=== PATIENT | male | born 1940 | race Caucasian/White ===

== ENCOUNTER 2019-01-12 11:45 | Outpatient (CLI) | payer BC, OTHER, SELFPAY ==
--- NOTE | 2019-01-12 10:55 | DI.RAD_ITS ---
SYMPTOM/DIAGNOSIS: SOB, UNINTENTIONAL WT LOSS, TOBACCO DEPENDENCY, R06.02, R63.4,F17.201 PA AND LATERAL CHEST: There are no prior comparison exams. The heart size is normal. The lungs show emphysematous changes and areas of scarring. No infiltrate, effusion or gross mass is identified. Hardware is noted in the lower cervical spine. There are no compression fractures. Degenerative changes and scoliosis are seen in the lower thoracic, upper lumbar region. IMPRESSION: Emphysematous and fibrotic changes. If there is concern for a mass, Chest CT should be performed.
== END 2019-01-12 12:05 ==
PROVIDERS: PCP Nurse Practitioner Family; Visit Provider Nurse Practitioner Family
DX: R06.02 Shortness of breath (principal); R63.4 Abnormal weight loss; F17.200 Nicotine dependence, unspecified, uncomplicated; J43.9 Emphysema, unspecified; J84.10 Pulmonary fibrosis, unspecified
CPT/HCPCS: 71046

== ENCOUNTER 2019-01-12 13:50 | Outpatient (REF) | payer BC, OTHER, SELFPAY ==
[2019-01-12 18:43] LABS: HCT 40.1 % (40.0-50.0); HGB 13.5 g/dL (13.5-17.5); Mean Corp. HGB Concentration 33.7 g/dL (32.0-36.0); Mean Corpuscular Hemoglobin 33.5 pg (27.0-33.0); Mean Corpuscular Volume 99.5 fL (80-95); Mean Platelet Volume 10.7 fL (8.0-11.0); Platelet Count 274 x1000/uL (130-400); RBC 4.03 m/cumm (4.50-6.00); RBC Distribution Width 13.1 % (11.8-14.1); White Blood Cell Count 4.31 k/cumm (4.4-10.8)
[2019-01-12 19:25] LABS: ALT 21 U/L (12-78); AST 20 U/L (15-37); Albumin 3.2 g/dL (3.4-5.0); Alkaline Phosphatase 77 U/L (46-116); Anion Gap 9.4 mmol/L (3-11); BUN 16 mg/dL (7-18); Bilirubin, Total 0.3 mg/dL (0.2-1.0); CO2 28.6 mmol/L (21.0-32.0); CREATININE 0.93 mg/dL (0.70-1.30); Calcium 10.1 mg/dL (8.5-10.1); Chloride 100 mmol/L (98-107); Glucose 95 mg/dL (70-100); Sodium 138 mmol/L (136-145); TSH (W/Ref FT4) 1.03 uIU/mL (0.358-3.74); Total Protein 7.1 g/dL (6.4-8.2)
== END 2019-01-12 14:10 ==
LOC: NCHCN 13:50
PROVIDERS: PCP Nurse Practitioner Family; Visit Provider Nurse Practitioner Family
DX: I10 Essential (primary) hypertension (principal); R06.02 Shortness of breath; R63.4 Abnormal weight loss
CPT/HCPCS: 80053; 85027; 84443

== ENCOUNTER 2020-01-04 11:17 | Outpatient (REF) | payer SELFPAY ==
[2020-01-04 16:11] LABS: Anion Gap 8.6 mmol/L (3-11); BUN 18 mg/dL (7-18); CO2 30.4 mmol/L (21.0-32.0); Calcium 9.6 mg/dL (8.5-10.1); Chloride 100 mmol/L (98-107); Glucose 88 mg/dL (74-106); Potassium 3.8 mmol/L (3.5-5.1); Sodium 139 mmol/L (136-145)
[2020-01-04 18:22] LABS: HCT 40.6 % (40.0-50.0); Mean Corp. HGB Concentration 34.5 g/dL (32.0-36.0); Mean Corpuscular Hemoglobin 34.5 pg (27.0-33.0); Mean Platelet Volume 10.9 fL (8.0-11.0); Platelet Count 262 x1000/uL (130-400); RBC 4.06 m/cumm (4.50-6.00); White Blood Cell Count 5.99 k/cumm (4.4-10.8)
== END 2020-01-04 11:37 ==
LOC: NCHCN 11:17
PROVIDERS: PCP Nurse Practitioner Family; Visit Provider Nurse Practitioner Family
DX: I10 Essential (primary) hypertension (principal); R63.4 Abnormal weight loss
CPT/HCPCS: 80048; 85027

== ENCOUNTER 2020-06-27 09:53 | Outpatient (CLI) | payer MEDICARE, SELFPAY ==
--- NOTE | 2020-06-27 13:41 | DI.RAD_ITS ---
EXAM: XR LUMBAR SPINE COMPLETE CLINICAL HISTORY: LOWER BACK PAIN, M54.5 TECHNIQUE: COMPARISON: No exams were available for comparison FINDINGS: Six views were obtained. There is moderate biconvex thoracolumbar scoliosis. There is lumbar frantz ctomy. There is marked loss of height of the intervertebral disc spaces throughout the lumbar region . There are prominent hypertrophic endplate and facet changes. There is no evidence of acute fractu re or dislocation. IMPRESSION: Severe DJD and scoliosis, no evidence of acute process. RADIATION DOSE DELIVERED: Total DLP
== END 2020-06-27 10:13 ==
PROVIDERS: PCP Nurse Practitioner Family; Visit Provider Physician Assistant
DX: M47.816 Spondylosis without myelopathy or radiculopathy, lumbar region (principal); M41.9 Scoliosis, unspecified
CPT/HCPCS: 72110

== ENCOUNTER 2020-08-15 09:54 | Outpatient (CLI) | payer OTHER, SELFPAY ==
--- NOTE | 2020-08-15 09:28 | DI.RAD_ITS ---
EXAM: XR KNEE LT 3V AP,LAT,STEFANIA CLINICAL HISTORY: knee pain. TECHNIQUE: 2D digital imaging was performed. COMPARISON: CR XR KNEE RT 3V AP,LAT,STEFANIA from 08/15/2020 FINDINGS: There are moderate degenerative changes of the left knee. This is characterized by joint space narro wing and periarticular spurring particularly in the femoral tibial joints. There is chondrocalcinosi s present. No acute fracture or dislocation. The bones are normally mineralized. There is atherosc lerosis. IMPRESSION: Moderate degenerative changes of the left knee. DATA REPOSITORY: RADIATION DOSE DELIVERED:
--- NOTE | 2020-08-15 09:30 | DI.RAD_ITS ---
EXAM: XR KNEE RT 3V AP,LAT,STEFANIA CLINICAL HISTORY: knee pain. TECHNIQUE: 2D digital imaging was performed. COMPARISON: No exams were available for comparison FINDINGS: There are moderate degenerative changes of the right knee characterized by joint space narrowing and periarticular spurring. The findings are most marked in the medial femoral tibial joint space. Ther e is chondrocalcinosis present. The bones are intact and normally mineralized. Atherosclerosis is p resent. IMPRESSION: Moderate degenerative changes of the right knee. DATA REPOSITORY: RADIATION DOSE DELIVERED:
== END 2020-08-15 10:14 ==
PROVIDERS: PCP Nurse Practitioner Family; Referring Provider Nurse Practitioner Family; Visit Provider Student in an Organized Health Care Education/Training Program
DX: M17.0 Bilateral primary osteoarthritis of knee (principal); M17.12 Unilateral primary osteoarthritis, left knee; M17.11 Unilateral primary osteoarthritis, right knee
CPT/HCPCS: 20610; 73562; 99203; J1040

== ENCOUNTER → 2020-11-24 10:25 | Outpatient (BNVA) | payer OTHER, SELFPAY | PROVIDERS: PCP Nurse Practitioner Family; Referring Provider Nurse Practitioner Family; Visit Provider Physician Assistant Surgical | DX: M17.12 Unilateral primary osteoarthritis, left knee (principal); Z98.890 Other specified postprocedural states | CPT/HCPCS: 20610; J1040 ==

== ENCOUNTER 2021-02-19 12:46 | Inpatient (IN) | payer OTHER, SELFPAY ==
[2021-02-19] VITALS (75 sets, daily range): BP systolic 94–127; BP diastolic 49–94; PULSE 79–128; RESP 13–32; TEMP 36.4–37.1; O2SAT 81–100
--- NOTE | 2021-02-19 | DI.RAD_ITS ---
Exam(s) XR PORTABLE CHEST AP EXAM: XR PORTABLE CHEST AP CLINICAL HISTORY: COPD, shortness of breath. TECHNIQUE: 2D digital imaging was performed. COMPARISON: CR XR CHEST 2V PA LATERAL from 01/12/2019 FINDINGS: Heart size is normal. The mediastinum is not widened. Lungs are clear. No infiltrates nor obvious pleural effusions. Patient is slightly rotated towards the left. Cardiac leads in place. Fusion plate in the lower cer vical spine again noted. IMPRESSION: No new significant pulmonary findings on this portable AP view. DATA REPOSITORY: RADIATION DOSE DELIVERED: All CT scans at this facility use at least one of these dose optimization techniques: automated exposure control; mA and/or kV adjustment per patient size (includes targeted e xams where dose is matched to clinical indication); or iterative reconstruction.
--- NOTE | 2021-02-19 12:30 | RT.EKG_ITS ---
APPROVED REPORT Exam: Resting ECG Reason for Exam: tachycardia, GI bleed Patient Location: E HR:125 bpm ECG Measurements Heart Rate 125 AXIS [place] 160 P 88 QRSd 95 QRS 79 QT 306 T 60 QTc [address] depr anterolateral leads, may be rate related
--- NOTE | 2021-02-19 12:38 | ED.GENADUL_ITS ---
Discharge Plan Discharge Details Chief Complaint: GI Bleed Primary Care Provider: Yeni Williamson ED Provider: Viktor Pearson Home Meds and New Rx's Prescriptions: No Action eszopiclone [Lunesta] 1 mg tablet 1 mg PO QHS PRNRF: 0 cholecalciferol (vitamin D3) [Vitamin D3] 125 mcg (5,000 unit) Tablet 125 mcg PO DAILY RF: 0 vitamin B complex [B Complex-Vitamin B12] Tablet 1 tab PO DAILY RF: 0 albuterol sulfate [ProAir HFA] 90 mcg/actuation HFA aerosol inhaler 2 puff inhalation Q6H PRNRF: 0 meloxicam 15 mg tablet 15 mg PO DAILY RF: 0 cyclobenzaprine 10 mg tablet 10 mg PO TID RF: 0 potassium chloride 10 mEq capsule, extended release 10 meq PO DAILY RF: 0 amlodipine 5 mg tablet 5 mg PO DAILY RF: 0 hydrochlorothiazide 25 mg tablet 25 mg PO DAILY RF: 0 acetaminophen 500 mg capsule 1,000 mg PO DAILY AM PRNRF: 0 aspirin [Adult Aspirin Regimen] 81 mg tablet,delayed release (DR/EC) 81 mg PO .COMPLEX RF: 0 Medical Decision Making 81-year-old male reports intermittent episodes of dark tarry stool over weeks, which he attributes to tapering off of gabapentin. There is report of a syncopal event this past Saturday. Today he noted increased weakness, was noted to have syncope while sitting up and EMS reported blood pressure 85/53 while sitting up at home. Patient was brought via EMS. He arrives to ER tachycardic pale in appearance, with dark tarry stool present on exam that is guaiac positive. 2 IVs placed, patient given small fluid bolus awaiting laboratories.. Initial hemoglobin is 6.1. Patient consented for administration of blood products 2 units PRBCs ordered. The remainder of the patient's labs noted a magnesium of 1.4, sodium 133, potassium 3.6, chloride 96, bicarb 22, BUN 34, creatinine 1.1. Normal LFTs. Negative troponin. Given that the differential diagnosis includes colitis, mass, patient was referred for CT imaging. Patients pulse and blood pressure have stablilized. PRBC's infusing. CT reveals large amount of retained stool, no evidence of other acute significant findings. Patient wishes to be full code. We will proceed with admission for further evaluation and management. Case discussed with Dr. Solorio. HPI General Mode of arrival: EMS . Date/Time Provider Initiated Documentation: 02/19/21 12:50 . Limitations to Documentation: no limitations . Information obtained by: patient and EMS . History of Present Illness 81 year old M presents to the emergency department with the chief complaint of Dark tarry stools for 3weeks, syncope on Saturday/today, described as moderate, and is localized to the abdomen. Patient reports no radiation. Patient started experiencing this day(s) and it has been intermittent. No relieving factors improve symptom(s), No exacerbating factors reported . Patient notes syncope and weakness. Patient did receive the following treatments prior to arrival, none Related Data Home Medications Medication Instructions Recorded Confirmed albuterol sulfate 90 mcg/actuation 2 puff INHALATION Q6H PRN 08/16/20 02/19/21 aerosol inhaler amlodipine 5 mg tablet 5 mg PO DAILY 08/16/20 02/19/21 cyclobenzaprine 10 mg tablet 10 mg PO TID 08/16/20 02/19/21 hydrochlorothiazide 25 mg tablet 25 mg PO DAILY 08/16/20 02/19/21 meloxicam 15 mg tablet 15 mg PO DAILY 08/16/20 02/19/21 potassium chloride 10 mEq 10 meq PO DAILY 08/16/20 02/19/21 capsule,extended release cholecalciferol (vitamin D3) 125 mcg PO DAILY 08/18/20 02/19/21 [Vitamin D3] vitamin B complex 1 tab PO DAILY 08/30/20 02/19/21 acetaminophen 500 mg capsule 1,000 mg PO DAILY AM PRN cap 10/17/20 02/19/21 aspirin 81 mg tablet,delayed 81 mg PO .COMPLEX 10/17/20 02/19/21 release eszopiclone 1 mg tablet 1 mg PO QHS PRN 10/17/20 02/19/21 Allergies Allergy/AdvReac Type Severity Reaction Status Date / Time shellfish derived Allergy vomiting Verified 02/19/21 13:05 COUNTS INCLUDE 234 BEDS AT THE [facility] Medical History Anosmia Balance problem Chronic back pain Diarrhea Exertional dyspnea Herniated lumbar intervertebral disc Hip pain, left History of traumatic fracture of vertebra HTN (hypertension) Hx of squamous cell carcinoma Knee pain, bilateral Lower back pain Osteoarthritis of left knee Steroid injection: 08/15/2020 Osteoarthritis of lumbar spine Osteoarthritis of right knee Steroid injection: 08/15/2020 Spondylosis of lumbar spine Spondylosis, cervical Tobacco dependence in remission Unintentional weight loss Vitamin D deficiency Surgical History S/P cervical spinal fusion S/P laminectomy Social History Smoking/Tobacco Use Status: Former Tobacco Use Smoking risk assessment performed?: Yes Alcohol Intake: current Alcohol Intake frequency: 3 or more drinks per day Alcohol type: beer and hard liquor Drug use: Never Substance use type: does not use Household members: spouse Housing: house Number of Children: 1 current occupation: Retired Exam Narrative Exam Narrative: GEN: Pale in appearance, awake, alert, oriented 3. Pleasant, well groomed, interactive. HEAD: Normocephalic, atraumatic ENT: Mucous membranes moist, oropharynx unremarkable, External ear exam unremarkable EYES: PERRL, EOMI NECK: Full ROM, no JESSE, no menigismus CHEST/RESP: Nontender, clear to auscultation bilateral, no wheeze/rhonchi/rales CARDIOVASCULAR: Distant, regular and tachycardic, no murmur, rub fatou. 1+ Rad pulse bilateral ABDOMEN: Soft, nontender, no mass. +Bowel sounds that are increased, normal rectal tone, there is soft stool ball present with additional dark stool that is guaiac positive EXT: Full ROM, no edema, no rash Neuro: Grossly normal neurologic exam, conversant, interactive. Psych: Speech fluent, thoughts congruent, affect normal
[2021-02-19] MEDS: Normal Saline 1,000 ML 125 ML IV ×2 (12:55→18:43)
[2021-02-19 13:02] LABS: Absolute Basophil Count 0.04 10^3/uL (0.0-0.2); Absolute Lymphocyte Count 1.72 10^3/uL (1.2-3.4); Absolute Monocyte Count 0.99 10^3/uL (0.1-0.8); Basophils % 0.3; Eosinophils % 0.1; Immature Grans % 1.4; Lymphocytes % 11.7; MCH 33.5 pg (27.0-33.0); MCHC 32.1 % (32.0-36.0); MCV 104.4 fL (80-95); MPV 10.3 fL (8.0-11.0); Monocytes % 6.7; Neutrophils % 79.8; Nucleated RBC 0 %; Platelet Count 495 10^3/uL (130-400); RBC 1.82 10^6/uL (4.36-5.78); RDW 13.8 % (11.8-14.1); RDW-SD 50.2 fL; WBC 14.73 10^3/uL (4.4-10.8)
[2021-02-19 13:10] LABS: Absolute Eosinophil Count 0.01 10^3/uL (0.0-0.7); Absolute Neutrophil Count 11.75 10^3/uL (1.2-6.7)
[2021-02-19 13:11] LABS: HGB 6.1 g/dL (13.5-17.5)
[2021-02-19 13:14] LABS: Prothrombin Time 9.8 sec (9.3-11.0)
[2021-02-19 13:17] LABS: ALT 17 U/L (16-63); AST 16 U/L (15-37); Albumin 2.9 g/dL (3.4-5.0); Alkaline Phosphatase 88 U/L (46-116); BUN 34 mg/dL (7-18); Bilirubin, Total 0.3 mg/dL (0.2-1.0); CREATININE 1.1 mg/dL (0.70-1.30); Calcium 9.1 mg/dL (8.5-10.1); Chloride 96 mmol/L (98-107); Glucose 160 mg/dL (74-106); Magnesium 1.4 mg/dL (1.8-2.4); Potassium 3.7 mmol/L (3.5-5.1); Sodium 133 mmol/L (136-145); Total Protein 6.9 g/dL (6.4-8.2); Troponin I < 0.05 ng/mL (<0.06)
[2021-02-19 13:19] LABS: Diff Comment RBC Morph Reviewed; Macrocytosis 1+
[2021-02-19 13:20] LABS: Poikilocytes 1+; Polychromasia Present
[2021-02-19] MEDS: MAGNESIUM SULFATE 2 GM/50 ML BAG IVPB (13:25)
[2021-02-19] MEDS: Omnipaque 350 MG/ML 100 ML BTL IJ (14:35)
[2021-02-19] MEDS: Normal Saline - Diluent 50 ML VIAL IV (14:35)
--- NOTE | 2021-02-19 14:39 | DI.CT_ITS ---
Exam(s) CT ABDOMEN PELVIS W EXAM: CT ABDOMEN PELVIS W CLINICAL HISTORY: GIB, lower abdomen cramps, wait for CR. TECHNIQUE: Imaging Protocol: Axial computed tomography images with coronal and sagittal reformatted images were created and reviewed CONTRAST MATERIAL: Intravenous: Omnipaque 100cc Oral: None COMPARISON: No exams were available for comparison FINDINGS: VISUALIZED LUNG BASES: No nodules nor pleural effusions evident. Coronary artery calcification incid entally noted. ABDOMEN: There is no ascites. LIVER: There are no focal hepatic lesions evident . GALLBLADDER/BILIARY: Gallstones are noted. Also some hyperdense bile. No obvious gallbladder wall e ernestine nor pericholecystic fluid. CBD is not dilated. PANCREAS: No evidence of pancreatic mass nor dilatation of the pancreatic duct. SPLEEN: Spleen is not enlarged. No obvious intrasplenic lesions. Splenic and portal veins are paten t. ADRENALS: Right adrenal gland unremarkable. There is some thickening of the left adrenal gland havin g peer insert hyperplasia. KIDNEYS:No cysts evident. No solid renal masses. No calculi nor hydronephrosis.. ABDOMINAL AORTA: The abdominal aorta is calcified-atherosclerotic. There is a mild fusiform infraren al abdominal aortic aneurysm which exhibits maximum diameter of 2.4 cm. No significant arterial magali ly in the iliac arteries. 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 Celiac patent. Inferior mesenteric artery is patent. There is no evidence of embolus more seen more distally in the SMA. LYMPH NODES:There is no retroperitineal nor paraaortic adenopathy. ABDOMINAL WALL: Bilateral inguinal hernias which contain bowel loops. These do not appear edematous. GI: There is no evidence of bowel obstruction, free air, nor abscess. There are no obvious acutely ischemic appearing bowel loops. However, there is abundant fecal materi al in the colon and the rectum is distended was fecal material measuring 9 cm AP x 7.5 cm wide. Prob ably impaction. PELVIS: GI: No evidence of appendicitis.No evidence of sigmoid diverticulitis. LYMPH NODES: There is no intrapelvic nor inguinal adenopathy. REPRODUCTIVE: Prostate not enlarged. URINARY BLADDER: Diffuse thickening of the urinary bladder wall is noted (10 millimeters). Probably related to chronic cystitis. No calculi seen within the urinary bladder lumen. OSSEOUS: Multilevel lumbar laminectomies. IMPRESSION: 1. Cholelithiasis. No obvious acute cholecystitis nor dilatation of the biliary tree, both intra and extrahepatic. 2. Atherosclerotic abdominal aorta as scribe above. 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 Celiac artery is pat ent as is the inferior mesenteric artery. There are no obvious acutely ischemic appearing bowel loop s. 3. Bilateral inguinal hernias which contain non dilated and non edematous loops of small bowel. 4. Large amount of retained fecal material in the colon and rectum with grossly distended rectum with measurement 9 x 7.5 cm. Diffuse thickening of the urinary bladder wall, probably related to cystitis but cannot exclude neopl asm. RADIATION DOSE DELIVERED: 719.84mGy.cm Total DLP DATA REPOSITORY: All CT scans at this facility are submitted to the National Radiology Data Registry (NRDR) Dose Index Registry (DIR) with the [employer] (A[employer]). RADIATION OPTIMIZATION: All CT scans at this facility use at least one of these dose optimization te chniques: automated exposure control; mA and/or kV adjustment per patient size (includes targeted exa ms where dose is matched to clinical indication); or iterative reconstruction.
--- NOTE | 2021-02-19 15:36 | DI.VRAD_ITS ---
PROCEDURE INFORMATION: Exam: CT Abdomen And Pelvis With Contrast Exam date and time: 02/19/2021 1:03 PM Age: 81 years old Clinical indication: Abdominal pain; Localized; Patient HX: Lower abd cramps. Gib; Additional info: Rectal bleeding TECHNIQUE: Imaging protocol: Computed tomography of the abdomen and pelvis with contrast. Radiation optimization: All CT scans at this facility use at least one of these dose optimization techniques: automated exposure control; mA and/or kV adjustment per patient size (includes targeted exams where dose is matched to clinical indication); or iterative reconstruction. Contrast material: OMNI 350; Contrast volume: 100 ml; Contrast route: INTRAVENOUS (IV); COMPARISON: CR XR LUMBAR SPINE COMPLETE 06/27/2020 1:31 PM FINDINGS: Lungs: Emphysematous changes of the lungs are present. Liver: Normal. No mass. Gallbladder and bile ducts: Gallstones are present. There is no gallbladder wall thickening or pericholecystic fluid. No bile duct dilatation is seen. Pancreas: Normal. No ductal dilation. Spleen: Normal. No splenomegaly. Adrenal glands: Normal. No mass. Kidneys and ureters: Normal. No hydronephrosis. Stomach and bowel: There is a large amount of retained stool retained within the colon and rectum. The rectum is dilated measuring up to 9 cm in diameter. Appendix: No evidence of appendicitis. Intraperitoneal space: Unremarkable. No free air. No significant fluid collection. Vasculature: The aorta demonstrates moderate atherosclerotic calcification. Lymph nodes: Unremarkable. No enlarged lymph nodes. Urinary bladder: Thickened wall of the urinary bladder. Reproductive: Unremarkable as visualized. Bones/joints: Chronic degenerative changes of the spine are present. Soft tissues: Bilateral inguinal hernia is present containing nondilated loops of small bowel. IMPRESSION: 1. Emphysematous changes of the lungs. 2. Cholelithiasis. 3. Large amount of retained stool in the colon and rectum. Fecal impaction is present. Advanced chronic degenerative changes spine. 4. Bilateral inguinal hernias containing nondilated loops of small bowel. 5. Urinary bladder wall thickening. This may be artifact due to lack of distention. However, cystitis or neoplasm cannot be excluded. Dictated and Authenticated by: Onesimo Akers MD. Ordering:MIRIAM Hoang MD
[2021-02-19 15:52] LABS: Source Nasal/Nares
--- NOTE | 2021-02-19 16:40 | W.PM.HP.N ---
Date of service: 02/19/21 Time of Service: 16:40 Assessment and Plan Assessment and plan (1) Upper GI bleeding: Status: Acute Assessment and plan: suspect due to NSAID use. Admit to ICU with Q6H H/H, protonix gtt, carafate. Transfusing 2 units pRBCs today. May require more. Hold NSAIDS. No chemical DVT ppx. C/s general surgery. (2) Symptomatic anemia: Status: Acute Assessment and plan: Due to above. As above Monitor orthostatics. (3) Syncope: Status: Acute Assessment and plan: Likely due to acute symptomatic anemia of GI bleeding. VS improved since initiation of blood transfusion. Monitor in the ICU. Monitor orthostatic Vitals. (4) Fecal impaction: Status: Acute Assessment and plan: Will need a bowel regimen. Order fleet enema. May benefit from a colonoscopy on this admission. Per my conversation with Dr Mays, the patient had a somewhat weakened rectal tone. Given his h/o lower back surgery and appearance of a thickened bladder, it is possible he has a neurogenic bowel. None of this appears acute or new. Consider MRI. (5) Leg swelling: Status: Resolved Assessment and plan: No edema on today's exam. ?CHF. Check echo. (6) Chest discomfort: Status: Resolved Assessment and plan: Symptomatic anemia vs esophagitis vs underlying coronary disease. Treat anemia and esophagitis as above. Obtain echo. May require MPI. (7) COPD (chronic obstructive pulmonary disease): Status: Chronic Assessment and plan: Not in acute exacebation. Continue home inhalers. (8) Alcohol abuse: Status: Chronic Assessment and plan: Start CIWA/prn ativan/banana bag. (9) Chronic pain: Status: Chronic Assessment and plan: Hold NSAIDS. Offer tylenol and prn morphine. On d/c, consider ultram. 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 Asymptomatic. Will need vascular follow up - referral sent. (11) DVT prophylaxis: Status: Acute Assessment and plan: TEDS/SCDs. Chemical DVT ppx is contraindicated in setting of acute GI bleeding. (12) Discharge planning issues: Status: Acute Assessment and plan: Full code Admit to ICU. Total Critical Care Time 60 minutes. History of Present Illness History of Present Illness Chief Complaint: Tarry stools, three syncopal episodes Narrative: Mr Jorgensen is an 81 year old male with PMHx of ostoarthritis, on mobic, as well as h/o HTN, non-oxygen dependent COPD, and chronic pain, who presented to [facility] ED today c/o black tarry stools and several syncopal episodes. He reports black stools for about 2 weeks. Additionally, there was an episode of scant hematemesis 3 days ago. The patient endorses poor appetite, poor PO intake, nausea and dry heaving. There has not been any diarrhea but he does report constipation last week. He has felt weaker over the last 3 days. He denies abdominal pain, chest pain, but endorses a chest heaviness which has been going off for 3-4 weeks and ankle and foot swelling which happened 2-3 weeks ago and has since resolved. The chest heaviness was continuous. It has resolved now. Denies orthopnea/PND. He is only able to walk a few feet before feeling short of breath. Describes an episode of LOC after getting up from the toilet having unsuccessfully strained to have a bowel movement last week. He describes another episode of LOC 3 days ago while sitting in a recliner. Finally, there was an episode of syncope today when the patient tried to transfer himself from a wheel chair (felt weak and requested his use this to get him out of the bathroom) into a rocking chair. He was orthostatic and found to be hypotensive while sitting up by EMS. He was tachycardic, orthostatic, and pale in the ED. His HR was 125. His hemoglobin was 6.1. HR is better after receiving 1 unit of pRBCs. He was initiated on IV protonix. Hospitalist admission was requested. He is getting admitted to the ICU. Of note, the patient has not had prior EGD or colonoscopy. He is open to having both procedures. He drinks an equivalent of 3-4 drinks a day (scotch) that he states helps him fall asleep. Review of Systems All systems reviewed & are unremarkable except as noted in HPI and below [facility] Medical History (Updated 02/19/21 @ 19:14 by Wanda Solorio MD) Alcohol abuse Anosmia Balance problem Chronic back pain COPD (chronic obstructive pulmonary disease) Diarrhea Exertional dyspnea Herniated lumbar intervertebral disc Hip pain, left History of traumatic fracture of vertebra HTN (hypertension) Hx of squamous cell carcinoma Knee pain, bilateral Lower back pain Osteoarthritis of left knee Steroid injection: 08/15/2020 Osteoarthritis of lumbar spine Osteoarthritis of right knee Steroid injection: 08/15/2020 Spondylosis of lumbar spine Spondylosis, cervical Tobacco dependence in remission Unintentional weight loss Vitamin D deficiency Surgical History S/P cervical spinal fusion S/P laminectomy Social History Smoking/Tobacco Use Status: Former Tobacco Use Smoking risk assessment performed?: Yes Alcohol Intake: current Alcohol Intake frequency: 3 or more drinks per day Alcohol type: beer and hard liquor Drug use: Never Substance use type: does not use Household members: spouse Housing: house Number of Children: 1 current occupation: Retired [employer] Allergies and Home Medications Allergies Allergy/AdvReac Type Severity Reaction Status Date / Time No Known Allergies Allergy Verified 02/19/21 18:51 Home Medications Medication Instructions Recorded Confirmed Type albuterol sulfate 90 mcg/actuation 2 puff INHALATION Q6H PRN 08/16/20 02/19/21 History aerosol inhaler amlodipine 5 mg tablet 5 mg PO DAILY 08/16/20 02/19/21 History cyclobenzaprine 10 mg tablet 10 mg PO TID 08/16/20 02/19/21 History hydrochlorothiazide 25 mg tablet 25 mg PO DAILY 08/16/20 02/19/21 History meloxicam 15 mg tablet 15 mg PO DAILY 08/16/20 02/19/21 History potassium chloride 10 mEq 10 meq PO DAILY 08/16/20 02/19/21 History capsule,extended release cholecalciferol (vitamin D3) 125 mcg PO DAILY 08/18/20 02/19/21 History [Vitamin D3] vitamin B complex 1 tab PO DAILY 08/30/20 02/19/21 History acetaminophen 500 mg capsule 1,000 mg PO DAILY AM PRN cap 10/17/20 02/19/21 History aspirin 81 mg tablet,delayed 81 mg PO .COMPLEX 10/17/20 02/19/21 History release eszopiclone 1 mg tablet 1 mg PO QHS PRN 10/17/20 02/19/21 History Exam Narrative Exam Narrative: General: Pleasant elderly male who is pale and does not look like he is feeling well, A&Ox3, pursed lip breathing Neurological: A&Ox3, no obvious focal deficits Psychiatric: mildly anxious, appropriate speech pattern/content Skin: Visible skin intact HEENT: Atraumatic, normocephalic, EOMI, Dry MM, clear oropharynx, no submandibular or cervical lymphadenopathy, no goiter or JVD Cardiovascular: RRR, mildly tachycardic (low 110s), no m/r/g Lungs: CTAB Gastrointestinal: soft, nontender, nondistended, + BS Genitourinary: dark but not tarry stool by rectum; observed rectal exam performed by Dr Mays. No blood. Extremities: No edema, clubbing, or cyanosis of BLE's, 1+ pedal pulse RLE, trace pedal pulse LLE Results Imaging Additional studies: EKG: ST, HR 125, nonspecific ST-T changes. CT abdomen/pelvis w/ contrast: 1. Cholelithiasis. No obvious acute cholecystitis nor dilatation of the biliary tree, both intra and extrahepatic. 2. Atherosclerotic abdominal aorta as scribe above. 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 Celiac artery is patent as is the inferior mesenteric artery. There are no obvious acutely ischemic appearing bowel loops. 3. Bilateral inguinal hernias which contain non dilated and non edematous loops of small bowel. 4. Large amount of retained fecal material in the colon and rectum with grossly distended rectum with measurement 9 x 7.5 cm. Diffuse thickening of the urinary bladder wall, probably related to cystitis but cannot exclude neoplasm. Labs Result diagrams: 02/19/21 12:45 02/19/21 12:45 Labs: Laboratory Results - last 24 hr 02/19/21 02/19/21 02/19/21 12:45 12:45 12:45 WBC 14.73 H RBC 1.82 L Hgb 6.1 L* Hct 19.0 L* MCV 104.4 H MCH 33.5 H MCHC 32.1 RDW 13.8 Plt Count 495 H MPV 10.3 Immature Gran % 1.4 Neutrophils % 79.8 Lymphocytes % 11.7 Monocytes % 6.7 Eosinophils % 0.1 Basophils % 0.3 Nucleated RBC % 0 Absolute Neutrophils 11.75 H Absolute Lymphocytes 1.72 Absolute Monocytes 0.99 H Absolute Eosinophils 0.01 Absolute Basophils 0.04 RBC Morphology See below Polychromasia Present Poikilocytosis 1+ Macrocytosis 1+ PT INR Sodium 133 L Potassium 3.7 Chloride 96 L Carbon Dioxide 22.0 Anion Gap 15.0 H BUN 34 H Creatinine 1.1 Estimated GFR/1.73 m2 >= 60.00 Glucose 160 H Calcium 9.1 Magnesium 1.4 L Total Bilirubin 0.3 AST 16 ALT 17 Alkaline Phosphatase 88 Troponin I < 0.05 Total Protein 6.9 Albumin 2.9 L COVID-19 Source Patient ABO/Rh A Positive Antibody Screen Negative Crossmatch See Detail 02/19/21 02/19/21 12:55 15:45 WBC RBC Hgb Hct MCV MCH MCHC RDW Plt Count MPV Immature Gran % Neutrophils % Lymphocytes % Monocytes % Eosinophils % Basophils % Nucleated RBC % Absolute Neutrophils Absolute Lymphocytes Absolute Monocytes Absolute Eosinophils Absolute Basophils RBC Morphology Polychromasia Poikilocytosis Macrocytosis PT 9.8 INR 1.0 Sodium Potassium Chloride Carbon Dioxide Anion Gap BUN Creatinine Estimated GFR/1.73 m2 Glucose Calcium Magnesium Total Bilirubin AST ALT Alkaline Phosphatase Troponin I Total Protein Albumin COVID-19 Source Nasal/nares Patient ABO/Rh Antibody Screen Crossmatch Last Vital Signs Temp 37 C 02/19/21 16:01 Pulse 79 02/19/21 16:01 Resp 16 02/19/21 16:01 BP 114/54 L 02/19/21 16:01 Pulse Ox 100 02/19/21 16:01
[2021-02-19] MEDS: Pantoprazole 40 MG VIAL IVP ×2 (16:50→17:46)
--- NOTE | 2021-02-19 19:00 | W.SURGCON ---
Date of service: 02/19/21 Time of Service: 19:00 Assessment and Plan Assessment and plan (1) Upper GI bleeding: Status: Acute Assessment and plan: 81yo male who presents with profound anemia likely due to a slow, progressive upper GI source. His chronic NSAID use, and daily alcohol use, likely contributing. At the time of my evaluation, he is tachycardic, but otherwise hypotension has resolved. --serial H/H --protonix gtt --carafate --transfuse prn --SCDs for DVT prophylaxis. (2) Fecal impaction: Status: Acute Assessment and plan: Recommend bowel regimen from above and below --enemas --suppositories --digital rectal stimulation --digital disimpaction --Miralax --colace/senna (3) COPD (chronic obstructive pulmonary disease): Status: Chronic Assessment and plan: Treatment per primary service (4) Alcohol abuse: Status: Chronic Assessment and plan: pt counseled to decrease alcohol intake CIWA protocol per Hospitalist service (5) Chronic pain: Status: Chronic Assessment and plan: avoid NSAIDs History of Present Illness History of Present Illness Chief Complaint: weakness/syncope Narrative: Note: Pt was seen and examined with Dr. Solorio The patient is an 81 year old male with PMHx of ostoarthritis, on meloxicam, as well as h/o HTN, non-oxygen dependent COPD, and chronic pain, who presented to [facility] ED today c/o black tarry stools and several syncopal episodes. He reports black stools for about 2 weeks. Additionally, there was an episode of scant hematemesis with retching 3 days ago. The patient endorses poor appetite, poor PO intake, nausea and dry heaving. There has not been any diarrhea but he does report constipation last week.Describes an episode of LOC after getting up from the toilet having unsuccessfully strained to have a bowel movement last week. He has felt weaker over the last 3 days. He denies abdominal pain, chest pain, but endorses a chest heaviness which has been going off for 3-4 weeks and ankle and foot swelling which happened 2-3 weeks ago and has since resolved. The chest heaviness was continuous. It has resolved now. Denies orthopnea/PND. He is only able to walk a few yards before feeling short of breath. He describes another episode of LOC 3 days ago while sitting in a recliner. Finally, there was an episode of syncope today when the patient tried to transfer himself from a wheel chair (felt weak and requested his use this to get him out of the bathroom) into a rocking chair. He drinks an equivalent of 3-4 drinks a day (scotch) that he states helps him fall asleep. He denies heartburn/GERD symptoms. The patient has not had prior EGD or colonoscopy. Consults Consult date: 02/19/21 Requesting physician: Wanda Solorio Review of Systems Constitutional Constitutional: Reports difficulty sleeping, Reports fatigue, Reports lethargy, Reports poor appetite and Reports weakness ENT Ears, Nose, Mouth, and Throat: Denies odynophagia and Reports disequilibrium Cardiovascular Cardiovascular: Reports pedal edema, Reports leg edema and Reports dyspnea on exertion Comments: chest pressure Respiratory Respiratory: Reports dyspnea on exertion Gastrointestinal Gastrointestinal: Reports melena, Reports constipation, Reports nausea and Denies odynophagia Comments: small amount of blood with dry heaving once last week Musculoskeletal Musculoskeletal: Reports back pain Comments: leg weakness that he attributes to laminectomy 25 years ago Neurologic Neurologic: Denies confusion, Reports disequilibrium and Reports weakness Psychiatric Psychiatric: Reports change in appetite and Denies confusion Endocrine Endocrine: Reports cold intolerance and Reports fatigue [facility] Medical History (Updated 02/19/21 @ 19:14 by Wanda Solorio MD) Alcohol abuse Anosmia Balance problem Chronic back pain COPD (chronic obstructive pulmonary disease) Diarrhea Exertional dyspnea Herniated lumbar intervertebral disc Hip pain, left History of traumatic fracture of vertebra HTN (hypertension) Hx of squamous cell carcinoma Knee pain, bilateral Lower back pain Osteoarthritis of left knee Steroid injection: 08/15/2020 Osteoarthritis of lumbar spine Osteoarthritis of right knee Steroid injection: 08/15/2020 Spondylosis of lumbar spine Spondylosis, cervical Tobacco dependence in remission Unintentional weight loss Vitamin D deficiency Surgical History S/P cervical spinal fusion S/P laminectomy Social History Smoking/Tobacco Use Status: Former Tobacco Use Smoking risk assessment performed?: Yes Alcohol Intake: current Alcohol Intake frequency: 3 or more drinks per day Alcohol type: beer and hard liquor Drug use: Never Substance use type: does not use Household members: spouse Housing: house Number of Children: 1 current occupation: Retired Exam Const General: cooperative, comfortable and no acute distress Nutritional Appearance: thin Orientation: alert, awake and oriented x3 HENMT Head: normal to inspection Ears: hearing grossly normal bilaterally Mouth: mucous membranes dry Eyes Other: no scleral icterus Neck Neck: supple and no tracheal deviation Chest Chest: No rash Resp Effort & Inspection: no grunting, labored (slightly), no nasal flaring and pursed lip breathing Auscultation: clear to auscultation bilaterally Cardio Rate: tachycardic Rhythm: regular rhythm Heart Sounds: S1 normal and S2 normal Bruits: no abdominal aortic bruits GI Palpation: soft, not firm, no guarding, no pulsatile masses, not rigid, nontender and No ascites Auscultation: normal bowel sounds Rectal Exam: abnormal sphincter tone (slightly decreased sphincter tone), fecal impaction and No tenderness Other: soft brown stool without larry blood on ALFRED; Rectum vacuous and stool-filled Neuro General: patient alert, patient awake, patient oriented x3 and moves all extremities Cognition: normal cognition Speech: speech normal Extrem General: clubbing, cyanosis or edema noted and no calf tenderness Psych Appearance: grossly normal Speech and Movement: speech and movement normal Mood: congruent mood Affect: normal affect Attitude: cooperative Thought Process: normal Thought Content: normal Insight: insight good Judgment: judgment good Results Last Vital Signs Temp 98.8 F 02/19/21 18:16 Pulse 103 H 02/19/21 18:16 Resp 16 02/19/21 18:16 BP 127/67 02/19/21 18:16 Pulse Ox 99 02/19/21 18:16 Labs Result diagrams: 02/19/21 18:55 02/19/21 12:45 Labs: Laboratory Results - last 24 hr 02/19/21 02/19/21 02/19/21 12:45 12:45 12:45 WBC 14.73 H RBC 1.82 L Hgb 6.1 L* Hct 19.0 L* MCV 104.4 H MCH 33.5 H MCHC 32.1 RDW 13.8 Plt Count 495 H MPV 10.3 Immature Gran % 1.4 Neutrophils % 79.8 Lymphocytes % 11.7 Monocytes % 6.7 Eosinophils % 0.1 Basophils % 0.3 Nucleated RBC % 0 Absolute Neutrophils 11.75 H Absolute Lymphocytes 1.72 Absolute Monocytes 0.99 H Absolute Eosinophils 0.01 Absolute Basophils 0.04 RBC Morphology See below Polychromasia Present Poikilocytosis 1+ Macrocytosis 1+ PT INR Sodium 133 L Potassium 3.7 Chloride 96 L Carbon Dioxide 22.0 Anion Gap 15.0 H BUN 34 H Creatinine 1.1 Estimated GFR/1.73 m2 >= 60.00 Glucose 160 H Calcium 9.1 Magnesium 1.4 L Total Bilirubin 0.3 AST 16 ALT 17 Alkaline Phosphatase 88 Troponin I < 0.05 Total Protein 6.9 Albumin 2.9 L COVID-19 Source Patient ABO/Rh A Positive Antibody Screen Negative Crossmatch See Detail 02/19/21 02/19/21 12:55 15:45 WBC RBC Hgb Hct MCV MCH MCHC RDW Plt Count MPV Immature Gran % Neutrophils % Lymphocytes % Monocytes % Eosinophils % Basophils % Nucleated RBC % Absolute Neutrophils Absolute Lymphocytes Absolute Monocytes Absolute Eosinophils Absolute Basophils RBC Morphology Polychromasia Poikilocytosis Macrocytosis PT 9.8 INR 1.0 Sodium Potassium Chloride Carbon Dioxide Anion Gap BUN Creatinine Estimated GFR/1.73 m2 Glucose Calcium Magnesium Total Bilirubin AST ALT Alkaline Phosphatase Troponin I Total Protein Albumin COVID-19 Source Nasal/nares Patient ABO/Rh Antibody Screen Crossmatch Imaging Abdomen CT scan report/results: report reviewed and image reviewed CT scan - pelvis: report reviewed and image reviewed Imaging Studies: CT ABD/PEL (02/19/21): IMPRESSION: 1. Cholelithiasis. No obvious acute cholecystitis nor dilatation of the biliary tree, both intra and extrahepatic. 2. Atherosclerotic abdominal aorta as scribe above. 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 Celiac artery is patent as is the inferior mesenteric artery. There are no obvious acutely ischemic appearing bowel loops. 3. Bilateral inguinal hernias which contain non dilated and non edematous loops of small bowel. 4. Large amount of retained fecal material in the colon and rectum with grossly distended rectum with measurement 9 x 7.5 cm. 5. Diffuse thickening of the urinary bladder wall, probably related to cystitis but cannot exclude neoplasm.
--- NOTE | 2021-02-19 19:05 | DI.VRAD_ITS ---
PROCEDURE INFORMATION: Exam: XR Chest Exam date and time: 02/19/2021 6:37 PM Age: 81 years old Clinical indication: Other: Copd shortness of breath; Additional info: Not able to repeat image to remove wires - PT. Needed to lie back down per nurse TECHNIQUE: Imaging protocol: XR of the chest. Views: 1 view. COMPARISON: CR XR CHEST 2V PA LATERAL 01/12/2019 10:56 AM FINDINGS: Tubes, catheters and devices: Lead EKG leads overlie the chest. Lungs: Unremarkable. No consolidation. Pleural spaces: Right lateral pleuroparenchymal scarring is unchanged. No pleural effusion. No pneumothorax. Heart/Mediastinum: Unremarkable. No cardiomegaly. Bones/joints: Postsurgical changes of the cervical spine are present. IMPRESSION: No acute findings. Dictated and Authenticated by: Onesimo Akers MD. Ordering:DEMARCO Muñoz MD
[2021-02-19 19:11] LABS: HCT 22.8 % (40.0-50.0); HGB 7.6 g/dL (13.5-17.5)
[2021-02-19 22:39] LABS: COVID-19 PCR Negative (Negative)
[2021-02-19] MEDS: Sucralfate 1 GM TAB PO (22:44)
[2021-02-19] MEDS: MORPHine 2 MG/ML SYR IVP (22:44)
[2021-02-19] MEDS: Docusate Sodium 100 MG CAP PO (22:44)
[2021-02-19] MEDS: Cyclobenzaprine 10 MG TAB PO (22:44)
[2021-02-20] VITALS (45 sets, daily range): BP systolic 97–135; BP diastolic 56–85; PULSE 85–138; RESP 15–39; TEMP 36.3–37.1; O2SAT 90–100; BMI 18.1
[2021-02-20] MEDS: THIAMINE 100 MG in Normal Saline 100 ML 200 MG IVPB (00:31)
[2021-02-20 01:13] LABS: HCT 25.2 % (40.0-50.0); HGB 8.6 g/dL (13.5-17.5)
[2021-02-20] MEDS: MAGNESIUM SULFATE 8.12 MEQ, MULTIVITAMIN 10 ML, THIAMINE 100 MG, FOLIC ACID 1 MG in Nor... 150 MG IV (01:34)
[2021-02-20] MEDS: Normal Saline 1,000 ML 125 ML IV (01:34)
[2021-02-20 04:18] LABS: Bilirubin Negative (Negative); Blood Trace-intact (Negative); Clarity Clear (Clear); Epithelial Cells Rare HPF (Negative); Glucose Negative (Negative); Ketones Trace mg/dL (Negative); Leukocyte Esterase Negative (Negative); Nitrite Negative (Negative); Specific Gravity 1.025 (1.005-1.025); Urobilinogen 0.2 EU/dL (Up TO 0.2); WBC Negative HPF (0-5)
[2021-02-20 04:19] LABS: Bacteria Few HPF (Negative); C & S Indicated? No; Casts 0-2 Hyaline LPF (Negative); Crystals Negative HPF (Negative); Mucus Trace (Negative)
[2021-02-20] MEDS: Normal Saline Flush 10 ML SYR IVP ×3 (06:21→20:49)
[2021-02-20] MEDS: Pantoprazole 40 MG VIAL 80 MG IVP ×2 (06:21→17:09)
[2021-02-20 06:57] LABS: HCT 23.4 % (40.0-50.0); MCH 31.1 pg (27.0-33.0); MCHC 34.2 % (32.0-36.0); MCV 91.1 fL (80-95); Platelet Count 240 10^3/uL (130-400); RBC 2.57 10^6/uL (4.36-5.78); RDW 15.8 % (11.8-14.1); RDW-SD 49.2 fL; WBC 10.33 10^3/uL (4.4-10.8)
[2021-02-20 07:09] LABS: Anion Gap 10.1 mmol/L (3-11); BUN 41 mg/dL (7-18); CO2 20.9 mmol/L (21.0-32.0); CREATININE 0.7 mg/dL (0.70-1.30); Chloride 107 mmol/L (98-107); Glucose 98 mg/dL (74-106); Magnesium 1.7 mg/dL (1.8-2.4); Potassium 3.5 mmol/L (3.5-5.1); Sodium 138 mmol/L (136-145)
[2021-02-20 07:10] LABS: Prothrombin Time 9.9 sec (9.3-11.0)
--- NOTE | 2021-02-20 08:30 | PGE_ITS ---
Date of Service Date of service: 02/20/21 Time of Service: 11:04 Assessment and Plan Assessment and plan (1) Upper GI bleeding: Status: Acute Assessment and plan: suspect due to NSAID use. Keep in the ICU. I have reached out to general surgery for an EGD today - awaiting reply. No contraindications from the medical stand point - echo and CXR ok, and the patient's chest heaviness was likely due to symptomatic anemia. Transfuse the 6th unit of pRBCs. COntinue to follow Q6H H/H. Continue IV protonix, carafate. Hold NSAIDS. No chemical DVT ppx. (2) Symptomatic anemia: Status: Acute Assessment and plan: Due to above. Check H/H after the 6th unit of pRBCs. As above Monitor orthostatics. (3) Syncope: Status: Acute Assessment and plan: Likely due to acute symptomatic anemia of GI bleeding. VS improved since initiation of blood transfusion. Monitor in the ICU. Monitor orthostatic Vitals. (4) Fecal impaction: Status: Acute Assessment and plan: Continue bowel regimen. May benefit from a colonoscopy on this admission. Per my conversation with Dr Mays, the patient had a somewhat weakened rectal tone. Given his h/o lower back surgery and appearance of a thickened bladder, it is possible he has a neurogenic bowel. None of this appears acute or new. Consider MRI. We will investigate what workup he has already had as he follows with pain management. (5) Leg swelling: Status: Resolved Assessment and plan: Euvolemic, no evidence of systolic or diastolic dysfunction on echo. However, does have pulmonary hypertension with RVSP of 39.5 mmHg, which could be responsible for leg edema prior to presentation. At this time, I would not pursue further workup. (6) Chest discomfort: Status: Resolved Assessment and plan: Symptomatic anemia vs esophagitis. Echo w/o wall motion abnormalities and troponin negative - unlikely to beunderlying coronary disease. Treat anemia and esophagitis as above. Outpatient ischemic workup could be pursued, but not emergently indicated. The patient is cleared by medicine to undergo an EGD. (7) COPD (chronic obstructive pulmonary disease): Status: Chronic Assessment and plan: Not in acute exacebation. Continue home inhalers. (8) Alcohol abuse: Status: Chronic Assessment and plan: No signs of EtOH w/d. Continue monitoring CIWA/prn ativan/banana bag. (9) Chronic pain: Status: Chronic Assessment and plan: Hold NSAIDS. Offer tylenol and prn morphine. On d/c, consider ultram. 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 Asymptomatic. Ensure the patient is not hypotensive/dehydrated - continue IVF. Will need vascular follow up - referral sent. (11) DVT prophylaxis: Status: Acute Assessment and plan: TEDS/SCDs. Chemical DVT ppx is contraindicated in setting of acute GI bleeding. (12) Discharge planning issues: Status: Acute Assessment and plan: Full code Keep in ICU. Total Critical Care Time 60 minutes. Subjective Subjective Interval history since last seen: Mr Jorgensen states he is feeling better this morning. He is about to receive his 6th unit of pRBCs. No emesis overnight or this morning. Denies dizziness, but hasn't tried to stand up. Denies chest heaviness or discomfort today. Denies shortness of breath more than his normal. Denies n/v/abdominal pain. 5 tarry stools in the last 12 hours. Vagal event early yesterday evening w/ SBPs in the 50s at the time associated with emesis. Got 2 units of pRBCs emergently at that time. BPs improved now, 115/64 is the last documented pressure. No more vagal events. Exam Narrative Exam Narrative: General: Very pleasant elderly male who is laying flat in bed without dyspnea/tachypnea, lips more pink, A&Ox3, tired HEENT: EOMI, dry MM Cardiovascular: RRR, no m/r/g, HR in the 70s Lungs: CTAB Gastrointestinal: soft, nontender, nondistended, + BS Extremities: No edema, clubbing, or cyanosis of BLE's, 1+ pedal pulse RLE, trace pedal pulse LLE Objective Last Vital Signs Temp 37.1 C 02/20/21 03:15 Pulse 89 02/20/21 06:00 Resp 18 02/20/21 06:00 BP 114/61 02/20/21 06:00 Pulse Ox 99 02/20/21 06:00 Laboratory Results - last 24 hr 02/19/21 02/19/21 02/19/21 12:45 12:45 12:45 WBC 14.73 H RBC 1.82 L Hgb 6.1 L* Hct 19.0 L* MCV 104.4 H MCH 33.5 H MCHC 32.1 RDW 13.8 Plt Count 495 H MPV 10.3 Immature Gran % 1.4 Neutrophils % 79.8 Lymphocytes % 11.7 Monocytes % 6.7 Eosinophils % 0.1 Basophils % 0.3 Nucleated RBC % 0 Absolute Neutrophils 11.75 H Absolute Lymphocytes 1.72 Absolute Monocytes 0.99 H Absolute Eosinophils 0.01 Absolute Basophils 0.04 RBC Morphology See below Polychromasia Present Poikilocytosis 1+ Macrocytosis 1+ PT INR Sodium 133 L Potassium 3.7 Chloride 96 L Carbon Dioxide 22.0 Anion Gap 15.0 H BUN 34 H Creatinine 1.1 Estimated GFR/1.73 m2 >= 60.00 Glucose 160 H Calcium 9.1 Magnesium 1.4 L Total Bilirubin 0.3 AST 16 ALT 17 Alkaline Phosphatase 88 Troponin I < 0.05 Total Protein 6.9 Albumin 2.9 L Urine Color Urine Clarity Urine pH Ur Specific [place] Urine Protein Urine Ketones Urine Blood Urine Nitrite Urine Bilirubin Urine Urobilinogen Ur Leukocyte Esterase Urine RBC Urine WBC Ur Epithelial Cells Urine Crystals Urine Bacteria Urine Casts Urine Mucus Ur Culture Indicated? Urine Glucose COVID-19 Source SARS-CoV-2 (PCR) Patient ABO/Rh A Positive Antibody Screen Negative Crossmatch See Detail 02/19/21 02/19/21 02/19/21 12:55 15:45 18:55 WBC RBC Hgb 7.6 L Hct 22.8 L MCV MCH MCHC RDW Plt Count MPV Immature Gran % Neutrophils % Lymphocytes % Monocytes % Eosinophils % Basophils % Nucleated RBC % Absolute Neutrophils Absolute Lymphocytes Absolute Monocytes Absolute Eosinophils Absolute Basophils RBC Morphology Polychromasia Poikilocytosis Macrocytosis PT 9.8 INR 1.0 Sodium Potassium Chloride Carbon Dioxide Anion Gap BUN Creatinine Estimated GFR/1.73 m2 Glucose Calcium Magnesium Total Bilirubin AST ALT Alkaline Phosphatase Troponin I Total Protein Albumin Urine Color Urine Clarity Urine pH Ur Specific [place] Urine Protein Urine Ketones Urine Blood Urine Nitrite Urine Bilirubin Urine Urobilinogen Ur Leukocyte Esterase Urine RBC Urine WBC Ur Epithelial Cells Urine Crystals Urine Bacteria Urine Casts Urine Mucus Ur Culture Indicated? Urine Glucose COVID-19 Source Nasal/nares SARS-CoV-2 (PCR) Negative Patient ABO/Rh Antibody Screen Crossmatch 02/20/21 02/20/21 02/20/21 01:06 03:15 06:25 WBC RBC Hgb 8.6 L Hct 25.2 L MCV MCH MCHC RDW Plt Count MPV Immature Gran % Neutrophils % Lymphocytes % Monocytes % Eosinophils % Basophils % Nucleated RBC % Absolute Neutrophils Absolute Lymphocytes Absolute Monocytes Absolute Eosinophils Absolute Basophils RBC Morphology Polychromasia Poikilocytosis Macrocytosis PT INR Sodium 138 Potassium 3.5 Chloride 107 Carbon Dioxide 20.9 L Anion Gap 10.1 BUN 41 H Creatinine 0.7 Estimated GFR/1.73 m2 >= 60.00 Glucose 98 D Calcium 7.0 L Magnesium 1.7 L Total Bilirubin AST ALT Alkaline Phosphatase Troponin I Total Protein Albumin Urine Color Yellow Urine Clarity Clear Urine pH 6.0 Ur Specific [place] 1.025 Urine Protein Negative Urine Ketones Trace H Urine Blood Trace-intact H Urine Nitrite Negative Urine Bilirubin Negative Urine Urobilinogen 0.2 Ur Leukocyte Esterase Negative Urine RBC 3-5 H Urine WBC Negative Ur Epithelial Cells Rare Urine Crystals Negative Urine Bacteria Few Urine Casts 0-2 hyaline Urine Mucus Trace Ur Culture Indicated? No Urine Glucose Negative COVID-19 Source SARS-CoV-2 (PCR) Patient ABO/Rh Antibody Screen Crossmatch 02/20/21 02/20/21 06:25 06:25 WBC 10.33 RBC 2.57 L Hgb 8.0 L Hct 23.4 L MCV 91.1 D MCH 31.1 MCHC 34.2 RDW 15.8 H Plt Count 240 D MPV 10.0 Immature Gran % Neutrophils % Lymphocytes % Monocytes % Eosinophils % Basophils % Nucleated RBC % Absolute Neutrophils Absolute Lymphocytes Absolute Monocytes Absolute Eosinophils Absolute Basophils RBC Morphology Polychromasia Poikilocytosis Macrocytosis PT 9.9 INR 1.0 Sodium Potassium Chloride Carbon Dioxide Anion Gap BUN Creatinine Estimated GFR/1.73 m2 Glucose Calcium Magnesium Total Bilirubin AST ALT Alkaline Phosphatase Troponin I Total Protein Albumin Urine Color Urine Clarity Urine pH Ur Specific [place] Urine Protein Urine Ketones Urine Blood Urine Nitrite Urine Bilirubin Urine Urobilinogen Ur Leukocyte Esterase Urine RBC Urine WBC Ur Epithelial Cells Urine Crystals Urine Bacteria Urine Casts Urine Mucus Ur Culture Indicated? Urine Glucose COVID-19 Source SARS-CoV-2 (PCR) Patient ABO/Rh Antibody Screen Crossmatch
--- NOTE | 2021-02-20 08:45 | DI.US_ITS ---
APPROVED REPORT EXAM: Comprehensive 2D, Doppler, and color-flow Echocardiogram Patient Location: In-Patient Room/Bed: [id number] Indications: Edema, CHF, COPD, Syncope Other Information Study Quality: Adequate Conclusion Normal left ventricular wall thickness and chamber size. Estimated ejection fraction is 60 to 65%. Wall motion is normal Normal right ventricular size and systolic function Both atria are normal in size The aortic valve is trileaflet and sclerotic without stenosis or regurgitation Mitral annular calcification. Trace mitral regurgitation Normal tricuspid valve with trace regurgitation. Estimated right ventricular systolic pressure is 39 mmHg Normal pulmonic valve with trace regurgitation Mildly dilated ascending aorta measuring 3.68 cm Wall motion Left Ventricle The left ventricle is normal size. The left ventricular systolic function is normal. The left ventric ular ejection fraction is within the normal range. There is normal left ventricular wall thickness. T here is normal LV segmental wall motion. There is no ventricular septal defect visualized. LVEF is 60 -65%. Right Ventricle The right ventricle is normal size. The right ventricular systolic function is normal. The RVSP is 39 .5mmHg. Atria The left atrium size is normal. The right atrium size is normal. The interatrial septum is intact wit h no evidence for an atrial septal defect. Aortic Valve The Aortic valve is sclerotic. There is no aortic valvular stenosis. No aortic regurgitation is prese nt. Mitral Valve Mild mitral annular calcification. No evidence of mitral valve stenosis. Trace mitral regurgitation. Tricuspid Valve The tricuspid valve is normal in structure. There is no tricuspid valve stenosis. Trace tricuspid reg urgitation. Pulmonic Valve The pulmonary valve is normal in structure. There is no pulmonic valvular stenosis. Trace pulmonic re gurgitation. Great Vessels The aortic root is normal in size. The ascending aorta is mildly dilated.3.68 cm Aortic arch is not w ell visualized. IVC is normal in size and collapses >50% with inspiration. Pericardium There is no pericardial effusion. 2D Dimensions IVSD d PLAX 0.80 cm M: 0.6-1.2 LV Vol A2C d MOD 81.4 mL LVPW d PLAX 0.86 cm M: 0.6 - 1.2 LV Vol A4C d MOD 86.3 mL LVID d PLAX 4.31 cm M: 4.2 - 5.8 LA vol/ BSA A4C s A-L 31.0 mL/m2 LVDs 2.95 cm M: 2.5 - 4.0 LA Area A4C s MOD 19.43 cm2 Ao Root d 3.37 cm M: 3.1 - 3.7 LV EF A4C MOD 57.2 % RA Area A4C 13.62 cm2 LV EF A2C MOD 56.0 % RA Vol/ BSA A4C s A-L 17.7 mL/m2 LV EF Biplane MOD 54.2 % Ao Asc Diam d 3.68 cm M: 2.6 - 3.4 SV 45.54 mL LV EF Teichholz 59.0 % SV Index 25.34 mL/m2 LVEF (Mcclain's) 54.17 % M: 52 - 72 LV Volume 65.42 mL M: 62 - 150 LV Volume Index 36.54 mL/m2 M: 34 - 74 LV Vol Biplane MOD 84.1 mL FS 31.00 % M-Mode TAPSE 2.81 cm (M/F) >1.7 LV Diastology MV E' medial 0.102 (>0.07 m/s) E/A Ratio 0.9 LV E/e MED 9.60 (<14) MV E Vmax 0.98 (0.4-1.3 m/s) MV E' lateral 0.139 (>0.1 m/s) MV A Vmax 1.10 (0.4-1.3 m/s) LV E/e LAT 7.00 (<14) MV E/A Ratio 0.88 MV E/E' medial 9.62 MV E/E' lateral 7.04 Aortic Valve LVOT Area 3.54 cm2 AoV Area Vmax 2.93 cm2 LVOT Vmax 1.25 m/s AoV Area/ BSA (Vmax) 1.63 cm2/m2 LVOT Mean Juan. 0.84 m/s LYLE Mean Juan. 2.84 cm2 LVOT Peak Grad 6.3 mmHg LYLE Mean Juan. Index 1.58 cm2/m2 LVOT Mean Grad 3.3 mmHg LVOT VTI 0.250 m LVOT Diam s 2.10 cm AoV Vmax 1.52 m/s Velocity Ratio 0.82 AoV Mean Juan. 1.05 m/s AoV Peak Grad 9.2 mmHg LVOT SV 88.38 mL AoV Mean Grad 5.0 mmHg AoV VTI 0.272 m AoV Area VTI 3.25 cm2 AoV Area/ BSA (VTI) 1.81 cm/m2 Mitral Valve MV DT 188 (160-240 msec) MV PHT 54 msec MV Area PHT 4.04 cm2 MV VTI 0.306 m MV VTI Annulus 0.321 m MV Area VTI 3.05 (4.0-6.0 cm2) Pulmonary Valve PV Vmax 1.17 (0.5-1.5 m/s) RVOT Peak Gr. 3.51 mmHg PV Peak Grad 5.5 mmHg RVOT Mean Gr. 1.85 mmHg PV Mean Grad 2.5 mmHg RVOT VTI 0.177 m PV VTI 0.184 m RVOT Vmax 0.94 m/s Tricuspid Valve TR Peak Grad 36.5 mmHg TR Vmax 3.02 m/s RA Pressure 3.00 mmHg RVSP (TR) 39.5 mmHg
[2021-02-20] MEDS: Cyclobenzaprine 10 MG TAB PO ×2 (08:55→20:48)
[2021-02-20] MEDS: MAGNESIUM SULFATE 2 GM/50 ML BAG IVPB (08:55)
[2021-02-20] MEDS: Sucralfate 1 GM TAB PO ×4 (08:55→20:48)
--- NOTE | 2021-02-20 09:04 | INITIAL_ITS ---
- If Service Date Differs Date of service: 02/20/21 Time of Service: 09:04 Care Management Initial Assess REASON FOR HOSPITALIZATION:: Upper GI bleeding, symptomatic anemia PAST MEDICAL HISTORY/PAST SURGICAL HISTORY:: Alcohol abuse. Anosmia. Balance problem. Chronic back pain. COPD (chronic obstructive pulmonary disease). Diarrhea. Exertional dyspnea. Herniated lumbar intervertebral disc. Hip pain, left. History of traumatic fracture of vertebra. HTN (hypertension). Hx of squamous cell carcinoma. Knee pain, bilateral. Lower back pain. Osteoarthritis of left knee. Steroid injection: 08/15/2020. Osteoarthritis of lumbar spine. Osteoarthritis of right knee. Steroid injection: 08/15/2020. Spondylosis of lumbar spine. Spondylosis, cervical. Tobacco dependence in remission. Unintentional weight loss. Vitamin D deficiency. S/P cervical spinal fusion. S/P laminectomy PREVIOUS FUNCTIONAL STATUS/SOCIAL/FAMILY SUPPORTS:: Mike resides in [facility] with his , Ada. He is independent at baseline in the community. CURRENT FUNCTIONAL STATUS:: Mike was brought to the OR for an EGD today; CM continues to follow. ADVANCE DIRECTIVES:: Has document. Has patient been provided with info about the portal/API?: Yes Did the patient sign up for the portal?: No CODE STATUS:: Full Code INSURANCE COVERAGE / FINANCIAL ISSUES:: [facility]. [facility] CURRENT HOME/COMMUNITY SERVICES/EQUIPMENT:: None currently. PRIMARY CARE PHYSICIAN:: Yeni Williamson POTENTIAL DISCHARGE NEEDS:: Follow up appointments. PATIENT/FAMILY EDUCATION NEEDS:: Review discharge instructions, discuss Ask Me Three. ANTICIPATED BARRIERS TO DISCHARGE:: None identified a this time. TRANSPORTATION:: Via private vehicle with family. PLAN:: Mike will return home when ready per MD. He will follow up with his PCP and plan of care as prescribed, not additional services anticipated at this time. CM continues to follow.
--- NOTE | 2021-02-20 12:47 | PGE_ITS ---
Date of Service Date of service: 02/20/21 Time of Service: 12:47 Assessment and Plan Assessment and plan (1) Upper GI bleeding: Status: Acute Assessment and plan: 81yo male who presents with profound anemia likely due to a slow, progressive upper GI source. His chronic NSAID use, and daily alcohol use, likely contributing. The patient has now received 4 units PRBC yesterday, and about to receive 6ht unit. Echo performed this morning. Cleared by Hospitalist service for EGD from medical standpoint. --will contact anesthesia and proceed to EGD (2) Fecal impaction: Status: Acute Assessment and plan: Recommend bowel regimen from above and below --enemas --suppositories --digital rectal stimulation --digital disimpaction --Miralax --colace/senna (3) COPD (chronic obstructive pulmonary disease): Status: Chronic Assessment and plan: Treatment per primary service (4) Alcohol abuse: Status: Chronic Assessment and plan: pt counseled to decrease alcohol intake CIWA protocol per Hospitalist service (5) Chronic pain: Status: Chronic Assessment and plan: avoid NSAIDs Subjective Subjective Patient reports: bowel movement and shortness of breath; denies nausea Interval history since last seen: Pt is denying any pain at this time. He has reportedly passed multiple dark stools this morning, and received 4 units of blood yesterday evening, without reflective increase in H/H. He is now receiving his 5th and 6th units. Exam Const General: cooperative, comfortable and no acute distress Resp Effort & Inspection: no grunting and pursed lip breathing Auscultation: clear to auscultation bilaterally Cardio Rate: regular rate Rhythm: regular rhythm Heart Sounds: S1 normal and S2 normal GI Palpation: soft, not rigid and nontender Neuro General: patient alert, patient awake and patient oriented x3 Cognition: normal cognition Speech: speech normal Psych Appearance: grossly normal Speech and Movement: speech and movement normal Attitude: cooperative Thought Process: normal Thought Content: normal Insight: insight good Judgment: judgment good Objective Last Vital Signs Temp 97.7 F 02/20/21 10:57 Pulse 88 02/20/21 10:57 Resp 19 02/20/21 10:57 BP 115/64 02/20/21 10:57 Pulse Ox 98 02/20/21 10:57 Laboratory Results - last 24 hr 02/19/21 02/19/21 02/19/21 12:45 12:45 12:45 WBC 14.73 H RBC 1.82 L Hgb 6.1 L* Hct 19.0 L* MCV 104.4 H MCH 33.5 H MCHC 32.1 RDW 13.8 Plt Count 495 H MPV 10.3 Immature Gran % 1.4 Neutrophils % 79.8 Lymphocytes % 11.7 Monocytes % 6.7 Eosinophils % 0.1 Basophils % 0.3 Nucleated RBC % 0 Absolute Neutrophils 11.75 H Absolute Lymphocytes 1.72 Absolute Monocytes 0.99 H Absolute Eosinophils 0.01 Absolute Basophils 0.04 RBC Morphology See below Polychromasia Present Poikilocytosis 1+ Macrocytosis 1+ PT INR Sodium 133 L Potassium 3.7 Chloride 96 L Carbon Dioxide 22.0 Anion Gap 15.0 H BUN 34 H Creatinine 1.1 Estimated GFR/1.73 m2 >= 60.00 Glucose 160 H Calcium 9.1 Magnesium 1.4 L Total Bilirubin 0.3 AST 16 ALT 17 Alkaline Phosphatase 88 Troponin I < 0.05 Total Protein 6.9 Albumin 2.9 L Urine Color Urine Clarity Urine pH Ur Specific [place] Urine Protein Urine Ketones Urine Blood Urine Nitrite Urine Bilirubin Urine Urobilinogen Ur Leukocyte Esterase Urine RBC Urine WBC Ur Epithelial Cells Urine Crystals Urine Bacteria Urine Casts Urine Mucus Ur Culture Indicated? Urine Glucose COVID-19 Source SARS-CoV-2 (PCR) Patient ABO/Rh A Positive Antibody Screen Negative Crossmatch See Detail 02/19/21 02/19/21 02/19/21 12:55 15:45 18:55 WBC RBC Hgb 7.6 L Hct 22.8 L MCV MCH MCHC RDW Plt Count MPV Immature Gran % Neutrophils % Lymphocytes % Monocytes % Eosinophils % Basophils % Nucleated RBC % Absolute Neutrophils Absolute Lymphocytes Absolute Monocytes Absolute Eosinophils Absolute Basophils RBC Morphology Polychromasia Poikilocytosis Macrocytosis PT 9.8 INR 1.0 Sodium Potassium Chloride Carbon Dioxide Anion Gap BUN Creatinine Estimated GFR/1.73 m2 Glucose Calcium Magnesium Total Bilirubin AST ALT Alkaline Phosphatase Troponin I Total Protein Albumin Urine Color Urine Clarity Urine pH Ur Specific [place] Urine Protein Urine Ketones Urine Blood Urine Nitrite Urine Bilirubin Urine Urobilinogen Ur Leukocyte Esterase Urine RBC Urine WBC Ur Epithelial Cells Urine Crystals Urine Bacteria Urine Casts Urine Mucus Ur Culture Indicated? Urine Glucose COVID-19 Source Nasal/nares SARS-CoV-2 (PCR) Negative Patient ABO/Rh Antibody Screen Crossmatch 02/20/21 02/20/21 02/20/21 01:06 03:15 06:25 WBC RBC Hgb 8.6 L Hct 25.2 L MCV MCH MCHC RDW Plt Count MPV Immature Gran % Neutrophils % Lymphocytes % Monocytes % Eosinophils % Basophils % Nucleated RBC % Absolute Neutrophils Absolute Lymphocytes Absolute Monocytes Absolute Eosinophils Absolute Basophils RBC Morphology Polychromasia Poikilocytosis Macrocytosis PT INR Sodium 138 Potassium 3.5 Chloride 107 Carbon Dioxide 20.9 L Anion Gap 10.1 BUN 41 H Creatinine 0.7 Estimated GFR/1.73 m2 >= 60.00 Glucose 98 D Calcium 7.0 L Magnesium 1.7 L Total Bilirubin AST ALT Alkaline Phosphatase Troponin I Total Protein Albumin Urine Color Yellow Urine Clarity Clear Urine pH 6.0 Ur Specific [place] 1.025 Urine Protein Negative Urine Ketones Trace H Urine Blood Trace-intact H Urine Nitrite Negative Urine Bilirubin Negative Urine Urobilinogen 0.2 Ur Leukocyte Esterase Negative Urine RBC 3-5 H Urine WBC Negative Ur Epithelial Cells Rare Urine Crystals Negative Urine Bacteria Few Urine Casts 0-2 hyaline Urine Mucus Trace Ur Culture Indicated? No Urine Glucose Negative COVID-19 Source SARS-CoV-2 (PCR) Patient ABO/Rh Antibody Screen Crossmatch 02/20/21 02/20/21 06:25 06:25 WBC 10.33 RBC 2.57 L Hgb 8.0 L Hct 23.4 L MCV 91.1 D MCH 31.1 MCHC 34.2 RDW 15.8 H Plt Count 240 D MPV 10.0 Immature Gran % Neutrophils % Lymphocytes % Monocytes % Eosinophils % Basophils % Nucleated RBC % Absolute Neutrophils Absolute Lymphocytes Absolute Monocytes Absolute Eosinophils Absolute Basophils RBC Morphology Polychromasia Poikilocytosis Macrocytosis PT 9.9 INR 1.0 Sodium Potassium Chloride Carbon Dioxide Anion Gap BUN Creatinine Estimated GFR/1.73 m2 Glucose Calcium Magnesium Total Bilirubin AST ALT Alkaline Phosphatase Troponin I Total Protein Albumin Urine Color Urine Clarity Urine pH Ur Specific [place] Urine Protein Urine Ketones Urine Blood Urine Nitrite Urine Bilirubin Urine Urobilinogen Ur Leukocyte Esterase Urine RBC Urine WBC Ur Epithelial Cells Urine Crystals Urine Bacteria Urine Casts Urine Mucus Ur Culture Indicated? Urine Glucose COVID-19 Source SARS-CoV-2 (PCR) Patient ABO/Rh Antibody Screen Crossmatch
--- NOTE | 2021-02-20 12:54 | W.ANESPRE ---
General Info Date of Service Date Performed: 02/20/21 Height: 6 ft Weight: 60.5 kg Body Mass Index (BMI): 18.1 Surgical Procedure: Operation Date: 02/20/21 13:20 Proposed Procedures Side Surgeon p Gastroscopy Camilo Mays MD Meds Allergies and Home Medications Allergies Allergy/AdvReac Type Severity Reaction Status Date / Time No Known Allergies Allergy Verified 02/19/21 18:51 Home Medication Medication Instructions Recorded albuterol sulfate 90 mcg/actuation 2 puff INHALATION Q6H PRN 08/16/20 aerosol inhaler amlodipine 5 mg tablet 5 mg PO DAILY 08/16/20 cyclobenzaprine 10 mg tablet 10 mg PO TID 08/16/20 hydrochlorothiazide 25 mg tablet 25 mg PO DAILY 08/16/20 meloxicam 15 mg tablet 15 mg PO DAILY 08/16/20 potassium chloride 10 mEq 10 meq PO DAILY 08/16/20 capsule,extended release cholecalciferol (vitamin D3) 125 mcg PO DAILY 08/18/20 [Vitamin D3] vitamin B complex 1 tab PO DAILY 08/30/20 acetaminophen 500 mg capsule 1,000 mg PO DAILY AM PRN cap 10/17/20 aspirin 81 mg tablet,delayed 81 mg PO .COMPLEX 10/17/20 release eszopiclone 1 mg tablet 1 mg PO QHS PRN 10/17/20 Current Visit Medications: Current Medications Generic Name Dose Route Start Last Admin Trade Name Freq PRN Reason Stop Dose Admin Acetaminophen 650 mg 02/19/21 15:59 Acetaminophen 650 Mg Supp AZ Q4H PRN PRN Al Hydrox/Mg Hydrox/Simethicone 30 ml 02/19/21 15:59 Mylanta Suspension 30 Ml Cup PO Q2H PRN PRN Albuterol Sulfate 2 puff 02/19/21 17:30 Albuterol Hfa 8 Gm 60 Puff Inh IH Q6H PRN PRN Bisacodyl 10 mg 02/19/21 18:44 Bisacodyl 10 Mg Supp [place] DAILY PRN PRN Cyclobenzaprine HCl 10 mg 02/19/21 20:00 02/20/21 08:55 Cyclobenzaprine 10 Mg Tab PO 10 mg TID GLENN Administration Device 1 each 02/19/21 18:00 Inhaler, Assist Device MC DIRECTED [facility] Dimethicone/Zinc Oxide 0 gm 06/20/21 15:59 Carmen Protect Cream 142 Gm Tube TP PRN PRN Docusate Sodium 100 mg 02/19/21 15:59 02/19/21 22:44 Docusate Sodium 100 Mg Cap PO 100 mg TID PRN PRN Administration Sodium Chloride 1,000 mls @ 150 mls/hr 02/19/21 12:45 02/20/21 01:35 Saline 1000ml Bag IV 0 mls/hr INFUSION GLENN Infusion Magnesium Sulfate 8.12 meq/ 1,013.2 mls @ 150 mls/hr 02/21/21 00:00 Multivitamins 10 ml/ Thiamine IV HCl 100 mg/ Folic Acid 1 mg/ DAILY@0000 GLENN Sodium Chloride IV Miscellaneous Supplies 1 each 02/19/21 13:00 Iv Access IV DIRECTED GLENN Lorazepam 0 mg 02/19/21 18:42 Lorazepam 1 Mg Tab PO/SL DIRECTED PRN Lorazepam 0 mg 02/19/21 18:42 Lorazepam 2 Mg/Ml Vial IVP DIRECTED PRN Morphine Sulfate 2 mg 02/19/21 17:29 02/19/21 22:44 Morphine 2 Mg/Ml Syr IVP 2 mg Q4H PRN PRN Administration Ondansetron HCl 4 mg 02/19/21 19:00 Ondansetron 4 Mg/2 Ml Vial IVP Q6H PRN PRN Pantoprazole Sodium 80 mg 02/20/21 06:00 02/20/21 06:21 Pantoprazole 40 Mg Vial IVP 80 mg Q12H GLENN Administration Polyethylene Glycol 17 gm 02/21/21 08:30 Polyethylene Glycol 3350 17 Gm Packet PO DAILY GLENN Sodium Chloride 0 ml 02/19/21 12:50 Normal Saline Flush 10 Ml Syr IVP PRN PRN Sucralfate 1 gm 02/19/21 16:30 02/20/21 11:32 Sucralfate 1 Gm Tab PO 1 gm AC & HS GLENN Administration PFSH Active Problems Active Problems: Problem Status Onset Code 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 Fecal retention K59.00 Alcohol abuse F10.10 COPD (chronic obstructive pulmonary disease) J44.9 Chest discomfort R07.89 Leg swelling M79.89 Chronic pain G89.29 Discharge planning issues Z02.9 DVT prophylaxis Z29.9 Syncope R55 Symptomatic anemia D64.9 Fecal impaction K56.41 Upper GI bleeding K92.2 GI bleed K92.2 Osteoarthritis of right knee M17.11 Osteoarthritis of left knee M17.12 Medical History Medical History (Updated 02/19/21 @ 19:14 by Wanda Solorio MD) Alcohol abuse Anosmia Balance problem Chronic back pain COPD (chronic obstructive pulmonary disease) Diarrhea Exertional dyspnea Herniated lumbar intervertebral disc Hip pain, left History of traumatic fracture of vertebra HTN (hypertension) Hx of squamous cell carcinoma Knee pain, bilateral Lower back pain Osteoarthritis of left knee Steroid injection: 08/15/2020 Osteoarthritis of lumbar spine Osteoarthritis of right knee Steroid injection: 08/15/2020 Spondylosis of lumbar spine Spondylosis, cervical Tobacco dependence in remission Unintentional weight loss Vitamin D deficiency Surgical History Surgical History S/P cervical spinal fusion S/P laminectomy Tobacco Smoking/Tobacco Use Status: Former Tobacco Use Alcohol Alcohol Intake: current Alcohol intake frequency: 3 or more drinks per day Alcohol type: beer and hard liquor Substance Use Substance use: Never Substance use type: does not use Vital Signs and Lab Results Vital Signs Most Recent Vital Signs in EMR: Most Recent Vital Signs Temp Pulse Resp BP Pulse Ox 36.5 C 88 19 115/64 98 02/20/21 10:57 02/20/21 10:57 02/20/21 10:57 02/20/21 10:57 02/20/21 10:57 Lab Results Result Diagrams: 02/20/21 06:25 02/20/21 06:25 Blood Type / Crossmatch: Patient ABO/Rh A Positive 02/19/21 12:45 02/19/21 Antibody Screen Negative 02/19/21 12:45 02/19/21 Crossmatch See Detail 02/19/21 12:45 02/19/21 Complete Blood Count: White Blood Count 10.33 10^3/uL (4.4-10.8) 02/20/21 06:25 02/20/21 Red Blood Count 2.57 10^6/uL (4.36-5.78) L 02/20/21 06:25 02/20/21 Hemoglobin 8.0 g/dL (13.5-17.5) L 02/20/21 06:25 02/20/21 Hematocrit 23.4 % (40.0-50.0) L 02/20/21 06:25 02/20/21 Platelet Count 240 10^3/uL (130-400) 02/20/21 06:25 02/20/21 Complete Metabolic Panel: Sodium Level 138 mmol/L (136-145) 02/20/21 06:25 02/20/21 Potassium Level 3.5 mmol/L (3.5-5.1) 02/20/21 06:25 02/20/21 Chloride Level 107 mmol/L (98-107) 02/20/21 06:02/20/21 Carbon Dioxide Level 20.9 mmol/L (21.0-32.0) L 02/20/21 06:25 02/20/21 Blood Urea Nitrogen 41 mg/dL (7-18) H 02/20/21 06:02/20/21 Creatinine 0.7 mg/dL (0.70-1.30) 02/20/21 06:02/20/21 Estimated GFR/1.73 m2 >= 60.00 (mL/min/1.73m2) 02/20/21 06:02/20/21 Magnesium Level 1.7 mg/dL (1.8-2.4) L 02/20/21 06:25 02/20/21 Calcium Level 7.0 mg/dL (8.5-10.1) L 02/20/21 06:25 02/20/21 Albumin 2.9 g/dL (3.4-5.0) L 02/19/21 12:45 02/19/21 Glucose Level 98 mg/dL (74-106) 02/20/21 06:25 02/20/21 Liver Function Panel: Alanine Aminotransferase (ALT/SGPT) 17 U/L (16-63) 02/19/21 12:45 02/19/21 Aspartate Amino Transf (AST/SGOT) 16 U/L (15-37) 02/19/21 12:45 02/19/21 Coagulation Panel: INR International Normalized Ratio 1.0 (0.9-1.1) 02/20/21 06:25 02/20/21 Prothrombin Time 9.9 sec (9.3-11.0) 02/20/21 06:25 02/20/21 Cardiac Panel: Troponin I < 0.05 ng/mL (<0.06) 02/19/21 12:45 02/19/21 Arterial Blood Gas: No Data to Display Venous Blood Gas: No Data to Display Pancreas Panel: No Data to Display Thyroid Panel: No Data to Display Infectious Disease: Coronavirus (COVID-19)(PCR) Negative (Negative) 02/19/21 15:45 02/19/21 Coronavirus 2019 Source Nasal/nares 02/19/21 15:45 02/19/21 Blood Cultures: No Data to Display Toxicology Panel: No Data to Display Imaging and Studies Imaging and Studies EKG Summary: Sinus tachycardia.. ST depr anterolateral leads, may be rate related Echocardiogram Summary: Normal left ventricular wall thickness and chamber size. Estimated ejection fraction is 60 to 65%. Wall motion is normal Normal right ventricular size and systolic function Both atria are normal in size The aortic valve is trileaflet and sclerotic without stenosis or regurgitation Mitral annular calcification. Trace mitral regurgitation Normal tricuspid valve with trace regurgitation. Estimated right ventricular systolic pressure is 39 mmHg Normal pulmonic valve with trace regurgitation Mildly dilated ascending aorta measuring 3.68 cm Anesthesia Assessment and Plan Anesthesia History Personal History: No History of Anesthesia Complications Family History: No Family History of Anesthesia Complications Exercise Tolerance Exercise Tolerance: Metabolic Equivalents<4 Pertinent Negatives Pertinent Negatives: No Symptoms of GERD, No Major Cardiovascular Symptoms or Complaints (HTN, ), No Major Pulmonary Symptoms or Complaints (COPD no oxygen at home, snores ), No History of CVA/TIA and Other (ETOH ) Cardiac & Pulmonary Exam Cardiac Exam: Normal S1/S2 Heart Sounds Pulmonary Exam: Clear Bilateral Breath Sounds Airway Exam Known Difficult Airway: No Mallampati Class: 2 Mouth Opening: Normal (> 3cm) Thyromental Distance: Greater than 3 cm Neck Range of Motion: Full ROM and Known Cervical Instability or radiculopathy Neck Circumference: Normal Teeth Condition: Normal Dentition ASA Classification ASA Score: ASA 3 Emergency Case?: Yes NPO Status NPO Status: NPO Clears >2 hours, Solids >8 hours Anesthesia Plan Resuscitation Status: Full Code Anesthesia Technique: General Anesthesia Airway Planned: Endotracheal Tube Monitors Used: Standard Monitors
--- NOTE | 2021-02-20 13:26 | PHA.REVIEW ---
Pharmacy Admission Review - Admission Clinical Review (Last Updated 02/19/21 @ 19:06 by Wanda Solorio MD) Superior mesenteric artery stenosis (Acute) Discharge planning issues (Acute) DVT prophylaxis (Acute) Syncope (Acute) Symptomatic anemia (Acute) Fecal impaction (Acute) Upper GI bleeding (Acute) No Known Allergies Allergy (Verified 02/19/21 18:51) Resuscitation Status Full Code Height 6 ft Weight 60.5 kg - Comments Comments/Follow Ups: cleared by hospitalist for surgery -- EGD likely today; not scoring on CIWA currently; cont to monitor BMP, H/H - Renal Dosing Renal Dosing: BUN 41 mg/dL (7-18) H 02/20/21 06:25 Creatinine 0.7 mg/dL (0.70-1.30) 02/20/21 06:25 Medications needing adjustments: Reviewed List of meds needing interventions: eCrCl 61 ml/min -- orders ok - Anticoagulation Anticoagulation: Hgb 8.0 g/dL (13.5-17.5) L 02/20/21 06:25 Hct 23.4 % (40.0-50.0) L 02/20/21 06:25 Plt Count 240 10^3/uL (130-400) D 02/20/21 06:25 INR 1.0 (0.9-1.1) 02/20/21 06:25 Creatinine 0.7 mg/dL (0.70-1.30) 02/20/21 06:25 DVT Prohphylaxis: N/A (upper GI bleed, received 6 units if blood total) - Opiate Usage Evaluate Pain Scale/Pains Meds: N/A - Relevant Labs Sodium 138 mmol/L (136-145) 02/20/21 06:25 Potassium 3.5 mmol/L (3.5-5.1) 02/20/21 06:25 Chloride 107 mmol/L (98-107) 02/20/21 06:25 Magnesium 1.7 mg/dL (1.8-2.4) L 02/20/21 06:25 Electrolytes, C-Reactive P, ESR: Reviewed (receiving Mag via banana bag) - DM Control DM Control: Glucose 98 mg/dL (74-106) D 02/20/21 06:25 Insulin Dosing: N/A - Heart Failure/NH Heart Failure/NH: Troponin I < 0.05 ng/mL (<0.06) 02/19/21 12:45 EF%, MICHELLE's, B-Blockers, Diuretics: Reviewed - BP Control BP Control: Blood Pressure 115/64 Blood Pressure 124/69 Blood Pressure 116/64 Blood Pressure 125/64 Blood Pressure 114/61 Blood Pressure 117/65 Blood Pressure 118/66 Blood Pressure 132/75 Blood Pressure 112/66 Blood Pressure 115/65 Blood Pressure 113/68 If elevated: Reviewed - Qtc Review If Elevated: Reviewed - IV to PO Switch IV Medications: Reviewed - Home Meds Home Med List reviewed: Reviewed Relevent Home Meds Not ordered & why?: amlodipine, ASA, vitamin d, eszopiclone, HCTZ, meloxicam, potassium, vit b complex - Current meds Current Medication Order Review: Reviewed
[2021-02-20] MEDS: Lactated Ringers 1,000 ML 30 ML IV (13:51)
--- NOTE | 2021-02-20 14:25 | ULCER_PTH ---
PATIENT: Mike Jorgensen LOC: ICU U#:[id number] AGE/SX: 81/M ROOM: ICU.221 RE02/19/[address]: Wanda Solorio : 1940 BED: A DIS: 02/23/2021 SPEC #: [id number] RECD: 02/21/21 12:56 STATUS: SOUPrabhjot REQ #: [id number] CATHY: 02/20/21 14:[address]: Wanda Solorio DEPT: Surgical Specimen RECD BY: Noemi Pulido ENTERED: 02/21/21 12:56 SP TYPE: ULCER OTHR DR: Camilo Mays Ruth Tissues: 1 - ULCER DECUBITUS Procedures: GROSS AND MICRO LEVEL 4 Comments: [id number]
--- NOTE | 2021-02-20 14:52 | ENDO_ITS ---
Date of service: 02/20/21 Time of Service: 14:52 Endoscopy Report DATE OF PROCEDURE: 02/20/21 PRE-OP DIAGNOSIS: anemia, r/o upper GI bleed POST-OP DIAGNOSIS: other (wide-based ulcer in duodenal bulb) PROCEDURE: EGD with biopsy SURGEON: Camilo Mays ANESTHESIA TYPE: General LMA/ETT ESTIMATED BLOOD LOSS: 3 PATHOLOGY: other (biopsy of ulcer edge) COMPLICATIONS: None DISPOSITION: PACU INDICATIONS: This is a very pleasant 81-year-old who presented with black stools, progressive weakness with at least 3 episodes of syncope over the last 2 weeks. He was found to be severely anemic, and hypotensive in the ED, and was admitted to the ICU under the Hospitalist service. Since admission, he has received 5 units of PRBC as his H/H has not completely responded appropriately. He has passed 5 dark, tarry stools today, and there is concern for ongoing bleeding. PREP: Other (NPO) FINDINGS: 1. Moderate distal gastritis 2. A wide-based ulcer in the duodenal bulb occupying nearly 50% of the circumference with adherent clot--no active bleeding seen PROCEDURE DESCRIPTION: After informed consent was obtained the patient was taken to the operating room and placed in a supine position. Monitors were applied, and the patient was intubated under general anesthesia. A time out was performed. The patient's name, birthdate, procedure type, allergies to medications, and metal in his body were reviewed. A bite block was placed, and the patient was propped slightly into the left lateral decubitus position. The gastroscope was advanced through the oropharynx, which was grossly normal, and into the esophagus. The proximal and mid-esophagus were normal. In the distal esophagus there no esophageal erosions, diverticula, varices or stricture apparent. The scope was advanced into the stomach and moderate punctate, non-linear gastritis was seen in the antrum. The scope was then passed through the pylorus into the duodenal bulb. In the duodenal bulb a large ulcer was encountered with dense, dark adherent clot and no signs of active bleeding. It occupied nearly 50% of the circumference of the bulb. The s cope was passed carefully into the 3rd portion of the duodenum and no further lesions/ulcers were seen. The scope was withdrawn back to the duodenal bulb and biopsies were taken of the ulcer edge, taking special care not to disturb the clot. This area was cauterized and hemostasis achieved. The scope was retracted back into the stomach and retroflexed. The cardia and fundus were noted to be normal. There was no hiatal hernia noted. The scope was retracted back into the esophagus, and removed. The patient was awaken and extubated and transferred to the recovery room in stable condition.
--- NOTE | 2021-02-20 14:59 | W.ANESPOSTOP ---
Postoperative Evaluation Date, Time and Location Date Performed: 02/20/21 Time Performed: 14:59 Patient Location: PACU Vital Signs Most Recent Imported Vital Signs: Most Recent Vital Signs Temp Pulse Resp BP Pulse Ox 36.7 C 97 H 19 127/61 100 02/20/21 14:42 02/20/21 14:42 02/20/21 14:42 02/20/21 14:42 02/20/21 14:42 Pain Score Most Recent Pain Score: Most Recent Pain Score Pain Level 0 02/20/21 14:42 Assessment Mental Status: Awake (Alert & Oriented to Patient Baseline) Airway and Respiratory Function: Patent airway with normal (patient baseline) respiratory exam Cardiovascular Function: Hemodynamically Stable Hydration Status: Adequately Hydrated Nausea & Vomiting: No Nausea or Vomiting Pain: Pt. Denies Any Pain Peripheral Nerve Block: Patient did not receive a nerve block
[2021-02-20] MEDS: MORPHine 2 MG/ML SYR IVP (20:48)
[2021-02-20] MEDS: Normal Saline 1,000 ML 150 ML IV (20:49)
[2021-02-20 21:23] LABS: HCT 31.4 % (40.0-50.0); HGB 10.5 g/dL (13.5-17.5)
[2021-02-21] VITALS (33 sets, daily range): BP systolic 104–152; BP diastolic 54–96; PULSE 79–106; RESP 15–31; TEMP 36.5–36.9; O2SAT 95–98
[2021-02-21] MEDS: MAGNESIUM SULFATE 8.12 MEQ, MULTIVITAMIN 10 ML, THIAMINE 100 MG, FOLIC ACID 1 MG in Nor... 150 MG IV ×2 (00:31→23:52)
[2021-02-21] MEDS: Pantoprazole 40 MG VIAL 80 MG IVP ×2 (05:16→18:46)
[2021-02-21 07:05] LABS: Absolute Basophil Count 0.01 10^3/uL (0.0-0.2); Absolute Monocyte Count 0.48 10^3/uL (0.1-0.8); Absolute Neutrophil Count 6.92 10^3/uL (1.2-6.7); Basophils % 0.1; HCT 31.6 % (40.0-50.0); HGB 10.4 g/dL (13.5-17.5); Immature Grans % 1.2; Lymphocytes % 7.4; MCH 29.8 pg (27.0-33.0); MCHC 32.9 % (32.0-36.0); MCV 90.5 fL (80-95); MPV 9.5 fL (8.0-11.0); Monocytes % 5.9; Neutrophils % 85.4; Nucleated RBC 0 %; Platelet Count 232 10^3/uL (130-400); RBC 3.49 10^6/uL (4.36-5.78); RDW 16.8 % (11.8-14.1); RDW-SD 50.4 fL; WBC 8.11 10^3/uL (4.4-10.8)
[2021-02-21 07:27] LABS: Anion Gap 8.4 mmol/L (3-11); BUN 23 mg/dL (7-18); CO2 22.6 mmol/L (21.0-32.0); CREATININE 0.6 mg/dL (0.70-1.30); Calcium 7.1 mg/dL (8.5-10.1); Chloride 107 mmol/L (98-107); Glucose 86 mg/dL (74-106); Potassium 3.7 mmol/L (3.5-5.1); Sodium 138 mmol/L (136-145)
--- NOTE | 2021-02-21 07:53 | W.PM.PROGNOT ---
Date of Service Date of service: 02/21/21 Time of Service: 07:53 Assessment and Plan Assessment and plan (1) Upper GI bleeding: Status: Acute Assessment and plan: EGD performed yesterday by Dr. Mays showed moderate distal gastritis and a wide-based ulcer in the duodenal bulb, no active bleeding was seen. Continue with IV Sucralfate and Protonix NPO Encouraged sitting up out of bed and ambulation. He will require follow up with the [facility] for follow up EGD (2) Fecal impaction: Status: Acute Assessment and plan: Continue with bowel regimen. (3) COPD (chronic obstructive pulmonary disease): Status: Chronic Assessment and plan: Treatment per primary service (4) Alcohol abuse: Status: Chronic Assessment and plan: pt counseled to decrease alcohol intake CIWA protocol per Hospitalist service (5) Chronic pain: Status: Chronic Assessment and plan: avoid NSAIDs Subjective Subjective Interval history since last seen: Patient denies any pain. He states that he would like to have a cup of tea. He reports that he is feeling better. Exam Const General: cooperative, healthy appearing and comfortable Orientation: alert and oriented x3 Resp Effort & Inspection: normal respiratory effort, no audible wheezes and no cough GI Palpation: soft, no guarding and nontender Objective Last Vital Signs Temp 36.9 C 02/21/21 04:00 Pulse 91 H 02/21/21 06:00 Resp 21 02/21/21 06:01 BP 112/73 02/21/21 06:00 Pulse Ox 97 02/21/21 06:01 Laboratory Results - last 24 hr 02/19/21 02/20/21 02/21/21 12:45 21:10 06:15 WBC RBC Hgb 10.5 L D Hct 31.4 L D MCV MCH MCHC RDW Plt Count MPV Immature Gran % Neutrophils % Lymphocytes % Monocytes % Eosinophils % Basophils % Nucleated RBC % Absolute Neutrophils Absolute Lymphocytes Absolute Monocytes Absolute Eosinophils Absolute Basophils Sodium 138 Potassium 3.7 Chloride 107 Carbon Dioxide 22.6 Anion Gap 8.4 BUN 23 H D Creatinine 0.6 L Estimated GFR/1.73 m2 >= 60.00 Glucose 86 Calcium 7.1 L Magnesium 2.0 Patient ABO/Rh A Positive Antibody Screen NEGATIVE Crossmatch See Detail 02/21/21 06:15 WBC 8.11 RBC 3.49 L Hgb 10.4 L Hct 31.6 L MCV 90.5 MCH 29.8 MCHC 32.9 RDW 16.8 H Plt Count 232 MPV 9.5 Immature Gran % 1.2 Neutrophils % 85.4 Lymphocytes % 7.4 Monocytes % 5.9 Eosinophils % 0.0 Basophils % 0.1 Nucleated RBC % 0 Absolute Neutrophils 6.92 H Absolute Lymphocytes 0.60 L Absolute Monocytes 0.48 Absolute Eosinophils 0.00 Absolute Basophils 0.01 Sodium Potassium Chloride Carbon Dioxide Anion Gap BUN Creatinine Estimated GFR/1.73 m2 Glucose Calcium Magnesium Patient ABO/Rh Antibody Screen Crossmatch
--- NOTE | 2021-02-21 08:29 | W.PM.PROGNOT ---
Date of Service Date of service: 02/21/21 Time of Service: 12:08 Assessment and Plan Assessment and plan (1) Upper GI bleeding: Status: Acute Assessment and plan: Due to gastric ulcer, suspect due to NSAID use. S/p EGD 02/20/21. Bx of ulcer edge is pending. No active bleeding was seen, but a large blood clot was attached to the ulcer and potential for rebleeding is great. Keep in the ICU while trialing a diet. Continue IV protonix, carafate. Following up H/H. s/p 6 units of pRBCs. The patient should abstain from NSAIDS. No chemical DVT ppx. (2) Symptomatic anemia: Status: Acute Assessment and plan: Due to above. H/H stable. S/p xfusion of 6 units of pRBCs on this admission. Monitor orthostatics. (3) Syncope: Status: Acute Assessment and plan: Likely due to acute symptomatic anemia of GI bleeding. As above. Monitor VS. (4) Fecal impaction: Status: Acute Assessment and plan: Continue bowel regimen. May benefit from a colonoscopy on this admission vs outpatient. Per my conversation with Dr Mays, the patient had a somewhat weakened rectal tone. Given his h/o lower back surgery and appearance of a thickened bladder, it is possible he has a neurogenic bowel. Getting MRI of Lumbar spine today. Last MRI 25 years ago. Followed by pain management. (5) Back pain: Status: Acute Assessment and plan: as above (6) Leg swelling: Status: Resolved Assessment and plan: Prior to admission, not seen on this admission. Euvolemic, no evidence of systolic or diastolic dysfunction on echo. However, does have pulmonary hypertension with RVSP of 39.5 mmHg, which could be responsible for leg edema prior to presentation. At this time, I would not pursue further workup. (7) Chest discomfort: Status: Resolved Assessment and plan: Symptomatic anemia vs esophagitis/gastritis. Echo w/o wall motion abnormalities and troponin negative - unlikely to beunderlying coronary disease. Treat anemia, gastritis. Outpatient ischemic workup could be pursued if desired. (8) COPD (chronic obstructive pulmonary disease): Status: Chronic Assessment and plan: Not in acute exacebation. Continue home inhalers. (9) Alcohol abuse: Status: Chronic Assessment and plan: No signs of EtOH w/d. Continue monitoring CIWA/prn ativan/banana bag. (10) Chronic pain: Status: Chronic Assessment and plan: Hold NSAIDS. Offer tylenol and prn morphine. On d/c, consider ultram. 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 Asymptomatic. Ensure the patient is not hypotensive/dehydrated - continue IVF. Will need vascular follow up - referral sent. (12) DVT prophylaxis: Status: Acute Assessment and plan: TEDS/SCDs. Chemical DVT ppx is contraindicated in setting of acute GI bleeding. (13) Discharge planning issues: Status: Acute Assessment and plan: Full code Keep in ICU. Subjective Subjective Interval history since last seen: Feels better. Still a little weak, trying clear liquids now. Denies dizziness, chest pain, shortness of breath, nausea, abdominal pain. Still did have heme + stools, but not as dark. Reports back pain. States last MRI was 25 years ago. Agreeable to having one, especially since he had a weakened rectal tone on exam by general surgery. S VSS. H/H stable. No hematemesis. No vagal episodes. Exam Narrative Exam Narrative: General: Very pleasant elderly male, A&Ox3, sitting up in a chair, lips look more pink, looks well, pursed lip breathing, but not dyspneic or tachypneic. HEENT: EOMI, MMM Cardiovascular: RRR, no m/r/g Lungs: CTAB Gastrointestinal: soft, nontender, nondistended, + BS Extremities: No edema, clubbing, or cyanosis of BLE's, 1+ pedal pulse RLE, trace pedal pulse LLE Objective Last Vital Signs Temp 36.9 C 02/21/21 04:00 Pulse 91 H 02/21/21 06:00 Resp 21 02/21/21 06:01 BP 112/73 02/21/21 06:00 Pulse Ox 97 02/21/21 06:01 Laboratory Results - last 24 hr 02/19/21 02/20/21 02/21/21 12:45 21:10 06:15 WBC RBC Hgb 10.5 L D Hct 31.4 L D MCV MCH MCHC RDW Plt Count MPV Immature Gran % Neutrophils % Lymphocytes % Monocytes % Eosinophils % Basophils % Nucleated RBC % Absolute Neutrophils Absolute Lymphocytes Absolute Monocytes Absolute Eosinophils Absolute Basophils Sodium 138 Potassium 3.7 Chloride 107 Carbon Dioxide 22.6 Anion Gap 8.4 BUN 23 H D Creatinine 0.6 L Estimated GFR/1.73 m2 >= 60.00 Glucose 86 Calcium 7.1 L Magnesium 2.0 Patient ABO/Rh A Positive Antibody Screen NEGATIVE Crossmatch See Detail 02/21/21 06:15 WBC 8.11 RBC 3.49 L Hgb 10.4 L Hct 31.6 L MCV 90.5 MCH 29.8 MCHC 32.9 RDW 16.8 H Plt Count 232 MPV 9.5 Immature Gran % 1.2 Neutrophils % 85.4 Lymphocytes % 7.4 Monocytes % 5.9 Eosinophils % 0.0 Basophils % 0.1 Nucleated RBC % 0 Absolute Neutrophils 6.92 H Absolute Lymphocytes 0.60 L Absolute Monocytes 0.48 Absolute Eosinophils 0.00 Absolute Basophils 0.01 Sodium Potassium Chloride Carbon Dioxide Anion Gap BUN Creatinine Estimated GFR/1.73 m2 Glucose Calcium Magnesium Patient ABO/Rh Antibody Screen Crossmatch
[2021-02-21] MEDS: Sucralfate 1 GM TAB PO ×4 (08:45→20:45)
[2021-02-21] MEDS: Cyclobenzaprine 10 MG TAB PO ×3 (08:45→20:45)
[2021-02-21] MEDS: Polyethylene Glycol 3350 17 GM PACKET PO (08:47)
--- NOTE | 2021-02-21 11:38 | CMPROGNOTE_ITS ---
Care Management Progress Note S/O: Mike was sitting up in his chair when CM met with him. He shared concerns central to financial struggles he and his are currently experiencing. Mike stated his lost her job at [employer] due to Covid, first laid off and then notified her position would not be re-filled. He stated the couple is down to their last few hundred dollars. CM reviewed current supports; Mike requested connection with [facility] navigator for [facility] determination. CM faxed referral and will follow up tomorrow with [facility]. A: 81 year old male admitted to [facility] for [facility]peer GI bleeding, symptomatic anemia P: Mike will return home when ready per MD. He will follow up with his PCP and plan of care as prescribed, and transport via private vehicle with his . CM to provide service connection referrals and financial assistance packet as well as connect with [facility] for financial recommendations including possible [facility]. CM continues to follow.
[2021-02-21 12:37] LABS: HCT 35.4 % (40.0-50.0); HGB 11.7 g/dL (13.5-17.5)
--- NOTE | 2021-02-21 13:43 | W.NUTCONSULT ---
Date of service: 02/21/21 Time of Service: 13:44 Nutritional Consult ASSESSMENT: 81 year old male admitted with GI bleed, duodenal ulcer with hx of alcohol abuse with BMI indicating underweight status. Met with Mr. Jorgensen today in ICU. He reports that he has no food insecurity and is not interested in meals on wheels at discharge. He reports his usual body weight is 140 lbs, slightly higher than current weight. Appeared thin but not malnourished. He does the cooking at his house and loves to eat. Supplemented with MVI, thiamine, folic acid for repletion. Following post op diet without difficulties. Current weight has been stable x 6 months. NUTRITIONAL DIAGNOSIS: Underweight but not malnourished INTERVENTION: none needed continue current meal plan MONITORING AND EVALUATION: po intake, labs, weight Time Spent in Nutritional Counseling and Treatment: 15
--- NOTE | 2021-02-21 13:50 | DI.MRI_ITS ---
Exam(s) MR LUMBAR SPINE WO EXAM: MR LUMBAR SPINE WO CLINICAL HISTORY: BLE pain, ?weak rectal tone, ?spinal stenosis. TECHNIQUE: Multiplanar multisequence MRI was performed. COMPARISON: No exams were available for comparison FINDINGS: MR examination of the lumbosacral spine was performed according to the usual protocol. There is significant motion artifact on multiple pulse sequences which degrades imaging. There is a pronounced left convex lumbar scoliosis. There are multi level Babs discal vertebral sign al changes consistent with disc degeneration and there is marked loss of disc height throughout the l umbar region. There are very prominent hypertrophic degenerative changes of the facet joints throughout the lumbar region. Moderate endplate osteophytes also noted multiple sites. At the T10-T11 level, as seen on sagittal T2 weighted images, there is question of slight spinal sudhir l stenosis in the AP dimension with prominent facet hypertrophic changes mildly impinging the conus. No disc herniation. No significant neural foraminal stenosis. At T11-T12, the intervertebral disc appears intact. No central canal spinal stenosis or neural nikita inal stenosis. At T12-L1, there is a moderate disc bulge. There are prominent hypertrophic facet degenerative phillips es. Neural foramina appear bilaterally narrowed left greater than right at this level. No gross bon y central canal spinal stenosis. At L1-2, there is a prominent disc bulge. There is probable bilateral neural foraminal stenosis. No definite disc herniation. There is probable mild central canal spinal stenosis. At L2-3, there is a prominent disc bulge. There are prominent hypertrophic facet degenerative change s. Neural foramina not well visualized, probable right-sided neural foraminal narrowing. At L3-4, there is a moderate disc bulge. No definite focal disc herniation. Probable bilateral neur al foraminal narrowing. No gross central canal spinal stenosis. At L4-5, there is bilateral neural foraminal narrowing. There is no gross central canal spinal steno sis but there is deformity of the spinal canal secondary to scoliosis and facet hypertrophy.. No lai ss disc herniation. Bilateral neural foraminal narrowing noted. At L5-S1, there is no disc herniation, or central canal spinal stenosis. There is bilateral neural f oraminal narrowing. There are prominent hypertrophic facet degenerative changes. IMPRESSION: Marked hypertrophic degenerative changes of facet joints throughout the lumbar region and marked left convex lumbar scoliosis. Multilevel deformity of neural foramina and central spinal canal.. Please see above for findings at individual levels. DATA REPOSITORY:
[2021-02-21] MEDS: Normal Saline 1,000 ML 150 ML IV (18:02)
[2021-02-21] MEDS: Normal Saline Flush 10 ML SYR IVP (18:47)
[2021-02-21] MEDS: Zolpidem 5 MG TAB PO (20:45)
[2021-02-22] VITALS (29 sets, daily range): BP systolic 114–142; BP diastolic 57–121; PULSE 64–866; RESP 15–29; TEMP 36–36.9; O2SAT 93–99
[2021-02-22] MEDS: Pantoprazole 40 MG VIAL 80 MG IVP (06:12)
[2021-02-22 07:19] LABS: HCT 29.7 % (40.0-50.0); HGB 9.9 g/dL (13.5-17.5); MCH 30.4 pg (27.0-33.0); MCHC 33.3 % (32.0-36.0); MCV 91.1 fL (80-95); MPV 9.9 fL (8.0-11.0); Platelet Count 235 10^3/uL (130-400); RBC 3.26 10^6/uL (4.36-5.78); RDW 17.8 % (11.8-14.1); RDW-SD 50.7 fL; WBC 8.47 10^3/uL (4.4-10.8)
[2021-02-22 07:28] LABS: Anion Gap 9.4 mmol/L (3-11); BUN 18 mg/dL (7-18); CO2 19.6 mmol/L (21.0-32.0); CREATININE 0.6 mg/dL (0.70-1.30); Calcium 7.3 mg/dL (8.5-10.1); Chloride 106 mmol/L (98-107); Glucose 82 mg/dL (74-106); Magnesium 1.9 mg/dL (1.8-2.4); Potassium 3.2 mmol/L (3.5-5.1); Sodium 135 mmol/L (136-145)
[2021-02-22] MEDS: Cyclobenzaprine 10 MG TAB PO ×3 (07:56→19:28)
[2021-02-22] MEDS: Polyethylene Glycol 3350 17 GM PACKET PO (07:59)
[2021-02-22] MEDS: Sucralfate 1 GM TAB PO ×4 (07:59→21:44)
--- NOTE | 2021-02-22 08:02 | CHAPLAIN ---
Mike was reading in his chair when I visited yesterday. I introduced myself and explained my role. He was pleasant but not interested in further conversation.
--- NOTE | 2021-02-22 08:15 | PGE_ITS ---
Date of Service Date of service: 02/22/21 Time of Service: 16:50 Assessment and Plan Assessment and plan (1) Upper GI bleeding: Status: Acute Assessment and plan: Due to gastric ulcer, suspect due to NSAID use. S/p EGD 02/20/21. Bx of ulcer edge is still pending. No active bleeding was seen, but a large blood clot was attached to the ulcer and potential for rebleeding is great. Transferred out of ICU. IV protonix dose decreased with plans to switch to PO PPI tomorrow. Continue carafate. Recheck CBC in am. s/p 6 units of pRBCs on this admission. The patient should abstain from NSAIDS and alcohol. No chemical DVT ppx. (2) Symptomatic anemia: Status: Acute Assessment and plan: Due to above. H/H remains stable. S/p xfusion of 6 units of pRBCs on this admission. Monitor orthostatics. (3) Syncope: Status: Acute Assessment and plan: Likely due to acute symptomatic anemia of GI bleeding. As above. Monitor VS. (4) Fecal impaction: Status: Acute Assessment and plan: Continue bowel regimen. May benefit from a colonoscopy as outpatient. Per my conversation with Dr Mays, the patient had a somewhat weakened rectal tone. No evidence of spinal stenosis on MRI - cauda equina ruled out. (5) Back pain: Status: Acute Assessment and plan: as above (6) Leg swelling: Status: Resolved Assessment and plan: Prior to admission, not seen on this admission. Euvolemic, no evidence of systolic or diastolic dysfunction on echo. However, d oes have pulmonary hypertension with RVSP of 39.5 mmHg, which could be responsible for leg edema prior to presentation. At this time, I would not pursue further workup. (7) Chest discomfort: Status: Resolved Assessment and plan: Symptomatic anemia vs esophagitis/gastritis. This has now resolved. Echo w/o wall motion abnormalities and troponin negative - unlikely to beunderlying coronary disease. Treat anemia, gastritis. Outpatient ischemic workup could be pursued if desired. (8) COPD (chronic obstructive pulmonary disease): Status: Chronic Assessment and plan: Not in acute exacebation. Continue home inhalers. (9) Alcohol abuse: Status: Chronic Assessment and plan: No signs of EtOH w/d. Continue monitoring CIWA/prn ativan. Transition to PO vitamins. (10) Chronic pain: Status: Chronic Assessment and plan: Hold NSAIDS. Offer tylenol. If needed, prn oxycodone. Patient was advised against NSAIDS. He does not want to return to taking gabapentin. He is interested in pursuing ablation with pain management - will defer to them. 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 Asymptomatic. Ensure the patient is not hypotensive/dehydrated. Will need vascular follow up - referral sent. (12) DVT prophylaxis: Status: Acute Assessment and plan: TEDS/SCDs. Chemical DVT ppx is contraindicated in setting of acute GI bleeding. (13) Discharge planning issues: Status: Acute Assessment and plan: Full code Transferred out of ICU. Subjective Subjective Interval history since last seen: Mr Jorgensen feels almost back to normal. He denies dizziness, chest pain, shortness of breath, n/v. He is tolerating soft bland diet. No bleeding. No stool last night. We spoke at length about not using NSAIDs again, how alcohol exacerbates ulcers, about need to follow up with vascular surgery, about his MRI results. His was present and verbalized understanding. Exam Narrative Exam Narrative: General: Very pleasant elderly male, A&Ox3, sitting up in a chair, looks even more pink today; pursed lip breathing HEENT: EOMI, MMM Cardiovascular: RRR, no m/r/g Lungs: CTAB Gastrointestinal: soft, nontender, nondistended, + BS Extremities: No edema, clubbing, or cyanosis of BLE's, 1+ pedal pulse RLE, trace pedal pulse LLE Objective Last Vital Signs Temp 36.5 C 02/22/21 07:54 Pulse 92 H 02/22/21 07:54 Resp 18 02/22/21 07:54 BP 136/72 02/22/21 07:54 Pulse Ox 98 02/22/21 07:54 Laboratory Results - last 24 hr 02/21/21 02/22/21 02/22/21 12:10 06:20 06:20 WBC 8.47 RBC 3.26 L Hgb 11.7 L 9.9 L Hct 35.4 L 29.7 L MCV 91.1 MCH 30.4 MCHC 33.3 RDW 17.8 H Plt Count 235 MPV 9.9 Sodium 135 L Potassium 3.2 L Chloride 106 Carbon Dioxide 19.6 L Anion Gap 9.4 BUN 18 Creatinine 0.6 L Estimated GFR/1.73 m2 >= 60.00 Glucose 82 Calcium 7.3 L Magnesium 1.9
[2021-02-22] MEDS: Pantoprazole 40 MG VIAL IVP ×2 (08:27→19:37)
[2021-02-22] MEDS: POTASSIUM CHLORIDE 20 MEQ/100 ML BAG 50 MEQ IVPB ×2 (08:29→10:17)
--- NOTE | 2021-02-22 10:15 | CMPROGNOTE_ITS ---
Care Management Progress Note S/O: CM coordinated connection with [employer] navigatorNoemi for insurance support, and review of additional support services. Mike was sitting up in his chair when CM met with him, on the phone with Noemi from [employer]. CM also provided financial assistance packet for Mike to complete. MD reports he is making gains toward discharge and will be downgraded to M/S level of care today. CM continues to follow. A: 81 year old male admitted to [facility] for [facility] GI bleeding, symptomatic anemia P: Mike will return home when ready per MD. He will follow up with his PCP and plan of care as prescribed, and transport via private vehicle with his . CM provided service connection referrals for financial recommendations including possible [facility] and connected him with [employer]. CM continues to follow.
--- NOTE | 2021-02-22 12:00 | NUR.NOTE ---
Lucía is served his lunch and begins feeding himself up in chair.Nursing Note:
--- NOTE | 2021-02-22 12:08 | NUR.NOTE ---
Hemoglobin and Hematocrit are drawn by hospital laboratory technician.
[2021-02-22 12:22] LABS: HCT 37.2 % (40.0-50.0); HGB 12.3 g/dL (13.5-17.5)
[2021-02-22] MEDS: Multivitamin TAB 1 TAB PO (14:40)
[2021-02-22] MEDS: Normal Saline Flush 10 ML SYR IVP (19:36)
[2021-02-22] MEDS: Zolpidem 5 MG TAB PO (21:44)
[2021-02-23] VITALS (47 sets, daily range): BP systolic 51–175; BP diastolic 37–94; PULSE 80–137; RESP 10–32; TEMP 35.5–37.2; O2SAT 90–100; BMI 19.6
--- NOTE | 2021-02-23 06:15 | DI.RAD_ITS ---
Exam(s) XR PORTABLE CHEST AP EXAM: XR PORTABLE CHEST AP CLINICAL HISTORY: sob and rapid heart rate. TECHNIQUE: 2D digital imaging was performed. COMPARISON: Prior chest x-ray 02/19/2021 FINDINGS: Chest leads in place. Elevated left hemidiaphragm is again noted, more so than previous. Heart size is normal. Mediastinum not widened. Right lung is clear. There is platelike atelectasis in the left lung base also small pleural effusion left side. IMPRESSION: Left lung base atelectasis and developing infiltrate and small left-sided pleural effusion. DATA REPOSITORY: RADIATION DOSE DELIVERED: All CT scans at this facility use at least one of these dose optimization techniques: automated exposure control; mA and/or kV adjustment per patient size (includes targeted e xams where dose is matched to clinical indication); or iterative reconstruction.
--- NOTE | 2021-02-23 06:15 | RT.EKG_ITS ---
APPROVED REPORT Exam: Resting ECG Reason for Exam: rapid heart rate and shortness of breath Patient Location: I HR:130 bpm ECG Measurements Heart Rate 130 AXIS WY 137 P 87 QRSd 90 QRS 44 QT 316 T 59 QTc 464 Conclusion Sinus tachycardia...rate> 99
[2021-02-23 06:33] LABS: Abs Immature Grans 0.07 10^3/uL (0.0-0.06); Absolute Basophil Count 0.03 10^3/uL (0.0-0.2); Absolute Eosinophil Count 0.31 10^3/uL (0.0-0.7); Absolute Lymphocyte Count 1.05 10^3/uL (1.2-3.4); Absolute Monocyte Count 0.85 10^3/uL (0.1-0.8); Absolute Neutrophil Count 7.47 10^3/uL (1.2-6.7); Basophils % 0.3; Eosinophils % 3.2; HCT 25.2 % (40.0-50.0); HGB 8.5 g/dL (13.5-17.5); Immature Grans % 0.7; Lymphocytes % 10.7; MCH 31.1 pg (27.0-33.0); MCHC 33.7 % (32.0-36.0); MCV 92.3 fL (80-95); MPV 9.8 fL (8.0-11.0); Monocytes % 8.7; Neutrophils % 76.4; Nucleated RBC 0 %; Platelet Count 258 10^3/uL (130-400); RBC 2.73 10^6/uL (4.36-5.78); RDW 17.8 % (11.8-14.1); RDW-SD 49.7 fL; WBC 9.78 10^3/uL (4.4-10.8)
[2021-02-23 06:45] LABS: Anion Gap 9.2 mmol/L (3-11); BUN 20 mg/dL (7-18); CO2 21.8 mmol/L (21.0-32.0); CREATININE 0.6 mg/dL (0.70-1.30); Calcium 7.4 mg/dL (8.5-10.1); Chloride 105 mmol/L (98-107); Glucose 106 mg/dL (74-106); Magnesium 1.3 mg/dL (1.8-2.4); Potassium 3.6 mmol/L (3.5-5.1); Sodium 136 mmol/L (136-145)
[2021-02-23 06:48] LABS: ALT 17 U/L (16-63); AST 17 U/L (15-37); Albumin 2.1 g/dL (3.4-5.0); Alkaline Phosphatase 53 U/L (46-116); Anion Gap 9.2 mmol/L (3-11); BUN 20 mg/dL (7-18); Bilirubin, Total 0.4 mg/dL (0.2-1.0); CO2 21.8 mmol/L (21.0-32.0); CREATININE 0.7 mg/dL (0.70-1.30); Calcium 7.4 mg/dL (8.5-10.1); Chloride 105 mmol/L (98-107); Glucose 108 mg/dL (74-106); Potassium 3.6 mmol/L (3.5-5.1); Sodium 136 mmol/L (136-145); Total Protein 4.7 g/dL (6.4-8.2)
[2021-02-23] MEDS: Furosemide 40 MG/4 ML VIAL IVP (06:52)
[2021-02-23] MEDS: Albuterol 2.5 MG/3 ML INH SOLN VIAL UPD (06:52)
[2021-02-23] MEDS: Normal Saline Flush 10 ML SYR IVP ×2 (06:52→08:40)
--- NOTE | 2021-02-23 06:55 | DI.VRAD_ITS ---
PROCEDURE INFORMATION: Exam: XR Chest Exam date and time: 02/23/2021 6:22 AM Age: 81 years old Clinical indication: Other: SOB and rapid heart rate TECHNIQUE: Imaging protocol: XR of the chest. Views: 1 view. COMPARISON: 1. CR XR PORTABLE CHEST AP 02/19/2021 6:48 PM 2. CR XR CHEST 2V PA LATERAL 01/12/2019 10:[address] ABDOMEN PELVIS W 02/19/2021 2:30 PM FINDINGS: Mildly limited due to rotation Mildly elevated left hemidiaphragm with left basilar subsegmental atelectasis and minimal left effusion suspected. No definite pneumothorax. Interstitial prominence is otherwise grossly stable. The heart, mediastinal and osseous structures are grossly stable IMPRESSION: Mildly elevated left hemidiaphragm with mild left basilar subsegmental atelectasis and minimal left pleural effusion suspected Dictated and Authenticated by: Ethan Feng MD. Ordering[facility] Anna Kidd MD
[2021-02-23 06:57] LABS: NT-proBNP 427 pg/mL (<300); Troponin I < 0.05 ng/mL (<0.06)
--- NOTE | 2021-02-23 07:13 | PGE_ITS ---
Date of Service Date of service: 02/23/21 Time of Service: 07:13 Assessment and Plan Assessment and plan (1) Upper GI bleeding: Status: Acute Assessment and plan: Given the acute drop in his hemoglobin, persistent resting tachycardia, recent PUD; he most likely is having recurrnet upper GI bleeding. I have ordered transfusion of 2 units of PRBC and transfer of patient to ICU and have paged the surgeon special technical operations officer twice. He was initially given lasix 40 mg IVP and BIPAP was originally ordered prior ot the above data being obtained as it was initially surmised that he might be in acute CHF from volume overload however, I am now giving NS bolus 1000 mL while awaiting PRBC's. Patient has already been on protonix 40 mg IV q12H and carafate. Subjective Subjective Interval history since last seen: Patient slept well through the night however when getting up to bedside to urinate he would intermittently become tachycardic in the 110's to 120's but then HR would return to the low 100's however, when he got up to have a BM he became very dyspneic, tachypneic (RR 30's), and t achycardic (ST in 130's) but not hypoxemic. He had a small dark black BM. When he went back into his chair he remained tachycardic in the 130's although his dyspnea improved. He denies any abdominal pain or nausea. Stat CXR, EKG, labs including CMP, CBC, troponin I and BNP were done. CXR demonstrates emphysema w/ elevated left hemidiaphragm but no pulmonary edema. EKG demonstrates sinus tachycardia but no acute ischemic ST-T changes and no rightward axis deviation. CBC indicates drop in hemoglobin to 8.5 gm from 12.5 gm yesterday. Pro-BNP 427 and troponin I <0.05. Exam Narrative Exam Narrative: Pale white male who is alert/oriented x 3 Lungs w/ decr. BS @ bases; no rhonchi or rales or wheezing Heart: tachycardic w/ soft systolic murmur over apex; regular tachycardia Abdomen: soft, nontender, active bowel sounds, nondistended; no guarding Extremities: no calf or thigh swelling or tenderness Objective Last Vital Signs Temp 35.5 C L 02/23/21 03:27 Pulse 115 H 02/23/21 03:27 Resp 16 02/23/21 03:27 BP 104/60 02/23/21 03:27 Pulse Ox 95 02/23/21 03:27 Laboratory Results - last 24 hr 02/22/21 02/22/21 02/22/21 06:20 06:20 12:15 WBC 8.47 RBC 3.26 L Hgb 9.9 L 12.3 L D Hct 29.7 L 37.2 L D MCV 91.1 MCH 30.4 MCHC 33.3 RDW 17.8 H Plt Count 235 MPV 9.9 Immature Gran % Neutrophils % Lymphocytes % Monocytes % Eosinophils % Basophils % Nucleated RBC % Absolute Neutrophils Absolute Lymphocytes Absolute Monocytes Absolute Eosinophils Absolute Basophils Sodium 135 L Potassium 3.2 L Chloride 106 Carbon Dioxide 19.6 L Anion Gap 9.4 BUN 18 Creatinine 0.6 L Estimated GFR/1.73 m2 >= 60.00 Glucose 82 Calcium 7.3 L Magnesium 1.9 Total Bilirubin AST ALT Alkaline Phosphatase Troponin I NT-Pro-B Natriuret Pep Total Protein Albumin Crossmatch 02/23/21 02/23/21 02/23/21 06:20 06:20 06:20 WBC 9.78 RBC 2.73 L Hgb 8.5 L D Hct 25.2 L D MCV 92.3 MCH 31.1 MCHC 33.7 RDW 17.8 H Plt Count 258 MPV 9.8 Immature Gran % 0.7 Neutrophils % 76.4 Lymphocytes % 10.7 Monocytes % 8.7 Eosinophils % 3.2 Basophils % 0.3 Nucleated RBC % 0 Absolute Neutrophils 7.47 H Absolute Lymphocytes 1.05 L Absolute Monocytes 0.85 H Absolute Eosinophils 0.31 Absolute Basophils 0.03 Sodium 136 136 Potassium 3.6 3.6 Chloride 105 105 Carbon Dioxide 21.8 21.8 Anion Gap 9.2 9.2 BUN 20 H 20 H Creatinine 0.6 L 0.7 Estimated GFR/1.73 m2 >= 60.00 >= 60.00 Glucose 106 108 H Calcium 7.4 L 7.4 L Magnesium 1.3 L Total Bilirubin 0.4 AST 17 ALT 17 Alkaline Phosphatase 53 Troponin I NT-Pro-B Natriuret Pep Total Protein 4.7 L Albumin 2.1 L Crossmatch 02/23/21 02/23/21 06:20 07:07 WBC RBC Hgb Hct MCV MCH MCHC RDW Plt Count MPV Immature Gran % Neutrophils % Lymphocytes % Monocytes % Eosinophils % Basophils % Nucleated RBC % Absolute Neutrophils Absolute Lymphocytes Absolute Monocytes Absolute Eosinophils Absolute Basophils Sodium Potassium Chloride Carbon Dioxide Anion Gap BUN Creatinine Estimated GFR/1.73 m2 Glucose Calcium Magnesium Total Bilirubin AST ALT Alkaline Phosphatase Troponin I < 0.05 NT-Pro-B Natriuret Pep 427 H Total Protein Albumin Crossmatch See Detail
[2021-02-23] MEDS: Normal Saline 1,000 ML 1000 ML IV ×4 (07:30→15:41)
--- NOTE | 2021-02-23 08:25 | W.ANESPRE ---
General Info Date of Service Date Performed: 02/23/21 Height: 6 ft Weight: 65.8 kg Body Mass Index (BMI): 19.6 Surgical Procedure: Operation Date: 02/20/21 13:20 Proposed Procedures Side Surgeon p Gastroscopy Camilo Mays MD Actual Procedures Side Surgeon p ESOPHAGOGASTRODUODENOSCOPY WITH BIOPSIES Not Applicable Camilo Mays MD Pre-Op Diagnosis Post-Op Diagnosis Upper GI bleeding, symptomatic anemia WIDE BASED ULCER, NON HEALING WITH ADHERED CLOT Operation Date: 02/23/21 11:05 Proposed Procedures Side Surgeon p Gastroscopy Camilo Mays MD Meds Allergies and Home Medications Allergies Allergy/AdvReac Type Severity Reaction Status Date / Time No Known Allergies Allergy Verified 02/19/21 18:51 Home Medication Medication Instructions Recorded albuterol sulfate 90 mcg/actuation 2 puff INHALATION Q6H PRN 08/16/20 aerosol inhaler amlodipine 5 mg tablet 5 mg PO DAILY 08/16/20 cyclobenzaprine 10 mg tablet 10 mg PO TID 08/16/20 hydrochlorothiazide 25 mg tablet 25 mg PO DAILY 08/16/20 meloxicam 15 mg tablet 15 mg PO DAILY 08/16/20 potassium chloride 10 mEq 10 meq PO DAILY 08/16/20 capsule,extended release cholecalciferol (vitamin D3) 125 mcg PO DAILY 08/18/20 [Vitamin D3] vitamin B complex 1 tab PO DAILY 08/30/20 acetaminophen 500 mg capsule 1,000 mg PO DAILY AM PRN cap 10/17/20 aspirin 81 mg tablet,delayed 81 mg PO .COMPLEX 10/17/20 release eszopiclone 1 mg tablet 1 mg PO QHS PRN 10/17/20 Current Visit Medications: Current Medications Generic Name Dose Route Start Last Admin Trade Name Freq PRN Reason Stop Dose Admin Acetaminophen 650 mg 02/22/21 19:15 Acetaminophen 325 Mg Tab PO Q6H PRN PRN Al Hydrox/Mg Hydrox/Simethicone 30 ml 02/19/21 15:59 Mylanta Suspension 30 Ml Cup PO Q2H PRN PRN Albuterol Sulfate 2 puff 02/19/21 17:30 Albuterol Hfa 8 Gm 60 Puff Inh IH Q6H PRN PRN Bisacodyl 10 mg 02/19/21 18:44 Bisacodyl 10 Mg Supp TN DAILY PRN PRN Cyclobenzaprine HCl 10 mg 02/19/21 20:00 02/22/21 19:28 Cyclobenzaprine 10 Mg Tab PO 10 mg TID GLENN Administration Device 1 each 02/19/21 18:00 Inhaler, Assist Device DIRECTED GLENN Dimethicone/Zinc Oxide 0 gm 02/19/21 15:59 Carmen Protect Cream 142 Gm Tube TP PRN PRN Docusate Sodium 100 mg 02/19/21 15:59 02/19/21 22:44 Docusate Sodium 100 Mg Cap PO 100 mg TID PRN PRN Administration Promethazine HCl 25 mg/ Sodium 51 mls @ 200 mls/hr 02/21/21 07:37 Chloride IVPB Q4H PRN PRN Sodium Chloride 1,000 mls @ 1,000 mls/hr 02/23/21 07:42 02/23/21 07:30 Saline 1000ml Bag IV 02/23/21 08:41 1,000 mls/hr BOLUS ONE Administration Magnesium Sulfate 4 gm in 100 mls @ 25 mls/hr 02/23/21 08:14 IVPB 02/23/21 12:13 NOW ONE IV Miscellaneous Supplies 1 each 02/19/21 13:00 Iv Access IV DIRECTED GLENN Lidocaine 1 patch 02/22/21 16:00 02/22/21 17:11 Lidocaine 5% Patch TP Not Given Q24H GLENN Lorazepam 0 mg 02/19/21 18:42 Lorazepam 1 Mg Tab PO/SL DIRECTED PRN Miscellaneous 1 each 02/23/21 04:00 02/23/21 04:00 Patch Removal TP Not Given Q24H GLENN Multivitamins 1 tab 02/22/21 08:30 02/22/21 14:40 Multivitamin Tab PO 1 tab DAILY GLENN Administration Ondansetron HCl 4 mg 02/19/21 19:00 Ondansetron 4 Mg/2 Ml Vial IVP Q6H PRN PRN Oxycodone HCl 5 mg 02/22/21 19:15 Oxycodone 5 Mg Tab PO Q8H PRN PRN Pantoprazole Sodium 80 mg 02/23/21 08:00 Pantoprazole 40 Mg Vial IVP Q12H GLENN Polyethylene Glycol 17 gm 02/21/21 08:30 02/22/21 07:59 Polyethylene Glycol 3350 17 Gm Packet PO 17 gm DAILY GLENN Administration Sodium Chloride 0 ml 02/19/21 12:50 02/23/21 06:52 Normal Saline Flush 10 Ml Syr IVP 20 ml PRN PRN Administration Sucralfate 1 gm 02/19/21 16:30 02/22/21 21:44 Sucralfate 1 Gm Tab PO 1 gm AC & HS GLENN Administration Thiamine HCl 100 mg 02/23/21 08:30 Thiamine 100 Mg Tab PO DAILY GLENN Zolpidem Tartrate 5 mg 02/21/21 19:39 02/22/21 21:44 Zolpidem 5 Mg Tab PO 5 mg HS PRN PRN Administration PFSH Active Problems Active Problems: Problem Status Onset Code Back pain M54.9 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 Fecal retention K59.00 Alcohol abuse F10.10 COPD (chronic obstructive pulmonary disease) J44.9 Chest discomfort R07.89 Leg swelling M79.89 Chronic pain G89.29 Discharge planning issues Z02.9 DVT prophylaxis Z29.9 Syncope R55 Symptomatic anemia D64.9 Fecal impaction K56.41 Upper GI bleeding K92.2 GI bleed K92.2 Osteoarthritis of right knee M17.11 Osteoarthritis of left knee M17.12 Medical History Medical History (Updated 02/21/21 @ 12:12 by Wanda Solorio MD) Alcohol abuse Anosmia Balance problem Chronic back pain COPD (chronic obstructive pulmonary disease) Diarrhea Exertional dyspnea Herniated lumbar intervertebral disc Hip pain, left History of traumatic fracture of vertebra HTN (hypertension) Hx of squamous cell carcinoma Knee pain, bilateral Lower back pain Osteoarthritis of left knee Steroid injection: 08/15/2020 Osteoarthritis of lumbar spine Osteoarthritis of right knee Steroid injection: 08/15/2020 Spondylosis of lumbar spine Spondylosis, cervical Tobacco dependence in remission Unintentional weight loss Vitamin D deficiency Surgical History Surgical History S/P cervical spinal fusion S/P laminectomy Tobacco Smoking/Tobacco Use Status: Former Tobacco Use Alcohol Alcohol Intake: current Alcohol intake frequency: 3 or more drinks per day Alcohol type: beer and hard liquor Substance Use Substance use: Never Substance use type: does not use Vital Signs and Lab Results Vital Signs Most Recent Vital Signs in EMR: Most Recent Vital Signs Temp Pulse Resp BP Pulse Ox 36.4 C L 119 H 20 108/70 95 02/23/21 07:33 02/23/21 07:33 02/23/21 07:33 02/23/21 07:33 02/23/21 07:33 Lab Results Result Diagrams: 02/23/21 06:02/23/21 06:20 Blood Type / Crossmatch: Patient ABO/Rh A Positive 02/19/21 12:45 02/19/21 Antibody Screen NEGATIVE 02/19/21 12:45 02/19/21 Crossmatch See Detail 02/23/21 07:50 02/23/21 Complete Blood Count: White Blood Count 9.78 10^3/uL (4.4-10.8) 02/23/21 06:20 02/23/21 Red Blood Count 2.73 10^6/uL (4.36-5.78) L 02/23/21 06:20 02/23/21 Hemoglobin 8.5 g/dL (13.5-17.5) L 02/23/21 06:20 02/23/21 Hematocrit 25.2 % (40.0-50.0) L 02/23/21 06:20 02/23/21 Platelet Count 258 10^3/uL (130-400) 02/23/21 06:20 02/23/21 Complete Metabolic Panel: Sodium Level 136 mmol/L (136-145) 02/23/21 06:20 02/23/21 Potassium Level 3.6 mmol/L (3.5-5.1) 02/23/21 06:20 02/23/21 Chloride Level 105 mmol/L (98-107) 02/23/21 06:20 02/23/21 Carbon Dioxide Level 21.8 mmol/L (21.0-32.0) 02/23/21 06:20 02/23/21 Blood Urea Nitrogen 20 mg/dL (7-18) H 02/23/21 06:20 02/23/21 Creatinine 0.7 mg/dL (0.70-1.30) 02/23/21 06:20 02/23/21 Estimated GFR/1.73 m2 >= 60.00 (mL/min/1.73m2) 02/23/21 06:20 02/23/21 Magnesium Level 1.3 mg/dL (1.8-2.4) L 02/23/21 06:20 02/23/21 Calcium Level 7.4 mg/dL (8.5-10.1) L 02/23/21 06:20 02/23/21 Albumin 2.1 g/dL (3.4-5.0) L 02/23/21 06:20 02/23/21 Glucose Level 108 mg/dL (74-106) H 02/23/21 06:20 02/23/21 Liver Function Panel: Alanine Aminotransferase (ALT/SGPT) 17 U/L (16-63) 02/23/21 06:20 02/23/21 Aspartate Amino Transf (AST/SGOT) 17 U/L (15-37) 02/23/21 06:20 02/23/21 Coagulation Panel: INR International Normalized Ratio 1.0 (0.9-1.1) 02/20/21 06:25 02/20/21 Prothrombin Time 9.9 sec (9.3-11.0) 02/20/21 06:25 02/20/21 Cardiac Panel: Troponin I < 0.05 ng/mL (<0.06) 02/23/21 06:20 02/23/21 MV-Qcn-I-Type Natriuretic Peptide 427 pg/mL (<300) H 02/23/21 06:20 02/23/21 Arterial Blood Gas: No Data to Display Venous Blood Gas: No Data to Display Pancreas Panel: No Data to Display Thyroid Panel: No Data to Display Infectious Disease: Coronavirus (COVID-19)(PCR) Negative (Negative) 02/19/21 15:45 02/19/21 Coronavirus 2019 Source Nasal/nares 02/19/21 15:45 02/19/21 Blood Cultures: No Data to Display Toxicology Panel: No Data to Display Imaging and Studies Imaging and Studies EKG Summary: Sinus tachycardia.. ST depr anterolateral leads, may be rate related Echocardiogram Summary: Normal left ventricular wall thickness and chamber size. Estimated ejection fraction is 60 to 65%. Wall motion is normal Normal right ventricular size and systolic function Both atria are normal in size The aortic valve is trileaflet and sclerotic without stenosis or regurgitation Mitral annular calcification. Trace mitral regurgitation Normal tricuspid valve with trace regurgitation. Estimated right ventricular systolic pressure is 39 mmHg Normal pulmonic valve with trace regurgitation Mildly dilated ascending aorta measuring 3.68 cm Anesthesia Assessment and Plan Anesthesia History Personal History: No History of Anesthesia Complications Family History: No Family History of Anesthesia Complications Exercise Tolerance Exercise Tolerance: Metabolic Equivalents>4 Pertinent Negatives Pertinent Negatives: No Symptoms of GERD, No Major Cardiovascular Symptoms or Complaints and No History of CVA/TIA Cardiac & Pulmonary Exam Cardiac Exam: Normal S1/S2 Heart Sounds Pulmonary Exam: Clear Bilateral Breath Sounds Airway Exam Known Difficult Airway: No Mallampati Class: 2 Mouth Opening: Normal (> 3cm) Thyromental Distance: Greater than 3 cm Neck Range of Motion: Full ROM and Known Cervical Instability or radiculopathy Neck Circumference: Normal Teeth Condition: Normal Dentition ASA Classification ASA Score: ASA 2 Emergency Case?: Yes NPO Status NPO Status: NPO Clear Liquids>2 hours Anesthesia Plan Resuscitation Status: Full Code Anesthesia Technique: General Anesthesia Airway Planned: Endotracheal Tube Monitors Used: Standard Monitors
--- NOTE | 2021-02-23 08:31 | W.PM.PROGNOT ---
Date of Service Date of service: 02/23/21 Time of Service: 01:00 Assessment and Plan Assessment and plan (1) Upper GI bleeding: Status: Acute Assessment and plan: Due to gastric ulcer, suspect due to NSAID use. S/p EGD 02/20/21. Unfortunately, the patient is rebleeding. Repeat EGD today. Transfer back to the ICU. Transfuse 2 units pRBCs, repeat H/H, anticipate more blood will be needed. IV protonix increased to 80 mg BID again. Continue carafate. s/p 6 units of pRBCs on this admission. The patient should abstain from NSAIDS and alcohol. No chemical DVT ppx. (2) Symptomatic anemia: Status: Acute Assessment and plan: Due to above. H/H dropped 4 points - however, I do not believe that the H/H yesterday afternoon was real. S/p xfusion of 6 units of pRBCs on this admission, receiving more blood this morning. Monitor orthostatics, VS. (3) Syncope: Status: Acute Assessment and plan: Likely due to acute symptomatic anemia of GI bleeding. As above. Monitor VS. (4) Fecal impaction: Status: Acute Assessment and plan: Continue bowel regimen. May benefit from a colonoscopy as outpatient. Per my conversation with Dr Mays, the patient had a somewhat weakened rectal tone. No evidence of spinal stenosis on MRI - cauda equina/spinal stenosis ruled out. (5) Back pain: Status: Acute Assessment and plan: as above F/u with pain management as outpatient. (6) Leg swelling: Status: Resolved Assessment and plan: Prior to admission, not seen on this admission. Euvolemic, no evidence of systolic or diastolic dysfunction on echo. However, does have pulmonary hypertension with RVSP of 39.5 mmHg, which could be responsible for leg edema prior to presentation. At this time, I would not pursue further workup. (7) Chest discomfort: Status: Resolved Assessment and plan: Symptomatic anemia vs esophagitis/gastritis. This has now resolved. Echo w/o wall motion abnormalities and troponin negative - unlikely to beunderlying coronary disease. Treat anemia, gastritis. Outpatient ischemic workup could be pursued if desired. (8) COPD (chronic obstructive pulmonary disease): Status: Chronic Assessment and plan: Not in acute exacebation. Continue home inhalers. (9) Alcohol abuse: Status: Chronic Assessment and plan: No signs of EtOH w/d. Continue monitoring CIWA/prn ativan. Transition to PO vitamins. (10) Chronic pain: Status: Chronic Assessment and plan: Hold NSAIDS. Offer tylenol. If needed, prn oxycodone. Patient was advised against NSAIDS. He does not want to return to taking gabapentin. He is interested in pursuing ablation with pain management - will defer to them. 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 Asymptomatic. Ensure the patient is not hypotensive/dehydrated. Will need vascular follow up - referral sent. (12) DVT prophylaxis: Status: Acute Assessment and plan: TEDS/SCDs. Chemical DVT ppx is contraindicated in setting of acute GI bleeding. (13) Discharge planning issues: Status: Acute Assessment and plan: Full code Transferred back to the ICU. Total Critical Care Time 45 minutes. Subjective Subjective Interval history since last seen: Hematemesis, melena this am, tachycardic. Transferred back to the ICU, expected to go to EGD shortly. 2 units pRBCs ordered, xfusion pending. When seen, the patient endorsed not feeling dizzy anymore. He was receiving his first unit pRBCs. Denies chest pain, shortness of breath, nausea, abdominal pain. Exam Narrative Exam Narrative: General: Very pleasant elderly male, A&Ox3, pale, laying flat in bed, NAD; tachycardia to 120s (sinus) on the monitor HEENT: EOMI, MMM Cardiovascular: RRR, no m/r/g, tachycardic Lungs: CTAB Gastrointestinal: soft, nontender, nondistended, + BS Extremities: No edema, clubbing, or cyanosis of BLE's, 1+ pedal pulse RLE, trace pedal pulse LLE Objective Last Vital Signs Temp 36.4 C L 02/23/21 07:33 Pulse 119 H 02/23/21 07:33 Resp 20 02/23/21 07:33 BP 108/70 02/23/21 07:33 Pulse Ox 95 02/23/21 07:33 Laboratory Results - last 24 hr 02/22/21 02/23/21 02/23/21 12:15 06:20 06:20 WBC 9.78 RBC 2.73 L Hgb 12.3 L D 8.5 L D Hct 37.2 L D 25.2 L D MCV 92.3 MCH 31.1 MCHC 33.7 RDW 17.8 H Plt Count 258 MPV 9.8 Immature Gran % 0.7 Neutrophils % 76.4 Lymphocytes % 10.7 Monocytes % 8.7 Eosinophils % 3.2 Basophils % 0.3 Nucleated RBC % 0 Absolute Neutrophils 7.47 H Absolute Lymphocytes 1.05 L Absolute Monocytes 0.85 H Absolute Eosinophils 0.31 Absolute Basophils 0.03 Sodium 136 Potassium 3.6 Chloride 105 Carbon Dioxide 21.8 Anion Gap 9.2 BUN 20 H Creatinine 0.6 L Estimated GFR/1.73 m2 >= 60.00 Glucose 106 Calcium 7.4 L Magnesium 1.3 L Total Bilirubin AST ALT Alkaline Phosphatase Troponin I NT-Pro-B Natriuret Pep Total Protein Albumin Crossmatch 02/23/21 02/23/21 02/23/21 06:20 06:20 07:50 WBC RBC Hgb Hct MCV MCH MCHC RDW Plt Count MPV Immature Gran % Neutrophils % Lymphocytes % Monocytes % Eosinophils % Basophils % Nucleated RBC % Absolute Neutrophils Absolute Lymphocytes Absolute Monocytes Absolute Eosinophils Absolute Basophils Sodium 136 Potassium 3.6 Chloride 105 Carbon Dioxide 21.8 Anion Gap 9.2 BUN 20 H Creatinine 0.7 Estimated GFR/1.73 m2 >= 60.00 Glucose 108 H Calcium 7.4 L Magnesium Total Bilirubin 0.4 AST 17 ALT 17 Alkaline Phosphatase 53 Troponin I < 0.05 NT-Pro-B Natriuret Pep 427 H Total Protein 4.7 L Albumin 2.1 L Crossmatch See Detail
[2021-02-23] MEDS: Ondansetron 4 MG/2 ML VIAL IVP (08:40)
[2021-02-23] MEDS: Pantoprazole 40 MG VIAL 80 MG IVP (08:40)
--- NOTE | 2021-02-23 08:40 | PDOC.CMPRO ---
Care Management Progress Note S/O: Mike was transferred back to the ICU due to recurrent bleeding, per MD he will have an EGD today to inform next steps in treatment. He remains pleasant in interaction. CM continues to follow. A: 81 year old male admitted to [facility] for [facility]peer GI bleeding, symptomatic anemia P: Mike was transferred back to the ICU due to recurrent bleeding. Anticipate Mike will return home when ready per MD, he was connected with [employer] and provided a financial assistance packet due to recent financial struggles. He will follow up with his PCP and plan of care as prescribed, and transport via private vehicle with his . CM continues to follow.
[2021-02-23] MEDS: MAGNESIUM SULFATE 4 GM/100 ML BAG IVPB (09:17)
--- NOTE | 2021-02-23 12:05 | W.PM.PROGNOT ---
Date of Service Date of service: 02/23/21 Time of Service: 12:06 Assessment and Plan Assessment and plan (1) Upper GI bleeding: Status: Acute Assessment and plan: --transfuse H/H --will transfer to the OR for repeat EGD expeditiously --IV fluids --NPO --protonix --discussed with Hospitalist service Subjective Subjective Interval history since last seen: Called to re-evaluate patient. Drop in H/H this morning, and reported hematemesis of dark blood. Pt states he feels okay. Denies abdominal pain. Exam Const General: cooperative, comfortable and no acute distress Orientation: alert, awake and oriented x3 Other: pale Resp Effort & Inspection: normal respiratory effort Auscultation: clear to auscultation bilaterally Cardio Rate: tachycardic Rhythm: regular rhythm Heart Sounds: S1 normal and S2 normal GI Inspection: non-distended Palpation: soft and nontender Neuro General: patient alert, patient awake and patient oriented x3 Cognition: normal cognition Speech: speech normal Psych Appearance: grossly normal Mental Status: mental status grossly normal Mood: congruent mood Affect: normal affect Attitude: cooperative Thought Process: normal Thought Content: normal Insight: insight good Judgment: judgment good Objective Last Vital Signs Temp 99.0 F 02/23/21 09:54 Pulse 111 H 02/23/21 09:54 Resp 24 02/23/21 09:54 BP 122/68 02/23/21 09:54 Pulse Ox 94 02/23/21 09:54 Laboratory Results - last 24 hr 02/19/21 02/22/21 02/23/21 12:45 12:15 06:20 WBC RBC Hgb 12.3 L D Hct 37.2 L D MCV MCH MCHC RDW Plt Count MPV Immature Gran % Neutrophils % Lymphocytes % Monocytes % Eosinophils % Basophils % Nucleated RBC % Absolute Neutrophils Absolute Lymphocytes Absolute Monocytes Absolute Eosinophils Absolute Basophils Sodium 136 Potassium 3.6 Chloride 105 Carbon Dioxide 21.8 Anion Gap 9.2 BUN 20 H Creatinine 0.6 L Estimated GFR/1.73 m2 >= 60.00 Glucose 106 Calcium 7.4 L Magnesium 1.3 L Total Bilirubin AST ALT Alkaline Phosphatase Troponin I NT-Pro-B Natriuret Pep Total Protein Albumin Patient ABO/Rh Antibody Screen Crossmatch See Detail 02/23/21 02/23/21 02/23/21 06:20 06:20 06:20 WBC 9.78 RBC 2.73 L Hgb 8.5 L D Hct 25.2 L D MCV 92.3 MCH 31.1 MCHC 33.7 RDW 17.8 H Plt Count 258 MPV 9.8 Immature Gran % 0.7 Neutrophils % 76.4 Lymphocytes % 10.7 Monocytes % 8.7 Eosinophils % 3.2 Basophils % 0.3 Nucleated RBC % 0 Absolute Neutrophils 7.47 H Absolute Lymphocytes 1.05 L Absolute Monocytes 0.85 H Absolute Eosinophils 0.31 Absolute Basophils 0.03 Sodium 136 Potassium 3.6 Chloride 105 Carbon Dioxide 21.8 Anion Gap 9.2 BUN 20 H Creatinine 0.7 Estimated GFR/1.73 m2 >= 60.00 Glucose 108 H Calcium 7.4 L Magnesium Total Bilirubin 0.4 AST 17 ALT 17 Alkaline Phosphatase 53 Troponin I < 0.05 NT-Pro-B Natriuret Pep 427 H Total Protein 4.7 L Albumin 2.1 L Patient ABO/Rh Antibody Screen Crossmatch 02/23/21 07:50 WBC RBC Hgb Hct MCV MCH MCHC RDW Plt Count MPV Immature Gran % Neutrophils % Lymphocytes % Monocytes % Eosinophils % Basophils % Nucleated RBC % Absolute Neutrophils Absolute Lymphocytes Absolute Monocytes Absolute Eosinophils Absolute Basophils Sodium Potassium Chloride Carbon Dioxide Anion Gap BUN Creatinine Estimated GFR/1.73 m2 Glucose Calcium Magnesium Total Bilirubin AST ALT Alkaline Phosphatase Troponin I NT-Pro-B Natriuret Pep Total Protein Albumin Patient ABO/Rh A Positive Antibody Screen NEGATIVE Crossmatch See Detail
--- NOTE | 2021-02-23 13:01 | W.PM.DS.N ---
Date of service: 02/23/21 Time of Service: 13:01 DS: Diagnosis Discharge Diagnosis (1) Upper GI bleeding: Status: Acute (2) Duodenal ulcer: Status: Acute (3) Gastritis: Status: Acute (4) Symptomatic anemia: Status: Acute (5) Syncope: Status: Acute (6) Chest discomfort: Status: Resolved Asessment and Plan: 2/2 symptomatic anemia; no ACS (7) Superior mesenteric artery stenosis: Status: Acute Asessment and Plan: asymptomatic, new dx on this admission. (8) COPD (chronic obstructive pulmonary disease): Status: Chronic (9) Fecal impaction: Status: Acute (10) Chronic pain: Status: Chronic (11) Alcohol abuse: Status: Chronic (12) COVID-19 ruled out by laboratory testing: Status: Ruled-out Discharge Plan Disposition Patient Disposition: [facility] Condition: Critical Discharge Details Reason For Visit: Upper GI bleeding, symptomatic anemia Admit Date/Time: 02/19/21 16:02 Admit Provider: Wanda Solorio Attending Provider: Wanda Solorio Primary Care Provider: Yeni [facility] Hospital Course: Mr Jorgensen is an 81 year old male with PMHx of OA and chronic back pain, on meloxicam as outpatinet, as well as h/o HTN, [id number]-rtyrvbwbt COPD, and alcohol abuse, who was admitted to [facility] ICU under the hospitalist service on 02/19/21 with symptomatic anemia due to upper GI bleeding with several syncopal episodes at home with evidence of orthostasis. His hemoglobin was 6.1 (normal for him is 14). He was made NPO, initiated on IV protonix, IVF, and received 6 units of pRBCs. He underwent endoscopy on 02/20/21 which revealed distal gastritis and a wide-based ulcer in the duodenal bulb occupying nearly 50% of the circumference with adherent clot. He was kept NPO for the next 24 hrs and started on clear liquid diet on 02/21/21. As he tolerated that and H/H had remained stable, on 02/22/21, the diet was advanced to soft bland. He was transferred out of the ICU to [facility] with tele. Overnight from 02/22/21 to 02/23/21 the patient was noted to be tachycardic to 120s -130s and he reported shortness of breath. He developed hematemesis and melena. His hemoglobin was 8.5 on recheck, down from 12.3 yesterday at noon, which is suspected to be incorrect as it was 9.9 yesterday morning, and no blood transfusions had happened between. The patient was transferred back to the ICU. The patient was ordered two units of pRBCs and general surgery was emergenty reconsulted. The patient underwent repeat EGD which revealed a large clot adherent to the ulcer. Endoscope was not passed past the ulcer. The patient did not have any obvious bleeding over the ulcer, but there is possibly bleeding underneath. The patient was intubated for procedure. Vent settings: AC Vt 470 cc RR 18 PEEP 5 FiO2 21%. He is sedated with propofol. No additional intervention could be pursued at our facility, and our general surgical team feels that the patient would benefit from transfer to a tertiary care facility with both IR and GI available as he would benefit from embolization and/or further treatment of the ulcer with modalities unavailable at [facility]. The patient was kept intubated/sedated, and did require initiation of vasopressors (levophed). His post-intubation CXR reveals a possible L basilar infiltrate which, given his history, is most consistent with aspiration pneumonia. For this, he was initiated on zosyn. The patient was accepted in transfer to [facility] [place] under the critical care service for further treatment of his duodenal ulcer by Dr Bustos/David Team. Family is agreeable to transfer. Important to mention are incidentally found SMA stenosis, asymptomatic, for which referral was sent to vascular surgery for outpatient follow up. The patient had a weak rectal tone in ED - MRI lumbar spine ruled out cauda equina. He is followed by pain management and has a h/o lumbar laminectomy. The patient does drink 3-4 drinks/day but has had no symptoms of alcohol withdrawal on this admission. Additional Critical Care Time: 45 minutes. For list of inpatient medications, please see MAR. The list below reflects the patient's outpatient medications. Home Meds and New Rx's Prescriptions: No Action eszopiclone [Lunesta] 1 mg tablet 1 mg PO QHS PRNRF: 0 cholecalciferol (vitamin D3) [Vitamin D3] 125 mcg (5,000 unit) Tablet 125 mcg PO DAILY RF: 0 vitamin B complex [B Complex-Vitamin B12] Tablet 1 tab PO DAILY RF: 0 albuterol sulfate [ProAir HFA] 90 mcg/actuation HFA aerosol inhaler 2 puff inhalation Q6H PRNRF: 0 meloxicam 15 mg tablet 15 mg PO DAILY RF: 0 cyclobenzaprine 10 mg tablet 10 mg PO TID RF: 0 potassium chloride 10 mEq capsule, extended release 10 meq PO DAILY RF: 0 amlodipine 5 mg tablet 5 mg PO DAILY RF: 0 hydrochlorothiazide 25 mg tablet 25 mg PO DAILY RF: 0 acetaminophen 500 mg capsule 1,000 mg PO DAILY AM PRNRF: 0 aspirin [Adult Aspirin Regimen] 81 mg tablet,delayed release (DR/EC) 81 mg PO .COMPLEX RF: 0 Discharge Instructions Referrals: [facility] [place] [OTHER] - (SMA stenosis) Activity:: bedrest, turn Q2H Diet:: NPO Discharge Orders Discharge Orders: Discharge Order (Routine); Ordered 02/23/21 Ordered By: Wanda Solorio DS: Summary Time Spent with Patient providing and/or coordinating discharge services: Greater than 30 minutes Status at Discharge Functional status at discharge: bed bound Overall status at discharge: patient is not back to baseline Mental Status: other Speech and Movement: other Mood: other Affect: other Exam Narrative Exam Narrative: General: Very pleasant elderly male, intubated, sedated HEENT: eyes closed, pale mucuous membranes, ET tube in place Cardiovascular: RRR, no longer tachycardic Lungs: ventilator respiratory sounds Gastrointestinal: soft, nondistended. Extremities: No edema, clubbing, or cyanosis of BLE's, 1+ pedal pulse RLE, trace pedal pulse LLE Psych Mental Status: other Speech and Movement: other Mood: other Affect: other DS: Data Vitals/I&O Vitals and I&O: Vital Signs Temperature 37.2 C 02/23/21 09:54 Temperature Source Temporal Artery Scan 02/23/21 08:15 Pulse 120 H 02/23/21 10:16 Pulse Rhythm Regular 02/23/21 00:15 Pulse 126 H 02/23/21 10:16 Respiratory Rate 23 02/23/21 10:16 Respiratory Effort Non-Labored 02/23/21 08:15 Respiratory Depth Normal 02/23/21 08:15 Respiratory Pattern Normal 02/23/21 08:15 Blood Pressure 122/68 02/23/21 10:16 Blood Pressure Mean 79 02/23/21 10:16 Blood Pressure Position Supine 02/23/21 08:15 Pulse Oximetry 94 02/23/21 09:54 Oxygen Delivery Method Room Air 02/23/21 09:54 Oxygen Flow Rate 0 02/23/21 09:54 Pain Level 0 02/23/21 08:15 Comment 02/23/21 06:10 Intake & Output 02/22/21 02/23/21 02/23/21 23:59 11:59 23:59 Intake Total 220 / 2533.2 1620 / 1620 Output Total 525 / 1545 2565 / 2565 Balance -305 / 988.2 -945 / -945 Weight 65.8 kg Intake: IV 100 / 2173.2 1020 / 1020 Oral 120 / 360 300 / 300 Blood Product 300 / 300 Rbc Leuko Reduced Unit 300 / 300 [id number] Output: Urine 525 / 1545 2465 / 2465 Emesis 100 / 100 Other: Urine Color Yellow Pale Yellow Urine Appearance Clear Clear Urine Odor Normal Normal Comment 100ml in urinal, also voided some in toilet unable to measure. Stool Size Smear Small Stool Characteristics Soft Soft Black Green Emesis Description Bright Red Blood Voiding Methods Urinal Urinal Data Completed and Pending Completed studies during hospitalization [Text1]: CXR02/19/21: No new significant pulmonary findings on this portable AP view. CT abdomen/pelvis 02/19/21: 1. Cholelithiasis. No obvious acute cholecystitis nor dilatation of the biliary tree, both intra and extrahepatic. 2. Atherosclerotic abdominal aorta as scribe above. 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 Celiac artery is patent as is the inferior mesenteric artery. There are no obvious acutely ischemic appearing bowel loops. 3. Bilateral inguinal hernias which contain non dilated and non edematous loops of small bowel. 4. Large amount of retained fecal material in the colon and rectum with grossly distended rectum with measurement 9 x 7.5 cm. Diffuse thickening of the urinary bladder wall, probably related to cystitis but cannot exclude neoplasm. Echo 02/20/21: Normal left ventricular wall thickness and chamber size. Estimated ejection fraction is 60 to 65%. Wall motion is normal Normal right ventricular size and systolic function Both atria are normal in size The aortic valve is trileaflet and sclerotic without stenosis or regurgitation Mitral annular calcification. Trace mitral regurgitation Normal tricuspid valve with trace regurgitation. Estimated right ventricular systolic pressure is 39 mmHg Normal pulmonic valve with trace regurgitation Mildly dilated ascending aorta measuring 3.68 cm MRI LS spine w/ contrast: Marked hypertrophic degenerative changes of facet joints throughout the lumbar region and marked left convex lumbar scoliosis. Multilevel deformity of neural foramina and central spinal canal.. Please see above for findings at individual levels. There is significant motion artifact on multiple pulse sequences which degrades imaging. There is a pronounced left convex lumbar scoliosis. There are multi level Babs discal vertebral signal changes consistent with disc degeneration and there is marked loss of disc height throughout the lumbar region. There are very prominent hypertrophic degenerative changes of the facet joints throughout the lumbar region. Moderate endplate osteophytes also noted multiple sites. At the T10-T11 level, as seen on sagittal T2 weighted images, there is question of slight spinal canal stenosis in the AP dimension with prominent facet hypertrophic changes mildly impinging the conus. No disc herniation. No significant neural foraminal stenosis. At T11-T12, the intervertebral disc appears intact. No central canal spinal stenosis or neural foraminal stenosis. At T12-L1, there is a moderate disc bulge. There are prominent hypertrophic facet degenerative changes. Neural foramina appear bilaterally narrowed left greater than right at this level. No gross bony central canal spinal stenosis. At L1-2, there is a prominent disc bulge. There is probable bilateral neural foraminal stenosis. No definite disc herniation. There is probable mild central canal spinal stenosis. At L2-3, there is a prominent disc bulge. There are prominent hypertrophic facet degenerative changes. Neural foramina not well visualized, probable right-sided neural foraminal narrowing. At L3-4, there is a moderate disc bulge. No definite focal disc herniation. Probable bilateral neural foraminal narrowing. No gross central canal spinal stenosis. At L4-5, there is bilateral neural foraminal narrowing. There is no gross central canal spinal stenosis but there is deformity of the spinal canal secondary to scoliosis and facet hypertrophy.. No gross disc herniation. Bilateral neural foraminal narrowing noted. At L5-S1, there is no disc herniation, or central canal spinal stenosis. There is bilateral neural foraminal narrowing. There are prominent hypertrophic facet degenerative changes. CXR 02/23/21: Left lung base atelectasis and developing infiltrate and small left-sided pleural effusion. EGD 02/20/21: FINDINGS: 1. Moderate distal gastritis 2. A wide-based ulcer in the duodenal bulb occupying nearly 50% of the circumference with adherent clot--no active bleeding seen EGD 02/23/21: formal report pending. Preliminary report as above. Labs on day of discharge: Labs from last 24 hours 02/23/21 02/23/21 02/23/21 18:00 12:00 07:50 WBC RBC Hgb Pending Pending Hct Pending Pending MCV MCH MCHC RDW Plt Count MPV Immature Gran % Neutrophils % Lymphocytes % Monocytes % Eosinophils % Basophils % Nucleated RBC % Absolute Neutrophils Absolute Lymphocytes Absolute Monocytes Absolute Eosinophils Absolute Basophils Sodium Potassium Chloride Carbon Dioxide Anion Gap BUN Creatinine Estimated GFR/1.73 m2 Glucose Calcium Magnesium Total Bilirubin AST ALT Alkaline Phosphatase Troponin I NT-Pro-B Natriuret Pep Total Protein Albumin Patient ABO/Rh A Positive Antibody Screen NEGATIVE Crossmatch See Detail 02/23/21 02/23/21 02/23/21 06:20 06:20 06:20 WBC 9.78 RBC 2.73 L Hgb 8.5 L D Hct 25.2 L D MCV 92.3 MCH 31.1 MCHC 33.7 RDW 17.8 H Plt Count 258 MPV 9.8 Immature Gran % 0.7 Neutrophils % 76.4 Lymphocytes % 10.7 Monocytes % 8.7 Eosinophils % 3.2 Basophils % 0.3 Nucleated RBC % 0 Absolute Neutrophils 7.47 H Absolute Lymphocytes 1.05 L Absolute Monocytes 0.85 H Absolute Eosinophils 0.31 Absolute Basophils 0.03 Sodium 136 Potassium 3.6 Chloride 105 Carbon Dioxide 21.8 Anion Gap 9.2 BUN 20 H Creatinine 0.7 Estimated GFR/1.73 m2 >= 60.00 Glucose 108 H Calcium 7.4 L Magnesium Total Bilirubin 0.4 AST 17 ALT 17 Alkaline Phosphatase 53 Troponin I < 0.05 NT-Pro-B Natriuret Pep 427 H Total Protein 4.7 L Albumin 2.1 L Patient ABO/Rh Antibody Screen Crossmatch 02/23/21 02/19/21 06:20 12:45 WBC RBC Hgb Hct MCV MCH MCHC RDW Plt Count MPV Immature Gran % Neutrophils % Lymphocytes % Monocytes % Eosinophils % Basophils % Nucleated RBC % Absolute Neutrophils Absolute Lymphocytes Absolute Monocytes Absolute Eosinophils Absolute Basophils Sodium 136 Potassium 3.6 Chloride 105 Carbon Dioxide 21.8 Anion Gap 9.2 BUN 20 H Creatinine 0.6 L Estimated GFR/1.73 m2 >= 60.00 Glucose 106 Calcium 7.4 L Magnesium 1.3 L Total Bilirubin AST ALT Alkaline Phosphatase Troponin I NT-Pro-B Natriuret Pep Total Protein Albumin Patient ABO/Rh Antibody Screen Crossmatch See Detail [facility] Medical History (Updated 02/23/21 @ 14:07 by Wanda Solorio MD) Alcohol abuse Anosmia Balance problem Chronic back pain COPD (chronic obstructive pulmonary disease) Diarrhea Exertional dyspnea Herniated lumbar intervertebral disc Hip pain, left History of traumatic fracture of vertebra HTN (hypertension) Hx of squamous cell carcinoma Knee pain, bilateral Lower back pain Osteoarthritis of left knee Steroid injection: 08/15/2020 Osteoarthritis of lumbar spine Osteoarthritis of right knee Steroid injection: 08/15/2020 Spondylosis of lumbar spine Spondylosis, cervical Tobacco dependence in remission Unintentional weight loss Vitamin D deficiency Surgical History S/P cervical spinal fusion S/P laminectomy Social History Smoking/Tobacco Use Status: Former Tobacco Use Smoking risk assessment performed?: Yes Alcohol Intake: current Alcohol Intake frequency: 3 or more drinks per day Alcohol type: beer and hard liquor Drug use: Never Substance use type: does not use Household members: spouse Housing: house Number of Children: 1 current occupation: Retired
[2021-02-23 13:59] LABS: BE -3 mmol/L (-2-3); HCO3 23 mmol/L (22-26); pCO2 42 mmHg (35-45); pH 7.34 (7.35-7.45); pO2 63 mmHg (80-105); sO2 93 % (95-98); tCO2 22 mmol/L (23-27)
[2021-02-23 14:02] LABS: FIO2 21 %; Site Right Radial
[2021-02-23] MEDS: PROPOFOL 1,000 MG/100 ML BTL 19.74 MG IVPB (14:03)
--- NOTE | 2021-02-23 14:08 | NUR.NOTE ---
02/23/2021 1030-PT IN PACU AWAITING EGD. BLOOD TRANSFUSION IN PROGRESS TO RT AC.STARTED IN ICU.UNABLE TO DOCUMENT IN TAR SO VS BELOW. 1030-116,122/68,96% ON RA,16,36.3 1115-110,106/62,95% ON RA,16,36.3 TRANSFUSION ENDED AND FLUSHED WITH NS. Nursing Note:
--- NOTE | 2021-02-23 14:10 | W.ANESPOSTOP ---
Postoperative Evaluation Date, Time and Location Date Performed: 02/23/21 Time Performed: 14:10 Patient Location: Intensive Care Unit Vital Signs Most Recent Imported Vital Signs: Most Recent Vital Signs Temp Pulse Resp BP Pulse Ox 36.5 C 90 16 80/61 L 93 02/23/21 14:04 02/23/21 14:04 02/23/21 14:04 02/23/21 14:04 02/23/21 14:04 Most Recent Vital Signs Temp Pulse Resp BP Pulse Ox 36.7 C 97 H 19 127/61 100 02/20/21 14:42 02/20/21 14:42 02/20/21 14:42 02/20/21 14:42 02/20/21 14:42 Pain Score Most Recent Pain Score: Most Recent Pain Score Pain Level 0 02/23/21 08:15 Assessment Mental Status: Unable to Participate (Document Reason) (Is intubated for transfer. Propofol sedation ) Airway and Respiratory Function: Patient has been admitted and is receiving care as an inpatient (On vent) Cardiovascular Function: Hemodynamically Unstable (See Explanation) (Receiving blood and pressors) Hydration Status: Adequately Hydrated Nausea & Vomiting: No Nausea or Vomiting Pain: Pt. Denies Any Pain Peripheral Nerve Block: Patient did not receive a nerve block
--- NOTE | 2021-02-23 14:27 | W.PM.ENDDOP ---
Date of service: 02/23/21 Time of Service: 14:27 Endoscopy Report DATE OF PROCEDURE: 02/23/21 PRE-OP DIAGNOSIS: upper GI bleed POST-OP DIAGNOSIS: same PROCEDURE: esophagogastroduondenoscopy SURGEON: Camilo Mays ANESTHESIA TYPE: General LMA/ETT ESTIMATED BLOOD LOSS: 0 PATHOLOGY: none sent COMPLICATIONS: None DISPOSITION: ICU INDICATIONS: This is an 87-year-old male admitted on with severe anemia. He reported having black tarry stools for the past 2 weeks. Overnight, he received 6 units PRBC. He was taken for EGD on 02/20, and was found to have adherent clot in the duodenal bulb, with no active bleeding. Postoperatively, he was kept NPO for a day, and then started on clears, and a soft, bland diet yesterday. This morning he had a significant drop in his H/H, and became tachycardic. He was transferred back to the ICU. Now here for repeat EGD. FINDINGS: Digested blood throughout stomach. Large clot in duodenal bulb. No active bleeding seen. PROCEDURE DESCRIPTION: After informed consent was obtained the patient was take to the operating room and placed in a supine position. Monitors were applied, general anesthesia was started, and the patient was intubated. A time out was done. The patients name, date of , procedure type, allergies to medications and metal in their body was reviewed. A bite block was placed, and the patient was propped slightly into the left lateral decubitus position. The gastroscope was advanced through the oropharynx, which was grossly normal, and into the esophagus. The proximal and mid-esophagus were normal. In the distal esophagus there were no esophageal erosions, diverticula, varices or stricture apparent. The scope was advanced into the stomach and old digested blood was seen throughout. The scope was then passed through the pylorus into the duodenal bulb. In the duodenal bulb a large dense clot was identified over the known location of the ulcer with no signs of active bleeding. It was not disturbed. The scope was retracted back into the stomach. The scope was retracted back into the esophagus, and removed. The patient was transferred intubated to the ICU in guarded condition, with plans to transfer him to a tertiary center, where he may undergo IR or GI intervention.
[2021-02-23] MEDS: PIPERACILLIN/TAZO 3.375 GM in Normal Saline 50 ML IVPB (15:03)
[2021-02-23] MEDS: PROPOFOL 1,000 MG/100 ML BTL 21.714 MG IVPB (15:34)
--- NOTE | 2021-02-23 15:35 | NUR.NOTE ---
Nursing Note: [facility] air team here preparing patient to transfer to [facility] [place].
[2021-02-23] MEDS: Normal Saline 1,000 ML 150 ML IV (15:38)
[2021-02-23] MEDS: Vasopressin 20 UNITS/ML VIAL (15:45)
[2021-02-23] MEDS: Normal Saline 100 ML (17:53)
[2021-02-23] MEDS: EPINEPHrine 1 MG/10 ML SYR (17:54)
== END 2021-02-23 16:00 | disposition short-term general hospital (02) | DRG 378 ==
LOC: ER 16:48 → ICU 17:28 → MS 02-22 17:03 → ICU 02-23 08:05
PROVIDERS: General Practice; Internal Medicine; Surgery; Admitting Provider Internal Medicine; Emergency Provider Emergency Medicine; PCP Nurse Practitioner Family; Visit Provider Internal Medicine
PROC: 0DJ68ZZ Inspection of Stomach, Via Natural or Artificial Opening Endoscopic (ICD-10-PCS; CPT 43235; principal; 2021-02-20 13:15)
DX: K26.4 Chronic or unspecified duodenal ulcer with hemorrhage (principal); D62 Acute posthemorrhagic anemia; K55.1 Chronic vascular disorders of intestine; Z68.1 Body mass index [BMI] 19.9 or less, adult; K56.41 Fecal impaction; J44.9 Chronic obstructive pulmonary disease, unspecified; Z79.899 Other long term (current) drug therapy; I10 Essential (primary) hypertension; G89.29 Other chronic pain; F10.10 Alcohol abuse, uncomplicated; M54.5 Low back pain; M47.816 Spondylosis without myelopathy or radiculopathy, lumbar region; M17.11 Unilateral primary osteoarthritis, right knee; E55.9 Vitamin D deficiency, unspecified; Z87.891 Personal history of nicotine dependence; M47.812 Spondylosis without myelopathy or radiculopathy, cervical region; R63.4 Abnormal weight loss; Z20.822 Contact with and (suspected) exposure to COVID-19; I27.20 Pulmonary hypertension, unspecified; R60.0 Localized edema; K29.01 Acute gastritis with bleeding; R07.89 Other chest pain; T39.395A Adverse effect of other nonsteroidal anti-inflammatory drugs [NSAID], initial encounter
CPT/HCPCS: 43239; 43235; 36410; 36415; 36430; 80048; 80053; 82805; 85027; 86850; 86900; 86901; 86920; 87635; 88305; 93005; 93306; 96365; 96366; 96375; 99223; 99232; 99233; 99285; 71045; 72148; 74177; 81003; 81015; 83735; 83880; 84484; 85014; 85018; 85025; 85610; 88304; 93010; 94002; 99284; 99291; 99292; J1100; J1940; J2001; J2270; J2405; J2543; J2704; J3475; J3480; J3490; J7613; P9016

== ENCOUNTER 2021-03-10 14:08 | Outpatient (REF) | payer OTHER, SELFPAY ==
[2021-03-10 15:49] LABS: HGB 9.4 g/dL (13.5-17.5); MCH 28.8 pg (27.0-33.0); MCHC 30.3 % (32.0-36.0); MCV 95.1 fL (80-95); MPV 9.8 fL (8.0-11.0); Platelet Count 565 10^3/uL (130-400); RBC 3.26 10^6/uL (4.36-5.78); RDW 14.9 % (11.8-14.1); RDW-SD 51.1 fL; WBC 5.48 10^3/uL (4.4-10.8)
[2021-03-10 16:11] LABS: Anion Gap 7.7 mmol/L (3-11); BUN 11 mg/dL (7-18); CO2 27.3 mmol/L (21.0-32.0); CREATININE 0.8 mg/dL (0.70-1.30); Calcium 8.9 mg/dL (8.5-10.1); Chloride 101 mmol/L (98-107); Glucose 101 mg/dL (74-106); Magnesium 1.5 mg/dL (1.8-2.4); PHOSPHORUS 3.7 mg/dL (2.6-4.7); Potassium 4.7 mmol/L (3.5-5.1); Sodium 136 mmol/L (136-145)
== END 2021-03-10 14:09 | disposition home or self-care (01) ==
LOC: NCHCN 14:08
PROVIDERS: PCP Nurse Practitioner Family; Visit Provider Nurse Practitioner Family
DX: K26.9 Duodenal ulcer, unspecified as acute or chronic, without hemorrhage or perforation (principal)
CPT/HCPCS: 80048; 85027; 83735; 84100

== ENCOUNTER → 2021-03-13 08:49 | Outpatient (BNVA) | payer OTHER, SELFPAY | PROVIDERS: PCP Nurse Practitioner Family; Referring Provider Nurse Practitioner Family; Visit Provider Student in an Organized Health Care Education/Training Program | DX: M17.12 Unilateral primary osteoarthritis, left knee (principal); M17.11 Unilateral primary osteoarthritis, right knee | CPT/HCPCS: 20610; J1040 ==

== ENCOUNTER 2021-06-01 14:22 | Outpatient (CLI) | payer MEDICARE, SELFPAY | END 2021-06-01 14:23 | disposition home or self-care (01) | LOC: DIORS 14:22 | PROVIDERS: PCP Nurse Practitioner Family; Referring Provider Nurse Practitioner Family; Visit Provider Student in an Organized Health Care Education/Training Program | DX: M17.12 Unilateral primary osteoarthritis, left knee (principal); M17.11 Unilateral primary osteoarthritis, right knee | CPT/HCPCS: 99214 ==

== ENCOUNTER 2021-06-26 02:21 | Outpatient (CLI) | payer MEDICARE, SELFPAY ==
[2021-06-26 12:29] LABS: Source Nasal/Nares
[2021-06-26 21:45] LABS: COVID-19 PCR Negative (Negative)
== END 2021-06-26 02:22 | disposition home or self-care (01) ==
LOC: LBO 02:21
PROVIDERS: PCP Nurse Practitioner Family; Visit Provider Student in an Organized Health Care Education/Training Program
DX: Z20.822 Contact with and (suspected) exposure to COVID-19 (principal); Z01.818 Encounter for other preprocedural examination
CPT/HCPCS: 87635

== ENCOUNTER 2021-06-26 02:28 | Outpatient (CLI) | payer MEDICARE, SELFPAY ==
[2021-06-26 10:47] LABS: HCT 32.2 % (40.0-50.0); HGB 10.3 g/dL (13.5-17.5); MCH 26.2 pg (27.0-33.0); MCV 81.9 fL (80-95); MPV 9.6 fL (8.0-11.0); Platelet Count 366 10^3/uL (130-400); RBC 3.93 10^6/uL (4.36-5.78); RDW 15.2 % (11.8-14.1); RDW-SD 45.6 fL; WBC 6.51 10^3/uL (4.4-10.8)
[2021-06-26 11:05] LABS: Anion Gap 9.4 mmol/L (3-11); BUN 13 mg/dL (7-18); CO2 28.6 mmol/L (21.0-32.0); CREATININE 0.8 mg/dL (0.70-1.30); Calcium 8.9 mg/dL (8.5-10.1); Chloride 92 mmol/L (98-107); Glucose 148 mg/dL (74-106); Potassium 3.7 mmol/L (3.5-5.1); Sodium 130 mmol/L (136-145)
== END 2021-06-26 02:29 | disposition home or self-care (01) ==
LOC: LBO 02:28
PROVIDERS: PCP Nurse Practitioner Family; Visit Provider Student in an Organized Health Care Education/Training Program
DX: M25.562 Pain in left knee (principal); M17.12 Unilateral primary osteoarthritis, left knee; Z01.818 Encounter for other preprocedural examination; Z01.812 Encounter for preprocedural laboratory examination
CPT/HCPCS: 36415; 80048; 85027

== ENCOUNTER 2021-06-27 06:33 | Day surgery (SDC) | payer MEDICARE, OTHER, SELFPAY ==
[2021-06-27] VITALS (7 sets, daily range): BP systolic 95–160; BP diastolic 52–88; PULSE 71–89; RESP 12–20; TEMP 35.9–36.5; TEMPC 36.3; O2SAT 95–97; BMI 19.0
[2021-06-27] MEDS: Gabapentin 300 MG CAP PO (06:51)
[2021-06-27] MEDS: Celecoxib 200 MG CAP 400 MG PO (06:51)
[2021-06-27] MEDS: Acetaminophen 500 MG TAB 1000 MG PO (06:51)
[2021-06-27] MEDS: Lactated Ringers 1,000 ML 80 ML IV (07:05)
--- NOTE | 2021-06-27 07:15 | W.ANESPRE ---
General Info Date of Service Date Performed: 06/27/21 Height: 5 ft 9 in Weight: 58.5 kg Body Mass Index (BMI): 19.0 Surgical Procedure: Operation Date: 06/27/21 08:10 Proposed Procedures Side Surgeon p Knee Total Arthroplasty Left Nicholas Tang MD Meds Allergies and Home Medications Allergies Allergy/AdvReac Type Severity Reaction Status Date / Time shellfish derived AdvReac Intermediate Verified 06/27/21 06:40 Home Medication Medication Instructions Recorded albuterol sulfate 90 mcg/actuation 2 puff INHALATION Q6H PRN 08/16/20 aerosol inhaler hydrochlorothiazide 25 mg tablet 25 mg PO DAILY 08/16/20 potassium chloride 10 mEq 10 meq PO DAILY 08/16/20 capsule,extended release vitamin B complex 1 tab PO DAILY 08/30/20 carvedilol 3.125 mg tablet 3.125 mg PO BID 03/13/21 ipratropium 0.5 mg-albuterol 3 mg 3 ml INHALATION Q6H PRN 03/13/21 (2.5 mg base)/3 mL nebulization soln pantoprazole 40 mg tablet,delayed 40 mg PO ONCE tab 06/01/21 release zolpidem 10 mg tablet 10 mg PO HS 06/01/21 eszopiclone 3 mg PO HS 06/26/21 acetaminophen 1,000 mg PO Q8H PRN #90 tab 06/27/21 aspirin 81 mg PO BID #60 tab 06/27/21 celecoxib 100 mg PO BID PRN #30 cap 06/27/21 docusate sodium [Colace] 100 mg PO BID PRN #10 cap 06/27/21 eszopiclone [Lunesta] 3 mg PO QHS #30 tab 06/27/21 oxycodone 2.5 - 5 mg PO Q4H #18 tab 06/27/21 vit D3-folic [id number] 1 tab PO 06/27/21 Current Visit Medications: Current Medications Generic Name Dose Route Start Last Admin Trade Name Freq PRN Reason Stop Dose Admin Acetaminophen 1,000 mg 06/27/21 06:00 06/27/21 06:51 Acetaminophen 500 Mg Tab PO 06/27/21 16:00 1,000 mg PREOP GLENN Administration Celecoxib 400 mg 06/27/21 06:00 06/27/21 06:51 Celecoxib 200 Mg Cap PO 06/27/21 16:00 400 mg PREOP GLENN Administration Gabapentin 300 mg 06/27/21 06:00 06/27/21 06:51 Gabapentin 300 Mg Cap PO 06/27/21 16:00 300 mg PREOP GLENN Administration Tranexamic Acid 1,000 mg/ 60 mls @ 360 mls/hr 06/27/21 06:00 Sodium Chloride IVPB 06/27/21 16:00 PREOP GLENN Tranexamic Acid 1,000 mg/ 60 mls @ 360 mls/hr 06/27/21 06:00 Sodium Chloride IVPB 06/27/21 16:00 DIRECTED GLENN Ringer's Solution 1,000 mls @ 80 mls/hr 06/27/21 06:00 06/27/21 07:05 IV 07/26/21 23:59 80 mls/hr INFUSION GLENN Administration Cefazolin Sodium/Dextrose 2 gm in 50 mls @ 100 mls/hr 06/27/21 06:00 Ancef Duplex IVPB 07/26/21 23:59 PREOP GLENN IV Miscellaneous Supplies 1 each 06/27/21 06:00 Iv Access IV 07/26/21 23:59 DIRECTED GLENN Sodium Chloride 0 ml 06/27/21 06:00 Normal Saline Flush 10 Ml Syr IV 07/26/21 23:59 PRN PRN Sodium Chloride 0 ml 06/27/21 06:00 Normal Saline 10 Ml Vial IJ 07/26/21 23:59 DIRECTED PRN Sterile Water 0 ml 06/27/21 06:00 Water,Injection,Sterile 10 Ml Vial IJ 07/26/21 23:59 DIRECTED PRN PFSH Active Problems Active Problems: Problem Status Onset Code GI bleed K92.2 Upper GI bleeding K92.2 Fecal impaction K56.41 Symptomatic anemia D64.9 Syncope R55 DVT prophylaxis Z29.9 Discharge planning issues Z02.9 Chronic pain G89.29 Leg swelling M79.89 Chest discomfort R07.89 Fecal retention K59.00 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 Back pain M54.9 Gastric ulcer K25.9 Duodenal ulcer K26.9 Gastritis K29.70 Alcohol abuse F10.10 COPD (chronic obstructive pulmonary disease) J44.9 Osteoarthritis of right knee M17.11 Osteoarthritis of left knee M17.12 Medical History Medical History Alcohol abuse Anosmia Balance problem uses cane Chronic back pain COPD (chronic obstructive pulmonary disease) Diarrhea Exertional dyspnea Herniated lumbar intervertebral disc Hip pain, left History of traumatic fracture of vertebra HTN (hypertension) Hx of squamous cell carcinoma Knee pain, bilateral Lower back pain Osteoarthritis of left knee Steroid injection: 08/15/2020 Osteoarthritis of lumbar spine Osteoarthritis of right knee Steroid injection: 08/15/2020 Spondylosis of lumbar spine Spondylosis, cervical Tobacco dependence in remission Unintentional weight loss Vitamin D deficiency Surgical History Surgical History (Updated 06/27/21 @ 06:41 by Marcy De Leon) Hx of abdominal surgery pt. reports bleeding ulcer in january 2021 Hx of esophagogastroduodenoscopy S/P cervical spinal fusion S/P laminectomy Tobacco Smoking/Tobacco Use Status: Former Tobacco Use Alcohol Alcohol Intake: current Alcohol intake frequency: 3 or more drinks per day Alcohol type: beer and hard liquor Substance Use Substance use: Never Details: pt. reports a beer nightly, pt. states he reduced his alcohol intake since bleeding ulcer in january. THC- week ago Vital Signs and Lab Results Vital Signs Most Recent Vital Signs in EMR: Most Recent Vital Signs Temp Pulse Resp BP Pulse Ox 35.9 C L 86 20 160/82 H 97 06/27/21 07:03 06/27/21 07:03 06/27/21 07:03 06/27/21 07:03 06/27/21 07:03 Lab Results Blood Type / Crossmatch: No Data to Display Complete Blood Count: White Blood Count 6.51 10^3/uL (4.4-10.8) 06/26/21 10:18 06/26/21 Red Blood Count 3.93 10^6/uL (4.36-5.78) L 06/26/21 10:18 06/26/21 Hemoglobin 10.3 g/dL (13.5-17.5) L 06/26/21 10:18 06/26/21 Hematocrit 32.2 % (40.0-50.0) L 06/26/21 10:18 06/26/21 Platelet Count 366 10^3/uL (130-400) 06/26/21 10:18 06/26/21 Complete Metabolic Panel: Sodium Level 130 mmol/L (136-145) L 06/26/21 10:18 06/26/21 Potassium Level 3.7 mmol/L (3.5-5.1) 06/26/21 10:18 06/26/21 Chloride Level 92 mmol/L (98-107) L 06/26/21 10:18 06/26/21 Carbon Dioxide Level 28.6 mmol/L (21.0-32.0) 06/26/21 10:18 06/26/21 Blood Urea Nitrogen 13 mg/dL (7-18) 06/26/21 10:18 06/26/21 Creatinine 0.8 mg/dL (0.70-1.30) 06/26/21 10:18 06/26/21 Estimated GFR/1.73 m2 >= 60.00 (mL/min/1.73m2) 06/26/21 10:18 06/26/21 Calcium Level 8.9 mg/dL (8.5-10.1) 06/26/21 10:18 06/26/21 Glucose Level 148 mg/dL (74-106) H 06/26/21 10:18 06/26/21 Liver Function Panel: No Data to Display Coagulation Panel: No Data to Display Cardiac Panel: No Data to Display Arterial Blood Gas: No Data to Display Venous Blood Gas: No Data to Display Pancreas Panel: No Data to Display Thyroid Panel: No Data to Display Infectious Disease: Coronavirus (COVID-19)(PCR) Negative (Negative) 06/26/21 11:35 06/26/21 Coronavirus 2019 Source Nasal/Nares 06/26/21 11:35 06/26/21 Blood Cultures: No Data to Display Toxicology Panel: No Data to Display Imaging and Studies Imaging and Studies EKG Summary: Sinus tachycardia.. ST depr anterolateral leads, may be rate related Echocardiogram Summary: Normal left ventricular wall thickness and chamber size. Estimated ejection fraction is 60 to 65%. Wall motion is normal Normal right ventricular size and systolic function Both atria are normal in size The aortic valve is trileaflet and sclerotic without stenosis or regurgitation Mitral annular calcification. Trace mitral regurgitation Normal tricuspid valve with trace regurgitation. Estimated right ventricular systolic pressure is 39 mmHg Normal pulmonic valve with trace regurgitation Mildly dilated ascending aorta measuring 3.68 cm Anesthesia Assessment and Plan Anesthesia History Personal History: No History of Anesthesia Complications Family History: No Family History of Anesthesia Complications Exercise Tolerance Exercise Tolerance: Metabolic Equivalents>4 Pertinent Negatives Pertinent Negatives: No Symptoms of GERD, No Major Cardiovascular Symptoms or Complaints, No Major Pulmonary Symptoms or Complaints and No History of CVA/TIA Cardiac & Pulmonary Exam Cardiac Exam: Normal S1/S2 Heart Sounds Pulmonary Exam: Clear Bilateral Breath Sounds Airway Exam Known Difficult Airway: No Mallampati Class: 2 Mouth Opening: Normal (> 3cm) Thyromental Distance: Greater than 3 cm Neck Range of Motion: Full ROM and Known Cervical Instability or radiculopathy Neck Circumference: Normal Teeth Condition: Normal Dentition ASA Classification ASA Score: ASA 3 Emergency Case?: No NPO Status NPO Status: NPO Clears >2 hours, Solids >8 hours Anesthesia Plan Resuscitation Status: Full Code Anesthesia Technique: General Anesthesia Airway Planned: Natural Airway Monitors Used: Standard Monitors
--- NOTE | 2021-06-27 07:25 | PDOC.DSDIS_ITS ---
Documented by User: Nicholas Tang MD 06/27/21 11:16 Discharge Plan Disposition Patient Disposition: HOME Condition: Good Discharge Details Reason For Visit: Left Knee DJD Attending Provider: Nicholas Tang Primary Care Provider: Yeni Williamson Home Meds and New Rx's Prescriptions: New acetaminophen 500 mg tablet 1,000 mg PO Q8H PRN (Reason: pain) Qty: 90 RF: 3 celecoxib 100 mg capsule 100 mg PO BID PRN (Reason: pain) Qty: 30 RF: 0 aspirin 81 mg tablet,delayed release (DR/EC) 81 mg PO BID Qty: 60 RF: 0 docusate sodium [Colace] 100 mg capsule 100 mg PO BID PRNQty: 10 RF: 0 oxycodone 5 mg tablet 2.5 - 5 mg PO Q4H Qty: 18 RF: 0 eszopiclone [Lunesta] 3 mg tablet 3 mg PO QHS Qty: 30 RF: 0 Continued carvedilol 3.125 mg tablet 3.125 mg PO BID RF: 0 ipratropium-albuterol 0.5 mg-3 mg(2.5 mg base)/3 mL solution for nebulization 3 ml inhalation Q6H PRNRF: 0 pantoprazole 40 mg tablet,delayed release (DR/EC) 40 mg PO ONCE RF: 0 vitamin B complex [B Complex-Vitamin B12] Tablet 1 tab PO DAILY RF: 0 zolpidem 10 mg tablet 10 mg PO HS RF: 0 albuterol sulfate [ProAir HFA] 90 mcg/actuation HFA aerosol inhaler 2 puff inhalation Q6H PRNRF: 0 potassium chloride 10 mEq capsule, extended release 10 meq PO DAILY RF: 0 hydrochlorothiazide 25 mg tablet 25 mg PO DAILY RF: 0 eszopiclone 1 mg tablet 3 mg PO HS RF: 0 vit D3-folic deyo-[id number]-B12 2,000-800-0.32 unit-mcg-mg Tablet 1 tab PO RF: 0 Discontinued acetaminophen 500 mg capsule 1,000 mg PO DAILY AM PRNRF: 0 Discharge Instructions Additional Instructions: Total Knee Discharge Instructions Activity: The most important activity is to walk. You should try to take short walks a few times a day. It is important that when resting you work on keeping the knee straight. Avoid putting a pillow behind the knee as this will encourage flexion. Work on range of motion exercises as provided by Physical Therapy. If you have the [employer] bike coming, this will be your primary tool for exercise after the knee replacement. You should use it and follow the directions for the knee. Utilize the other exercises sparingly based on your symptoms. - Start outpatient physical therapy within 2 weeks. - You should wear the COLLIN hose on both legs for 2 weeks. You may remove these at night. You may also use any compression sock in place of the COLLIN hose. - Utilize [employer] to review exercises, see videos on exercises and obtain basic information pertaining to your surgery and your recovery. Dressing: Remove the Bharat wrap by 2 days after your surgery and put on the COLLIN stocking given to you from the hospital. Keep the surgical dressing (underneath the BHARAT wrap) in place for at least one week. After the first week it may be removed and replaced with light gauze and tape or nothing. The wound and dressing may get wet after 3 days but avoid soaking the dressing or otherwise it will need to be changed. Many people prefer covering the dressing with cling wrap (saran wrap) to minimize it from getting soaked. If it gets wet, just pat dry. If it starts to peel off then it will need to be changed. Medications: - You should take Tylenol as your primary pain control medications. Celebrex has been called in to take as needed as there is a small risk of GI bleeding with that medication. Take as needed for pain. - You have been prescribed a stronger pain medication Oxycodone for breakthrough pain, take as needed as prescribed. - You will continue your stomach acid reduction agent Pantoprozole to help reduce stomach acid and reflux. - You will be taking Aspirin 81mg twice a day for DVT prevention unless instructed otherwise. - If you have constipation you should take Colace or Miralax (both [id number]). It takes most people 3-4 days to have a bowel movement. - You also have been prescribed Lunesta for sleep concerns. Follow-up: 2 weeks If you have any acute concerns or questions, please do not hesitate to contact the office at [phone]. You may contact Dr. Tang with any questions after hours through the hospital at [phone] or on his cell phone at [phone]. Referrals: Nicholas Tang MD [ [facility] STAFF PHYSICIAN] - Activity:: Activity as Tolerated Shower/Bathe:: 72 hours Diet:: As Tolerated Discharge Orders Discharge Orders: Discharge Order (Routine); Ordered 06/27/21 Ordered By: Nicholas Tang DS: Diagnosis Discharge Diagnosis (1) Osteoarthritis of left knee: Status: Acute Documented by User: LEATHA Hendrix 06/27/21 07:42 Discharge Plan Disposition Patient Disposition: HOME Condition: Good Discharge Details Reason For Visit: Left Knee DJD Attending Provider: Nicholas Tang Primary Care Provider: Yeni Williamson Home Meds and New Rx's Prescriptions: New acetaminophen 500 mg tablet 1,000 mg PO Q8H PRN (Reason: pain) Qty: 90 RF: 3 celecoxib 100 mg capsule 100 mg PO BID PRN (Reason: pain) Qty: 30 RF: 0 aspirin 81 mg tablet,delayed release (DR/EC) 81 mg PO BID Qty: 60 RF: 0 docusate sodium [Colace] 100 mg capsule 100 mg PO BID PRNQty: 10 RF: 0 oxycodone 5 mg tablet 2.5 - 5 mg PO Q4H Qty: 18 RF: 0 eszopiclone [Lunesta] 3 mg tablet 3 mg PO QHS Qty: 30 RF: 0 Continued carvedilol 3.125 mg tablet 3.125 mg PO BID RF: 0 ipratropium-albuterol 0.5 mg-3 mg(2.5 mg base)/3 mL solution for nebulization 3 ml inhalation Q6H PRNRF: 0 pantoprazole 40 mg tablet,delayed release (DR/EC) 40 mg PO ONCE RF: 0 vitamin B complex [B Complex-Vitamin B12] Tablet 1 tab PO DAILY RF: 0 zolpidem 10 mg tablet 10 mg PO HS RF: 0 albuterol sulfate [ProAir HFA] 90 mcg/actuation HFA aerosol inhaler 2 puff inhalation Q6H PRNRF: 0 potassium chloride 10 mEq capsule, extended release 10 meq PO DAILY RF: 0 hydrochlorothiazide 25 mg tablet 25 mg PO DAILY RF: 0 eszopiclone 1 mg tablet 3 mg PO HS RF: 0 vit D3-folic javc-T1-S5-B12 2,000-800-0.32 unit-mcg-mg Tablet 1 tab PO RF: 0 Discontinued acetaminophen 500 mg capsule 1,000 mg PO DAILY AM PRNRF: 0 Discharge Instructions Additional Instructions: Total Knee Discharge Instructions Activity: The most important activity is to walk. You should try to take short walks a few times a day. It is important that when resting you work on keeping the knee straight. Avoid putting a pillow behind the knee as this will encourage flexion. Work on range of motion exercises as provided by Physical Therapy. If you have the [employer] bike coming, this will be your primary tool for exercise after the knee replacement. You should use it and follow the directions for the knee. Utilize the other exercises sparingly based on your symptoms. - Start outpatient physical therapy within 2 weeks. - You should wear the COLLIN hose on both legs for 2 weeks. You may remove these at night. You may also use any compression sock in place of the COLLIN hose. - Utilize [employer] to review exercises, see videos on exercises and obtain basic information pertaining to your surgery and your recovery. Dressing: Remove the Bharat wrap by 2 days after your surgery and put on the COLLIN stocking given to you from the hospital. Keep the surgical dressing (underneath the BHARAT wrap) in place for at least one week. After the first week it may be removed and replaced with light gauze and tape or nothing. The wound and dressing may get wet after 3 days but avoid soaking the dressing or otherwise it will need to be changed. Many people prefer covering the dressing with cling wrap (saran wrap) to minimize it from getting soaked. If it gets wet, just pat dry. If it starts to peel off then it will need to be changed. Medications: - You should take Tylenol as your primary pain control medications. Celebrex has been called in to take as needed as there is a small risk of GI bleeding with that medication. Take as needed for pain. - You have been prescribed a stronger pain medication Oxycodone for breakthrough pain, take as needed as prescribed. - You will continue your stomach acid reduction agent Pantoprozole to help reduce stomach acid and reflux. - You will be taking Aspirin 81mg twice a day for DVT prevention unless instructed otherwise. - If you have constipation you should take Colace or Miralax (both [id number]). It takes most people 3-4 days to have a bowel movement. - You also have been prescribed Lunesta for sleep concerns. Follow-up: 2 weeks If you have any acute concerns or questions, please do not hesitate to contact the office at [phone]. You may contact Dr. Tang with any questions after hours through the hospital at [phone] or on his cell phone at [phone]. Referrals: Nicholas Tang MD [ [facility] STAFF PHYSICIAN] - Activity:: Activity as Tolerated Shower/Bathe:: 72 hours Diet:: As Tolerated Discharge Orders Discharge Orders: Discharge Order (Routine); Ordered 06/27/21 Ordered By: Nicholas Tang
--- NOTE | 2021-06-27 07:42 | W.ANESNERVE ---
Nerve Block Single Injection Procedure Date and Time Date Performed: 06/27/21 Procedure Start: 07:25 Location Where Procedure Performed Procedure Location: Day Surgery Unit Reason Performed: Postoperative Analgesia Requesting Provider: Nicholas Tang Timeout Performed Timeout Performed: Yes Monitoring Used ECG, Blood Pressure, SpO2, See EMR for corresponding vital signs and None Used Sterility Sterility: Hand Hygiene, Surgical Cap, Surgical Mask, Sterile Gloves, Eye Protection and Chlorhexidine Sedation Given During Procedure Sedation Given (Indicate Dose Given): No Sedation given Patient Mental Status Patient Mental Status: Awake Nerve Block 1st Nerve Block: Laterality: Left Block Type: Adductor Canal Needle / Catheter Used: 100mm SonoPlex II Local Anesthetic Bolus (Indicate Dose Given): Lidocaine used for local infiltration of skin, Injected in 3-5ml increments after negative blood aspiration and Bupivacaine 0.25% Dose:: 20 ml Additives (Indicate Dose Given): None Ultrasound: Sterile probe cover and gel used Ultrasound Image Saved?: Yes Nerve Stimulator: Not Used Paresthesia: None Procedure Tolerated: No Complications and Patient did not tolerate well Procedure Outcome: Successful Performed By: Maco Irving Supervised By: Garrett Kendall
--- NOTE | 2021-06-27 08:02 | NUR.NOTE ---
Nursing Note: 0735:Pt. received pre-op block(adductor canal) from anesthesia with nursing assistance. 0737: 36.6, 74, 15, 140/90, 96% RA, pt. denies any ringing in ears, numbness to mouth or confusion.
[2021-06-27] MEDS: ceFAZolin 2 GM/50 ML BAG IVPB (08:30)
[2021-06-27] MEDS: Ketorolac 30 MG/ML VIAL (08:54)
[2021-06-27] MEDS: Normal Saline 20 ML VIAL (08:56)
[2021-06-27] MEDS: Bupivacaine 0.25% Pres-Free 30 ML VIAL (08:56)
--- NOTE | 2021-06-27 10:51 | W.ANESPOSTOP ---
Postoperative Evaluation Date, Time and Location Date Performed: 06/27/21 Time Performed: 10:51 Patient Location: Day Surgery Unit Vital Signs Most Recent Imported Vital Signs: Most Recent Vital Signs Temp Pulse Resp BP Pulse Ox 36.5 C 88 15 98/63 L 96 06/27/21 10:24 06/27/21 10:24 06/27/21 10:24 06/27/21 10:24 06/27/21 10:24 Most Recent Manually Entered Vital Signs: Adult Blood Pressure: 125/87 Heart Rate: 71 Respirations: 12 Oxygen Saturation (%): 95 Temperature (C): 36.3 C Pain Score (0-10 Scale): 1 Pain Score Most Recent Pain Score: Most Recent Pain Score Pain Level 0 06/27/21 10:24 Assessment Mental Status: Awake (Alert & Oriented to Patient Baseline) Airway and Respiratory Function: Patent airway with normal (patient baseline) respiratory exam Cardiovascular Function: Hemodynamically Stable Hydration Status: Adequately Hydrated Nausea & Vomiting: No Nausea or Vomiting Pain: Pt. Denies Any Pain Peripheral Nerve Block: Regional nerve block not resolved at time of post operative discharge Teaching Patient Teaching: Discussed Safe Use of Pain Medication Given Recent Anesthesia
--- NOTE | 2021-06-27 11:49 | PT.INIE ---
Date of service: 06/27/21 Time of Service: 11:49 PT Notes Visit Reasons: Left Knee DJD Physical Therapy Day Surgery Initial Evaluation Date: 06/27/2021 Referring Doctor: Nicholas Tang MD PT Orders: PT CONSULT: Status post Ortho surgery. S/P L TKA. Precautions: WBAT on left LE with AD. 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 PMHX: Medical History Alcohol abuse Anosmia Balance problem Chronic back pain COPD (chronic obstructive pulmonary disease) Diarrhea Exertional dyspnea Herniated lumbar intervertebral disc Hip pain, left History of traumatic fracture of vertebra HTN (hypertension) Hx of squamous cell carcinoma Knee pain, bilateral Lower back pain Osteoarthritis of left knee Steroid injection: 08/15/2020 Osteoarthritis of lumbar spine Osteoarthritis of right knee Steroid injection: 08/15/2020 Spondylosis of lumbar spine Spondylosis, cervical Tobacco dependence in remission Unintentional weight loss Vitamin D deficiency Surgical History S/P cervical spinal fusion S/P laminectomy Social History/Home Situation: Lives with in a private home with 14 steps to enter with a rail on the left side going up. Independent without an assistive device for all indoor ambulation but occasionally used a small-based quad cane for outdoors. Equipment Owned/DME: [employer], [employer] Subjective: Agreeable to PT consult. Initially reported mild lightheadedness that did not limit mobility performance. Reports 1?2/10 pain in the left back of knee. Objective: General Observation: MICHELLE wraps to left knee. TEDS to right leg. Cryocuff to left knee. Mental Status: Alert and oriented x4 Pain: 1?2/10 in the left posterior knee ROM: Right Lower Extremity: Hip flexion WFL. Hip abduction WFL. Knee flexion 10 degrees to 90 degrees. Knee extension -10 degrees. Ankle dorsiflexion WFL. Ankle plantarflexion WFL. Left Lower Extremity: Hip flexion WFL. Hip abduction WFL. Knee flexion WFL. Ankle dorsiflexion WFL. Ankle plantarflexion WFL. Strength: Right Lower Extremity: Hip flexors 5/5. Hip abductors 4/5. Knee flexors 4/5. Knee extensors 4/5. Ankle dorsiflexors 5/5. Ankle plantarflexors 5/5. Left Lower Extremity:Hip flexors 5/5. Hip abductors 5/5. Knee flexors 3-/5. Knee extensors 3-/5. Ankle dorsiflexors 5/5. Ankle plantarflexors 5/5. Sensation: Indicates that he has chronic numbness in bilateral soles of his feet due to previous back surgery. Otherwise intact as to pain and light pressure in bilateral lower extremities. Bed Mobility/Transfers: Supine to sit independent Sit to stand contact-guard assist Stand to sit standby assist Bed to chair standby assist Gait: Instructed patient with level surface ambulation using front wheeled walker with step through gait pattern requiring contact-guard assist only and minimal verbal cueing for walker management. Good quad activation on the left. Reported mild lightheadedness that did not limit ambulation distance and safety. No report of increased pain in the knee. Stairs: Tolerated up-and-down 6 x 4 inch steps and 4 x 6 inch steps while holding onto 1 rail and using small base quad cane with the other hand requiring contact-guard assist and minimal cueing for correct gait pattern. No report of increased pain in knee. Balance: Static Sitting: Normal Dynamic Sitting: Normal Static Standing: Fair Dynamic Standing: Fair Special Tests: Mobility Limitations Standardized Measure [facility] AM-PAC 6 clicks Basic Mobility Inpatient Short Form: Raw Score: 21 CMS Score: 29% deficit Informed Consent/Education: Patient instructed in purpose of PT consult. Packet containing TKA exercise protocol has been given to patient. Education and training on initial set of exercises that can be done at home have been completed with patient. Assessment: Patient requires the use of front wheel walker for all mobility ADL performance to maximize independence and reduce fall risk. Will have the support of his at home as he recovers. Has good safety awareness. Patient presents with clinical signs and symptoms consistent with current/admitting diagnoses that have resulted to mobility limitations, gait instability, generalized weakness, and impairment of motor control as demonstrated by the following impairment level findings: 1. Decreased strength to left knee major muscle groups 2. Impaired standing balance 3. Limitation of joint range of motion in left knee Impairments are contributing to the following functional limitations: 1. Inability to safely ambulate without assistive device 2. Increase completion time for mobility ADL performance 3. Increased fall risk Patient is assessed as a 71151 moderate complexity based on the following: History: 81-year-old male with impairment level findings, functional limitations, and past medical history as indicated above Examination: Demonstrable impairment in strength, balance, and mobility level with underlying impairments and functional limitations as documented above Presentation: Evolving Decision Makin moderate complexity Goals: N/A. PT evaluation and 1-2 treatment sessions only for functional mobility training using recommended AD and for HEP instruction. Plan of Care/Treatment Plan: N/A. PT evaluation and 1-2 treatment session only for functional mobility training using recommended AD and for HEP instruction. DISCHARGE RECOMMENDATIONS: Home when medically cleared by orthopedic surgeon. Outpatient PT services in order to facilitate return to independent community ambulation without an assistive device. TREATMENT CODE/TIME: 27332 x 30 minutes, 50805 x 23 minutes beginning at 11:49 AM. Thank you for the opportunity to participate in the care of this patient. Thank you for the opportunity to participate in the care of this patient. Marianna Quesada PT, DPT, CLT [facility] [place], [place]
--- NOTE | 2021-06-27 15:13 | W.PM.OP ---
Date of service: 06/27/21 Time of Service: 10:13 Operative Note Operative Note DATE OF PROCEDURE: 06/27/21 PRE-OP DIAGNOSIS: Left Knee Osteoarthritis POST-OP DIAGNOSIS: same PROCEDURE: Left Total Knee Replacement SURGEON: Nicholas Tang FOUNTAIN HELPER: Dakota Shelby ANESTHESIA TYPE: Spinal Refer to Anesthesia Record ESTIMATED BLOOD LOSS: 150 PATHOLOGY: none sent TOURNIQUET TIME: 28 COMPLICATIONS: None Patient was transported to: PACU Patient's condition: stable Implants: 1. Depuy Attune Cruciate Retaining Femoral Component, Size 7 2. Depuy Attune Rotating Platform Tibial Component, Size 6 3. Depuy Attune 6x8 CR,RP Poly 4. Depuy Attune Patellar Component, Size 38 Indications: I have seen Mike in clinic for symptoms of knee arthritis, confirmed with radiographic findings. He has exhausted nonoperative methods and was having significant limitations in daily function and desired better function and less pain. I discussed the technical details of a knee replacement. I explained the risks of the procedure to include, but not limited to, bleeding, infection, pain, stiffness, fracture, damage to nerves and vessels, damage to muscles and tendons, loosening, need for repeat procedure, blood clot and cardiopulmonary demise. Despite these risks, Mike elected to proceed. Findings: There was significant signs of arthritis throughout the knee throughout all 3 compartments but primarily of the medial compartment with large osteophytes. Procedure Description: Mike was greeted in the preoperative holding area where the correct side was identified and marked. The consent was reviewed with the patient and signed. The history and physical was updated. All questions were answered. Preoperative mediacations were administered: Acetaminophen 1000mg, Celebrex 400mg, and Gabapentin 300mg. An adductor canal block was then administered by the anesthesia team in the PACU. He was taken back to the operating room. A spinal anesthestic was then administered. The patient was placed into the supine position on the operating room table. A nonsterile tourniquet was placed high onto the leg but only used for cementing. Posts were placed for positioning during the procedure. All bony prominences were well padded. Prophylactic antibiotics in the form of Cefazolin were administered. 1g of Tranxemic Acid was given intravenously within 30 minutes of incision. The left leg was then prepped with Chloraprep and draped in a standard fashion with impervious stockinette and extremity drape. A second prep with Chloraprep was performed prior to placing Ioband. A timeout to confirm correct identity, side and site, procedure, allergies, anesthesia, and medical concerns was performed. With the knee in some flexion, a midline incision was made overlying the knee. Full thickness skin flaps were raised once the extensor mechanism was encountered. These were raised medially and laterally. Any bleeding was controlled with electrocautery. Once the extensor mechanism was fully exposed, a medial parapatellar arthrotomy was performed in a flexed position. All bleeding from the arthrotomy and the geniculate arteries was coagulated. A medial subperiosteal peel was performed with electrocautery to the midcoronal plane. Due to the significant varus deformity the entire medial tibial plateau was exposed. The fat pad was removed while keeping the patellar tendon protected. The anterior distal femur synovium was removed for later visualization. The ACL and PCL were resected and the anterior horn of the lateral meniscus was transected. The knee was then flexed with the patella everted. Large osteophytes from the tibia were removed. Large osteophytes from the femur were removed. Using a step drill, and based on preoperative templating, the femoral canal was entered. This was done with a step drill without any difficulty. The intramedullary distal femoral cut guide was inserted, set to a 5 degree valgus cut and 8mm cut thickness. The distal femoral cut guide was then held in position and pinned. With the soft tissues protected, the distal cut was performed. This was passed over a few times to ensure a planar cut. I then turned attention to the tibia. The extramedullary guide was placed onto the leg. The distal aspect was slid medial to adjust for position of center of ankle and stay in line with shaft of the tibia. Approximately 3-5 degrees of posterior slope was kept in the proximal cutting guide. The center of the guide was aligned with the PCL. The stylus was used to assess cut thickness. The medial side, most involved side, was set for a 2mm cut from the posteromedial surface. This was then held in position and pinned into place with 2 additional pins and a cross pin for stability. The medial and lateral collateral ligaments were protected and the cut was performed. With this completed, it was assessed and noted to be of appropriate dimensions. The guide was removed. A spacer block was inserted and the knee was brought into extension. The 8mm spacer block provided full extension, without hyperextension and with stability of both the medial and lateral collateral ligaments was assessed. The pins from the femur and the tibia were then removed. The distal femur was then sized. The anterior stylus was placed onto the lateral ridge of the anterior femur. This indicated a size 7 femur. The external rotation of the guide was adjusted to 3 degrees to match the epicondylar axis, perpendicular to [place]?s line. The 4-in-1 cutting guide was the placed. The posterior medial femur cut was evaluated and appeared of good thickness. The spacer block was inserted underneath the cutting guide and stability was confirmed in 90 degrees of flexion. An macey wing was used to confirm appropriate position of the anterior cut to avoid notching. This cutting guide was ensured to be flush on the cut surface and then pinned into place with headed pins. While protecting the soft tissues, quad tendon, and collateral ligaments, the anterior and posterior cuts were performed with a saw. The central two pins were removed and the posterior and anterior chamfers were cut next. The notch-cutting guide was placed. This was pinned to lateralize the femoral component as much as possible while keeping it flush on the cut surface. This was then pinned into position. A reciprocating saw was used to make the small notch cut. A trial CR femoral component was then inserted, impacted down to the cut surfaces, and the lug holes were drilled. A provisional trial tibial component was placed and the knee was brought through range of motion. There was noted to be excellent extension and flexion. There was no significant instability. The patella was tracking without thumbs. The tibial cut surface was fully exposed. The medial and lateral menisci were removed. The tibia was then sized as a 6. The tibia had been previously marked during trialing to correspond to the center of the tibial component to help with rotation. The trial was aligned to this [place], approximately rotated to the medial 1/3rd of the tibial tubercle. The trial was pinned into place. The tibia was prepared with a reamer and a keel punch. The knee was then brought into extension and the patella was measured as 26mm. Using the patellar clamp and cut guide, this was resected to a flat surface with at least 13mm of thickness remaining. The size 38 patella fit the best. This was oriented and then clamped into position. The lugs were drilled. The trial components were removed. The final components, except for the polyethylene were opened on the back table. The periosteal and capsular tissues, especially posteriorly, around the knee were then systematically injected with a periarticular cocktail consisting of 50cc 0.25% Marcaine, 30mg Ketorolac, 20cc of Exparal and 50cc of injectable saline. The tourniquet was then inflated to 275mmHg. The knee was thoroughly irrigated with a pulse lavage and dried. On the back table, with the implants opened, the cement was mixed. 2 batches of antibiotic laden medium viscosity cement were prepared with vacuum assistance. After the cement was ready it was placed on to the back side of the tibial component. A small amount was placed onto the posterior flange of the femur. Cement was manual pressurized and impregnated into the cut surface of the tibia. The tibial component was then inserted into the cut surface and impacted into position. Excess cement was removed and the component was reimpacted. Again, excess cement was removed and our attention was then turned to the femur. The femoral cut surface was once again dried and cement was manually impacted into the cut surface. The femoral component was lined with the lug holes and impacted. Excess cement was removed. It was ensured to be down against the cut surface. The trial polyethylene was then inserted and the leg was brought out into full extension for the duration of the cement curing process, approximately 18min. Cement was lastly manually impacted into the cut surface of the patella and the patellar button was clamped into position and held. During this process attention was turned to the gutters of the knee and for all interfaces for any excess cement. While the cement was hardening, the knee was irrigated with Irrisept chlorhexadine solution. It was allowed to sit in the knee for 3 minutes. After the cement had finally cured, approximately 18min, the clamp was removed from the patella and the knee was taken through range of motion. A size 8mm polyethylene component provided the best range of motion and stability with less than 2mm gapping with medial and lateral stress and full extension without significant hyperextension. The patella was tracking with a no-thumbs technique. The trial poly was removed and once again the knee was checked for any loose, excess, or errant cement. The poly component was then inserted into position after cleaning and drying the tibial tray. The capsule was then reapproximated with a No. 1 Vicryl at multiple locations. The capsule was finally closed with a No. 2 Stratafix, barbed suture. The tourniquet was then released and the arthrotomy appeared watertight without significant bleeding. The second dosing of 1g TXA was started. Deep tissues were then reapproximated with 0 Vicryl and 2-0 Vicryl. The skin was closed with a running 3-0 Monocryl in a subcuticular fashion. This was reinforced with skin glue. A Mepilex silver dressing was applied along with a [id number] MICHELLE wrap. A CryoCuff was applied. Mike was transferred to the hospital bed without difficulty an suffering no apparent complication. Mike has a good prognosis. Physical therapy will start today and without restrictions, weight-bearing as tolerated. Aspirin 81mg BID will be used for DVT prophylaxis.
== END 2021-06-27 13:56 | disposition home or self-care (01) ==
PROVIDERS: PCP Nurse Practitioner Family; Visit Provider Student in an Organized Health Care Education/Training Program
PROC: (CPT 27447; principal; 2021-06-27 08:00)
DX: M17.12 Unilateral primary osteoarthritis, left knee (principal); J44.9 Chronic obstructive pulmonary disease, unspecified; G89.29 Other chronic pain; M51.26 Other intervertebral disc displacement, lumbar region; F10.10 Alcohol abuse, uncomplicated; I10 Essential (primary) hypertension; Z87.891 Personal history of nicotine dependence; E55.9 Vitamin D deficiency, unspecified
CPT/HCPCS: 27447; C1776; 97162; 97530; J0690; J1885; J2001; J2250; J2370; J2405

== ENCOUNTER 2021-07-10 11:23 | Outpatient (CLI) | payer MEDICARE, SELFPAY ==
--- NOTE | 2021-07-10 10:45 | DI.RAD_ITS ---
Exam(s) XR KNEE LT 1V XR STANDING ALIGNMENT EXAM: XR KNEE LT 1V and XR standing alignment CLINICAL HISTORY: 1ST POST OP L TKA. TECHNIQUE: 2D digital imaging was performed of the left knee. Multiple images were obtained. Stand ing alignment of the lower extremities and a lateral left knee views were obtained. COMPARISON: CR XR KNEE LT 3V AP,LAT,STEFANIA from 08/15/2020 CR XR KNEE LT 3V AP,LAT,STEFANIA from 08/15/2020 FINDINGS: BONES: Since the prior examination the patient has undergone a left total knee replacement. The ort hopedic hardware appears in good position. No findings to suggest loosening of the orthopedic hardwa re. On the lateral view of the knee there is a horizontal lucency anteriorly just above the tibial t uberosity. This may be projectional and represent an artifact, fracture cannot be excluded. Please correlate clinically. The bones are otherwise intact. Marked degenerative changes are seen in the r ight knee with joint space narrowing periarticular spurring and chondrocalcinosis. Findings are most marked in the medial femoral tibial joint. SOFT TISSUE: Atherosclerosis. IMPRESSION: 1. Status post left total knee replacement. No evidence of hardware failure. 2. Horizontal lucency seen on the lateral view of the left knee. This may be projectional/artifactua l. Fracture cannot be excluded. DATA REPOSITORY: RADIATION DOSE DELIVERED:
== END 2021-07-10 11:24 | disposition home or self-care (01) ==
LOC: DIORS 11:24
PROVIDERS: PCP Nurse Practitioner Family; Referring Provider Nurse Practitioner Family; Visit Provider Student in an Organized Health Care Education/Training Program
DX: Z96.652 Presence of left artificial knee joint (principal); Z47.1 Aftercare following joint replacement surgery
CPT/HCPCS: 73560; 77073

== ENCOUNTER → 2021-08-07 14:07 | Outpatient (BNVA) | payer MEDICARE, SELFPAY | PROVIDERS: PCP Nurse Practitioner Family; Visit Provider Student in an Organized Health Care Education/Training Program | DX: Z47.1 Aftercare following joint replacement surgery (principal); Z96.652 Presence of left artificial knee joint ==

== ENCOUNTER → 2021-09-04 14:26 | Outpatient (BNVA) | payer MEDICARE, SELFPAY | PROVIDERS: PCP Nurse Practitioner Family; Referring Provider Nurse Practitioner Family; Visit Provider Surgery | DX: K92.2 Gastrointestinal hemorrhage, unspecified (principal); K40.20 Bilateral inguinal hernia, without obstruction or gangrene, not specified as recurrent; R13.10 Dysphagia, unspecified; Z96.652 Presence of left artificial knee joint; J44.9 Chronic obstructive pulmonary disease, unspecified; I10 Essential (primary) hypertension; D50.9 Iron deficiency anemia, unspecified; D52.9 Folate deficiency anemia, unspecified; D64.9 Anemia, unspecified | CPT/HCPCS: 99213; 99214 ==

== ENCOUNTER 2021-09-05 03:18 | Outpatient (CLI) | payer MEDICARE, SELFPAY ==
[2021-09-05 13:11] LABS: Abs Immature Grans 0.03 10^3/uL (0.0-0.06); Absolute Basophil Count 0.02 10^3/uL (0.0-0.2); Absolute Eosinophil Count 0.11 10^3/uL (0.0-0.7); Absolute Lymphocyte Count 1.81 10^3/uL (1.2-3.4); Absolute Monocyte Count 1.12 10^3/uL (0.1-0.8); Absolute Neutrophil Count 4.48 10^3/uL (1.2-6.7); Basophils % 0.3; Eosinophils % 1.5; HCT 33.3 % (40.0-50.0); HGB 10.5 g/dL (13.5-17.5); Immature Grans % 0.4; Lymphocytes % 23.9; MCH 25.5 pg (27.0-33.0); MCHC 31.5 % (32.0-36.0); MPV 9.1 fL (8.0-11.0); Monocytes % 14.8; Neutrophils % 59.1; Nucleated RBC 0 %; Platelet Count 467 10^3/uL (130-400); RBC 4.11 10^6/uL (4.36-5.78); RDW 15.9 % (11.8-14.1); RDW-SD 46.8 fL; WBC 7.57 10^3/uL (4.4-10.8)
[2021-09-05 14:34] LABS: ALT 15 U/L (16-63); AST 12 U/L (15-37); Albumin 3.6 g/dL (3.4-5.0); Alkaline Phosphatase 79 U/L (46-116); Anion Gap 9.1 mmol/L (3-11); BUN 16 mg/dL (7-18); Bilirubin, Total 0.2 mg/dL (0.2-1.0); CO2 28.9 mmol/L (21.0-32.0); CREATININE 0.9 mg/dL (0.70-1.30); Calcium 9.1 mg/dL (8.5-10.1); Chloride 98 mmol/L (98-107); Ferritin 11 ng/mL (26-388); Folate 6.6 ng/mL (8.6-20.0); Glucose 117 mg/dL (74-106); Potassium 4.2 mmol/L (3.5-5.1); Sodium 136 mmol/L (136-145); Total Protein 7.4 g/dL (6.4-8.2)
[2021-09-05 14:35] LABS: Vitamin B12 > 2000 pg/mL (193-986)
[2021-09-05 15:48] LABS: Iron 21 ug/dL (65-175); Total Iron Binding Capacity 463 ug/dL (250-450); Transferrin Sat 5 % (20-55)
== END 2021-09-05 03:19 | disposition home or self-care (01) ==
PROVIDERS: PCP Nurse Practitioner Family; Visit Provider Surgery
DX: I10 Essential (primary) hypertension; J44.9 Chronic obstructive pulmonary disease, unspecified; K40.20 Bilateral inguinal hernia, without obstruction or gangrene, not specified as recurrent; K55.1 Chronic vascular disorders of intestine; K92.2 Gastrointestinal hemorrhage, unspecified; M17.11 Unilateral primary osteoarthritis, right knee; R13.10 Dysphagia, unspecified; Z96.652 Presence of left artificial knee joint
CPT/HCPCS: 36415; 80053; 82607; 82728; 82746; 83540; 83550; 84443; 85025

== ENCOUNTER 2021-09-13 03:00 | Outpatient (CLI) | payer MEDICARE, SELFPAY ==
[2021-09-13 09:46] LABS: Source Nasal/Nares
[2021-09-13 13:02] LABS: COVID-19 PCR Negative (Negative)
== END 2021-09-13 03:01 | disposition home or self-care (01) ==
LOC: LBO 03:00
PROVIDERS: PCP Nurse Practitioner Family; Visit Provider Surgery
DX: Z20.822 Contact with and (suspected) exposure to COVID-19 (principal)
CPT/HCPCS: 87635

== ENCOUNTER 2021-09-15 10:09 | Day surgery (SDC) | payer MEDICARE, SELFPAY ==
--- NOTE | 2021-09-14 12:21 | ENDO_ITS ---
Date of service: 09/15/21 Endoscopy Report DATE OF PROCEDURE: 09/15/21 PRE-OP DIAGNOSIS: hx of ulce/iron defn anemia SURGEON: Alesha Harris ANESTHESIA TYPE: General:No Airway ESTIMATED BLOOD LOSS: 1 PATHOLOGY: other COMPLICATIONS: None DISPOSITION: same day PROCEDURE DESCRIPTION: After informed consent was obtained the patient was take to the procedure room and placed in a supine position. Monitors were applied and a time out was done. The patients name, date of , procedure type, allergies to medications and metal in their body was reviewed. A bite block was placed and the patient was sedated. Once sedated and comfortable the gastroscope was advanced through the oropharynx which was grossly normal into the esophagus. The proximal and mid-esophagus were nl. In the distal esophagus there was nl: esophageal erosions/varices/dicerticula or strictures.. The scope was advanced into the stomach and through the pylorus into the 3rd portion of the duodenum. The duodenum was noted to be nl. scarring was noted were the ulcer had been previouslt. no sign of recurrence or ischemia. Biopsies were done, all specimens are retrieved and no bleeding is noted. . The scope was retracted back into the stomach and biopsies were done to rule out H. pylori. There were no ulcers. There is mils gastritis in the body of the stomach. The scope was retroflexed. The cardia and fundus were noted to be normal. There small sliding type hiatal hernia noted. The scope was retracted back into the esophagus and biopsies were done of the GE junction to rule out Foster's. The Z line was irregular. The scope was removed and the patient was woken up and taken back to [facility] in stable condition.
--- NOTE | 2021-09-14 12:22 | PDOC.DSDIS_ITS ---
Discharge Plan Disposition Patient Disposition: HOME Condition: Good Discharge Details Reason For Visit: stomach scope Attending Provider: Alesha Harris Primary Care Provider: Yeni Williamson Home Meds and New Rx's Prescriptions: New ferrous sulfate 220 mg (44 mg iron)/5 mL elixir 110 mg PO BID Qty: 473 RF: 6 famotidine [Pepcid] 40 mg tablet 40 mg PO DAILY Qty: 90 RF: 12 Continued carvedilol 3.125 mg tablet 3.125 mg PO BID RF: 0 ipratropium-albuterol 0.5 mg-3 mg(2.5 mg base)/3 mL solution for nebulization 3 ml inhalation Q6H PRNRF: 0 vitamin B complex [B Complex-Vitamin B12] Tablet 1 tab PO DAILY RF: 0 zolpidem 10 mg tablet 10 mg PO HS RF: 0 cyclobenzaprine 5 mg tablet 5 mg PO TID PRN (Reason: muscle spasm) Qty: 15 RF: 0 albuterol sulfate [ProAir HFA] 90 mcg/actuation HFA aerosol inhaler 2 puff inhalation Q6H PRNRF: 0 potassium chloride 10 mEq capsule, extended release 10 meq PO DAILY RF: 0 hydrochlorothiazide 25 mg tablet 25 mg PO DAILY RF: 0 pantoprazole [Protonix] 40 mg tablet,delayed release (DR/EC) 40 mg PO BID RF: 0 echinacea 500 mg capsule 500 mg PO BID RF: 0 MSM 1,000 mg capsule 1,000 mg PO BID RF: 0 vit D3-folic [id number] 2,000-800-0.32 unit-mcg-mg Tablet 1 tab PO DAILY RF: 0 acetaminophen 500 mg tablet 1,000 mg PO Q8H PRN (Reason: pain) Qty: 90 RF: 3 No Action mirtazapine 7.5 mg tablet HS RF: 0 Discharge Instructions Additional Instructions: DSU EGD Post-Op Instructions Instructions for Everyone who is given Anes thesia: For your safety, please do the following for the next twenty-four (24) hours: *Do Not operate a motor vehicle (car, truck, motorcycle, etc.) *Do Not drink alcoholic beverages or use any recreational drugs for the first 24 hours or while taking pain medications. The medications in your body may have a reaction that can be dangerous. *Do Not make any important decisions or sign any important papers. Findings: hiatal hernia iron defn anemia increase B vitamins to twice a day start iron supplementation. May cause constipation. Will turn stools black. new Rx pepcid- daily Continue with lifestyle modifications: no alcohol, tobacco products, Aspirin or NSAID's (ibuprofen, Motrin, Naprosyn, aleve, celebrex, etc), soda pop/any carbonated beverages, caffeine (including tea & chocolate), and acidic foods, (tomatoes, citrus, onions, peppermints) spicy or fried/fatty foods. Do not lie down for 30 minutes after eating, and do not eat 2 hours prior to bedtime. Avoid wearing tight fitting clothing/ belts Follow up: 6 wks 1. No lifting over 20 pounds or strenuous activity for the first 24 hours after your procedure. After 24 hours there are no restrictions on your activity but you may feel fatigued for a few days. 2. After you arrive home you may have a light meal and return to your normal diet as you can tolerate it without feeling sick to your stomach. 3. You may have a bloated, gaseous feeling in your belly (abdomen) after the scope . Passing gas and belching will help. Call the office at [phone] (Office) or [phone] (Hospital) right away if you notice any of the following: a.Vomiting of blood or ?coffee ground stools?. c.Severe belly (abdominal) pain. d.any chest pain. 5. If there are questions regarding the findings of your procedure, please contact your doctor 6. If you are unable to contact your doctor with a problem, contact the hospital at [phone]. 7. Continue all your regular medications unless directed otherwise. I understand the above instructions and have no questions. Signature of Patient or Adult Escort Name of Responsible Adult Escort Signature of Nurse Date/Time Activity:: see above Diet:: see above Discharge Orders Discharge Orders: Discharge Order (Routine); Ordered 09/14/21 Ordered By: Alesha Harris DS: Diagnosis Discharge Diagnosis (1) Alcohol abuse: Status: Chronic (2) COPD (chronic obstructive pulmonary disease): Status: Chronic (3) Duodenal ulcer: Status: Acute (4) Gastritis: Status: Acute (5) Chronic iron deficiency anemia: Status: Acute (6) Folate deficiency anemia: Status: Acute (7) History of bleeding peptic ulcer: Status: Acute (8) Posterior duodenal ulcer: Status: Acute
[2021-09-15 10:30] VITALS: BP 160/77; PULSE 80; RESP 16; TEMP 36.2; O2SAT 95
--- NOTE | 2021-09-15 11:12 | W.ANESPRE ---
General Info Date of Service Date Performed: 09/15/21 Height: 5 ft 11 in Weight: 56 kg Body Mass Index (BMI): 17.2 Surgical Procedure: Operation Date: 09/15/21 10:50 Proposed Procedures Side Surgeon p Gastroscopy w/Biopsy Alesha Harris, Meds Allergies and Home Medications Allergies Allergy/AdvReac Type Severity Reaction Status Date / Time shellfish derived AdvReac Intermediate vomiting Verified 09/15/21 10:44 Home Medication Medication Instructions Recorded albuterol sulfate 90 mcg/actuation 2 puff INHALATION Q6H PRN 08/16/20 aerosol inhaler hydrochlorothiazide 25 mg tablet 25 mg PO DAILY 08/16/20 potassium chloride 10 mEq 10 meq PO DAILY 08/16/20 capsule,extended release vitamin B complex 1 tab PO DAILY 08/30/20 carvedilol 3.125 mg tablet 3.125 mg PO BID 03/13/21 ipratropium 0.5 mg-albuterol 3 mg 3 ml INHALATION Q6H PRN 03/13/21 (2.5 mg base)/3 mL nebulization soln zolpidem 10 mg tablet 10 mg PO HS 06/01/21 acetaminophen 1,000 mg PO Q8H PRN #90 tab 06/27/21 vit D3-folic [id number] 1 tab PO DAILY 06/27/21 cyclobenzaprine 5 mg tablet 5 mg PO TID PRN #15 tab 08/09/21 echinacea 500 mg capsule 500 mg PO BID 08/28/21 methylsulfonylmethane 1,000 mg 1,000 mg PO BID 08/28/21 capsule pantoprazole 40 mg tablet,delayed 40 mg PO BID tab 08/28/21 release ferrous sulfate 110 mg PO BID #473 ml 09/14/21 mirtazapine mg HS 09/15/21 Current Visit Medications: Current Medications Generic Name Dose Route Start Last Admin Trade Name Freq PRN Reason Stop Dose Admin Hyoscyamine Sulfate 0.125 mg 09/14/21 12:20 Hyoscyamine 0.125 Mg Sl/Oral/Chew SL DIRECTED PRN Iron Sucrose 200 mg/ Sodium 110 mls @ 400 mls/hr 09/15/21 12:00 Chloride IVPB 09/15/21 20:00 TODAY@1200 [facility] Ringer's Solution 1,000 mls @ 80 mls/hr 09/15/21 06:00 IV 10/02/21 23:59 INFUSION [facility]ENN Clindamycin Phosphate/Dextrose 600 mg in 50 mls @ 100 mls/hr 09/15/21 06:00 Cleocin In D5w IVPB 09/15/21 16:00 PREOP [facility] IV Miscellaneous Supplies 1 each 09/15/21 06:00 Iv Access IV 10/02/21 23:59 DIRECTED GLENN Ondansetron HCl 4 mg 09/14/21 12:20 Ondansetron 4 Mg/2 Ml Vial IVP Q4H PRN PRN Nausea / Vomiting Sodium Chloride 0 ml 09/15/21 06:00 Normal Saline Flush 10 Ml Syr IV 10/02/21 23:59 PRN PRN Sodium Chloride 0 ml 09/15/21 06:00 Normal Saline 10 Ml Vial IJ 10/02/21 23:59 DIRECTED PRN Sterile Water 0 ml 09/15/21 06:00 Water,Injection,Sterile 10 Ml Vial IJ 10/02/21 23:59 DIRECTED PRN PFSH Active Problems Active Problems: Problem Status Onset Code Osteoarthritis of right knee M17.11 Fecal impaction K56.41 Symptomatic anemia D64.9 Syncope R55 DVT prophylaxis Z29.9 Discharge planning issues Z02.9 Chronic pain G89.29 Leg swelling M79.89 Chest discomfort R07.89 Alcohol abuse F10.10 COPD (chronic obstructive pulmonary disease) J44.9 Fecal retention K59.00 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 Back pain M54.9 Duodenal ulcer K26.9 Gastritis K29.70 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 Z96.652 Dysphagia R13.10 Inguinal hernia, bilateral K40.20 Chronic iron deficiency anemia D50.9 Folate deficiency anemia D52.9 History of bleeding peptic ulcer Z87.11 Posterior duodenal ulcer K26.9 Medical History Medical History Anosmia Balance problem uses cane Chronic back pain Diarrhea Exertional dyspnea Herniated lumbar intervertebral disc Hip pain, left History of traumatic fracture of vertebra HTN (hypertension) Hx of squamous cell carcinoma Knee pain, bilateral Lower back pain Osteoarthritis of left knee Steroid injection: 08/15/2020 s/p left TKA 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 reports a beer nightly, pt. states he reduced his alcohol intake since bleeding ulcer in january. THC- week ago Vital Signs and Lab Results Vital Signs Most Recent Vital Signs in EMR: Most Recent Vital Signs Temp Pulse Resp BP Pulse Ox 36.2 C L 80 16 160/77 H 95 09/15/21 10:30 09/15/21 10:30 09/15/21 10:30 09/15/21 10:30 09/15/21 10:30 Lab Results Blood Type / Crossmatch: No Data to Display Complete Blood Count: White Blood Count 7.57 10^3/uL (4.4-10.8) 09/05/21 12:50 09/05/21 Red Blood Count 4.11 10^6/uL (4.36-5.78) L 09/05/21 12:50 09/05/21 Hemoglobin 10.5 g/dL (13.5-17.5) L 09/05/21 12:50 09/05/21 Hematocrit 33.3 % (40.0-50.0) L 09/05/21 12:50 09/05/21 Platelet Count 467 10^3/uL (130-400) H 09/05/21 12:50 09/05/21 Complete Metabolic Panel: Sodium Level 136 mmol/L (136-145) 09/05/21 12:50 09/05/21 Potassium Level 4.2 mmol/L (3.5-5.1) 09/05/21 12:50 09/05/21 Chloride Level 98 mmol/L (98-107) 09/05/21 12:50 09/05/21 Carbon Dioxide Level 28.9 mmol/L (21.0-32.0) 09/05/21 12:50 09/05/21 Blood Urea Nitrogen 16 mg/dL (7-18) 09/05/21 12:50 09/05/21 Creatinine 0.9 mg/dL (0.70-1.30) 09/05/21 12:50 09/05/21 Estimated GFR/1.73 m2 >= 60.00 (mL/min/1.73m2) 09/05/21 12:50 09/05/21 Calcium Level 9.1 mg/dL (8.5-10.1) 09/05/21 12:50 09/05/21 Albumin 3.6 g/dL (3.4-5.0) 09/05/21 12:50 09/05/21 Glucose Level 117 mg/dL (74-106) H 09/05/21 12:50 09/05/21 Liver Function Panel: Alanine Aminotransferase (ALT/SGPT) 15 U/L (16-63) L 09/05/21 12:50 09/05/21 Aspartate Amino Transf (AST/SGOT) 12 U/L (15-37) L 09/05/21 12:50 09/05/21 Coagulation Panel: No Data to Display Cardiac Panel: No Data to Display Arterial Blood Gas: No Data to Display Venous Blood Gas: No Data to Display Pancreas Panel: No Data to Display Thyroid Panel: Thyroid Stimulating Hormone (TSH) 0.80 uIU/mL (0.36-3.74) 09/05/21 12:50 09/05/21 Infectious Disease: Coronavirus (COVID-19)(PCR) Negative (Negative) 09/13/21 08:33 09/13/21 Coronavirus 2019 Source Nasal/Nares 09/13/21 08:33 09/13/21 Blood Cultures: No Data to Display Toxicology Panel: No Data to Display Imaging and Studies Imaging and Studies Study information below may be from another EMR and interpreted by another provider. Please see original notes in EMR for more complete details. EKG Summary: Sinus tachycardia.. ST depr anterolateral leads, may be rate related Echocardiogram Summary: Normal left ventricular wall thickness and chamber size. Estimated ejection fraction is 60 to 65%. Wall motion is normal Normal right ventricular size and systolic function Both atria are normal in size The aortic valve is trileaflet and sclerotic without stenosis or regurgitation Mitral annular calcification. Trace mitral regurgitation Normal tricuspid valve with trace regurgitation. Estimated right ventricular systolic pressure is 39 mmHg Normal pulmonic valve with trace regurgitation Mildly dilated ascending aorta measuring 3.68 cm Anesthesia Assessment and Plan Anesthesia History Personal History: No History of Anesthesia Complications Family History: No Family History of Anesthesia Complications Exercise Tolerance Exercise Tolerance: Metabolic Equivalents>4 Cardiac & Pulmonary Exam Cardiac Exam: Normal S1/S2 Heart Sounds Pulmonary Exam: Clear Bilateral Breath Sounds Implantable Cardiac Device Does patient have a Pacemaker or an ICD?: No Airway Exam Known Difficult Airway: No Mallampati Class: 2 Mouth Opening: Normal (> 3cm) Thyromental Distance: Greater than 3 cm Neck Range of Motion: Full ROM and Known Cervical Instability or radiculopathy Neck Circumference: Normal Teeth Condition: Normal Dentition ASA Classification ASA Score: ASA 3 Emergency Case?: No NPO Status NPO Status: NPO Clears >2 hours, Solids >8 hours Anesthesia Plan Resuscitation Status: Full Code Anesthesia Technique: General Anesthesia Airway Planned: Natural Airway Monitors Used: Standard Monitors
[2021-09-15 11:14] VITALS: BMI 17.2
[2021-09-15] MEDS: Lactated Ringers 1,000 ML 80 ML IV (11:21)
[2021-09-15] MEDS: CLINDAMYCIN 600 MG/50 ML BAG 100 MG IVPB (11:28)
--- NOTE | 2021-09-15 12:19 | STOM_PTH ---
PATIENT: Mike Jorgensen LOC: [facility] U#:[id number] AGE/SX: 81/M ROOM: RE09/15/[address]: Alesha Harris : 1940 BED: DIS: 09/15/2021 SPEC #: [id number] RECD: 09/15/21 12:59 STATUS: MARIEL[facility] REElizabeth #: [id number] CATHY: 09/15/21 12:[address]: Alesha Harris DEPT: Surgical Specimen RECD BY: Noemi Pulido ENTERED: 09/15/21 13:01 SP TYPE: STOMACH OTHR DR: Yeni Williamson Tissues: 1 - BIOPSY BOWEL 2 - BIOPSY BOWEL 3 - STOMACH BIOPSY 4 - STOMACH BIOPSY 5 - ESOPHAGUS BIOPSY 6 - ESOPHAGUS BIOPSY Procedures: GROSS AND MICRO LEVEL 4 IMMUNOPEROXIDASE STAIN Comments: [id number]
[2021-09-15 12:37] VITALS: BP 102/85; PULSE 73; RESP 16; TEMP 36.4; O2SAT 97
[2021-09-15] MEDS: IRON SUCROSE COMPLEX 200 MG in Normal Saline 100 ML 400 MG IVPB (12:42)
--- NOTE | 2021-09-15 13:03 | W.ANESPOSTOP ---
Postoperative Evaluation Date, Time and Location Date Performed: 09/15/21 Time Performed: 13:03 Patient Location: Day Surgery Unit Vital Signs Most Recent Imported Vital Signs: Most Recent Vital Signs Temp Pulse Resp BP Pulse Ox 36.4 C L 73 16 102/85 97 09/15/21 12:37 09/15/21 12:37 09/15/21 12:37 09/15/21 12:37 09/15/21 12:37 Pain Score Most Recent Pain Score: Most Recent Pain Score Pain Level 0 09/15/21 12:37 Assessment Mental Status: Awake (Alert & Oriented to Patient Baseline) Airway and Respiratory Function: Patent airway with normal (patient baseline) respiratory exam Cardiovascular Function: Hemodynamically Stable Hydration Status: Adequately Hydrated Nausea & Vomiting: No Nausea or Vomiting Pain: Pt. Denies Any Pain Peripheral Nerve Block: Patient did not receive a nerve block
[2021-09-15 13:05] VITALS: BP 160/92; PULSE 76; RESP 22; TEMP 36.1; O2SAT 96
== END 2021-09-15 13:50 | disposition home or self-care (01) ==
LOC: SUR 10:09
PROVIDERS: PCP Nurse Practitioner Family; Visit Provider Surgery
PROC: 0DJ68ZZ Inspection of Stomach, Via Natural or Artificial Opening Endoscopic (ICD-10-PCS; CPT 43235; principal; 2021-09-15 10:45)
DX: K29.50 Unspecified chronic gastritis without bleeding (principal); D72.820 Lymphocytosis (symptomatic); K21.00 Gastro-esophageal reflux disease with esophagitis, without bleeding; K44.9 Diaphragmatic hernia without obstruction or gangrene; D50.9 Iron deficiency anemia, unspecified
CPT/HCPCS: 43239; 88305; 96365; 88361; J1756; J2001; J2704

== ENCOUNTER → 2021-09-25 08:08 | Outpatient (BNVA) | payer MEDICARE, SELFPAY | PROVIDERS: PCP Nurse Practitioner Family; Visit Provider Student in an Organized Health Care Education/Training Program | DX: Z47.1 Aftercare following joint replacement surgery (principal); Z96.652 Presence of left artificial knee joint; M17.11 Unilateral primary osteoarthritis, right knee | CPT/HCPCS: 20610; J1040 ==

== ENCOUNTER → 2021-09-25 08:47 | Outpatient (BNVA) | payer MEDICARE, SELFPAY | PROVIDERS: PCP Nurse Practitioner Family; Referring Provider Nurse Practitioner Family; Visit Provider Surgery | DX: Z48.815 Encounter for surgical aftercare following surgery on the digestive system (principal); D64.9 Anemia, unspecified; K26.9 Duodenal ulcer, unspecified as acute or chronic, without hemorrhage or perforation; K29.70 Gastritis, unspecified, without bleeding; F10.10 Alcohol abuse, uncomplicated | CPT/HCPCS: 99213 ==

== ENCOUNTER 2021-10-05 02:56 | Outpatient (CLI) | payer MEDICARE, SELFPAY ==
[2021-10-05 09:50] LABS: Abs Immature Grans 0.02 10^3/uL (0.0-0.06); Absolute Basophil Count 0.04 10^3/uL (0.0-0.2); Absolute Eosinophil Count 0.21 10^3/uL (0.0-0.7); Absolute Lymphocyte Count 2.46 10^3/uL (1.2-3.4); Absolute Monocyte Count 0.86 10^3/uL (0.1-0.8); Absolute Neutrophil Count 3.34 10^3/uL (1.2-6.7); Basophils % 0.6; HCT 34.1 % (40.0-50.0); HGB 10.6 g/dL (13.5-17.5); Immature Grans % 0.3; Lymphocytes % 35.5; MCH 25.6 pg (27.0-33.0); MCHC 31.1 % (32.0-36.0); MCV 82.4 fL (80-95); MPV 9.5 fL (8.0-11.0); Monocytes % 12.4; Neutrophils % 48.2; Nucleated RBC 0 %; Platelet Count 408 10^3/uL (130-400); RBC 4.14 10^6/uL (4.36-5.78); RDW 18.7 % (11.8-14.1); WBC 6.93 10^3/uL (4.4-10.8)
[2021-10-05 10:28] LABS: Iron 41 ug/dL (65-175); Total Iron Binding Capacity 410 ug/dL (250-450); Transferrin Sat 10 % (20-55)
[2021-10-05 10:40] LABS: Ferritin 22 ng/mL (26-388)
== END 2021-10-05 02:57 | disposition home or self-care (01) ==
LOC: LBO 02:57
PROVIDERS: PCP Nurse Practitioner Family; Visit Provider Surgery
DX: D64.9 Anemia, unspecified (principal); F10.10 Alcohol abuse, uncomplicated; K26.9 Duodenal ulcer, unspecified as acute or chronic, without hemorrhage or perforation; K29.60 Other gastritis without bleeding
CPT/HCPCS: 36415; 82728; 83540; 83550; 85025

== ENCOUNTER → 2021-10-12 14:17 | Outpatient (BNVA) | payer MEDICARE, SELFPAY | PROVIDERS: PCP Nurse Practitioner Family; Referring Provider Nurse Practitioner Family; Visit Provider Surgery | DX: Z48.815 Encounter for surgical aftercare following surgery on the digestive system (principal); K55.1 Chronic vascular disorders of intestine; D50.9 Iron deficiency anemia, unspecified; K29.70 Gastritis, unspecified, without bleeding | CPT/HCPCS: 99213 ==

== ENCOUNTER 2021-10-24 03:01 | Outpatient (RCR) | payer MEDICARE, SELFPAY ==
[2021-10-17] MEDS: Normal Saline Flush 10 ML SYR IVP (11:13)
[2021-10-17] MEDS: IRON SUCROSE COMPLEX 200 MG in Normal Saline 100 ML 440 MG IVPB (11:13)
[2021-10-24] MEDS: Normal Saline Flush 10 ML SYR IVP (11:17)
[2021-10-24] MEDS: IRON SUCROSE COMPLEX 200 MG in Normal Saline 100 ML 440 MG IVPB (11:26)
== END 2021-10-30 23:59 | disposition home or self-care (01) ==
LOC: INF 03:01
PROVIDERS: PCP Nurse Practitioner Family; Visit Provider Surgery
DX: D46.4 Refractory anemia, unspecified (principal); D50.9 Iron deficiency anemia, unspecified; K21.9 Gastro-esophageal reflux disease without esophagitis
CPT/HCPCS: 96365; J1756

== ENCOUNTER 2021-11-01 01:16 | Outpatient (RCR) | payer MEDICARE, SELFPAY ==
[2021-11-01] MEDS: IRON SUCROSE COMPLEX 200 MG in Normal Saline 100 ML 440 MG IVPB (13:08)
[2021-11-01] MEDS: Normal Saline Flush 10 ML SYR IVP (13:08)
== END 2021-11-30 23:59 | disposition home or self-care (01) ==
LOC: INF 01:16
PROVIDERS: PCP Nurse Practitioner Family; Visit Provider Surgery
DX: D46.4 Refractory anemia, unspecified (principal); D50.9 Iron deficiency anemia, unspecified; K21.9 Gastro-esophageal reflux disease without esophagitis
CPT/HCPCS: 96365; J1756

== ENCOUNTER 2021-11-03 01:54 | Outpatient (CLI) | payer MEDICARE, SELFPAY ==
[2021-11-03 12:21] LABS: Source Nasal/Nares
[2021-11-03 15:39] LABS: COVID-19 PCR Negative (Negative)
== END 2021-11-03 01:55 | disposition home or self-care (01) ==
LOC: LBO 01:54
PROVIDERS: PCP Nurse Practitioner Family; Visit Provider Ophthalmology
DX: Z20.822 Contact with and (suspected) exposure to COVID-19 (principal); Z01.818 Encounter for other preprocedural examination
CPT/HCPCS: 87635; U0005

== ENCOUNTER 2021-11-06 06:16 | Day surgery (SDC) | payer MEDICARE, SELFPAY ==
[2021-11-06] MEDS: Tropicam./Phenyleph. (1/2.5%) 5 ML BTL OS ×3 (06:46→06:59)
[2021-11-06 07:00] VITALS: BP 149/79; PULSE 77; RESP 16; TEMP 36.4; O2SAT 97
--- NOTE | 2021-11-06 07:07 | W.ANESPRE ---
General Info Date of Service Date Performed: 11/06/21 Height: 5 ft 10.5 in Weight: 57.5 kg Body Mass Index (BMI): 17.9 Surgical Procedure: Operation Date: 11/06/21 07:40 Proposed Procedure Side Surgeon p Cataract Extraction with IOL Implant Left Ajay Ha MD Meds Allergies and Home Medications Allergies Allergy/AdvReac Type Severity Reaction Status Date / Time shellfish derived AdvReac Intermediate vomiting Verified 11/06/21 06:52 meloxicam AdvReac Verified 11/06/21 06:52 Home Medication Medication Instructions Recorded hydrochlorothiazide 25 mg tablet 25 mg PO DAILY 08/16/20 potassium chloride 10 mEq 10 meq PO DAILY 08/16/20 capsule,extended release vitamin B complex (B 1 tab PO DAILY 08/30/20 Complex-Vitamin B12) carvedilol 3.125 mg tablet 3.125 mg PO BID 03/13/21 ipratropium 0.5 mg-albuterol 3 mg 3 ml INHALATION Q6H PRN 03/13/21 (2.5 mg base)/3 mL nebulization soln zolpidem 10 mg tablet 10 mg PO HS 06/01/21 acetaminophen 500 mg tablet 1,000 mg PO Q8H PRN #90 tab 06/27/21 echinacea 500 mg capsule 500 mg PO BID 08/28/21 methylsulfonylmethane 1,000 mg 1,000 mg PO DAILY 08/28/21 capsule (MSM) pantoprazole 40 mg tablet,delayed 40 mg PO BID tab 08/28/21 release (Protonix) mirtazapine 7.5 mg tablet 7.5 mg PO HS 09/15/21 cholecalciferol (vitamin D3) 125 125 mcg PO DAILY 09/25/21 mcg (5,000 unit) capsule cyclobenzaprine 5 mg tablet 5 mg PO PRN PRN 11/06/21 Current Visit Medications: Current Medications Generic Name Dose Route Start Last Admin Trade Name Freq PRN Reason Stop Dose Admin Acetaminophen 1,000 mg 11/06/21 06:00 Acetaminophen 500 Mg Tab PO Q4H PRN PRN Miscellaneous Medication 0 ml 11/06/21 06:00 Prednisolone 1%, Moxifloxacin 0.5%, Nepafenac 0.1% 5ml Btl OS DIRECTED [facility] Miscellaneous Medication 0 ml 11/06/21 06:00 11/06/21 06:59 Tropicam./Phenyleph. 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 Back pain M54.9 Duodenal ulcer K26.9 Gastritis K29.70 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 Z96.652 Dysphagia R13.10 Inguinal hernia, bilateral K40.20 Chronic iron deficiency anemia D50.9 Folate deficiency anemia D52.9 History of bleeding peptic ulcer Z87.11 Posterior duodenal ulcer K26.9 Medical History Medical History Anosmia Balance problem uses cane Chronic back pain Diarrhea Exertional dyspnea Herniated lumbar intervertebral disc Hip pain, left History of traumatic fracture of vertebra HTN (hypertension) Hx of squamous cell carcinoma Knee pain, bilateral Lower back pain Osteoarthritis of left knee Steroid injection: 08/15/2020 s/p left TKA 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 reports a beer nightly, pt. states he reduced his alcohol intake since bleeding ulcer in january. THC- week ago Vital Signs and Lab Results Vital Signs Most Recent Vital Signs in EMR: Most Recent Vital Signs Temp Pulse Resp BP Pulse Ox 36.4 C L 77 16 149/79 H 97 11/06/21 07:00 11/06/21 07:00 11/06/21 07:00 11/06/21 07:00 11/06/21 07:00 Lab Results Blood Type / Crossmatch: No Data to Display Complete Blood Count: No Data to Display Complete Metabolic Panel: No Data to Display Liver Function Panel: No Data to Display Coagulation Panel: No Data to Display Cardiac Panel: No Data to Display Arterial Blood Gas: No Data to Display Venous Blood Gas: No Data to Display Pancreas Panel: No Data to Display Thyroid Panel: No Data to Display Infectious Disease: Coronavirus (COVID-19)(PCR) Negative (Negative) 11/03/21 09:03 11/03/21 Coronavirus 2019 Source Nasal/Nares 11/03/21 09:03 11/03/21 Blood Cultures: No Data to Display Toxicology Panel: No Data to Display Imaging and Studies Imaging and Studies Study information below may be from another EMR and interpreted by another provider. Please see original notes in EMR for more complete details. EKG Summary: Sinus tachycardia.. ST depr anterolateral leads, may be rate related Echocardiogram Summary: Normal left ventricular wall thickness and chamber size. Estimated ejection fraction is 60 to 65%. Wall motion is normal Normal right ventricular size and systolic function Both atria are normal in size The aortic valve is trileaflet and sclerotic without stenosis or regurgitation Mitral annular calcification. Trace mitral regurgitation Normal tricuspid valve with trace regurgitation. Estimated right ventricular systolic pressure is 39 mmHg Normal pulmonic valve with trace regurgitation Mildly dilated ascending aorta measuring 3.68 cm Anesthesia Assessment and Plan Anesthesia History Personal History: No History of Anesthesia Complications Family History: No Family History of Anesthesia Complications Exercise Tolerance Exercise Tolerance: Metabolic Equivalents>4 Pertinent Negatives Pertinent Negatives: No Symptoms of GERD, No Major Cardiovascular Symptoms or Complaints, No Major Pulmonary Symptoms or Complaints and No History of CVA/TIA Cardiac & Pulmonary Exam Cardiac Exam: Normal S1/S2 Heart Sounds Pulmonary Exam: Clear Bilateral Breath Sounds Implantable Cardiac Device Does patient have a Pacemaker or an ICD?: No Airway Exam Known Difficult Airway: No Mallampati Class: 2 Mouth Opening: Normal (> 3cm) Thyromental Distance: Greater than 3 cm Neck Range of Motion: Full ROM and Known Cervical Instability or radiculopathy Neck Circumference: Normal Teeth Condition: Normal Dentition ASA Classification ASA Score: ASA 2 Emergency Case?: No NPO Status NPO Status: NPO Clears >2 hours, Solids >8 hours Anesthesia Plan Resuscitation Status: Full Code Anesthesia Technique: MAC Anesthesia Airway Planned: Natural Airway Monitors Used: Standard Monitors
[2021-11-06 07:09] VITALS: BMI 17.9
[2021-11-06] MEDS: Tetracaine 0.5% 4 ML BTL OS (07:25)
[2021-11-06] MEDS: Lidocaine 2% Jelly 6 ML SYR (07:26)
[2021-11-06] MEDS: Povidone-Iodine Ophth 30 ML BTL (07:26)
[2021-11-06] MEDS: Duovisc Viscoelastic System EACH 1 EACH (07:35)
[2021-11-06] MEDS: Balanced Salt Soln.-PLUS 500 ML BAG (07:35)
--- NOTE | 2021-11-06 07:55 | W.PM.DSUDISC ---
Discharge Plan Disposition Patient Disposition: HOME Condition: Good Discharge Details Attending Provider: Ajay Ha Primary Care Provider: Yeni Williamson Home Meds and New Rx's Prescriptions: No Action carvedilol 3.125 mg tablet 3.125 mg PO BID 0RF Rx Instructions: must administer with a meal/food ipratropium-albuterol 0.5 mg-3 mg(2.5 mg base)/3 mL solution for nebulization 3 ml inhalation Q6H PRN0RF Rx Instructions: take 0.5mg by neb 4 times daily vitamin B complex [B Complex-Vitamin B12] Tablet 1 tab PO DAILY 0RF zolpidem 10 mg tablet 10 mg PO HS 0RF cholecalciferol (vitamin D3) 125 mcg (5,000 unit) capsule 125 mcg PO DAILY 0RF potassium chloride 10 mEq capsule, extended release 10 meq PO DAILY 0RF hydrochlorothiazide 25 mg tablet 25 mg PO DAILY 0RF pantoprazole [Protonix] 40 mg tablet,delayed release (DR/EC) 40 mg PO BID 0RF echinacea 500 mg capsule 500 mg PO BID 0RF Rx Instructions: administer with meals MSM 1,000 mg capsule 1,000 mg PO DAILY 0RF acetaminophen 500 mg tablet 1,000 mg PO Q8H PRN (Reason: pain) Qty: 90 3RF mirtazapine 7.5 mg tablet 7.5 mg PO HS 0RF cyclobenzaprine 5 mg tablet 5 mg PO PRN PRN0RF Label Comments: TAKE 1 TABLET BY MOUTH THREE TIMES DAILY NEEDED FOR MUSCLE SPASM Discharge Instructions Stand Alone Forms: Post-op Topical Cataract, Claudia Jones ([facility]) Discharge Orders Discharge Orders: Discharge Order (Routine); Ordered 11/06/21 Ordered By: Ajay Ha DS: Diagnosis Discharge Diagnosis (1) Posterior subcapsular age-related cataract of left eye: Status: Resolved (2) Nuclear sclerotic cataract of left eye: Status: Resolved
[2021-11-06 07:56] VITALS: BP 126/78; PULSE 81; RESP 16; TEMP 36.4; O2SAT 98
--- NOTE | 2021-11-06 07:56 | W.ANESPOSTOP ---
Postoperative Evaluation Date, Time and Location Date Performed: 11/06/21 Time Performed: 07:56 Patient Location: Day Surgery Unit Vital Signs Most Recent Imported Vital Signs: Most Recent Vital Signs Temp Pulse Resp BP Pulse Ox 36.4 C L 77 16 149/79 H 97 11/06/21 07:00 11/06/21 07:00 11/06/21 07:00 11/06/21 07:00 11/06/21 07:00 Most Recent Manually Entered Vital Signs: Adult Blood Pressure: 137/90 Heart Rate: 80 Respirations: 10 Oxygen Saturation (%): 98 Temperature (C): 36.4 C Pain Score (0-10 Scale): 0 Pain Score Most Recent Pain Score: Most Recent Pain Score Pain Level 0 11/06/21 07:00 Assessment Mental Status: Awake (Alert & Oriented to Patient Baseline) Airway and Respiratory Function: Patent airway with normal (patient baseline) respiratory exam Cardiovascular Function: Hemodynamically Stable Hydration Status: Adequately Hydrated Nausea & Vomiting: No Nausea or Vomiting Pain: Pt. Denies Any Pain Peripheral Nerve Block: Patient did not receive a nerve block
[2021-11-06 07:57] VITALS: BP 137/90; PULSE 80; RESP 10; TEMPC 36.4; O2SAT 98
--- NOTE | 2021-11-06 07:57 | ROE_ITS ---
Date of service: 11/06/21 Time of Service: 07:57 Operative Note Operative Note DATE OF PROCEDURE: 11/06/21 PRE-OP DIAGNOSIS: Nuclear/posterior subcapsular cataract, left eye History of exudative ARMD, left eye POST-OP DIAGNOSIS: same PROCEDURE: Cataract extraction using phacoemulsification with intraocular lens implant, left eye SURGEON: Ajay Ha ANESTHESIA TYPE: Local By Surgeon and MAC Refer to Anesthesia Record PATHOLOGY: none sent COMPLICATIONS: None Patient was transported to: same day Patient's condition: stable Implants: Tio and Tio / [employer] Tecnis [id number] Indications: Progressive decreased vision due to cataract, left eye Procedure Description: CATARACT SURGERY OPERATIVE REPORT PREOPERATIVE DIAGNOSIS: 1. Nuclear/posterior subcapsular cataract, left eye 2. History of exudative ARMD, left eye POSTOPERATIVE DIAGNOSIS: Same OPERATION: 1. Cataract extraction using phacoemulsification with posterior chamber intraocular lens implant, left eye. IOL: IOL Cook House Supervisor/Model: Tio & Tio / SYBIL Tecnis [id number] IOL Power: + 22.5 diopters IOL Serial Number: [id number] Optic Diameter: 6.0 mm Haptic/Overall Diameter: 13.0 mm PHACO INFO: Marco Brainjuicerurion Vision System with OZil and Active Fluidics Cumulative Dispersed Energy (CDE): 11.17 seconds SURGEON: Ajay Ha MD, BENITO ANESTHESIA: Monitored A [facility] Care (MAC), with local sub-tenon's anesthetic infiltration COMPLICATIONS: None SPECIMENS: None INDICATIONS FOR PROCEDURE: The patient is a 81-year-old gentleman with history of exudative ARMD of the left eye who has previously undergone intravitreal injections. He has developed a symptomatic nuclear/posterior subcapsular cataract in the left eye and desires cataract surgery and attempt to improve and maximize his vision. He understands the postoperative visual acuity will be limited by the presence of his pre- existing maculopathy. PROCEDURE: The correct surgical eye was identified and marked as the left eye and the pupil was dilated in the preoperative area using mydriatics and cycloplegics. The dilated pupil size was 8.0 mm. He elected to proceed without oral sedation.. The patient was brought to the operating room where cardiopulmonary monitoring was instituted and surgical time-out was performed, confirming the correct operative eye and IOL power. Topical anesthesia was administered and ophthalmic povidone-iodine 5% was instilled into the conjunctival fornices. Lidocaine gel was applied to the cornea and the danny-ocular area was prepped with Betadine 10% solution and draped in the usual sterile fashion for intraocular surgery, including an aperture drape. A Tegaderm transparent film dressing was cut in half and used to cover the lashes and lid margins. Care was taken to sequester the lashes and lid margins under the Tegaderm dressing. A lid speculum was placed between the lids of the operative eye and the Marco LuxOR Revalia operating microscope was maneuvered into position. Cyndy scissors were then used to make a conjunctival buttonhole approximately 6mm posterior to the limbus in the inferonasal quadrant. Blunt dissection was carried out to expose bare sclera, and a blunt-tipped sub-tenon?s anesthesia cannula was introduced and passed posteriorly along the globe where non- preserved plain lidocaine was injected into posterior sub-Tenon?s space. A sideport knife was used to make a paracentesis port superiorly/superiortemporally. Intraocular phenylephrine/lidocaine was injected int the anterior chamber.. The anterior chamber was filled with viscoelastic. A 2.4mm keratome knife was used to create a half-thickness groove at the limbus and then to construct a three-plane near-clear corneal tunnel extending 2.0mm into clear cornea at the 3:00 position. A flap was raised on the anterior capsule and capsulorhexis forceps were used to complete a continuous curvilinear capsulorhexis of 5.5 mm. Balanced salt solution was then used to perform cortical cleaving hydrodissection and nuclear hydrodelineation until the lens could be freely rotated within the capsular bag. The lens nucleus was then disassembled and removed within the capsular bag and iris plane using phacoemulsification. Residual cortical material was removed using the 45-degree angled silicone I/A tip with 0.3mm port. The posterior capsule was carefully polished to remove as much residual lens epithelial cells as safely possible. The capsular bag was then inflated and the anterior chamber deepened with viscoelastic. The lens implant described above was inserted into the capsular bag using the [employer] inum Injector. A Kuglen hook was used to dial the IOL into position. Residual viscoelastic was then removed first from posterior to the IOL, then from the anterior chamber using the I/A handpiece. The lens implant was noted to center nicely within the capsular bag. The incisions were stromally hydrated, and the anterior chamber was reformed using BSS. Then 0.5cc of moxifloxacin 1.0mg/ml were injected into the capsular bag and anterior chamber. The incisions were checked with a Weck spear and found to be secure. Several drops of ophthalmic povidone-iodine 5% were then applied to the eye followed by two drops of Imprimis combination prednisolone/moxifloxacin/nepafenac solution. The drapes were removed and a clear plastic protective eye shield was placed over the eye. The patient was then returned to Same Day Surgery in stable condition.
== END 2021-11-06 08:20 | disposition home or self-care (01) ==
PROVIDERS: PCP Nurse Practitioner Family; Visit Provider Ophthalmology
PROC: (CPT 66984; principal; 2021-11-06 07:30)
DX: H25.042 Posterior subcapsular polar age-related cataract, left eye (principal); K21.9 Gastro-esophageal reflux disease without esophagitis; J44.9 Chronic obstructive pulmonary disease, unspecified; D50.9 Iron deficiency anemia, unspecified
CPT/HCPCS: 66984; V2632

== ENCOUNTER 2021-11-17 01:21 | Outpatient (CLI) | payer MEDICARE, SELFPAY ==
[2021-11-17 11:49] LABS: Source Nasal/Nares
[2021-11-17 15:04] LABS: COVID-19 PCR Negative (Negative)
== END 2021-11-17 01:22 | disposition home or self-care (01) ==
LOC: LBO 01:21
PROVIDERS: PCP Nurse Practitioner Family; Visit Provider Ophthalmology
DX: Z20.822 Contact with and (suspected) exposure to COVID-19 (principal)
CPT/HCPCS: 87635; U0005

== ENCOUNTER 2021-11-20 06:53 | Day surgery (SDC) | payer MEDICARE, SELFPAY ==
[2021-11-20 07:05] VITALS: BP 173/86; PULSE 77; RESP 16; TEMP 36.4; O2SAT 97
[2021-11-20] MEDS: Tropicam./Phenyleph. (1/2.5%) 5 ML BTL OD ×3 (07:22→07:32)
[2021-11-20 07:37] VITALS: BMI 18.3
--- NOTE | 2021-11-20 07:37 | W.ANESPRE ---
General Info Date of Service Date Performed: 11/20/21 Height: 5 ft 10.5 in Weight: 58.7 kg Body Mass Index (BMI): 18.3 Surgical Procedure: Operation Date: 11/20/21 08:40 Proposed Procedure Side Surgeon p Cataract Extraction with IOL Implant Right Ajay Ha MD Meds Allergies and Home Medications Allergies Allergy/AdvReac Type Severity Reaction Status Date / Time shellfish derived AdvReac Intermediate vomiting Verified 11/20/21 07:16 meloxicam AdvReac Verified 11/20/21 07:16 Home Medication Medication Instructions Recorded hydrochlorothiazide 25 mg tablet 25 mg PO DAILY 08/16/20 potassium chloride 10 mEq 10 meq PO DAILY 08/16/20 capsule,extended release vitamin B complex (B 1 tab PO DAILY 08/30/20 Complex-Vitamin B12) carvedilol 3.125 mg tablet 3.125 mg PO BID 03/13/21 ipratropium 0.5 mg-albuterol 3 mg 3 ml INHALATION Q6H PRN 03/13/21 (2.5 mg base)/3 mL nebulization soln zolpidem 10 mg tablet 10 mg PO HS 06/01/21 acetaminophen 500 mg tablet 1,000 mg PO Q8H PRN #90 tab 06/27/21 echinacea 500 mg capsule 500 mg PO BID 08/28/21 methylsulfonylmethane 1,000 mg 1,000 mg PO DAILY 08/28/21 capsule (MSM) pantoprazole 40 mg tablet,delayed 40 mg PO BID tab 08/28/21 release (Protonix) mirtazapine 7.5 mg tablet 7.5 mg PO HS 09/15/21 cholecalciferol (vitamin D3) 125 125 mcg PO DAILY 09/25/21 mcg (5,000 unit) capsule cyclobenzaprine 5 mg tablet 5 mg PO PRN PRN 11/06/21 Current Visit Medications: Current Medications Generic Name Dose Route Start Last Admin Trade Name Freq PRN Reason Stop Dose Admin Acetaminophen 1,000 mg 11/18/21 06:00 Acetaminophen 500 Mg Tab PO Q4H PRN PRN Miscellaneous Medication 0 ml 11/18/21 06:00 Prednisolone 1%, Moxifloxacin 0.5%, Nepafenac 0.1% 5ml Btl OD DIRECTED GLENN Miscellaneous Medication 0 ml 11/18/21 06:00 11/20/21 07:32 Tropicam./Phenyleph. (1/2.5%) 5 Ml Btl OD 1 drp DIRECTED GLENN Administration Tetracaine HCl 0 ml 11/18/21 06:00 Tetracaine 0.5% 4 Ml Btl OD DIRECTED GLENN PFSH Active Problems Active Problems: Problem Status Onset Code Posterior subcapsular age-related cataract of left eye H25.042 Nuclear sclerotic cataract of left eye H25.12 Chronic iron deficiency anemia D50.9 Chronic GERD K21.9 Osteoarthritis of right knee M17.11 Fecal impaction K56.41 Symptomatic anemia D64.9 Syncope R55 DVT prophylaxis Z29.9 Discharge planning issues Z02.9 Chronic pain G89.29 Leg swelling M79.89 Chest discomfort R07.89 Alcohol abuse F10.10 COPD (chronic obstructive pulmonary disease) J44.9 Fecal retention K59.00 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 Back pain M54.9 Duodenal ulcer K26.9 Gastritis K29.70 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 Z96.652 Dysphagia R13.10 Inguinal hernia, bilateral K40.20 Chronic iron deficiency anemia D50.9 Folate deficiency anemia D52.9 History of bleeding peptic ulcer Z87.11 Posterior duodenal ulcer K26.9 Medical History Medical History Anosmia Balance problem uses cane Chronic back pain Diarrhea Exertional dyspnea Herniated lumbar intervertebral disc Hip pain, left History of traumatic fracture of vertebra HTN (hypertension) Hx of squamous cell carcinoma Knee pain, bilateral Lower back pain Osteoarthritis of left knee Steroid injection: 08/15/2020 s/p left TKA 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 reports a beer nightly, pt. states he reduced his alcohol intake since bleeding ulcer in january. THC- week ago Vital Signs and Lab Results Vital Signs Most Recent Vital Signs in EMR: Most Recent Vital Signs Temp Pulse Resp BP Pulse Ox 36.4 C L 77 16 173/86 H 97 11/20/21 07:05 11/20/21 07:05 11/20/21 07:05 11/20/21 07:05 11/20/21 07:05 Lab Results Blood Type / Crossmatch: No Data to Display Complete Blood Count: No Data to Display Complete Metabolic Panel: No Data to Display Liver Function Panel: No Data to Display Coagulation Panel: No Data to Display Cardiac Panel: No Data to Display Arterial Blood Gas: No Data to Display Venous Blood Gas: No Data to Display Pancreas Panel: No Data to Display Thyroid Panel: No Data to Display Infectious Disease: Coronavirus (COVID-19)(PCR) Negative (Negative) 11/17/21 09:52 11/17/21 Coronavirus 2019 Source Nasal/Nares 11/17/21 09:52 11/17/21 Blood Cultures: No Data to Display Toxicology Panel: No Data to Display Imaging and Studies Imaging and Studies Study information below may be from another EMR and interpreted by another provider. Please see original notes in EMR for more complete details. EKG Summary: Sinus tachycardia.. ST depr anterolateral leads, may be rate related Echocardiogram Summary: Normal left ventricular wall thickness and chamber size. Estimated ejection fraction is 60 to 65%. Wall motion is normal Normal right ventricular size and systolic function Both atria are normal in size The aortic valve is trileaflet and sclerotic without stenosis or regurgitation Mitral annular calcification. Trace mitral regurgitation Normal tricuspid valve with trace regurgitation. Estimated right ventricular systolic pressure is 39 mmHg Normal pulmonic valve with trace regurgitation Mildly dilated ascending aorta measuring 3.68 cm Anesthesia Assessment and Plan Anesthesia History Personal History: No History of Anesthesia Complications Family History: No Family History of Anesthesia Complications Exercise Tolerance Exercise Tolerance: Metabolic Equivalents>4 Cardiac & Pulmonary Exam Cardiac Exam: Normal S1/S2 Heart Sounds Pulmonary Exam: Clear Bilateral Breath Sounds Implantable Cardiac Device Does patient have a Pacemaker or an ICD?: No Airway Exam Known Difficult Airway: No Mallampati Class: 2 Mouth Opening: Normal (> 3cm) Thyromental Distance: Greater than 3 cm Neck Range of Motion: Full ROM and Known Cervical Instability or radiculopathy Neck Circumference: Normal Teeth Condition: Normal Dentition ASA Classification ASA Score: ASA 2 Emergency Case?: No NPO Status NPO Status: NPO Clears >2 hours, Solids >8 hours Anesthesia Plan Resuscitation Status: Full Code Anesthesia Technique: MAC Anesthesia Airway Planned: Natural Airway Monitors Used: Standard Monitors
[2021-11-20] MEDS: Tetracaine 0.5% 4 ML BTL OD (08:27)
[2021-11-20] MEDS: Lidocaine 2% Jelly 6 ML SYR (08:28)
[2021-11-20] MEDS: Balanced Salt Soln.-PLUS 500 ML BAG (08:36)
[2021-11-20] MEDS: Duovisc Viscoelastic System EACH 1 EACH (08:36)
[2021-11-20] MEDS: Povidone-Iodine Ophth 30 ML BTL (08:38)
--- NOTE | 2021-11-20 08:53 | W.PM.DSUDISC ---
Discharge Plan Disposition Patient Disposition: HOME Condition: Good Discharge Details Attending Provider: Ajay Ha Primary Care Provider: Yeni Williamson Home Meds and New Rx's Prescriptions: No Action carvedilol 3.125 mg tablet 3.125 mg PO BID 0RF Rx Instructions: must administer with a meal/food ipratropium-albuterol 0.5 mg-3 mg(2.5 mg base)/3 mL solution for nebulization 3 ml inhalation Q6H PRN0RF Rx Instructions: take 0.5mg by neb 4 times daily vitamin B complex [B Complex-Vitamin B12] Tablet 1 tab PO DAILY 0RF zolpidem 10 mg tablet 10 mg PO HS 0RF cholecalciferol (vitamin D3) 125 mcg (5,000 unit) capsule 125 mcg PO DAILY 0RF potassium chloride 10 mEq capsule, extended release 10 meq PO DAILY 0RF hydrochlorothiazide 25 mg tablet 25 mg PO DAILY 0RF pantoprazole [Protonix] 40 mg tablet,delayed release (DR/EC) 40 mg PO BID 0RF echinacea 500 mg capsule 500 mg PO BID 0RF Rx Instructions: administer with meals MSM 1,000 mg capsule 1,000 mg PO DAILY 0RF acetaminophen 500 mg tablet 1,000 mg PO Q8H PRN (Reason: pain) Qty: 90 3RF mirtazapine 7.5 mg tablet 7.5 mg PO HS 0RF cyclobenzaprine 5 mg tablet 5 mg PO PRN PRN0RF Label Comments: TAKE 1 TABLET BY MOUTH THREE TIMES DAILY NEEDED FOR MUSCLE SPASM Discharge Instructions Stand Alone Forms: Post-op Topical Cataract, Claudia Jones (DSU) Discharge Orders Discharge Orders: Discharge Order (Routine); Ordered 11/20/21 Ordered By: Ajay Ha DS: Diagnosis Discharge Diagnosis (1) Nuclear sclerotic cataract of right eye: Status: Resolved (2) Posterior subcapsular age-related cataract, right eye: Status: Resolved
--- NOTE | 2021-11-20 08:55 | W.PM.OP ---
Date of service: 11/20/21 Time of Service: 08:55 Operative Note Operative Note DATE OF PROCEDURE: 11/20/21 PRE-OP DIAGNOSIS: Nuclear/posterior subcapsular cataract, right eye POST-OP DIAGNOSIS: same PROCEDURE: Cataract extraction using phacoemulsification with intraocular lens implant, right eye SURGEON: Ajay Ha ANESTHESIA TYPE: Local By Surgeon and MAC Refer to Anesthesia Record ESTIMATED BLOOD LOSS: 0 PATHOLOGY: none sent COMPLICATIONS: None Patient was transported to: same day Patient's condition: stable Implants: Tio & Tio/SYBIL Tecnis [id number] Indications: Progressive visual loss due to cataract, right eye Procedure Description: CATARACT SURGERY OPERATIVE REPORT PREOPERATIVE DIAGNOSIS: 1. Nuclear/posterior subcapsular cataract, right eye POSTOPERATIVE DIAGNOSIS: Same OPERATION: 1. Cataract extraction using phacoemulsification with posterior chamber intraocular lens implant, right eye. IOL: IOL Billing Analyst/Model: Tio & Tio / SYBIL Tecnis [id number] IOL Power: + 23.0 diopters IOL Serial Number: [id number] Optic Diameter: 6.0mm Haptic/Overall Diameter: 13.0mm PHACO INFO: Marco embraaseurion Vision System with OZil and Active Fluidics Cumulative Dispersed Energy (CDE): 10.22 seconds SURGEON: Ajay Ha MD, BENITO ANESTHESIA: Monitored Anesthesia Care (MAC), with local sub-tenon's anesthetic infiltration COMPLICATIONS: None SPECIMENS: None INDICATIONS FOR PROCEDURE: The patient is an 81-year-old gentleman with history of diminished visual acuity in both eyes secondary to the development of bilateral nuclear and posterior subcapsular cataract. He has already undergone cataract surgery in the left eye and is doing well postoperatively. He now presents for cataract surgery in the right eye. The correct surgical eye was identified and marked as the right eye and the pupil was dilated in the preoperative area using mydriatics and cycloplegics. The dilated pupil size was 7mm . He elected to proceed without oral sedation. The patient was brought to the operating room where cardiopulmonary monitoring was instituted and surgical time-out was performed, confirming the correct operative eye and IOL power. Topical anesthesia was administered and ophthalmic povidone-iodine 5% was instilled into the conjunctival fornices. Lidocaine gel was applied to the cornea and the danny-ocular area was prepped with Betadine 10% solution and draped in the usual sterile fashion for intraocular surgery, including an aperture drape. A Tegaderm transparent film dressing was cut in half and used to cover the lashes and lid margins. Care was taken to sequester the lashes and lid margins under the Tegaderm dressing. A lid speculum was placed between the lids of the operative eye and the Marco LuxOR Revalia operating microscope was maneuvered into position. Cyndy scissors were then used to make a conjunctival buttonhole approximately 6mm posterior to the limbus in the inferonasal quadrant. Blunt dissection was carried out to expose bare sclera, and a blunt-tipped sub-tenon?s anesthesia cannula was introduced and passed posteriorly along the globe where non-preserved plain lidocaine was injected into posterior sub-Tenon?s space. A sideport knife was used to make a paracentesis port inferotemporally. Intraocular phenylephrine/lidocaine was injected into the anterior chamber. The anterior chamber was filled with viscoelastic. A 2.4mm keratome knife was used to create a half-thickness groove at the limbus and then to construct a three-plane near-clear corneal tunnel extending 2.0mm into clear cornea superiortemporally. A flap was raised on the anterior capsule and capsulorhexis forceps were used to complete a continuous curvilinear capsulorhexis of 5.0mm. Balanced salt solution was then used to perform cortical cleaving hydrodissection and nuclear hydrodelineation until the lens could be freely rotated within the capsular bag. The lens nucleus was then disassembled and removed within the capsular bag and iris plane using phacoemulsification. Residual cortical material was removed using the I/A handpiece. The posterior capsule was carefully polished to remove as much residual lens epithelial cells as safely possible. The capsular bag was then inflated and the anterior chamber deepened with viscoelastic. The lens implant described above was inserted into the capsular bag using the SYBIL [place] Injector. A Kuglen hook was used to dial the IOL into position. Residual viscoelastic was then removed first from posterior to the IOL, then from the anterior chamber using the I/A handpiece. The lens implant was noted to center nicely within the capsular bag. The incisions were stromally hydrated, and the anterior chamber was reformed using BSS. Then 0.5cc of moxifloxacin 1.0mg/ml were injected into the capsular bag and anterior chamber. The incisions were checked with a Weck spear and found to be secure. Several drops of ophthalmic povidone-iodine 5% were then applied to the eye followed by two drops of Imprimis combination prednisolone/moxifloxacin/nepafenac solution. The drapes were removed and a clear plastic protective eye shield was placed over the eye. The patient was then returned to Same Day Surgery in stable condition.
[2021-11-20 09:03] VITALS: BP 157/84; PULSE 71; RESP 16; TEMP 36.2; O2SAT 100
--- NOTE | 2021-11-20 09:13 | W.ANESPOSTOP ---
Postoperative Evaluation Date, Time and Location Date Performed: 11/20/21 Time Performed: 09:01 Patient Location: Day Surgery Unit Vital Signs Most Recent Imported Vital Signs: Most Recent Vital Signs Temp Pulse Resp BP Pulse Ox 36.2 C L 71 16 157/84 H 100 11/20/21 09:03 11/20/21 09:03 11/20/21 09:03 11/20/21 09:03 11/20/21 09:03 Pain Score Most Recent Pain Score: Most Recent Pain Score Pain Level 0 11/20/21 09:03 Assessment Mental Status: Awake (Alert & Oriented to Patient Baseline) Airway and Respiratory Function: Patent airway with normal (patient baseline) respiratory exam Cardiovascular Function: Hemodynamically Stable Hydration Status: Adequately Hydrated Nausea & Vomiting: No Nausea or Vomiting Pain: Pt. Denies Any Pain Peripheral Nerve Block: Patient did not receive a nerve block
== END 2021-11-20 09:17 | disposition home or self-care (01) ==
PROVIDERS: PCP Nurse Practitioner Family; Visit Provider Ophthalmology
PROC: (CPT 66984; principal; 2021-11-20 08:30)
DX: H25.041 Posterior subcapsular polar age-related cataract, right eye (principal); J44.9 Chronic obstructive pulmonary disease, unspecified; I10 Essential (primary) hypertension
CPT/HCPCS: 66984; V2632

== ENCOUNTER 2021-11-30 03:59 | Outpatient (CLI) | payer MEDICARE, SELFPAY ==
[2021-11-30 12:58] LABS: Abs Immature Grans 0.02 10^3/uL (0.0-0.06); Absolute Basophil Count 0.03 10^3/uL (0.0-0.2); Absolute Eosinophil Count 0.16 10^3/uL (0.0-0.7); Absolute Lymphocyte Count 2.08 10^3/uL (1.2-3.4); Absolute Neutrophil Count 4.59 10^3/uL (1.2-6.7); Basophils % 0.4; Eosinophils % 2.1; HCT 38.9 % (40.0-50.0); HGB 12.4 g/dL (13.5-17.5); Immature Grans % 0.3; Lymphocytes % 27.1; MCH 28.9 pg (27.0-33.0); MCHC 31.9 % (32.0-36.0); MCV 90.7 fL (80-95); MPV 9.6 fL (8.0-11.0); Monocytes % 10.4; Neutrophils % 59.7; Nucleated RBC 0 %; Platelet Count 317 10^3/uL (130-400); RBC 4.29 10^6/uL (4.36-5.78); RDW 21.9 % (11.8-14.1); RDW-SD 72.5 fL; WBC 7.68 10^3/uL (4.4-10.8)
[2021-11-30 14:48] LABS: Iron 61 ug/dL (65-175); Total Iron Binding Capacity 312 ug/dL (250-450); Transferrin Sat 20 % (20-55)
== END 2021-11-30 04:00 | disposition home or self-care (01) ==
LOC: LBO 03:59
PROVIDERS: PCP Nurse Practitioner Family; Visit Provider Surgery
DX: D64.9 Anemia, unspecified (principal)
CPT/HCPCS: 36415; 99213; 83540; 83550; 85025

== ENCOUNTER → 2022-01-25 12:51 | Outpatient (BNVA) | payer MEDICARE, SELFPAY | PROVIDERS: PCP Nurse Practitioner Family; Referring Provider Nurse Practitioner Family; Visit Provider Surgery | DX: Z01.818 Encounter for other preprocedural examination (principal); K40.90 Unilateral inguinal hernia, without obstruction or gangrene, not specified as recurrent | CPT/HCPCS: 99213; NC OV ==

== ENCOUNTER 2022-02-12 03:53 | Outpatient (CLI) | payer MEDICARE, SELFPAY ==
[2022-02-12 09:28] LABS: Source Nasal/Nares
[2022-02-12 13:07] LABS: COVID-19 PCR Negative (Negative)
== END 2022-02-12 03:54 | disposition home or self-care (01) ==
LOC: LBO 03:54
PROVIDERS: PCP Nurse Practitioner Family; Visit Provider Surgery
DX: Z20.822 Contact with and (suspected) exposure to COVID-19 (principal); Z01.818 Encounter for other preprocedural examination
CPT/HCPCS: 87635; U0005

== ENCOUNTER 2022-02-13 06:12 | Day surgery (SDC) | payer MEDICARE, SELFPAY ==
--- NOTE | 2022-02-12 21:07 | W.PM.DSUDISC ---
Discharge Plan Disposition Patient Disposition: HOME Condition: Good Discharge Details Reason For Visit: bilateral inguinal hernia repair Attending Provider: Alesha Harris Primary Care Provider: Yeni Williamson Home Meds and New Rx's Prescriptions: New oxycodone 5 mg capsule 5 mg PO Q4H PRNQty: 14 0RF Continued carvedilol 3.125 mg tablet 3.125 mg PO BID Rx Instructions: must administer with a meal/food ipratropium-albuterol 0.5 mg-3 mg(2.5 mg base)/3 mL solution for nebulization 3 ml inhalation Q6H PRN Rx Instructions: take 0.5mg by neb 4 times daily vitamin B complex [B Complex-Vitamin B12] Tablet 1 tab PO DAILY cholecalciferol (vitamin D3) 125 mcg (5,000 unit) capsule 125 mcg PO DAILY valerian root 450 mg capsule 450 mg PO DAILY potassium chloride 10 mEq capsule, extended release 10 meq PO DAILY hydrochlorothiazide 25 mg tablet 25 mg PO DAILY pantoprazole [Protonix] 40 mg tablet,delayed release (DR/EC) 40 mg PO BID echinacea 500 mg capsule 500 mg PO BID Rx Instructions: administer with meals MSM 1,000 mg capsule 1,000 mg PO DAILY acetaminophen 500 mg tablet 1,000 mg PO Q8H PRN (Reason: pain) Qty: 90 3RF mirtazapine 7.5 mg tablet 7.5 mg PO HS cyclobenzaprine 5 mg tablet 5 mg PO PRN PRN Label Comments: TAKE 1 TABLET BY MOUTH THREE TIMES DAILY NEEDED FOR MUSCLE SPASM Discharge Instructions Additional Instructions: Dr. Harris HERNIA REPAIR ? POSTOPERATIVE INSTRUCTIONS Patients who have this type of surgery can usually be expected to return to work within two weeks and have minimal amounts of discomfort. ? ACTIVITY: The day of surgery should be spent resting. However, you can be up for short periods of time, I.E., going to the bathroom or kitchen. Avoid lifting or straining. On the day following surgery, you can be up and about as desired. ? LIFTING: Restrict your lifting to no more than five (5) pounds for the first week following surgery. For the second week after surgery, don?t lift more than ten pounds.? We will decide when you are done with restrictions and when you can return to work, at your follow-up appointment.? No sexual activity for two weeks.? ? DIET: There are no dietary restrictions following surgery. However, you may want to start with small amounts of liquids to avoid nausea the day of surgery. ? INCISION CARE: You will notice purple skin glue closing the incision.? Do not peel this off- it will wear off on its own.? After 24 hours you may shower. The dressing may be replaced for comfort, but is not necessary. ?An ice bag may be applied to the incision for 72 hours following surgery. ? SIGNS OF INFECTION: It is not unusual to have some black and blue discoloration of the skin around the incision, but also scrotum and penis.? ?It will slowly disappear. If you have any increased redness, drainage, fever (above 100 degrees), please contact your doctor for an examination. ? DISCOMFORT: You may expect to have some mild discomfort at the incision sight. If severe pain develops you should contact your doctor for further instructions. ? URINATION: Patients who have surgery occasionally have problems urinating. If you experience problems and are not able to urinate within 6 hours following your surgery, please call your doctor immediately or go to your nearest Emergency Room for evaluation. ? DRIVING: NO driving for three (3) days after surgery, or if you are still taking narcotic pain medication.? ? MEDICATIONS: Tylenol 1000mg by mouth every 8 hours. ?Take the Tylenol and ibuprofen continuously for the first 72hrs- not just when you have pain.? Use the tramadol for breakthrough pain.? Use ICE!?? Twenty minutes on, and then off, continuously for the first 72hours. If you are taking narcotic pain medication, follow the instructions on the label and do not drive. Pain medications can make you very constipated. Make sure you are moving your bowels daily. If not, take Miralax, milk of magnesia or magnesium citrate.?? Anesthesia makes you very constipated.? Take a dose of milk of magnesia the morning after surgery. ? REPORT: Unusual swelling, severe pain, unresolved nausea, signs of infection, or difficulty in urination to your surgeon. Follow up in clinic with Dr. Harris in 2 weeks.? [phone] Appt: 03/01 1:30pm Activity:: See above Remove Dressings/Wound Care:: 24 hours Shower/Bathe:: 24 hours Diet:: As Tolerated Discharge Orders Discharge Orders: Discharge Order (Routine); Ordered 02/12/22 Ordered By: Alesha Harris DS: Diagnosis Discharge Diagnosis (1) COPD (chronic obstructive pulmonary disease): Status: Chronic (2) Bilateral inguinal hernia without obstruction or gangrene: Status: Acute
[2022-02-13] VITALS (8 sets, daily range): BP systolic 100–153; BP diastolic 70–92; PULSE 63–76; RESP 12–20; TEMP 35.7–36.6; O2SAT 94–99; BMI 18.1
[2022-02-13] MEDS: Acetaminophen 500 MG TAB 1000 MG PO (06:29)
--- NOTE | 2022-02-13 06:51 | ANES.PREOP_ITS ---
General Info Date of Service Date Performed: 02/13/22 Height: 5 ft 10 in Weight: 57.5 kg Body Mass Index (BMI): 18.1 Surgical Procedure: Operation Date: 02/13/22 07:40 Proposed Procedure Side Surgeon p Herniorrhaphy Inguinal w/Mesh Bilateral Alesha Harris DO Meds Allergies and Home Medications Allergies Allergy/AdvReac Type Severity Reaction Status Date / Time NSAIDS (Non-Steroidal AdvReac Severe Other (See Unverified 02/13/22 06:28 Anti-Inflamma Comment) shellfish derived AdvReac Intermediate vomiting Verified 02/13/22 06:28 meloxicam AdvReac Verified 02/13/22 06:28 Home Medication Medication Instructions Recorded hydrochlorothiazide 25 mg tablet 25 mg PO DAILY 08/16/20 potassium chloride 10 mEq 10 meq PO DAILY 08/16/20 capsule,extended release vitamin B complex (B 1 tab PO DAILY 08/30/20 Complex-Vitamin B12 tablet) carvedilol 3.125 mg tablet 3.125 mg PO BID 03/13/21 ipratropium 0.5 mg-albuterol 3 mg 3 ml inhalation Q6H PRN 03/13/21 (2.5 mg base)/3 mL nebulization soln acetaminophen 500 mg tablet 1,000 mg PO Q8H PRN pain #90 tabs 06/27/21 echinacea 500 mg capsule 500 mg PO BID 08/28/21 methylsulfonylmethane 1,000 mg 1,000 mg PO DAILY 08/28/21 capsule (MSM) pantoprazole 40 mg tablet,delayed 40 mg PO BID 08/28/21 release (Protonix) mirtazapine 7.5 mg tablet 7.5 mg PO HS insomnia, appetite 09/15/21 cholecalciferol (vitamin D3) 125 125 mcg PO DAILY 09/25/21 mcg (5,000 unit) capsule cyclobenzaprine 5 mg tablet 5 mg PO PRN PRN 11/06/21 valerian root 450 mg capsule 450 mg PO DAILY 01/25/22 Current Visit Medications: Current Medications Generic Name Dose Route Start Last Admin Trade Name Freq PRN Reason Stop Dose Admin Acetaminophen 1,000 mg 02/13/22 06:00 02/13/22 06:29 Acetaminophen 500 Mg Tab PO 02/13/22 16:00 1,000 mg PREOP GLENN Administration Ondansetron HCl 4 mg/ Sodium 52 mls @ 200 mls/hr 02/12/22 11:25 Chloride IVPB Q6H PRN PRN Ringer's Solution 1,000 mls @ 80 mls/hr 02/13/22 06:00 IV 03/14/22 23:59 INFUSION [facility] Cefazolin Sodium/Dextrose 2 gm in 50 mls @ 100 mls/hr 02/13/22 06:00 Ancef Duplex IVPB 02/13/22 16:00 PREOP [facility] IV Miscellaneous Supplies 1 each 02/13/22 06:00 Iv Access IV 03/14/22 23:59 DIRECTED GLENN Morphine Sulfate 2 mg 02/12/22 11:25 Morphine 4 Mg/Ml Syr IVP Q1H PRN PRN Sodium Chloride 0 ml 02/13/22 06:00 Normal Saline Flush 10 Ml Syr IV 03/14/22 23:59 PRN PRN Sodium Chloride 0 ml 02/13/22 06:00 Normal Saline 10 Ml Vial IJ 03/14/22 23:59 DIRECTED PRN Sterile Water 0 ml 02/13/22 06:00 Water,Injection,Sterile 10 Ml Vial IJ 03/14/22 23:59 DIRECTED PRN Tamsulosin HCl 0.4 mg 02/13/22 06:00 Tamsulosin 0.4 Mg Capcr PO 02/13/22 16:00 PREOP [facility] Tramadol HCl 50 mg 02/12/22 11:25 Tramadol 50 Mg Tab PO Q6H PRN PRN Pain PFSH Active Problems Active Problems: Problem Status Onset Code Bilateral inguinal hernia without obstruction or gangrene K40.20 Alcohol abuse F10.10 COPD (chronic obstructive pulmonary disease) J44.9 Fecal retention K59.00 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 Medical History Medical History Anosmia Back pain Balance problem uses cane Chest discomfort Chronic back pain Chronic GERD Chronic iron deficiency anemia Chronic pain Diarrhea Discharge planning issues DVT prophylaxis Dysphagia Exertional dyspnea Folate deficiency anemia Gastritis Herniated lumbar intervertebral disc Hip pain, left History of bleeding peptic ulcer History of traumatic fracture of vertebra HTN (hypertension) Hx of squamous cell carcinoma Inguinal hernia, bilateral Knee pain, bilateral Leg swelling Lower back pain Osteoarthritis of left knee Steroid injection: 08/15/2020 s/p left TKA Osteoarthritis of lumbar spine Osteoarthritis of right knee Steroid injection: 08/15/2020; 09/25/21 Spondylosis of lumbar spine Spondylosis, cervical Symptomatic anemia Syncope Tobacco dependence in remission Unintentional weight loss Vitamin D deficiency Surgical History Surgical History 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) DOS 06/27/21 Hx of abdominal surgery Status post percutaneous coil/embolization of posterior duodenal artery for bleeding duodenal ulcer Hx of esophagogastroduodenoscopy Nuclear sclerotic cataract of left eye Nuclear sclerotic cataract of right eye Posterior subcapsular age-related cataract of left eye Posterior subcapsular age-related cataract, right eye S/P cervical spinal fusion S/P laminectomy Tobacco Smoking/Tobacco Use Status: Former Tobacco Use Alcohol Alcohol Intake: current Alcohol intake frequency: 0-2 drinks per day Alcohol type: beer Substance Use Substance use: Occasionally Substance use type: marijuana Details: pt. reports a beer nightly, pt. states he reduced his alcohol intake since bleeding ulcer in january. THC- about 3 or 4 days ago Vital Signs and Lab Results Vital Signs Most Recent Vital Signs in EMR: Most Recent Vital Signs Temp Pulse Resp BP Pulse Ox 36.6 C 75 20 147/89 H 96 02/13/22 06:33 02/13/22 06:33 02/13/22 06:33 02/13/22 06:33 02/13/22 06:33 Lab Results Blood Type / Crossmatch: No Data to Display Complete Blood Count: No Data to Display Complete Metabolic Panel: No Data to Display Liver Function Panel: No Data to Display Coagulation Panel: No Data to Display Cardiac Panel: No Data to Display Arterial Blood Gas: No Data to Display Venous Blood Gas: No Data to Display Pancreas Panel: No Data to Display Thyroid Panel: No Data to Display Infectious Disease: Coronavirus (COVID-19)(PCR) Negative (Negative) 02/12/22 08:30 Coronavirus 2019 Source Nasal/Nares 02/12/22 08:30 Blood Cultures: No Data to Display Toxicology Panel: No Data to Display Imaging and Studies Imaging and Studies Study information below may be from another EMR and interpreted by another provider. Please see original notes in EMR for more complete details. EKG Summary: Sinus tachycardia.. ST depr anterolateral leads, may be rate related Echocardiogram Summary: Normal left ventricular wall thickness and chamber size. Estimated ejection fraction is 60 to 65%. Wall motion is normal Normal right ventricular size and systolic function Both atria are normal in size The aortic valve is trileaflet and sclerotic without stenosis or regurgitation Mitral annular calcification. Trace mitral regurgitation Normal tricuspid valve with trace regurgitation. Estimated right ventricular systolic pressure is 39 mmHg Normal pulmonic valve with trace regurgitation Mildly dilated ascending aorta measuring 3.68 cm Anesthesia Assessment and Plan Anesthesia History Personal History: No History of Anesthesia Complications Family History: No Family History of Anesthesia Complications Exercise Tolerance Exercise Tolerance: Metabolic Equivalents>4 Pertinent Negatives Pertinent Negatives: No Symptoms of GERD, No Major Cardiovascular Symptoms or Complaints, No Major Pulmonary Symptoms or Complaints and No History of CVA/TIA Cardiac & Pulmonary Exam Cardiac Exam: Normal S1/S2 Heart Sounds Pulmonary Exam: Clear Bilateral Breath Sounds Implantable Cardiac Device Does patient have a Pacemaker or an ICD?: No Airway Exam Known Difficult Airway: No Mallampati Class: 1 Mouth Opening: Normal (> 3cm) Thyromental Distance: Greater than 3 cm Neck Range of Motion: Full ROM and Known Cervical Instability or radiculopathy Neck Circumference: Normal Teeth Condition: Normal Dentition ASA Classification ASA Score: ASA 2 Emergency Case?: No NPO Status NPO Status: NPO Clears >2 hours, Solids >8 hours Anesthesia Plan Resuscitation Status: Full Code Anesthesia Technique: General Anesthesia Airway Planned: Endotracheal Tube Pain Management: Surgeon and patient request nerve block Monitors Used: Standard Monitors
[2022-02-13] MEDS: Lactated Ringers 1,000 ML 80 ML IV (06:52)
[2022-02-13] MEDS: Tamsulosin 0.4 MG CAPCR PO (07:38)
[2022-02-13] MEDS: ceFAZolin 2 GM/50 ML BAG IVPB (07:50)
--- NOTE | 2022-02-13 08:24 | W.ANESNERVE ---
Nerve Block Single Injection Procedure Date and Time Date Performed: 02/13/22 Procedure Start: 08:00 Location Where Procedure Performed Procedure Location: Operating Room Procedure Stop: 08:10 Reason Performed: Postoperative Analgesia Requesting Provider: Alesha Harris Timeout Performed Timeout Performed: Yes Monitoring Used ECG, Blood Pressure, SpO2, ETCO2 and See EMR for corresponding vital signs Sterility Sterility: Hand Hygiene, Surgical Cap, Surgical Mask, Sterile Gloves, Eye Protection and Chlorhexidine Sedation Given During Procedure Sedation Given (Indicate Dose Given): No Sedation given Patient Mental Status Patient Mental Status: Performed under general anesthesia Nerve Block 1st Nerve Block: Laterality: Left Block Type: TAP Unilateral Needle / Catheter Used: 100mm SonoPlex II Local Anesthetic Bolus (Indicate Dose Given): None Additives (Indicate Dose Given): None Ultrasound: Sterile probe cover and gel used Ultrasound Image Saved?: No Nerve Stimulator: Not Used Paresthesia: None Procedure Tolerated: Complications Encountered Procedure Outcome: Unsuccessful Procedure Comment: Attempt to perform Left TAP block by SHAGGY Garcia with difficutly appreciating the fascial planes. Erin Estrella CRNA then re-scanned abdomen and was able to identify EO, IO, and TA yet incurred significant difficulty passing the needle through the fascial planes despite repositioning. Decison made to abort the procedure and Dr. Harris to utilize local anesthetic at the surgical site. Performed By: Erin Estrella
--- NOTE | 2022-02-13 11:02 | ROE_ITS ---
Date of service: 02/13/22 Time of Service: 11:02 Operative Note Operative Note DATE OF PROCEDURE: 02/13/22 PRE-OP DIAGNOSIS: b/l inguinal hernia POST-OP DIAGNOSIS: other (R: Indirect inguinal hernia /femeroal & L: indirect inguinal hernia) PROCEDURE: open repair w/ mesh b/l. SURGEON: Alesha Medrano RISK LEAD: Maci Venegas Refer to Anesthesia Record ESTIMATED BLOOD LOSS: 10 PATHOLOGY: none sent COMPLICATIONS: None Patient was transported to: PACU Patient's condition: stable Implants: -see RN notes Procedure Description: Right Side: INDICATIONS: The pt is here today for surgery regarding symptomatic --- inguinal hernia that has failed outpatient conservative medical management and he is here today for repair. Informed consent was obtained, explaining risks and benefits of the procedure including but not limited to bleeding, infection, pneumonia, blood clots, chronic pain, chronic numbness, damage to testicle resulting in removal, recurrence of hernia, reaction to Mesh necessitating removal, and other unforetold complications, and complications of anesthesia-which were addressed by the MARKETING PROPOSAL COORDINATOR. The patient is marked in preOp prior to the procedure DESCRIPTION OF PROCEDURE:? The pt is then brought to the operative room suite. Anesthesia was administered per the Department of Anesthesia. ?A nerve block was performed by anesthesia under US guidance. The patient was prepped and draped in the usual sterile fashion using ChloraPrep scrub solution. Pause for the cause was done. He did receive preop IV antibiotics, and 30 mL of .25% Marcaine w/ epinephrine was used for local anesthetization. A #10 blade was used to make an incision over the external ring. Electrocautery used to provide hemostasis and dissect down to the fascia. The fascia was pretty much obliterated and there was nothing to open. The cord is elevated. The nerve was not identified. There small is a cord lipomas.? Electro-cautery is used to provide hemostasis. A Donnelly drain was placed around the cord to assist in mobilization. The cord was explored. ?ThereThe internal rign was extremely lax adn patulent. was is very large hernia sac on the cord. There is quite extensive scarring. This is dissected out. He is going to have significant postoperative swelling and bruising on the right side. There is no direct hernia pushing through the floor. The hernia sac is dissected off the cord using a combination of blunt dissection and electrocautery.? Electrocautery is used to provide hemostasis.?? There is bowel within the sac. This returned to the abdominal cavity. High ligation of the sac is performed. The sac is then imbricated. the hernia sac is than inverted and returned to the abdominal cavity.? A large size plug is than inserted into the defect through the internal ring, and over sewn to tighten up the ring with 2-0 vicryl.? Please see RN notes from Lot number of the Bard mesh patch/plug.? The cord structures are still able to freely move through the ring itself.? The patch was then placed onto the floor, and using 2-0 Vicryl, sewn into the pubic tubercle and the shelving portions of the inguinal ligament, in the standard Lichenstein fashion.? ?The tails of the mesh are brought around the cord, sewn together w/ 2-0 Vicryl, and tucked under the external oblique.? The wound was copiously irrigated. There was no bleeding noted. The drain was removed. All structures are returned to normal anatomical position. The nerve is not sewn into the mesh, nor caught up in any sutures. The external oblique is re-approximated using 2-0 vicryl in a running fashion. ?Deep tissue was approximated with 3-0 Vicryl in a running fashion, and skin was approximated with 4-0 Monocryl in a running subcuticular fashion. Skin glue and sterile dressings are applied. A sterile towel is placed over the wound. Attention was then turned to the left inguinal hernia. Gloves are changed. -Left hernia: A #12 blade was used to make an incision over the external ring. Electrocautery used to provide hemostasis and dissect down to the fascia. The fascia was pretty much obliterated and there was nothing to open. The cord is elevated. The nerve was not identified. There is a small cord lipomas.? Electro-cautery is used to provide hemostasis. A [place] drain was placed around the cord to assist in mobilization. The cord was explored. ?There was is moderate hernia sac on the cord. There was coiling within the sac. The lipoma was reduced into the abdomen. High ligation of the sac is performed. This is imbricated and returned to the abdomen. There is no direct hernia pushing through the floor. The hernia sac is dissected off the cord using a combination of blunt dissection and electrocautery.? Electrocautery is used to provide hemostasis.?? The sac does contain colon. The colon is returned to the abdomen. The sac is then opened. High ligation of the sac is then performed. The hernia sac is than inverted and returned to the abdominal cavity.? A Lg size plug is than inserted into the defect through the internal ring, and over sewn to tighten up the ring with 2-0 vicryl.? Please see RN notes from Lot number of the Bard mesh patch/plug.? The cord structures are still able to freely move through the ring itself.? The patch was then placed onto the floor, and using 2-0 Vicryl, sewn into the pubic tubercle and the shelving portions of the inguinal ligament, in the standard Lichenstein fashion.? ?The tails of the mesh are brought around the cord, sewn together w/ 2-0 Vicryl, and tucked under the external oblique.? The wound was copiously irrigated. There was no bleeding noted. The drain was removed. All structures are returned to normal anatomical position. The nerve is not sewn into the mesh, nor caught up in any sutures. The external oblique is re-approximated using 2-0 vicryl in a running fashion. ?Deep tissue was approximated with 3-0 Vicryl in a running fashion, and skin was approximated with 4-0 Monocryl in a running subcuticular fashion. Skin glue and sterile dressings are applied. The patient tolerated the procedure without complications to recovery in stable condition. Note was created with voice activated software and may contain errors. ALESHA MEDRANO, DO
[2022-02-13] MEDS: traMADol 50 MG TAB PO (11:53)
--- NOTE | 2022-02-13 12:27 | W.ANESPOSTOP ---
Postoperative Evaluation Date, Time and Location Date Performed: 02/13/22 Time Performed: 12:27 Patient Location: Day Surgery Unit Vital Signs Most Recent Imported Vital Signs: Most Recent Vital Signs Temp Pulse Resp BP Pulse Ox 36.1 C L 71 17 100/70 95 02/13/22 11:54 02/13/22 11:54 02/13/22 11:54 02/13/22 11:54 02/13/22 11:54 Pain Score Most Recent Pain Score: Most Recent Pain Score Pain Level 4 02/13/22 11:54 Assessment Mental Status: Awake (Alert & Oriented to Patient Baseline) Airway and Respiratory Function: Patent airway with normal (patient baseline) respiratory exam Cardiovascular Function: Hemodynamically Stable Hydration Status: Adequately Hydrated Nausea & Vomiting: No Nausea or Vomiting Pain: Pain is tolerable per patient (Reports oral medication is working well, now reports pain 1/10) Peripheral Nerve Block: Patient did not receive a nerve block
== END 2022-02-13 12:50 | disposition home or self-care (01) ==
PROVIDERS: PCP Nurse Practitioner Family; Visit Provider Surgery
PROC: (CPT 49505; principal; 2022-02-13 07:30)
DX: K40.20 Bilateral inguinal hernia, without obstruction or gangrene, not specified as recurrent (principal); K41.90 Unilateral femoral hernia, without obstruction or gangrene, not specified as recurrent; K44.9 Diaphragmatic hernia without obstruction or gangrene; J44.9 Chronic obstructive pulmonary disease, unspecified; K21.9 Gastro-esophageal reflux disease without esophagitis; I10 Essential (primary) hypertension
CPT/HCPCS: 49505; 76942; C1781; J0690; J1100; J2370; J2405

== ENCOUNTER → 2022-02-19 14:28 | Outpatient (BNVA) | payer MEDICARE, SELFPAY | PROVIDERS: PCP Nurse Practitioner Family; Referring Provider Nurse Practitioner Family; Visit Provider Physician Assistant Surgical | DX: M17.11 Unilateral primary osteoarthritis, right knee (principal) | CPT/HCPCS: 20610; J1040 ==

== ENCOUNTER → 2022-03-01 13:22 | Outpatient (BNVA) | payer MEDICARE, SELFPAY | PROVIDERS: PCP Nurse Practitioner Family; Referring Provider Nurse Practitioner Family; Visit Provider Surgery | DX: Z48.817 Encounter for surgical aftercare following surgery on the skin and subcutaneous tissue (principal); Z87.19 Personal history of other diseases of the digestive system ==

== ENCOUNTER 2022-06-06 08:10 | Outpatient (CLI) | payer MEDICARE, SELFPAY ==
--- NOTE | 2022-06-06 06:00 | DI.RAD_ITS ---
Exam(s) XR PAIN CLINIC LUMBAR SP 2V EXAM: XR PAIN CLINIC LUMBAR SP 2V CLINICAL HISTORY: Dx: Lumbar Spondylosis. TECHNIQUE: Fluoroscopy was provided for the referring physician for guidance with performing pain cl inic injection procedure. COMPARISON: No exams were available for comparison FINDINGS: Please see procedure note for details. Fluoro time: 63.2 seconds RADIATION DOSE DELIVERED: ward Garza=10.96 mGy
[2022-06-06 08:20] VITALS: BP 116/69; PULSE 74; RESP 20; TEMP 36.3; O2SAT 100
--- NOTE | 2022-06-06 09:01 | PDOC.PAIN_ITS ---
Pain Clinic Procedure Note Procedure Note Procedure Note: Lumbar/Sacral Medial Branch Blocks Mike Jorgensen has been referred to the [facility] for lumbar/sacral medial branch blocks. COMMENTS: I evaluated him on 04/11/22. Pre-procedure pain VAS was 8/10. Dx: Lumbosacral spondylosis without myelopathy Patient was interviewed and the medical record reviewed. There were no medical, pharmacologic, radiographic or other structural contraindications to attempting fluoroscopically guided local anesthetic lumbar/sacral medial branch blocks. Risks and expected side effects as well as potential benefit of the procedure were reviewed and voiced concerns addressed. The printed consent form was signed and witnessed. Standard time-out procedure was performed. Patient was placed in the prone position on the fluoroscopy table and automated blood pressure cuff and pulse oximeter applied. The skin entry points for approaching the anatomic target points of the segmental medial branches of the bilateral L3, L4, and L5 were identified with anfluoroscopy and marked. Following thorough Chlorhexadine preparation of the skin, a 25 gauge 3.5 spinal needle was placed under fluoroscopic guidance down on to the target point for each respective segmental medial branch.Position was confirmed in A/P, oblique and lateral views with 0.25ml of omnipaque 240. I next injected 0.5ml of 0.5% Bupivacaine at each segmental sensory nerve. Vital signs were stable throughout the procedure and were as recorded in the docflowsheet by the nursing staff. Follow up plans and appointments were discussed and was instructed to keep careful note of how the usual pain was modified by these injections. Specifically was asked to keep a pain diary for the next 24 hours using a numeric pain scale of 0-10 and report these results at the follow-up visit. Post procedure instruction was given as documented in the nursing documentation and having met discharge criteria. Patient was discharged from the [facility]. Based on the medial branches blocked today, if the patient has adequate relief and we are able to proceed to radiofrequency ablation, the treatment should result in the denervation of the bilateral L4-L5 and L5-S1 FACET JOINTS. We would expect to denervate a total of 4 facets during the radiofrequency ablation. COMMENTS: Post-procedure pain VAS was 0/10 Garrett Houston DO, MPH [facility] Management [facility] CC: Yeni Williamson
[2022-06-06] MEDS: Omnipaque 240 MG/ML 50 ML BTL IJ (09:05)
[2022-06-06] MEDS: Bupivacaine 0.5% Pres-Free 10 ML VIAL IJ (09:05)
[2022-06-06 09:09] VITALS: BP 144/83; PULSE 87; RESP 20; O2SAT 98
== END 2022-06-06 08:11 | disposition home or self-care (01) ==
LOC: PC 08:11
PROVIDERS: PCP Nurse Practitioner Family; Visit Provider Preventive Medicine Occupational Medicine
DX: M47.817 Spondylosis without myelopathy or radiculopathy, lumbosacral region (principal); M54.50 Low back pain, unspecified
CPT/HCPCS: 64493; 64494; 72100; Q9967

== ENCOUNTER 2022-06-28 08:23 | Outpatient (CLI) | payer MEDICARE, SELFPAY ==
--- NOTE | 2022-06-28 08:15 | DI.RAD_ITS ---
Exam(s) XR KNEE LT 2V AP,LAT EXAM: XR KNEE LT 2V AP,LAT CLINICAL HISTORY: ANNUAL F/U L TKA. TECHNIQUE: 2D digital imaging was performed of the left knee. Two images were obtained. AP and lat eral views were obtained. COMPARISON: CR XR KNEE LT 3V AP,LAT,STEFANIA from 08/15/2020 CR XR KNEE LT 1V from 07/10/2021 FINDINGS: BONES: No acute fracture is present. No bony destructive lesion is seen. JOINTS: The knee is normally aligned. No joint effusion is seen. There are stable postsurgical change s of a left total knee replacement. No lucencies are seen in or about the orthopedic hardware to sug gest loosening. SOFT TISSUE: Atherosclerosis is present. IMPRESSION: Stable left TKA. DATA REPOSITORY: RADIATION DOSE DELIVERED:
== END 2022-06-28 08:24 | disposition home or self-care (01) ==
LOC: DIORS 08:23
PROVIDERS: PCP Nurse Practitioner Family; Referring Provider Nurse Practitioner Family; Visit Provider Student in an Organized Health Care Education/Training Program
DX: Z96.652 Presence of left artificial knee joint (principal); M17.11 Unilateral primary osteoarthritis, right knee
CPT/HCPCS: 20610; 73560; J1040

== ENCOUNTER 2022-08-20 14:13 | Outpatient (CLI) | payer MEDICARE, SELFPAY ==
--- NOTE | 2022-08-20 06:00 | DI.RAD_ITS ---
Exam(s) XR PAIN CLINIC LUMBAR SP 2V EXAM: XR PAIN CLINIC LUMBAR SP 2V CLINICAL HISTORY: Dx: Lumbar Spondylosis. TECHNIQUE: Fluoroscopy was provided for the referring physician for guidance with performing pain cl inic injection procedure. COMPARISON: No exams were available for comparison FINDINGS: Please see procedure note for details. Fluoro time: 27.3 seconds RADIATION DOSE DELIVERED: ward Garza=4.13 mGy
[2022-08-20 14:55] VITALS: BP 121/73; PULSE 51; RESP 20; TEMP 36.8; O2SAT 97
--- NOTE | 2022-08-20 15:27 | PDOC.PAIN_ITS ---
Date of service: 08/20/22 Time of Service: 15:27 Pain Clinic Procedure Note Procedure Note Procedure Note: Lumbar/Sacral Medial Branch Blocks Mike Jorgensen has been referred to the [facility] for lumbar/sacral medial branch blocks. Pre-operative diagnosis: lumbar spondylosis Post-operative diagnosis: same as above COMMENTS: patient achieved significant pain relief from diagnostic LMBB on 07/2022 who returns to get confirmatory LMBB. Patient was interviewed and the medical record reviewed. There were no medical, pharmacologic, radiographic or other structural contraindications to attempting fluoroscopically guided local anesthetic lumbar/sacral medial branch blocks. Risks and expected side effects as well as potential benefit of the procedure were reviewed and voiced concerns addressed. The printed consent form was s igned and witnessed. Standard time-out procedure was performed. Patient was placed in the prone position on the fluoroscopy table and automated blood pressure cuff and pulse oximeter applied. The skin entry points for approaching the anatomic target points of the segmental medial branches of bilateral L3, L4, L5-DR were identified with anfluoroscopy and marked. Following thorough Chlorhexadine preparation of the skin and draping and 1% lidocaine infiltration of the skin entry points and subcutaneous tissues, a 22 gauge spinal needle was placed under fluoroscopic guidance down on to the target point for each respective segmental medial branch.Position was confirmed in A/P, oblique and lateral views with 0.25ml of omnipaque 240. Coult be this method .5ml 2% Lidocaine. Vital signs were stable throughout the procedure and were as recorded in the docflowsheet by the nursing staff. Follow up plans and appointments were discussed and was instructed to keep care ful note of how the usual pain was modified by these injections. Specifically was asked to keep a pain diary for the next 24 hours using a numeric pain scale of 0-10 and report these results at the follow-up visit. Post procedure instruction was given as documented in the nursing documentation and having met discharge criteria. Patient was discharged from the [facility]. Based on the medial branches blocked today, if the patient has adequate relief and we are able to proceed to radiofrequency ablation, the treatment should result in the denervation of the bilateral L4/5, L5/S1 facets. We would expect to denervate a total of 4 facets during the radiofrequency ablation. COMMENTS: pre-procedure VAS score 9/10, immediately post-procedure VAS score 8/10 Jose F Thao MD Pain Management CC: Yeni Williamson
[2022-08-20 15:34] VITALS: BP 144/78; PULSE 82; RESP 20; O2SAT 96
[2022-08-20] MEDS: Omnipaque 240 MG/ML 50 ML BTL IJ (15:34)
[2022-08-20] MEDS: Lidocaine 2% Pres-Free 5 ML VIAL IJ (15:34)
== END 2022-08-20 14:14 | disposition home or self-care (01) ==
LOC: PC 14:15
PROVIDERS: PCP Nurse Practitioner Family; Visit Provider Internal Medicine
DX: M47.816 Spondylosis without myelopathy or radiculopathy, lumbar region (principal)
CPT/HCPCS: 64493; 64494; 72100; Q9967

== ENCOUNTER 2022-09-13 09:46 | Outpatient (CLI) | payer MEDICARE, SELFPAY ==
--- NOTE | 2022-09-13 06:00 | DI.RAD_ITS ---
Exam(s) XR PAIN CLINIC LUMBAR SP 2V EXAM: XR PAIN CLINIC LUMBAR SP 2V CLINICAL HISTORY: Dx:Lumbar Spondylosis TECHNIQUE: 2D and realtime digital imaging was performed. CONTRAST MATERIAL: Refer to procedure report. COMPARISON: No exams were available for comparison FINDINGS: Fluoroscopy was provided for Dr. Houston during the performance of a lumbar radiofrequency ablation. P lease refer to the procedure report for complete details. Ka,r=16.8 mGy IMPRESSION:
[2022-09-13 10:00] VITALS: BP 120/78; PULSE 78; RESP 20; TEMP 36.8; O2SAT 100
[2022-09-13] MEDS: fentaNYL 100 MCG/2 ML VIAL IVP (10:28)
[2022-09-13] MEDS: Midazolam 2 MG/2 ML VIAL IVP (10:28)
[2022-09-13] MEDS: Lactated Ringers 500 ML 80 ML IV (10:30)
[2022-09-13 11:08] VITALS: BP 131/88; PULSE 68; RESP 18; O2SAT 96
[2022-09-13] MEDS: methylPREDNISolone ACETATE 40 MG/ML VIAL IJ (11:18)
[2022-09-13] MEDS: Lidocaine 2% Pres-Free 5 ML VIAL IJ (11:19)
[2022-09-13] MEDS: Bupivacaine 0.5% Pres-Free 10 ML VIAL IJ (11:19)
--- NOTE | 2022-09-13 12:10 | PDOC.PAIN ---
Date of service: 09/13/22 Time of Service: 12:15 Pain Clinic Procedure Note Procedure Note Procedure Note: Bilateral Lumbar Radiofrequency with [employer] Machine PROCEDURE NOTE Date of Service: September 13, 2022 Patient: Mike Jorgensen Provider: Garrett Houston DO, MPH Pre Operative Diagnosis: Lumbosacral Spondylosis without Myelopathy Post Operative Diagnosis: Same Pre procedure pain; VAS= 7/10 PROCEDURE: Radiofrequency Ablation of medial branches - Bilateral L3 L4 L5 and lateral branches of bilateral S1. Mike Jorgensen was brought into the fluoroscopy suite and positioned into the prone position on the fluoroscopy table and allowed to adjust to a position of comfort. A grounding pad was placed on the left thigh. The lumbar region was widely prepped with a chloraprep solution, allowed to air dry and draped in standard sterile surgical fashion. Local anesthesia was provided by 2 mL of 1% Lidocaine delivered with a 25g needle. A 17g 100 mm radiofrequency introducer needle was placed to the planned anatomic targets guided with intermittent fluoroscopy with a perpendicular approach to terminally place at the junction of the superior articular process and the transverse process of the bilateral L4, L5, the base of the sacral ala on the bilateral for the L5 medial branch nerve and the area between base of the sacral ala to the S1 foramen bilaterally. The stylets were removed and radiofrequency probes with a 4mm active tip were then inserted. Needle tip position of the probes was verified in the AP, oblique, and lateral views. At each site, the medial branch nerve was stimulated at 2 Hz to a maximum 1-2 volts determined to finalize safe needle and electrode placement. The patient was awake and responsive during this portion of the procedure. Each target was anesthetized with 1-2 mL of 1% Lidocaine for anesthesia for lesioning and then each target was lesioned at 80 degrees Celsius for 2 minutes and 30 seconds. Tissue impedences were noted to be between 250 and 500 Ohms. Electrodes and needles were then removed and bandages placed over the needle placement sites, the patient then returned to the supine position on a stretcher and transported to the recovery room without hemodynamic, neurologic, or allergic reactions. Fluoroscopic images were printed for hard copy recording and digitally archived. POST PROCEDURE EVALUATION: IMPRESSION: 1. Summary of procedure. Medication given is documented in the MAR. 2. The patient will be contacted in 1-3 weeks 3. Estimated Blood Loss: <5 mls 4. Fluoroscopy time: Documented in the EMR. Follow up plans and appointments were discussed with the Mike . Post procedure instruction was given as documented in nursing documentation and having met discharge criteria, Mike was discharged from the [facility] Management [facility]. COMMENTS: No apparent complications. Post-procedure pain: VAS= 0/10. F/U with our office as needed. Garrett Houston DO, MPH Attending Physician Pain Management
== END 2022-09-13 09:47 | disposition home or self-care (01) ==
LOC: PC 09:46
PROVIDERS: PCP Nurse Practitioner Family; Visit Provider Preventive Medicine Occupational Medicine
DX: M47.817 Spondylosis without myelopathy or radiculopathy, lumbosacral region (principal); M54.50 Low back pain, unspecified
CPT/HCPCS: 64635; 64636; 72100; J1030; J2250; J3010

== ENCOUNTER 2022-11-05 19:05 | Outpatient (REF) | payer MEDICARE, SELFPAY ==
[2022-11-05 14:51] LABS: HCT 31.6 % (40.0-50.0); HGB 9.9 g/dL (13.5-17.5); MCH 26.8 pg (27.0-33.0); MCHC 31.3 % (32.0-36.0); MCV 86 fL (80-95); MPV 10.1 fL (8.0-11.0); Platelet Count 498 10^3/uL (130-400); RBC 3.69 10^6/uL (4.36-5.78); RDW 15.6 % (11.8-14.1); RDW-SD 48.2 fL; WBC 7.13 10^3/uL (4.4-10.8)
[2022-11-05 15:34] LABS: Iron 25 ug/dL (65-175); Total Iron Binding Capacity 395 ug/dL (250-450); Transferrin Sat 6 % (20-55)
[2022-11-05 17:08] LABS: Anion Gap 9.8 mmol/L (3-11); BUN 15 mg/dL (7-18); CO2 29.2 mmol/L (21.0-32.0); Calcium 9.3 mg/dL (8.5-10.1); Chloride 100 mmol/L (98-107); Estimated GFR 75.14 (mL/min/1.73m2); Ferritin 11 ng/mL (26-388); Glucose 119 mg/dL (74-106); Potassium 4.1 mmol/L (3.5-5.1); Sodium 139 mmol/L (136-145)
== END 2022-11-05 19:06 | disposition home or self-care (01) ==
LOC: NCHCN 19:05
PROVIDERS: PCP Nurse Practitioner Family; Visit Provider Nurse Practitioner Family
DX: I10 Essential (primary) hypertension (principal); D50.9 Iron deficiency anemia, unspecified
CPT/HCPCS: 80048; 85027; 82728; 83540; 83550

== ENCOUNTER → 2022-11-26 13:20 | Outpatient (BNVA) | payer MEDICARE, SELFPAY | PROVIDERS: PCP Nurse Practitioner Family; Referring Provider Nurse Practitioner Family; Visit Provider Surgery | DX: D64.9 Anemia, unspecified (principal); J44.9 Chronic obstructive pulmonary disease, unspecified | CPT/HCPCS: 36415; 99213 ==

== ENCOUNTER 2022-11-26 14:09 | Outpatient (REF) | payer MEDICARE, SELFPAY ==
[2022-11-26 16:19] LABS: HGB 9.3 g/dL (13.5-17.5)
[2022-11-26 16:42] LABS: Iron 24 ug/dL (65-175); Total Iron Binding Capacity 412 ug/dL (250-450); Transferrin Sat 6 % (20-55)
== END 2022-11-26 14:10 | disposition home or self-care (01) ==
LOC: LBN 14:09
PROVIDERS: PCP Nurse Practitioner Family; Visit Provider Surgery
DX: D64.9 Anemia, unspecified (principal); J44.9 Chronic obstructive pulmonary disease, unspecified
CPT/HCPCS: 83540; 83550; 85014; 85018

== ENCOUNTER 2022-12-25 02:18 | Outpatient (RCR) | payer MEDICARE, SELFPAY ==
[2022-12-11] MEDS: IRON SUCROSE COMPLEX 200 MG in Normal Saline 100 ML 440 MG IVPB (13:07)
[2022-12-11] MEDS: Normal Saline Flush 10 ML SYR IVP (13:08)
[2022-12-18] MEDS: IRON SUCROSE COMPLEX 200 MG in Normal Saline 100 ML 440 MG IVPB (13:20)
[2022-12-18] MEDS: Normal Saline Flush 10 ML SYR IVP (13:20)
[2022-12-25] MEDS: Normal Saline Flush 10 ML SYR IVP (13:04)
[2022-12-25] MEDS: IRON SUCROSE COMPLEX 200 MG in Normal Saline 100 ML 440 MG IVPB (13:04)
== END 2022-12-30 23:59 | disposition home or self-care (01) ==
LOC: INF 02:18
PROVIDERS: PCP Nurse Practitioner Family; Visit Provider Surgery
DX: D64.9 Anemia, unspecified (principal)
CPT/HCPCS: 96365; J1756

== ENCOUNTER 2023-04-18 14:11 | Outpatient (REF) | payer MEDICARE, SELFPAY ==
[2023-04-18 19:32] LABS: Abs Immature Grans 0.04 10^3/uL (0.0-0.06); Absolute Basophil Count 0.04 10^3/uL (0.0-0.2); Absolute Eosinophil Count 0.08 10^3/uL (0.0-0.7); Absolute Lymphocyte Count 1.24 10^3/uL (1.2-3.4); Absolute Monocyte Count 1.02 10^3/uL (0.1-0.8); Absolute Neutrophil Count 5.72 10^3/uL (1.2-6.7); Basophils % 0.5; HCT 25.3 % (40.0-50.0); Immature Grans % 0.5; Lymphocytes % 15.2; MCH 25.7 pg (27.0-33.0); MCHC 31.6 % (32.0-36.0); MCV 81 fL (80-95); MPV 9.7 fL (8.0-11.0); Monocytes % 12.5; Neutrophils % 70.3; Platelet Count 564 10^3/uL (130-400); RBC 3.11 10^6/uL (4.36-5.78); RDW 16.4 % (11.8-14.1); RDW-SD 47.6 fL; WBC 8.14 10^3/uL (4.4-10.8)
[2023-04-18 19:56] LABS: ALT 12 U/L (16-63); AST 23 U/L (15-37); Albumin 3.1 g/dL (3.4-5.0); Alkaline Phosphatase 92 U/L (46-116); Anion Gap 9.3 mmol/L (3-11); BUN 11 mg/dL (7-18); Bilirubin, Total 0.4 mg/dL (0.2-1.0); CO2 26.7 mmol/L (21.0-32.0); CREATININE 0.6 mg/dL (0.70-1.30); Calcium 9.2 mg/dL (8.5-10.1); Chloride 96 mmol/L (98-107); Estimated GFR 95.78 (mL/min/1.73m2); Glucose 105 mg/dL (74-106); Potassium 4.1 mmol/L (3.5-5.1); Sodium 132 mmol/L (136-145); Total Protein 7.3 g/dL (6.4-8.2)
[2023-04-18 19:58] LABS: Iron 14 ug/dL (65-175); Total Iron Binding Capacity 352 ug/dL (250-450); Transferrin Sat 4 % (20-55)
== END 2023-04-18 14:12 | disposition home or self-care (01) ==
LOC: NCHCN 14:11
PROVIDERS: PCP Nurse Practitioner Family; Visit Provider Nurse Practitioner Family
DX: D64.9 Anemia, unspecified (principal); I10 Essential (primary) hypertension
CPT/HCPCS: 80053; 83540; 83550; 85025

== ENCOUNTER 2023-04-21 08:17 | Emergency (ER) | payer MEDICARE, SELFPAY ==
[2023-04-21] VITALS (31 sets, daily range): BP systolic 128–151; BP diastolic 69–89; PULSE 68–91; RESP 11–21; TEMP 36.1; O2SAT 92–99
--- NOTE | 2023-04-21 08:15 | RT.EKG_ITS ---
APPROVED REPORT Exam: Resting ECG Reason for Exam: chest pain Patient Location: E HR:72 bpm ECG Measurements Heart Rate 72 AXIS MA 179 P 85 QRSd 106 QRS 83 QT 393 T 65 QTc 430 Conclusion Sinus rhythm...normal P axis, V-rate 60- 99 sinus rhtyhm, normal axis, normal intervals, non ischemic
--- NOTE | 2023-04-21 08:45 | DI.RAD_ITS ---
Exam(s) XR HIP LT COMPLETE AP PELVIS EXAM: XR HIP LT COMPLETE AP PELVIS CLINICAL HISTORY: fall, left hip pain. TECHNIQUE: 2D digital imaging was performed. COMPARISON: No exams were available for comparison FINDINGS: 3 views No evidence of pelvic nor acute hip fracture. Mild degenerative changes in the hips. Small osteophy tic density is seen parallel to the superior aspect of the left femoral head but does not have the ap pearance of an acute fracture. There is also some calcification parallel to the outer aspect of the greater trochanter of the left hip consistent with calcific tendinitis-bursitis. SI joints unremarka ble. IMPRESSION: Findings as above but no evidence of acute pelvic nor hip fracture. DATA REPOSITORY: RADIATION DOSE DELIVERED:
--- NOTE | 2023-04-21 08:45 | DI.CT_ITS ---
Exam(s) CT HEAD CERV SPINE FACIAL WO EXAM: CT HEAD CERV SPINE FACIAL WO CLINICAL HISTORY: fall, [place], left orbital hematoma. TECHNIQUE: Imaging Protocol: Axial computed tomography images with coronal and sagittal reformatted images were created and reviewed COMPARISON: No exams were available for comparison FINDINGS: CT BRAIN: There are no skull fractures nor fluid in the visualized paranasal sinuses. There is no evidence of intracranial hemorrhage, mass effect, or shift of midline structures. There are no extra-axial fluid collections. The ventricles are not enlarged or shifted and there is no blo od within the ventricular system nor within the basal cisterns. There is arterial wall calcification in the skull base involving both internal carotid arteries as we ll as both vertebral arteries. There is moderate periventricular hypodensity consistent with chronic small vessel disease. No evidence of acute territorial infarct CT MAXILLOFACIAL BONES: There is no evidence of facial fractures nor fluid in the visualized paranasal sinuses. there is no evidence of orbital blowout fracture. CT CERVICAL SPINE: There is an anterior fusion plate at C5-6-7 levels. There is no evidence of acute fracture. There is anterolisthesis C2 upon C3 which appears to be related to facet arthropathy. Mild disc spac e narrowing at this level. There is elimination of the disc space at C3-4 and C4-5 levels. There is fusion at the level of the vertebral bodies of C5 and C6 as well as partial fusion of the facet join ts bilaterally at this level. The C6-7 disc space is not fused and the facet joints at this level or are also not fused. There are small Luschka joint osteophytes bilaterally at this level. No significant osseous lesions evident. Calcification is noted in the transverse ligament behind the odontoid, this being age-related/degener ative. There is no odontoid fracture. There is posterior bony ridging at levels above the fusion, m ost prominent at C3-4 and element of central canal stenosis at this level. IMPRESSION: No acute intracranial findings on this noninfused CT scan of the brain.Chronic white matter ischemic changes. No hemorrhage. No obvious acute infarct. No evidence of facial nor orbital blowout fractures. Advanced chronic degenerative disc disease and facet arthropathy. Anterior fusion plate [id number] lev els. No evidence of cervical spine fracture, set malalignment, nor acute compromise of the cervical spinal canal. RADIATION DOSE DELIVERED: 1,559.87mGy.cm Total DLP DATA REPOSITORY: All CT scans at this facility are submitted to the National Radiology Data Registry (NRDR) Dose Index Registry (DIR) with the [employer] ([employer]). RADIATION OPTIMIZATION: All CT scans at this facility use at least one of these dose optimization te chniques: automated exposure control; mA and/or kV adjustment per patient size (includes targeted exa ms where dose is matched to clinical indication); or iterative reconstruction.
--- NOTE | 2023-04-21 08:53 | DI.RAD_ITS ---
Exam(s) XR CHEST 2V PA LATERAL EXAM: XR CHEST 2V PA LATERAL CLINICAL HISTORY: left chest pain, post fall. TECHNIQUE: 2D digital imaging was performed. COMPARISON: CR,XR XR PORTABLE CHEST AP from 02/23/2021 FINDINGS: 2 views: Heart size is normal. The mediastinum is not widened. Bilateral hyperinflation again noted. Slightly decreased left hemithoracic volume is unchanged. No new confluent infiltrates nor pleural effusions. On this non rotated study density of the left hemit horax is less than the right. The left pulmonary artery also appears slightly more prominent than pr evious. These findings may be indirect evidence of left side pulmonary embolus with. IMPRESSION: Findings as above. If clinically indicated contrast infused CT scan with pulmonary embolus protocol can be performed. DATA REPOSITORY: RADIATION DOSE DELIVERED:
--- NOTE | 2023-04-21 09:10 | ED.GENADUL_ITS ---
Discharge Plan Disposition Patient Disposition: Home Discharge Details Clinical Impression: Head injury, Anemia, Fall, Eyebrow laceration, Chest wall contusion, Acute hyponatremia, Hypokalemia Primary Care Provider: Seema Griffith ED Provider: Noemi Walden Home Meds and New Rx's Prescriptions: Continued carvedilol 3.125 mg tablet 3.125 mg PO BID Rx Instructions: must administer with a meal/food ipratropium-albuterol 0.5 mg-3 mg(2.5 mg base)/3 mL solution for nebulization 3 ml inhalation Q6H PRN Rx Instructions: take 0.5mg by neb 4 times daily albuterol sulfate [ProAir HFA] 90 mcg/actuation HFA aerosol inhaler 2 puff inhalation Q6H PRN vitamin B complex [B Complex-Vitamin B12] Tablet 1 tab PO DAILY cholecalciferol (vitamin D3) 125 mcg (5,000 unit) capsule 125 mcg PO DAILY potassium chloride 10 mEq capsule, extended release 10 meq PO DAILY hydrochlorothiazide 25 mg tablet 25 mg PO DAILY pantoprazole [Protonix] 40 mg tablet,delayed release (DR/EC) 40 mg PO BID echinacea 500 mg capsule 500 mg PO BID Rx Instructions: administer with meals MSM 1,000 mg capsule 1,000 mg PO DAILY acetaminophen 500 mg tablet 1,000 mg PO Q8H PRN (Reason: pain) Qty: 90 3RF mirtazapine 7.5 mg tablet 7.5 mg PO HS sertraline 25 mg tablet 25 mg PO DAILY Patient Comments: TAKE 1 TABLET BY MOUTH EVERY MORNING FOR DEPRESSION zolpidem 10 mg tablet 10 mg PO PRN PRN Patient Comments: Take 0.5- 1 tablet by mouth at bedtime as needed Discharge Instructions Instructions: Head Injury (ED), Contusion in Adults (ED), Anemia (ED), Facial Laceration (ED) Additional Instructions: Take Tylenol as needed for pain Keep wound on eye clean and dry, the Steri-Strips will peel away if they become wet, you may trim them as they avert Please return with dizziness, weakness, or with any new or worsening complaints You should have your CBC or complete blood count rechecked by your doctor as it looks like your labs are trending down, it sounds like you have a history of iron deficiency anemia, you may need another infusion of iron Use caution when getting up if you choose to take Ambien before bed as this will likely cause lightheadedness or dizziness Referrals: Seema Griffith [Primary Care Provider] - Discharge Data Discharge Date/Time-TO BE ENTERED AT DEPARTURE: 04/21/23 11:51 Medical Decision Making Alert, oriented 83-year-old gentleman ambulatory with steady gait presenting with periorbital hematoma and left eyebrow laceration after fall after taking Ambien GCS 15, alert and oriented x4, ambulatory with steady gait, small ecchymosis to left hip, small ecchymosis to left forearm, reproducible tenderness to left chest with chest discomfort that started immediately after fall, onset approximately 2 AM Given complaint of chest pain, EKG was ordered, diagnostic blood work was ordered CT head facial bones and cervical spine secondary to age and comorbidities No abdominal tenderness appreciated on exam, no flank tenderness, no additional visible evidence of trauma, head to toe complete physical exam was ordered Lungs clear to auscultation, no tenderness to cervical, thoracic, or lumbar spine CT facial bones, head, and cervical spine do not show evidence of acute abnormality on radiology interpretation and my review X-rays of both chest x-ray and pelvis and left hip do not show evidence of acute fracture, patient ambulatory with steady gait, denies any acute pain complaints, is alert and oriented x4 and will to be discharged home in the care of his partner His tetanus was updated Return precautions reviewed and patient expressed understanding Of note, the patient is anemic, his hemoglobin looks like its been around 8, and has not change dramatically since the draw 3 days ago, he has an appointment in 2 weeks with his primary care physician and denies any active blood in his sto ol, he reports a history of iron deficiency anemia for which she gets infusions for, he was encouraged to discuss this with his doctor and return immediately should he have new or worsening complaints Sodium and potassium are slightly low, this is likely consistent with patient's chronic alcohol use, he is encouraged to take a multivitamin daily and sprinkle some salt on his food Medical Records Medical records reviewed: Yes I reviewed the patient's medical records. Lab Data Lab results reviewed: Yes I reviewed the patient's lab results. HPI General Date/Time Provider Initiated Documentation: 04/21/23 08:22 . HPI Narrative: This 83-year-old gentleman with history of alcoholism, COPD superior mesenteric artery stenosis presents with report of fall at 2 AM. He states he took an Ambien and got up at approximately 2 AM to make tea, he developed some lightheadedness and fell to the ground, he denies loss of consciousness. He did hit his head and his chest wall at the time of fall. Denies history of anticoagulation. Denies any headache. Does have some mild pain in his chest wall with movement and sneezing. Denies any additional complaints at this time. Has been ambulatory since the event occurred. Denies any current headache or nausea. Tetanus was last updated dated in 2014. Denies strength or sensation change. Denies any current dizziness. States he has had the pain in the left side of his chest which started after the fall and has been intermittent and positional since 2 AM. Denies any diaphoresis, associated nausea, radiation of pain. Has not had any alcohol today. Drinks one 12 ounce beer and 1 shot of whiskey daily per patient. Related Data Home Medications Medication Instructions Recorded Confirmed hydrochlorothiazide 25 mg tablet 25 mg PO DAILY 08/16/20 04/21/23 potassium chloride 10 mEq 10 meq PO DAILY 08/16/20 04/21/23 capsule,extended release vitamin B complex (B 1 tab PO DAILY 08/30/20 04/21/23 Complex-Vitamin B12 tablet) carvedilol 3.125 mg tablet 3.125 mg PO BID 03/13/21 04/21/23 ipratropium 0.5 mg-albuterol 3 mg 3 ml inhalation Q6H PRN 03/13/21 04/21/23 (2.5 mg base)/3 mL nebulization soln acetaminophen 500 mg tablet 1,000 mg PO Q8H PRN pain #90 tabs 06/27/21 04/21/23 echinacea 500 mg capsule 500 mg PO BID 08/28/21 04/21/23 methylsulfonylmethane 1,000 mg 1,000 mg PO DAILY 08/28/21 04/21/23 capsule (MSM) pantoprazole 40 mg tablet,delayed 40 mg PO BID 08/28/21 04/21/23 release (Protonix) mirtazapine 7.5 mg tablet 7.5 mg PO HS insomnia, appetite 09/15/21 04/21/23 cholecalciferol (vitamin D3) 125 125 mcg PO DAILY 09/25/21 04/21/23 mcg (5,000 unit) capsule albuterol sulfate 90 mcg/actuation 2 puff inhalation Q6H PRN 03/22/22 04/21/23 aerosol inhaler (ProAir HFA) sertraline 25 mg tablet 25 mg PO DAILY 04/21/23 04/21/23 zolpidem 10 mg tablet 10 mg PO PRN PRN 04/21/23 04/21/23 Previous Rx's Medication Instructions Recorded acetaminophen 500 mg tablet 1,000 mg PO Q8H PRN pain #90 tabs 06/27/21 Allergies Allergy/AdvReac Type Severity Reaction Status Date / Time NSAIDS (Non-Steroidal AdvReac Severe hx of Unverified 04/21/23 08:29 Anti-Inflamma bleeding ulcer shellfish derived AdvReac Intermediate vomiting, Verified 04/21/23 08:29 GI upset meloxicam AdvReac caused Verified 04/21/23 08:29 bleeding ulcer; pt avoids all NSAIDS General Stated 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: 3 PFSH All Active Problems (Updated 04/21/23 @ 14:00 by LEATHA Nichols) Head injury (Acute) Anemia (Chronic) Fall (Acute) Eyebrow laceration (Acute) Chest wall contusion (Acute) Acute hyponatremia (Acute) Hypokalemia (Acute) Chest pain (Acute) Anemia (Chronic) Osteoarthritis of right knee (Acute) Steroid injection: 08/15/2020; 09/25/21; 02/19/2022; 06/28/22 Lumbosacral spondylosis without myelopathy (Acute) COPD (chronic obstructive pulmonary disease) (Chronic) Fecal retention (Acute) Superior mesenteric artery stenosis (Acute) Medical History Alcohol abuse Currently he is not drinking daily Anosmia Back pain Balance problem uses cane Bilateral inguinal hernia without obstruction or gangrene Bleeding duodenal ulcer Cataracts, bilateral Chest discomfort Chronic back pain Chronic GERD Chronic iron deficiency anemia Chronic pain Diarrhea Discharge planning issues DVT prophylaxis Dysphagia Emphysema, unspecified Exertional dyspnea Folate deficiency anemia Gastritis H/O skin pruritus Herniated lumbar intervertebral disc Hip pain, left History of bleeding peptic ulcer History of traumatic fracture of vertebra HTN (hypertension) Hx of squamous cell carcinoma Inguinal hernia, bilateral Insomnia Knee pain, bilateral Leg swelling Lower back pain Osteoarthritis of left knee Steroid injection: 08/15/2020 s/p left TKA Osteoarthritis of lumbar spine PUD (peptic ulcer disease) Sleep disturbance Spondylosis of lumbar spine Spondylosis, cervical Symptomatic anemia Syncope Tobacco dependence in remission Unintentional weight loss Vitamin D deficiency Surgical History 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) DOS 06/27/21 Hx of abdominal surgery Status post percutaneous coil/embolization of posterior duodenal artery for bleeding duodenal ulcer Hx of esophagogastroduodenoscopy Nuclear sclerotic cataract of left eye Nuclear sclerotic cataract of right eye Posterior subcapsular age-related cataract of left eye Posterior subcapsular age-related cataract, right eye S/P bilateral inguinal hernia repair (~02/13/22) S/P cervical spinal fusion S/P laminectomy Social History Smoking/Tobacco Use Status: Former Tobacco Use Quit Date: 09/02/18 Smoking risk assessment performed?: Yes Alcohol Intake: current Alcohol Intake frequency: 0-2 drinks per day Alcohol type: beer Drug use: Occasionally Substance use type: marijuana Details: pt. reports a beer nightly, pt. states he reduced his alcohol intake since bleeding ulcer in january. THC- about 3 or 4 days ago Household members: spouse Housing: house Number of Children: 1 current occupation: Retired Current gender identity: male Do you feel safe at home: Yes Do you feel safe in your relationship?: Yes Course Vital Signs Vital signs: Vital Signs Temperature 36.1 C L 04/21/23 08:22 Pulse 829 H 04/21/23 08:22 Respiratory Rate 18 04/21/23 08:22 Blood Pressure 128/69 04/21/23 08:22 Pulse Oximetry 94 04/21/23 08:22 Temperature 36.1 C L 04/21/23 08:22 Temperature Source Temporal Artery Scan 04/21/23 08:22 Pulse 829 H 04/21/23 08:22 Respiratory Rate 18 04/21/23 08:22 Respiratory Effort Normal, Non-Labored 04/21/23 08:34 Blood Pressure 128/69 04/21/23 08:22 Blood Pressure Position Sitting 04/21/23 08:22 Pulse Oximetry 94 04/21/23 08:22 Oxygen Delivery Method Room Air 04/21/23 08:22 Oxygen Flow Rate 0 04/21/23 08:22 Procedures Laceration Laceration 1: Site: face Side (If applicable): left Size (cm): 1 Description: irregular Depth: simple, single layer Skin layer closed with: other (dermabond) PAWSS Have you Been Recently Intoxicated or Drunk Within the Last 30 days?: No Have you Ever Experienced Previous Episodes of Alcohol Withdrawal?: No Have you ever Experienced Withdrawal Seizures?: No Have you ever Experienced Delirium Tremens(DT)s?: No Have you ever undergone Alcohol Rehabilitation Treatment (i.e, inpt ot outpatient treatment programs)?: No Have you ever Experienced Blackouts?: No Have you ever Combined Alcohol with other Downers within the last 90 days?: No Have you ever Combined Alcohol with any other Substance of Abuse during the last 90 days?: No Positive Blood Alcohol level on Presentation? [PCS.BAL]: No Evidence of Increased Autonomic Activity (i.e. HR>120, tremor, sweating, agitation, nausea)?: No Result: 0
[2023-04-21 09:30] LABS: Abs Immature Grans 0.04 10^3/uL (0.0-0.06); Absolute Basophil Count 0.02 10^3/uL (0.0-0.2); Absolute Eosinophil Count 0.09 10^3/uL (0.0-0.7); Absolute Lymphocyte Count 1.17 10^3/uL (1.2-3.4); Absolute Monocyte Count 1.33 10^3/uL (0.1-0.8); Absolute Neutrophil Count 6.17 10^3/uL (1.2-6.7); Basophils % 0.2; HCT 24.1 % (40.0-50.0); HGB 7.7 g/dL (13.5-17.5); Immature Grans % 0.5; Lymphocytes % 13.3; MCH 25.6 pg (27.0-33.0); MCV 80 fL (80-95); Monocytes % 15.1; Neutrophils % 69.9; Platelet Count 531 10^3/uL (130-400); RBC 3.01 10^6/uL (4.36-5.78); RDW 15.9 % (11.8-14.1); RDW-SD 46.5 fL; WBC 8.82 10^3/uL (4.4-10.8)
[2023-04-21 09:51] LABS: ALT 12 U/L (16-63); AST 17 U/L (15-37); Albumin 3.2 g/dL (3.4-5.0); Alkaline Phosphatase 90 U/L (46-116); BUN 10 mg/dL (7-18); Bilirubin, Total 0.4 mg/dL (0.2-1.0); CREATININE 0.7 mg/dL (0.70-1.30); Calcium 9.1 mg/dL (8.5-10.1); Chloride 93 mmol/L (98-107); Estimated GFR 91.42 (mL/min/1.73m2); Glucose 111 mg/dL (74-106); Potassium 3.4 mmol/L (3.5-5.1); Sodium 131 mmol/L (136-145); Total Protein 7.2 g/dL (6.4-8.2); Troponin I < 50 ng/L (<or=60)
--- NOTE | 2023-04-21 10:25 | DI.VRAD_ITS ---
PROCEDURE INFORMATION: Exam: XR Chest Exam date and time: 04/21/2023 10:07 AM Age: 83 years old Clinical indication: Other: Left chest pain, post fall TECHNIQUE: Imaging protocol: Radiologic exam of the chest. Views: 2 views. COMPARISON: CR XR PORTABLE CHEST AP 02/23/2021 6:34 AM FINDINGS: Lungs: Hyperexpanded lung quinones consistent with COPD. No focal consolidation. Chronic lung changes in the right apex Pleural spaces: Unremarkable. No pleural effusion. No pneumothorax. Heart/Mediastinum: Unremarkable. No cardiomegaly. Bones/joints: Anterior cervical fusion IMPRESSION: Hyperexpanded lung quinones consistent with COPD. No focal consolidation. Dictated and Authenticated by: Gwyn Carlos MD. Ordering:REGINA Franklin MD
--- NOTE | 2023-04-21 10:26 | DI.VRAD_ITS ---
PROCEDURE INFORMATION: Exam: XR Left Hip Exam date and time: 04/21/2023 10:10 AM Age: 83 years old Clinical indication: Other: Fall, left hip pain; Additional info: Left chest pain, post fall TECHNIQUE: Imaging protocol: Radiologic exam of the left hip. Views: 2 or 3 views hip with pelvis when performed. COMPARISON: CT ABDOMEN PELVIS W 02/19/2021 2:30 PM FINDINGS: Bones/joints: There is no evidence of acute fracture.There is no evidence of malalignment or dislocation. Degenerative changes in both hips Soft tissues: Unremarkable. IMPRESSION: There is no evidence of acute fracture.There is no evidence of malalignment or dislocation. Dictated and Authenticated by: Gwyn Carlos MD. Ordering:REGINA Franklin MD
--- NOTE | 2023-04-21 10:32 | DI.VRAD_ITS ---
PROCEDURE INFORMATION: Exam: CT Head Without Contrast Exam date and time: 04/21/2023 9:58 AM Age: 83 years old Clinical indication: Other: Fall, hi, left orbital hematoma; Prior surgery; Surgery date: 6+ months; Surgery type: C-spne TECHNIQUE: Imaging protocol: Computed tomography of the head without contrast. Radiation optimization: All CT scans at this facility use at least one of these dose optimization techniques: automated exposure control; mA and/or kV adjustment per patient size (includes targeted exams where dose is matched to clinical indication); or iterative reconstruction. COMPARISON: No relevant prior studies available. FINDINGS: Brain: No evidence of acute infarct. No intraparenchymal hemorrhage. No midline shift or mass effect. No extra-axial fluid collections or hemorrhage. Small amount of periventricular white matter lucency consistent with microangiopathy. Cerebral ventricles: Mild ex vacuo dilatation of the lateral ventricles cisterns and sulci. Paranasal sinuses: Visualized sinuses are unremarkable. No fluid levels. Mastoid air cells: Visualized mastoid air cells are well aerated. Bones/joints: Unremarkable. No acute fracture. Soft tissues: Unremarkable. Vasculature: Tubular calcification of both internal carotid and vertebral arteries. IMPRESSION: 1. No acute intracranial abnormality. 2. Mild periventricular white matter lucency associated volume loss. 3. Cerebrovascular artery tubular calcification. PROCEDURE INFORMATION: Exam: CT Maxillofacial Without Contrast Exam date and time: 04/21/2023 9:58 AM Age: 83 years old Clinical indication: Other: Fall, hi, left orbital hematoma; Prior surgery; Surgery date: 6+ months; Surgery type: C-spne TECHNIQUE: Imaging protocol: Computed tomography of the face without contrast. Radiation optimization: All CT scans at this facility use at least one of these dose optimization techniques: automated exposure control; mA and/or kV adjustment per patient size (includes targeted exams where dose is matched to clinical indication); or iterative reconstruction. COMPARISON: No relevant prior studies available. FINDINGS: Orbital cavities: Orbits are normal. Globes are unremarkable. Bones/joints: No acute fracture. Paranasal sinuses: Normal. No air-fluid levels. Soft tissues: Unremarkable. IMPRESSION: No acute findings. PROCEDURE INFORMATION: Exam: CT Cervical Spine Without Contrast Exam date and time: 04/21/2023 9:58 AM Age: 83 years old Clinical indication: Other: Fall, hi, left orbital hematoma; Prior surgery; Surgery date: 6+ months; Surgery type: C-spne TECHNIQUE: Imaging protocol: Computed tomography of the cervical spine without contrast. Radiation optimization: All CT scans at this facility use at least one of these dose optimization techniques: automated exposure control; mA and/or kV adjustment per patient size (includes targeted exams where dose is matched to clinical indication); or iterative reconstruction. COMPARISON: CR XR PORTABLE CHEST AP 02/23/2021 6:34 AM FINDINGS: Bones/joints: Anterior plate fusion C5-C7. Interbody fusion at C5-C6. Degenerative fusion of C3-C4 and C4-C5. Grade 1 anterolisthesis C2-C3. This is likely secondary to facet joint space narrowing that is severe. Reversal of the normal lordotic curvature C2-C5. Moderate spinal stenosis at these levels. Moderate to severe C3-C4 neural foraminal narrowing. No acute fracture. Lungs: No consolidations. Centrilobular emphysematous changes. Soft tissues: Unremarkable. IMPRESSION: 1. No acute findings. 2. Severe spondylosis of the cervical spine. Dictated and Authenticated by: Fernando Alanis MD. Ordering:REGINA Franklin MD
== END 2023-04-21 11:51 | disposition home or self-care (01) ==
PROVIDERS: Emergency Provider Physician Assistant; PCP Nurse Practitioner Family
DX: S01.112A Laceration without foreign body of left eyelid and periocular area, initial encounter (principal); S20.212A Contusion of left front wall of thorax, initial encounter; M50.30 Other cervical disc degeneration, unspecified cervical region; I10 Essential (primary) hypertension; Z79.899 Other long term (current) drug therapy; Z87.891 Personal history of nicotine dependence; W18.39XA Other fall on same level, initial encounter; Y93.89 Activity, other specified; Y92.89 Other specified places as the place of occurrence of the external cause; Y99.9 Unspecified external cause status
CPT/HCPCS: 36415; 80053; 90472; 93005; 99284; 70450; 70486; 71046; 72125; 73502; 84484; 85025; 93010

== ENCOUNTER → 2023-04-23 10:24 | Outpatient (BNVA) | payer MEDICARE, SELFPAY | PROVIDERS: PCP Nurse Practitioner Family; Referring Provider Nurse Practitioner Family; Visit Provider Student in an Organized Health Care Education/Training Program | DX: D64.9 Anemia, unspecified (principal); Z87.11 Personal history of peptic ulcer disease | CPT/HCPCS: 99215 ==

== ENCOUNTER 2023-04-23 12:26 | Outpatient (RCR) | payer MEDICARE, SELFPAY ==
[2023-04-23] MEDS: Normal Saline Flush 10 ML SYR IVP (12:33)
[2023-04-23 14:50] VITALS: BP 95/59; PULSE 77; RESP 17; TEMP 36.6; O2SAT 97
[2023-04-23 15:05] VITALS: BP 115/73; PULSE 74; RESP 20; TEMP 36.7; O2SAT 97
[2023-04-23 15:33] VITALS: BP 115/73; PULSE 74; RESP 20; TEMP 36.7; O2SAT 98
[2023-04-23 16:00] VITALS: BP 137/79; PULSE 73; RESP 20; TEMP 36.6; O2SAT 98
[2023-04-23 16:38] VITALS: BP 136/75; PULSE 78; RESP 20; TEMP 36.6; O2SAT 98
== END 2023-05-02 23:59 | disposition home or self-care (01) ==
LOC: INF 12:26
PROVIDERS: PCP Nurse Practitioner Family; Visit Provider Surgery
DX: D64.9 Anemia, unspecified (principal)
CPT/HCPCS: 36415; 36430; 86850; 86900; 86901; 86920; 86870; P9016

== ENCOUNTER 2023-04-24 08:28 | Day surgery (SDC) | payer MEDICARE, SELFPAY ==
[2023-04-24 09:04] VITALS: BP 119/79; PULSE 71; RESP 20; TEMP 36.3; O2SAT 97
--- NOTE | 2023-04-24 09:27 | ANES.PREOP_ITS ---
General Info Date of Service Date Performed: 04/24/23 Height: 5 ft 10 in Weight: 52.3 kg Body Mass Index (BMI): 16.5 Surgical Procedure: Operation Date: 04/24/23 09:50 Proposed Procedure Side Surgeon p Gastroscopy Chilango Hudson MD Meds Allergies and Home Medications Allergies Allergy/AdvReac Type Severity Reaction Status Date / Time NSAIDS (Non-Steroidal AdvReac Severe hx of Unverified 04/24/23 08:55 Anti-Inflamma bleeding ulcer shellfish derived AdvReac Intermediate vomiting, Verified 04/24/23 08:55 GI upset meloxicam AdvReac caused Verified 04/24/23 08:55 bleeding ulcer; pt avoids all NSAIDS Home Medication Medication Instructions Recorded hydrochlorothiazide 25 mg tablet 25 mg PO DAILY 08/16/20 potassium chloride 10 mEq 10 meq PO DAILY 08/16/20 capsule,extended release vitamin B complex (B 1 tab PO DAILY 08/30/20 Complex-Vitamin B12 tablet) carvedilol 3.125 mg tablet 3.125 mg PO BID 03/13/21 ipratropium 0.5 mg-albuterol 3 mg 3 ml inhalation Q6H PRN 03/13/21 (2.5 mg base)/3 mL nebulization soln acetaminophen 500 mg tablet 1,000 mg PO Q8H PRN pain #90 tabs 06/27/21 echinacea 500 mg capsule 500 mg PO BID 08/28/21 methylsulfonylmethane 1,000 mg 1,000 mg PO DAILY 08/28/21 capsule (MSM) pantoprazole 40 mg tablet,delayed 40 mg PO BID 08/28/21 release (Protonix) cholecalciferol (vitamin D3) 125 125 mcg PO DAILY 09/25/21 mcg (5,000 unit) capsule albuterol sulfate 90 mcg/actuation 2 puff inhalation Q6H PRN 03/22/22 aerosol inhaler (ProAir HFA) sertraline 25 mg tablet 25 mg PO DAILY 04/21/23 zolpidem 10 mg tablet 10 mg PO PRN PRN 04/21/23 fluticasone propionate 115 2 puff inhalation BID 04/23/23 mcg-salmeterol 21 mcg/actuation HFA inhaler (Advair HFA) Current Visit Medications: Current Medications Generic Name Dose Route Start Last Admin Trade Name Freq PRN Reason Stop Dose Admin Ringer's Solution 1,000 mls @ 75 mls/hr 04/24/23 09:26 IV 05/24/23 09:25 INFUSION GLENN Sodium Chloride 500 mls @ 0 mls/hr 04/24/23 09:26 Saline 500ml Bag IV 05/24/23 09:25 PRN PRN As Directed IV Miscellaneous Supplies 1 each 04/24/23 09:26 Iv Access IV 05/24/23 09:25 DIRECTED GLENN Sodium Chloride 0 ml 04/24/23 09:26 Normal Saline Flush 10 Ml Syr IVP 05/24/23 09:25 PRN PRN PFSH Active Problems Active Problems: Problem Status Onset Code Osteoarthritis of right knee M17.11 COPD (chronic obstructive pulmonary disease) J44.9 Fecal retention K59.00 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 Lumbosacral spondylosis without myelopathy M47.817 Anemia D64.9 Chest pain R07.9 Head injury S09.90XA Anemia D64.9 Fall W19.XXXA Eyebrow laceration S01.119A Chest wall contusion S20.219A Acute hyponatremia E87.1 Hypokalemia E87.6 History of gastrointestinal bleeding Z87.19 Iron deficiency E61.1 Medical History Medical History Alcohol abuse Currently he is not drinking daily Anosmia Back pain Balance problem uses cane Bilateral inguinal hernia without obstruction or gangrene Bleeding duodenal ulcer Cataracts, bilateral Chest discomfort no chest pain pressure or concerns at time of assessment Chronic back pain Chronic GERD Chronic iron deficiency anemia Chronic pain Diarrhea Discharge planning issues DVT prophylaxis Dysphagia Emphysema, unspecified Exertional dyspnea Folate deficiency anemia Gastritis H/O skin pruritus Herniated lumbar intervertebral disc Hip pain, left History of bleeding peptic ulcer History of traumatic fracture of vertebra HTN (hypertension) Hx of squamous cell carcinoma Inguinal hernia, bilateral Insomnia Knee pain, bilateral Leg swelling Lower back pain Osteoarthritis of left knee Steroid injection: 08/15/2020 s/p left TKA Osteoarthritis of lumbar spine PUD (peptic ulcer disease) Sleep disturbance Spondylosis of lumbar spine Spondylosis, cervical Symptomatic anemia Syncope Tobacco dependence in remission Unintentional weight loss Vitamin D deficiency Medical History Comments:: THC a few months ago Surgical History Surgical History 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) DOS 06/27/21 Hx of abdominal surgery Status post percutaneous coil/embolization of posterior duodenal artery for bleeding duodenal ulcer Hx of esophagogastroduodenoscopy Nuclear sclerotic cataract of left eye Nuclear sclerotic cataract of right eye Posterior subcapsular age-related cataract of left eye Posterior subcapsular age-related cataract, right eye S/P bilateral inguinal hernia repair (~02/13/22) S/P cervical spinal fusion S/P laminectomy Tobacco Smoking/Tobacco Use Status: Former Tobacco Use Alcohol Alcohol Intake: current Alcohol intake frequency: 0-2 drinks per day Alcohol type: beer and hard liquor Substance Use Substance use: Occasionally Substance use type: marijuana Details: pt. reports a beer nightly Vital Signs and Lab Results Vital Signs Most Recent Vital Signs in EMR: Most Recent Vital Signs Temp Pulse Resp BP Pulse Ox 36.3 C L 71 20 119/79 97 04/24/23 09:04 04/24/23 09:04 04/24/23 09:04 04/24/23 09:04 04/24/23 09:04 Lab Results Blood Type / Crossmatch: Patient ABO/Rh A Positive 04/23/23 Antibody Screen POSITIVE 04/23/23 Crossmatch See Detail 04/23/23 Complete Blood Count: White Blood Count 8.82 10^3/uL (4.4-10.8) 04/21/23 09:24 Red Blood Count 3.01 10^6/uL (4.36-5.78) L 04/21/23 09:24 Hemoglobin 7.7 g/dL (13.5-17.5) L 04/21/23 09:24 Hematocrit 24.1 % (40.0-50.0) L 04/21/23 09:24 Platelet Count 531 10^3/uL (130-400) H 04/21/23 09:24 Complete Metabolic Panel: Sodium 131 mmol/L (136-145) L 04/21/23 09:24 Potassium 3.4 mmol/L (3.5-5.1) L 04/21/23 09:24 Chloride 93 mmol/L (98-107) L 04/21/23 09:24 Carbon Dioxide 27.0 mmol/L (21.0-32.0) 04/21/23 09:24 BUN 10 mg/dL (7-18) 04/21/23 09:24 Creatinine 0.7 mg/dL (0.70-1.30) 04/21/23 09:24 Est GFR (CKD-EPI 2020) 91.42 (mL/min/1.73m2) 04/21/23 09:24 Calcium 9.1 mg/dL (8.5-10.1) 04/21/23 09:24 Albumin 3.2 g/dL (3.4-5.0) L 04/21/23 09:24 Glucose 111 mg/dL (74-106) H 04/21/23 09:24 Liver Function Panel: Alanine Aminotransferase (ALT/SGPT) 12 U/L (16-63) L 04/21/23 0 9:24 Aspartate Amino Transf (AST/SGOT) 17 U/L (15-37) 04/21/23 09:24 Coagulation Panel: No Data to Display Cardiac Panel: Troponin I < 50 ng/L (<or=60) 04/21/23 Arterial Blood Gas: No Data to Display Venous Blood Gas: No Data to Display Pancreas Panel: No Data to Display Thyroid Panel: No Data to Display Infectious Disease: No Data to Display Blood Cultures: No Data to Display Toxicology Panel: No Data to Display Imaging and Studies Imaging and Studies Study information below may be from another EMR and interpreted by another deng thomas. Please see original notes in EMR for more complete details. EKG Summary: Sinus tachycardia.. ST depr anterolateral leads, may be rate related Echocardiogram Summary: Normal left ventricular wall thickness and chamber size. Estimated ejection fraction is 60 to 65%. Wall motion is normal Normal right ventricular size and systolic function Both atria are normal in size The aortic valve is trileaflet and sclerotic without stenosis or regurgitation Mitral annular calcification. Trace mitral regurgitation Normal tricuspid valve with trace regurgitation. Estimated right ventricular systolic pressure is 39 mmHg Normal pulmonic valve with trace regurgitation Mildly dilated ascending aorta measuring 3.68 cm Anesthesia Assessment and Plan Anesthesia History Personal History: No History of Anesthesia Complications Family History: No Family History of Anesthesia Complications Exercise Tolerance Exercise Tolerance: Metabolic Equivalents>4 Pertinent Negatives Pertinent Negatives: No Symptoms of GERD and No Major Cardiovascular Symptoms or Complaints Cardiac & Pulmonary Exam Cardiac Exam: Normal S1/S2 Heart Sounds Pulmonary Exam: Clear Bilateral Breath Sounds Implantable Cardiac Device Does patient have a Pacemaker or an ICD?: No Airway Exam Known Difficult Airway: No Mallampati Class: 1 Mouth Opening: Normal (> 3cm) Thyromental Distance: Greater than 3 cm Neck Range of Motion: Full ROM and Known Cervical Instability or radiculopathy Neck Circumference: Normal Teeth Condition: Normal Dentition ASA Classification ASA Score: ASA 3 Emergency Case?: No NPO Status NPO Status: NPO Clears >2 hours, Solids >8 hours Anesthesia Plan Resuscitation Status: Full Code Anesthesia Technique: General Anesthesia Airway Planned: Natural Airway Monitors Used: Standard Monitors
[2023-04-24] MEDS: Lactated Ringers 1,000 ML 75 ML IV (09:31)
--- NOTE | 2023-04-24 10:20 | STOM_PTH ---
PATIENT: Mike Jorgensen LOC: [facility] U#:[id number] AGE/SX: 83/M ROOM: RE04/24/[address]: Chilango Hudson : 1940 BED: DIS: 04/24/2023 SPEC #: [id number] RECD: 04/24/23 13:06 STATUS: [facility] RE #: [id number] CATHY: 04/24/23 10:[address]: Chilango Hudson DEPT: Surgical Specimen RECD BY: Noemi Pulido ENTERED: 04/24/23 13:06 SP TYPE: STOMACH OTHR DR: LUCHO CASTELLON Tissues: 1 - STOMACH BIOPSY Procedures: GROSS AND MICRO LEVEL 4 Comments: [id number]
--- NOTE | 2023-04-24 10:30 | W.PM.ENDDOP ---
Date of service: 04/24/23 Time of Service: 10:30 Endoscopy Report PROCEDURE DESCRIPTION: Procedures performed: 1.? Esophagogastroduodenoscopy with cold forceps biopsies Preoperative diagnosis: Anemia, history of ulcer Postoperative diagnosis: Normal foregut Surgeon: Irene Hudson Anesthesia: Batool Indication for procedure: 83-year-old man has a relatively recent history(within the last 2 years) of large duodenal blub ulceration that required multiple EGDs, multiple transfusions and even transfer to a tertiary center for definitive management which included clipping and injection. I do not see any chart evidence that he needed embolization. He is now acutely anemic again but this time, he has not seen any blood or melena and has no abdominal discomfort symptoms. He was transfused 1 unit of blood yesterday because of dizziness that led to a fall and his hemoglobin was found to be 7.7. Findings: - D3, D2 and D1 - normal - No inflammation. No coffee grounds or stigmata of recent bleeding. No recurrent ulcer in the bulb or anywhere else in D2/D3. There is no inflammation. - Pylorus - patent.? No bile reflux visualized during procedure. - Antrum -Looks completely normal. No inflammation, no ulceration, no erosions. - biopsies taken to rule out occult H. pylori - Stomach Body -normal - Fundus -? Normal.? - Hiatus - Retroflexion shows normal hiatus. - Esophagus - Distal esophagus is not inflamed.? No stricture, lesions or evidence of Foster's.? The mid and proximal esophagus was also normal. (Proximal esophagus is quite tight subjectively at the level of the cricopharyngeus but no disease/pathology/inflammation encountered) - Cords/hypopharynx - Normal OVERALL - nothing found/seen which would explain acute anemia. Surveillance/follow-up recommendations: Doesn't need a repeat EGD. A colonoscopy should probably be considered. I do not think he has ever had one(I will follow-up on this). Should otherwise followup with PCP and/or hematology to assess other anemia etiologies. Complications: None Blood loss: Minimal/scant Specimens:? YES Procedure in detail: Written consent was obtained from the patient who was in agreement with the risks, benefits and indications of the procedure.? We went to the endoscopy suite and laid the patient in left lateral decubitus position.? Anesthesia was administered which was tolerated well.? A timeout was performed and when we are all in agreement we began the procedure. A well?lubricated endoscope was advanced without difficulty down the esophagus, into the stomach, through a patent pylorus and into the duodenum.? It was then slowly pulled back with findings noted above. The scope was then removed and the patient tolerated the procedure well and then taken to the PACU in hemodynamically stable condition.
[2023-04-24 10:35] VITALS: BP 119/69; PULSE 75; RESP 20; TEMP 36.2; O2SAT 97
--- NOTE | 2023-04-24 10:42 | PDOC.DSDIS_ITS ---
Date of service: 04/24/23 Time of Service: 10:42 Discharge Plan Disposition Patient Disposition: Home Condition: Good Discharge Details Attending Provider: Chilango Hudson Primary Care Provider: Seema Griffith Home Meds and New Rx's Prescriptions: No Action carvedilol 3.125 mg tablet 3.125 mg PO BID Rx Instructions: must administer with a meal/food ipratropium-albuterol 0.5 mg-3 mg(2.5 mg base)/3 mL solution for nebulization 3 ml inhalation Q6H PRN Rx Instructions: take 0.5mg by neb 4 times daily albuterol sulfate [ProAir HFA] 90 mcg/actuation HFA aerosol inhaler 2 puff inhalation Q6H PRN fluticasone propion-salmeterol [Advair HFA] 115-21 mcg/actuation HFA aerosol inhaler 2 puff inhalation BID vitamin B complex [B Complex-Vitamin B12] Tablet 1 tab PO DAILY cholecalciferol (vitamin D3) 125 mcg (5,000 unit) capsule 125 mcg PO DAILY potassium chloride 10 mEq capsule, extended release 10 meq PO DAILY hydrochlorothiazide 25 mg tablet 25 mg PO DAILY pantoprazole [Protonix] 40 mg tablet,delayed release (DR/EC) 40 mg PO BID echinacea 500 mg capsule 500 mg PO BID Rx Instructions: administer with meals MSM 1,000 mg capsule 1,000 mg PO DAILY acetaminophen 500 mg tablet 1,000 mg PO Q8H PRN (Reason: pain) Qty: 90 3RF sertraline 25 mg tablet 25 mg PO DAILY Patient Comments: TAKE 1 TABLET BY MOUTH EVERY MORNING FOR DEPRESSION zolpidem 10 mg tablet 10 mg PO PRN PRN Patient Comments: Take 0.5- 1 tablet by mouth at bedtime as needed Discharge Instructions Activity:: Activity as Tolerated Diet:: As Tolerated DS: Diagnosis Discharge Diagnosis (1) Anemia: Status: Chronic Asessment and Plan: Your esophagus, stomach and duodenum all looked normal and essentially perfect. Nothing was inflamed or irritated. There was certainly no ulceration and no evidence of anything that may have been bleeding. This was an essentially completely normal examination. You can be confident that your anemia has nothing to do with an ulcer and that whatever lifestyle changes you have made have been/are extremely effective. You probably need to consider a colonoscopy if you have not had one done in the last 3-5 years. If you need to have one done, please contact the [facility] surgery office for scheduling. Separately, you should followup with your PCP and discuss the role for seeing a technical aid if no other answers for the anemia can be found. There are many causes for anemia.
[2023-04-24 10:45] VITALS: BMI 16.5
[2023-04-24 11:09] VITALS: BP 121/63; PULSE 72; RESP 20; TEMP 36.2; O2SAT 97
--- NOTE | 2023-04-24 14:46 | W.ANESPOSTOP ---
Postoperative Evaluation Date, Time and Location Date Performed: 04/24/23 Time Performed: 11:10 Patient Location: Day Surgery Unit Vital Signs Most Recent Imported Vital Signs: Most Recent Vital Signs Temp Pulse Resp BP Pulse Ox 36.2 C L 72 20 121/63 97 04/24/23 11:09 04/24/23 11:09 04/24/23 11:09 04/24/23 11:09 04/24/23 11:09 Pain Score Most Recent Pain Score: Most Recent Pain Score Pain Level 0 04/24/23 11:09 Assessment Mental Status: Awake (Alert & Oriented to Patient Baseline) Airway and Respiratory Function: Patent airway with normal (patient baseline) respiratory exam Cardiovascular Function: Hemodynamically Stable Hydration Status: Adequately Hydrated Nausea & Vomiting: No Nausea or Vomiting Pain: Pain is tolerable per patient (Reports oral medication is working well, now reports pain /10) Peripheral Nerve Block: Patient did not receive a nerve block
== END 2023-04-24 11:40 | disposition home or self-care (01) ==
PROVIDERS: PCP Nurse Practitioner Family; Visit Provider Student in an Organized Health Care Education/Training Program
PROC: 0DJ68ZZ Inspection of Stomach, Via Natural or Artificial Opening Endoscopic (ICD-10-PCS; CPT 43235; principal; 2023-04-24 09:45)
DX: D64.9 Anemia, unspecified (principal); Z87.11 Personal history of peptic ulcer disease; K31.9 Disease of stomach and duodenum, unspecified
CPT/HCPCS: 43235; 88305; J2704

== ENCOUNTER 2023-05-23 21:23 | Outpatient (REF) | payer MEDICARE, SELFPAY ==
[2023-05-23 15:47] LABS: Abs Immature Grans 0.06 10^3/uL (0.0-0.06); Absolute Basophil Count 0.03 10^3/uL (0.0-0.2); Absolute Eosinophil Count 0.03 10^3/uL (0.0-0.7); Absolute Lymphocyte Count 1.12 10^3/uL (1.2-3.4); Absolute Monocyte Count 1.28 10^3/uL (0.1-0.8); Absolute Neutrophil Count 10.66 10^3/uL (1.2-6.7); Basophils % 0.2; Eosinophils % 0.2; HGB 8.6 g/dL (13.5-17.5); Immature Grans % 0.5; Lymphocytes % 8.5; MCH 26.2 pg (27.0-33.0); MCHC 33.1 % (32.0-36.0); MCV 79 fL (80-95); MPV 9.3 fL (8.0-11.0); Monocytes % 9.7; Neutrophils % 80.9; Platelet Count 508 10^3/uL (130-400); RBC 3.28 10^6/uL (4.36-5.78); RDW 19.3 % (11.8-14.1); RDW-SD 55.8 fL; WBC 13.18 10^3/uL (4.4-10.8)
[2023-05-23 16:17] LABS: ALT 15 U/L (16-63); AST 18 U/L (15-37); Alkaline Phosphatase 84 U/L (46-116); Anion Gap 9.6 mmol/L (3-11); BUN 14 mg/dL (7-18); Bilirubin, Total 0.2 mg/dL (0.2-1.0); CO2 26.4 mmol/L (21.0-32.0); CREATININE 0.7 mg/dL (0.70-1.30); Calcium 8.9 mg/dL (8.5-10.1); Chloride 92 mmol/L (98-107); Estimated GFR 91.42 (mL/min/1.73m2); Glucose 111 mg/dL (74-106); Potassium 3.5 mmol/L (3.5-5.1); Sodium 128 mmol/L (136-145)
== END 2023-05-23 21:24 | disposition home or self-care (01) ==
LOC: NCHCN 21:23
PROVIDERS: PCP Nurse Practitioner Family; Visit Provider Nurse Practitioner Family
DX: D64.9 Anemia, unspecified (principal); E61.1 Iron deficiency; I10 Essential (primary) hypertension
CPT/HCPCS: 80053; 85025

== ENCOUNTER 2023-05-27 10:01 | Inpatient (IN) | payer MEDICARE, SELFPAY ==
[2023-05-27] VITALS (32 sets, daily range): BP systolic 102–154; BP diastolic 56–99; PULSE 83–118; RESP 1–29; TEMP 36.1–37.3; O2SAT 92–97
--- NOTE | 2023-05-27 10:15 | RT.EKG_ITS ---
APPROVED REPORT Exam: Resting ECG Reason for Exam: weakness Patient Location: E HR:105 bpm ECG Measurements Heart Rate 105 AXIS CA 213 P 84 QRSd 98 QRS 77 QT 335 T 57 QTc 443 Conclusion Sinus tachycardia...rate> [address] depression, anterolateral leads...ST <-0.07mV, I aVL V2-V6 Narrow complex sinus tachycardia at a rate of 105. Normal axis. First-degree AV block. Compared to prior dated last month first-degree AV block is new as a sinus tachycardia. ST segment depressions V3 through V6. No ST segment elevation.
[2023-05-27] MEDS: Albuterol/Ipratropium 3 ML UPD VIAL UPD (10:45)
[2023-05-27] MEDS: Lactated Ringers 1,000 ML 1000 ML IV (10:54)
[2023-05-27 11:09] LABS: Abs Immature Grans 0.19 10^3/uL (0.0-0.06); Absolute Basophil Count 0.05 10^3/uL (0.0-0.2); Absolute Eosinophil Count 0.09 10^3/uL (0.0-0.7); Absolute Neutrophil Count 20.87 10^3/uL (1.2-6.7); Basophils % 0.2; Eosinophils % 0.4; HCT 26.5 % (40.0-50.0); HGB 8.6 g/dL (13.5-17.5); Immature Grans % 0.8; Lymphocytes % 1.8; MCH 25.1 pg (27.0-33.0); MCHC 32.5 % (32.0-36.0); MCV 78 fL (80-95); MPV 9.2 fL (8.0-11.0); Monocytes % 7.5; Neutrophils % 89.3; Platelet Count 458 10^3/uL (130-400); RBC 3.42 10^6/uL (4.36-5.78); RDW 19.3 % (11.8-14.1); RDW-SD 53.8 fL; WBC 23.37 10^3/uL (4.4-10.8)
[2023-05-27 11:11] LABS: Lactate 1.1 mmol/L (0.6-1.4)
[2023-05-27 11:12] LABS: Absolute Lymphocyte Count 0.42 10^3/uL (1.2-3.4); Absolute Monocyte Count 1.75 10^3/uL (0.1-0.8)
[2023-05-27 11:14] LABS: COVID-19 PCR Negative (Negative); Influenza A PCR Negative (Negative); Influenza B PCR Negative (Negative); RSV PCR Negative (Negative)
[2023-05-27 11:20] LABS: Diff Comment Diff Reviewed; RBC Morphology Normal
[2023-05-27 11:26] LABS: Source Nasopharynx
--- NOTE | 2023-05-27 11:30 | DI.RAD_ITS ---
Exam(s) XR CHEST 2V PA LATERAL EXAM: XR CHEST 2V PA LATERAL CLINICAL HISTORY: fever, shortness of breath. TECHNIQUE: 2D digital imaging was performed. COMPARISON: CR,XR XR CHEST 2V PA LATERAL from 04/21/2023 FINDINGS: 2 views: COPD again noted. Large area of infiltrate in the right upper lobe now evident. Also involving righ t middle lobe. Vertical line in the left hemithorax is most probably artifact as there appear to be lung markings la teral to this line and therefore doubtful for pneumothorax. There are no pleural effusions. Heart size is normal. Slight elevation left hemidiaphragm is unchanged. Nasal oxygen noted. Fusion plate in the lower cervical spine again noted. IMPRESSION: Prominent infiltrate in the right lung predominantly in the right upper lobe but also appearing to in volve the right middle lobe. No obvious pleural effusions. DATA REPOSITORY: RADIATION DOSE DELIVERED:
[2023-05-27 11:41] LABS: Lipase < 10 U/L (16-77); TSH (W/Ref FT4) 1.07 uIU/mL (0.36-3.74)
[2023-05-27 11:56] LABS: Procalcitonin 2.4 ng/mL
[2023-05-27] MEDS: cefTRIAXone 2 GM/50 ML BAG IVPB (11:58)
[2023-05-27] MEDS: DOXYCYCLINE 100 MG in Normal Saline 100 ML IVPB (11:58)
[2023-05-27] MEDS: Normal Saline 500 ML 1000 ML IV (11:58)
[2023-05-27 12:44] LABS: ALT 17 U/L (16-63); AST 26 U/L (15-37); Albumin 2.5 g/dL (3.4-5.0); Alkaline Phosphatase 90 U/L (46-116); Anion Gap 11.3 mmol/L (3-11); BUN 20 mg/dL (7-18); Bilirubin, Total 0.8 mg/dL (0.2-1.0); CO2 26.7 mmol/L (21.0-32.0); CREATININE 0.7 mg/dL (0.70-1.30); Calcium 9.2 mg/dL (8.5-10.1); Chloride 89 mmol/L (98-107); Estimated GFR 91.42 (mL/min/1.73m2); Glucose 126 mg/dL (74-106); Sodium 127 mmol/L (136-145); Total Protein 7.1 g/dL (6.4-8.2); Troponin I < 50 ng/L (<or=60)
[2023-05-27 12:46] LABS: Potassium 2.8 mmol/L (3.5-5.1)
[2023-05-27] MEDS: Potassium Chloride 20 MEQ TABCR 40 MEQ PO (12:55)
--- NOTE | 2023-05-27 13:09 | HPE_ITS ---
Date of service: 05/27/23 Time of Service: 13:09 Assessment and Plan Assessment and plan (1) Community acquired pneumonia: Status: Acute Assessment and plan: right upper and middle lobes. continue doxycycline and ceftriaxone day 1 given steroids for suspected copd exac legionella and strep pneumo pending, along with blood cultures. wean oxygen as able. scheduled duonebs, mucinex acapella, (2) COPD exacerbation: Status: Acute Assessment and plan: see above. (3) Hypokalemia: Status: Acute Assessment and plan: replete and follow received 40 meq po in ED, will add IV orders to IV fluids and given overnight at 80 cc/hr poor po intake and on bid PPI (4) History of bleeding peptic ulcer: Status: Acute Assessment and plan: hemoglobin 8.6, which appears baseline. continue bid PPI and monitor for bleeding, hematest stool. dvt prophylaxis--enoxaparin 30 mg daily, monitor for bleeding and consider non- pharm dvt prophylaxis if hemoglobin drops discussed with DR Kan History of Present Illness Narrative: This 83-year-old male with history of anemia, COPD, hypertension GERD presents with report of shortness of breath and weakness for the past 5 days.? Has had chills, denies known fever.? Denies any shortness of breath, per EMS was hypoxic 86 to 87% and states profoundly weak, unable to ambulate.? Denies fall today. work up in the ED shows community acquired pneumonia and suspected copd exacerbation. she was started on ceftriaxone and doxycycline along with steroids. she will be admitted to med/surg for further management. covid/influenza/rsv negative. Review of Systems All systems reviewed & are unremarkable except as noted in HPI and below PFSH All Active Problems (Updated 05/27/23 @ 17:49 by Leonor Coon NP) History of bleeding peptic ulcer (Acute) Hypokalemia (Acute) COPD exacerbation (Acute) Community acquired pneumonia (Acute) Osteoarthritis of right knee (Acute) Steroid injection: 08/15/2020; 09/25/21; 02/19/2022; 06/28/22 COPD (chronic obstructive pulmonary disease) (Chronic) Fecal retention (Acute) Superior mesenteric artery stenosis (Acute) Lumbosacral spondylosis without myelopathy (Acute) Anemia (Chronic) Chest pain (Acute) History of gastrointestinal bleeding (Acute) Iron deficiency (Acute) Medical History (Updated 05/27/23 @ 17:49 by Leonor Coon NP) Alcohol abuse Currently he is not drinking daily Anosmia Back pain Balance problem uses cane Bilateral inguinal hernia without obstruction or gangrene Bleeding duodenal ulcer Cataracts, bilateral Chest discomfort no chest pain pressure or concerns at time of assessment Chronic back pain Chronic GERD Chronic iron deficiency anemia Chronic pain Diarrhea Discharge planning issues DVT prophylaxis Dysphagia Emphysema, unspecified Exertional dyspnea Folate deficiency anemia Gastritis H/O skin pruritus Herniated lumbar intervertebral disc Hip pain, left History of traumatic fracture of vertebra HTN (hypertension) Hx of squamous cell carcinoma Inguinal hernia, bilateral Insomnia Knee pain, bilateral Leg swelling Lower back pain Osteoarthritis of left knee Steroid injection: 08/15/2020 s/p left TKA Osteoarthritis of lumbar spine PUD (peptic ulcer disease) Sleep disturbance Spondylosis of lumbar spine Spondylosis, cervical Symptomatic anemia Syncope Tobacco dependence in remission Unintentional weight loss Vitamin D deficiency Surgical History (Updated 04/24/23 @ 15:03 by Lilia Blanco) 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) DOS 06/27/21 Hx of abdominal surgery Status post percutaneous coil/embolization of posterior duodenal artery for bleeding duodenal ulcer Hx of esophagogastroduodenoscopy (~04/2023) Nuclear sclerotic cataract of left eye Nuclear sclerotic cataract of right eye Posterior subcapsular age-related cataract of left eye Posterior subcapsular age-related cataract, right eye S/P bilateral inguinal hernia repair (~02/13/22) S/P cervical spinal fusion S/P laminectomy Social History Smoking/Tobacco Use Status: Former Tobacco Use Quit Date: 09/02/18 Smoking risk assessment performed?: Yes Alcohol Intake: current Alcohol Intake frequency: 0-2 drinks per day Alcohol type: beer and hard liquor Drug use: Occasionally Substance use type: marijuana Details: pt. reports a beer nightly Household members: spouse Housing: house Number of Children: 1 current occupation: Retired Current gender identity: male Do you feel safe at home: Yes Do you feel safe in your relationship?: Yes Meds Allergies and Home Medications Allergies Allergy/AdvReac Type Severity Reaction Status Date / Time NSAIDS (Non-Steroidal AdvReac Severe hx of Unverified 05/27/23 14:32 Anti-Inflamma bleeding ulcer shellfish derived AdvReac Intermediate vomiting, Verified 05/27/23 14:32 GI upset meloxicam AdvReac caused Verified 05/27/23 14:32 bleeding ulcer; pt avoids all NSAIDS Home Medications Medication Instructions Recorded Confirmed Type hydrochlorothiazide 25 mg tablet 25 mg PO DAILY 08/16/20 05/27/23 History potassium chloride 10 mEq 10 meq PO DAILY 08/16/20 05/27/23 History capsule,extended release vitamin B complex (B 1 tab PO DAILY 08/30/20 05/27/23 History Complex-Vitamin B12 tablet) carvedilol 3.125 mg tablet 3.125 mg PO BID 03/13/21 05/27/23 History ipratropium 0.5 mg-albuterol 3 mg 3 ml inhalation Q6H PRN 03/13/21 05/27/23 History (2.5 mg base)/3 mL nebulization soln acetaminophen 500 mg tablet 1,000 mg PO Q8H PRN pain #90 tabs 06/27/21 05/27/23 Rx echinacea 500 mg capsule 500 mg PO BID 08/28/21 05/27/23 History methylsulfonylmethane 1,000 mg 1,000 mg PO DAILY 08/28/21 05/27/23 History capsule (MSM) pantoprazole 40 mg tablet,delayed 40 mg PO BID 08/28/21 05/27/23 History release (Protonix) cholecalciferol (vitamin D3) 125 125 mcg PO DAILY 09/25/21 05/27/23 History mcg (5,000 unit) capsule albuterol sulfate 90 mcg/actuation 2 puff inhalation Q6H PRN 03/22/22 05/27/23 History aerosol inhaler (ProAir HFA) sertraline 25 mg tablet 25 mg PO DAILY 04/21/23 05/27/23 History zolpidem 10 mg tablet 10 mg PO PRN PRN 04/21/23 05/27/23 History fluticasone propionate 115 2 puff inhalation BID 04/23/23 05/27/23 History mcg-salmeterol 21 mcg/actuation HFA inhaler (Advair HFA) Exam Const General: frail appearing and ill appearing acutely and chronically Nutritional Appearance: cachectic Orientation: alert, awake, oriented to person and oriented to place [facility] Head: normal to inspection Mouth: moist mucous membranes abnormal (slightly dry) Chest Chest: normal inspection of the chest Resp Auscultation: diminished lung sounds, rhonchi right upper and wheezes expiratory wheezes (scattered) Cardio Rate: regular rate Rhythm: regular rhythm GI Palpation: soft and nontender Skin Lesions: lesion noted (coccyx) Neuro General: patient alert and patient awake Extrem General: normal to inspection, full ROM and no pedal edema Results Labs 05/27/23 10:55 05/27/23 10:55 Labs: Laboratory Results - last 24 hr 05/27/23 05/27/23 05/27/23 10:23 10:30 10:55 WBC RBC Hgb Hct MCV MCH MCHC RDW Plt Count MPV Immature Gran % Neutrophils % Lymphocytes % Monocytes % Eosinophils % Basophils % Nucleated RBC % Absolute Neutrophils Absolute Lymphocytes Absolute Monocytes Absolute Eosinophils Absolute Basophils RBC Morphology VBG Lactate Sodium 127 L Potassium 2.8 L* Chloride 89 L Carbon Dioxide 26.7 Anion Gap 11.3 H BUN 20 H Creatinine 0.7 Est GFR (CKD-EPI 2020) 91.42 Glucose 126 H Calcium 9.2 Total Bilirubin 0.8 AST 26 ALT 17 Alkaline Phosphatase 90 Troponin I < 50 Total Protein 7.1 Albumin 2.5 L Lipase < 10 L Procalcitonin TSH 1.07 COVID-19 Source Nasopharynx SARS-CoV-2 (PCR) Negative Influenza Type A (PCR) Negative Influenza Type B (PCR) Negative RSV (PCR) Negative 05/27/23 05/27/23 10:55 10:55 WBC 23.37 H RBC 3.42 L Hgb 8.6 L Hct 26.5 L MCV 78 L MCH 25.1 L MCHC 32.5 RDW 19.3 H Plt Count 458 H MPV 9.2 Immature Gran % 0.8 Neutrophils % 89.3 Lymphocytes % 1.8 Monocytes % 7.5 Eosinophils % 0.4 Basophils % 0.2 Nucleated RBC % 0.0 Absolute Neutrophils 20.87 H Absolute Lymphocytes 0.42 L Absolute Monocytes 1.75 H Absolute Eosinophils 0.09 Absolute Basophils 0.05 RBC Morphology Normal VBG Lactate 1.1 Sodium Potassium Chloride Carbon Dioxide Anion Gap BUN Creatinine Est GFR (CKD-EPI 2020) Glucose Calcium Total Bilirubin AST ALT Alkaline Phosphatase Troponin I Total Protein Albumin Lipase Procalcitonin 2.4 TSH COVID-19 Source SARS-CoV-2 (PCR) Influenza Type A (PCR) Influenza Type B (PCR) RSV (PCR) Last Vital Signs Temp 37.3 C 05/27/23 10:08 Pulse 118 H 05/27/23 10:08 Resp 29 H 05/27/23 10:12 BP 139/68 05/27/23 10:08 Pulse Ox 92 05/27/23 10:08 PAWSS Have you Been Recently Intoxicated or Drunk Within the Last 30 days?: No Have you Ever Experienced Previous Episodes of Alcohol Withdrawal?: No Have you ever Experienced Withdrawal Seizures?: No Have you ever Experienced Delirium Tremens(DT)s?: No Have you ever undergone Alcohol Rehabilitation Treatment (i.e, inpt ot outpatient treatment programs)?: No Have you ever Experienced Blackouts?: No Have you ever Combined Alcohol with other Downers within the last 90 days?: No Have you ever Combined Alcohol with any other Substance of Abuse during the last 90 days?: No Positive Blood Alcohol level on Presentation? [PCS.BAL]: No Evidence of Increased Autonomic Activity (i.e. HR>120, tremor, sweating, agitation, nausea)?: No Result: 0 Time Spent Time spent with Patient: 40-54 minutes Time was spent: preparing to see the patient(eg.review tests), obtaining and/or reviewing separately otained hiistory, ordering medications,tests, procedures, i ndepentently interpreting results and counseling the patient
--- NOTE | 2023-05-27 13:09 | W.ED.GENAD ---
Discharge Plan Disposition Patient Disposition: Admit to [facility] Condition: Serious Discharge Details Clinical Impression: Acute respiratory failure with hypoxia, Hypokalemia, Community acquired pneumonia, Hyponatremia Admit Date/Time: 05/27/23 13:13 Admit Provider: Ajay Kan Attending Provider: Ajay Kan Primary Care Provider: Seema Griffith ED Provider: Noemi Walden Discharge Data Discharge Date/Time-TO BE ENTERED AT DEPARTURE: 05/27/23 14:37 Medical Decision Making 83-year-old gentleman presenting with shortness of breath and weakness for the past 5 days Leukocytosis at 23,000, large right upper lobe infiltrate on x-ray, procalcitonin 2.4, and respiratory failure, requiring oxygen supplementation at 1 L Received Decadron, ceftriaxone and doxycycline, IV fluid resuscitation, lungs clear to auscultation Hyponatremia 120 Patient is quite ill, he requires inpatient hospitalization for respiratory failure, pneumonia, sepsis He remains alert and oriented although fatigued in appearance he is able to answer questions and is responding well to nasal cannula oxygenation Agreeable to admission at this time, full CODE STATUS HPI General Date/Time Provider Initiated Documentation: 05/27/23 10:15. HPI Narrative: This 83-year-old male with history of anemia, COPD, hypertension GERD presents with report of shortness of breath and weakness for the past 5 days. Has had chills, denies known fever. Denies any shortness of breath, per EMS was hypoxic 86 to 87% and states profoundly weak, unable to ambulate. Denies fall today. Denies headache, stiff neck, nausea, vomiting, abdominal pain, or any specific pain complaints. Denies any calf pain or swelling. Related Data Home Medications Medication Instructions Recorded Confirmed hydrochlorothiazide 25 mg tablet 25 mg PO DAILY 08/16/20 05/27/23 potassium chloride 10 mEq 10 meq PO DAILY 08/16/20 05/27/23 capsule,extended release vitamin B complex (B 1 tab PO DAILY 08/30/20 05/27/23 Complex-Vitamin B12 tablet) carvedilol 3.125 mg tablet 3.125 mg PO BID 03/13/21 05/27/23 ipratropium 0.5 mg-albuterol 3 mg 3 ml inhalation Q6H PRN 03/13/21 05/27/23 (2.5 mg base)/3 mL nebulization soln acetaminophen 500 mg tablet 1,000 mg PO Q8H PRN pain #90 tabs 06/27/21 05/27/23 echinacea 500 mg capsule 500 mg PO BID 08/28/21 05/27/23 methylsulfonylmethane 1,000 mg 1,000 mg PO DAILY 08/28/21 05/27/23 capsule (MSM) pantoprazole 40 mg tablet,delayed 40 mg PO BID 08/28/21 05/27/23 release (Protonix) cholecalciferol (vitamin D3) 125 125 mcg PO DAILY 09/25/21 05/27/23 mcg (5,000 unit) capsule albuterol sulfate 90 mcg/actuation 2 puff inhalation Q6H PRN 03/22/22 05/27/23 aerosol inhaler (ProAir HFA) sertraline 25 mg tablet 25 mg PO DAILY 04/21/23 05/27/23 zolpidem 10 mg tablet 10 mg PO PRN PRN 04/21/23 05/27/23 fluticasone propionate 115 2 puff inhalation BID 04/23/23 05/27/23 mcg-salmeterol 21 mcg/actuation HFA inhaler (Advair HFA) Previous Rx's Medication Instructions Recorded acetaminophen 500 mg tablet 1,000 mg PO Q8H PRN pain #90 tabs 06/27/21 Allergies Allergy/AdvReac Type Severity Reaction Status Date / Time NSAIDS (Non-Steroidal AdvReac Severe hx of Unverified 05/27/23 14:32 Anti-Inflamma bleeding ulcer shellfish derived AdvReac Intermediate vomiting, Verified 05/27/23 14:32 GI upset meloxicam AdvReac caused Verified 05/27/23 14:32 bleeding ulcer; pt avoids all NSAIDS General Stated Complaint: [facility]Medical WALTER: 3 PFSH All Active Problems (Updated 05/29/23 @ 16:24 by LEATHA Nichols) Hyponatremia (Acute) Acute respiratory failure with hypoxia (Acute) History of bleeding peptic ulcer (Acute) Hypokalemia (Acute) COPD exacerbation (Acute) Community acquired pneumonia (Acute) Osteoarthritis of right knee (Acute) Steroid injection: 08/15/2020; 09/25/21; 02/19/2022; 06/28/22 COPD (chronic obstructive pulmonary disease) (Chronic) Fecal retention (Acute) Superior mesenteric artery stenosis (Acute) Lumbosacral spondylosis without myelopathy (Acute) Anemia (Chronic) Chest pain (Acute) History of gastrointestinal bleeding (Acute) Iron deficiency (Acute) Medical History (Updated 05/29/23 @ 16:24 by LEATHA Nichols) Alcohol abuse Currently he is not drinking daily Anosmia Back pain Balance problem uses cane Bilateral inguinal hernia without obstruction or gangrene Bleeding duodenal ulcer Cataracts, bilateral Chest discomfort no chest pain pressure or concerns at time of assessment Chronic back pain Chronic GERD Chronic iron deficiency anemia Chronic pain Diarrhea Discharge planning issues DVT prophylaxis Dysphagia Emphysema, unspecified Exertional dyspnea Folate deficiency anemia Gastritis H/O skin pruritus Herniated lumbar intervertebral disc Hip pain, left History of traumatic fracture of vertebra HTN (hypertension) Hx of squamous cell carcinoma Inguinal hernia, bilateral Insomnia Knee pain, bilateral Leg swelling Lower back pain Osteoarthritis of left knee Steroid injection: 08/15/2020 s/p left TKA Osteoarthritis of lumbar spine PUD (peptic ulcer disease) Sleep disturbance Spondylosis of lumbar spine Spondylosis, cervical Symptomatic anemia Syncope Tobacco dependence in remission Unintentional weight loss Vitamin D deficiency Surgical History (Updated 04/24/23 @ 15:03 by Lilia Blanco) 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) DOS 06/27/21 Hx of abdominal surgery Status post percutaneous coil/embolization of posterior duodenal artery for bleeding duodenal ulcer Hx of esophagogastroduodenoscopy (~04/2023) Nuclear sclerotic cataract of left eye Nuclear sclerotic cataract of right eye Posterior subcapsular age-related cataract of left eye Posterior subcapsular age-related cataract, right eye S/P bilateral inguinal hernia repair (~02/13/22) S/P cervical spinal fusion S/P laminectomy Social History Smoking/Tobacco Use Status: Former Tobacco Use Quit Date: 09/02/18 Smoking risk assessment performed?: Yes Alcohol Intake: current Alcohol Intake frequency: 0-2 drinks per day Alcohol type: beer and hard liquor Drug use: Occasionally Substance use type: marijuana Details: pt. reports a beer nightly Household members: spouse Housing: house Number of Children: 1 current occupation: Retired Current gender identity: male Do you feel safe at home: Yes Do you feel safe in your relationship?: Yes Course Vital Signs Vital signs: Vital Signs Temperature 37.3 C 05/27/23 10:08 Pulse 118 H 05/27/23 10:08 Respiratory Rate 18 05/27/23 10:08 Blood Pressure 139/68 05/27/23 10:08 Pulse Oximetry 92 05/27/23 10:08 Temperature 37.3 C 05/27/23 10:08 Temperature Source Oral 05/27/23 10:08 Pulse 118 H 05/27/23 10:08 Respiratory Rate 29 H 05/27/23 10:12 Respiratory Effort Short of Breath 05/27/23 10:12 Respiratory Depth Normal 05/27/23 10:12 Respiratory Pattern Tachypnea 05/27/23 10:12 Blood Pressure 139/68 05/27/23 10:08 Blood Pressure Position Sitting 05/27/23 10:08 Pulse Oximetry 92 05/27/23 10:08 Oxygen Delivery Method Nasal Cannula 05/27/23 10:08 Oxygen Flow Rate 1 05/27/23 10:08 Pain Level 0 05/27/23 10:08 Lab/Test Results Lab/Test Results: 05/27/23 11:35 Blood Blood Culture - Pending 05/27/23 10:55 Blood Blood Culture - Pending Laboratory Tests Range/Units 05/27/23 05/27/23 05/27/23 10:23 10:30 10:55 WBC (4.4-10.8) 10^3/uL RBC (4.36-5.78) 10^6/uL Hgb (13.5-17.5) g/dL Hct (40.0-50.0) % MCV (80-95) fL MCH (27.0-33.0) pg MCHC (32.0-36.0) % RDW (11.8-14.1) % Plt Count (130-400) 10^3/uL MPV (8.0-11.0) fL Immature Gran % Neutrophils % Lymphocytes % Monocytes % Eosinophils % Basophils % Nucleated RBC % (0.0-0.3) % Absolute Neutrophils (1.2-6.7) 10^3/uL Absolute Lymphocytes (1.2-3.4) 10^3/uL Absolute Monocytes (0.1-0.8) 10^3/uL Absolute Eosinophils (0.0-0.7) 10^3/uL Absolute Basophils (0.0-0.2) 10^3/uL RBC Morphology VBG Lactate (0.6-1.4) mmol/L Sodium (136-145) mmol/L 127 L Potassium (3.5-5.1) mmol/L 2.8 L* Chloride (98-107) mmol/L 89 L Carbon Dioxide (21.0-32.0) mmol/L 26.7 Anion Gap (3-11) mmol/L 11.3 H BUN (7-18) mg/dL 20 H Creatinine (0.70-1.30) mg/dL 0.7 Est GFR (CKD-EPI 2020) (mL/min/1.73m2) 91.42 Glucose (74-106) mg/dL 126 H Calcium (8.5-10.1) mg/dL 9.2 Total Bilirubin (0.2-1.0) mg/dL 0.8 AST (15-37) U/L 26 ALT (16-63) U/L 17 Alkaline Phosphatase (46-116) U/L 90 Troponin I (<or=60) ng/L < 50 Total Protein (6.4-8.2) g/dL 7.1 Albumin (3.4-5.0) g/dL 2.5 L Lipase (16-77) U/L < 10 L Procalcitonin ng/mL TSH (0.36-3.74) uIU/mL 1.07 COVID-19 Source Nasopharynx SARS-CoV-2 (PCR) (Negative) Negative Influenza Type A (PCR) (Negative) Negative Influenza Type B (PCR) (Negative) Negative RSV (PCR) (Negative) Negative Range/Units 05/27/23 05/27/23 10:55 10:55 WBC (4.4-10.8) 10^3/uL 23.37 H RBC (4.36-5.78) 10^6/uL 3.42 L Hgb (13.5-17.5) g/dL 8.6 L Hct (40.0-50.0) % 26.5 L MCV (80-95) fL 78 L MCH (27.0-33.0) pg 25.1 L MCHC (32.0-36.0) % 32.5 RDW (11.8-14.1) % 19.3 H Plt Count (130-400) 10^3/uL 458 H MPV (8.0-11.0) fL 9.2 Immature Gran % 0.8 Neutrophils % 89.3 Lymphocytes % 1.8 Monocytes % 7.5 Eosinophils % 0.4 Basophils % 0.2 Nucleated RBC % (0.0-0.3) % 0.0 Absolute Neutrophils (1.2-6.7) 10^3/uL 20.87 H Absolute Lymphocytes (1.2-3.4) 10^3/uL 0.42 L Absolute Monocytes (0.1-0.8) 10^3/uL 1.75 H Absolute Eosinophils (0.0-0.7) 10^3/uL 0.09 Absolute Basophils (0.0-0.2) 10^3/uL 0.05 RBC Morphology Normal VBG Lactate (0.6-1.4) mmol/L 1.1 Sodium (136-145) mmol/L Potassium (3.5-5.1) mmol/L Chloride (98-107) mmol/L Carbon Dioxide (21.0-32.0) mmol/L Anion Gap (3-11) mmol/L BUN (7-18) mg/dL Creatinine (0.70-1.30) mg/dL Est GFR (CKD-EPI 2020) (mL/min/1.73m2) Glucose (74-106) mg/dL Calcium (8.5-10.1) mg/dL Total Bilirubin (0.2-1.0) mg/dL AST (15-37) U/L ALT (16-63) U/L Alkaline Phosphatase (46-116) U/L Troponin I (<or=60) ng/L Total Protein (6.4-8.2) g/dL Albumin (3.4-5.0) g/dL Lipase (16-77) U/L Procalcitonin ng/mL 2.4 TSH (0.36-3.74) uIU/mL COVID-19 Source SARS-CoV-2 (PCR) (Negative) Influenza Type A (PCR) (Negative) Influenza Type B (PCR) (Negative) RSV (PCR) (Negative) Critical Care Time Critical Care Time Attestation: Approximately 45 minutes of critical care time secondary to oxygen supplementation in the presence of acute respiratory failure, IV antibiotics with pneumonia, sepsis, telemetry monitoring and admission to the medical surgical floor, diagnostic lab and imaging interpretation and review PAWSS Have you Been Recently Intoxicated or Drunk Within the Last 30 days?: No Have you Ever Experienced Previous Episodes of Alcohol Withdrawal?: No Have you ever Experienced Withdrawal Seizures?: No Have you ever Experienced Delirium Tremens(DT)s?: No Have you ever undergone Alcohol Rehabilitation Treatment (i.e, inpt ot outpatient treatment programs)?: No Have you ever Experienced Blackouts?: No Have you ever Combined Alcohol with other Downers within the last 90 days?: No Have you ever Combined Alcohol with any other Substance of Abuse during the last 90 days?: No Positive Blood Alcohol level on Presentation? [PCS.BAL]: No Evidence of Increased Autonomic Activity (i.e. HR>120, tremor, sweating, agitation, nausea)?: No Result: 0
[2023-05-27] MEDS: methylPREDNISolone SUCC 125 MG VIAL 80 MG IVP (13:34)
[2023-05-27 18:04] LABS: Bilirubin Negative (Negative); Blood Negative (Negative); Clarity Clear (Clear); Glucose Negative (Negative); Ketones 15 mg/dL (Negative); Leukocyte Esterase Negative (Negative); Nitrite Negative (Negative); Specific Gravity >= 1.030 (1.005-1.025); pH 6.5 (5-8)
[2023-05-27] MEDS: POTASSIUM CHLORIDE/0.9% NACL 1,000 ML 80 MEQ IV (18:11)
[2023-05-27 18:42] LABS: Bacteria Negative HPF (Negative); C & S Indicated? No; Crystals Negative HPF (Negative); Epithelial Cells Rare HPF (Negative); Mucus Heavy (Negative); RBC 0-2 HPF (0-2); WBC 0-2 HPF (0-5)
[2023-05-27] MEDS: Budesonide/Formoterol 160/4.5 6 GM 60 PUFF INH IH (19:15)
[2023-05-27] MEDS: Albuterol/Ipratropium 3 ML UPD VIAL IH (19:18)
[2023-05-27] MEDS: Potassium Chloride 10 MEQ CAPCR 20 MEQ PO (19:49)
[2023-05-27] MEDS: guaiFENesin 600 MG TABCR PO (19:49)
[2023-05-27] MEDS: Carvedilol 3.125 MG TAB PO (19:49)
[2023-05-27] MEDS: Zolpidem 10 MG TAB PO (19:49)
[2023-05-27] MEDS: Pantoprazole 40 MG TABCR PO (19:50)
[2023-05-27] MEDS: Mirtazapine 15 MG TAB PO (22:48)
[2023-05-28] VITALS (14 sets, daily range): BP systolic 96–151; BP diastolic 50–85; PULSE 65–103; RESP 1–20; TEMP 35.9–36.7; O2SAT 86–98
[2023-05-28] MEDS: DOXYCYCLINE 100 MG in Normal Saline 100 ML IVPB ×2 (00:58→12:15)
[2023-05-28 07:44] LABS: HCT 22.7 % (40.0-50.0); HGB 7.5 g/dL (13.5-17.5); MCH 25.6 pg (27.0-33.0); MCV 78 fL (80-95); MPV 9.9 fL (8.0-11.0); Platelet Count 389 10^3/uL (130-400); RBC 2.93 10^6/uL (4.36-5.78); RDW 19.4 % (11.8-14.1); RDW-SD 54.8 fL; WBC 23.91 10^3/uL (4.4-10.8)
[2023-05-28] MEDS: Albuterol/Ipratropium 3 ML UPD VIAL IH ×4 (07:45→19:26)
[2023-05-28] MEDS: Budesonide/Formoterol 160/4.5 6 GM 60 PUFF INH IH ×2 (07:46→19:27)
[2023-05-28 07:59] LABS: Absolute Lymphocyte Count 0.24 10^3/uL (1.2-3.4); Absolute Monocyte Count 0.72 10^3/uL (0.1-0.8); Absolute Neutrophil Count 22.95 10^3/uL (1.2-6.7); Bands % 1; Diff Comment Manual Differential; Hypochromasia 2+; Polychromasia Present
[2023-05-28 08:06] LABS: Anion Gap 8.7 mmol/L (3-11); BUN 19 mg/dL (7-18); CO2 24.3 mmol/L (21.0-32.0); CREATININE 0.5 mg/dL (0.70-1.30); Calcium 8.7 mg/dL (8.5-10.1); Chloride 98 mmol/L (98-107); Glucose 113 mg/dL (74-106); Potassium 4.2 mmol/L (3.5-5.1); Sodium 131 mmol/L (136-145)
[2023-05-28] MEDS: Enoxaparin 30 MG/0.3 ML SYR SC (08:12)
[2023-05-28] MEDS: hydroCHLOROthiazide 25 MG TAB PO (08:13)
[2023-05-28] MEDS: Carvedilol 3.125 MG TAB PO ×2 (08:13→19:38)
[2023-05-28] MEDS: cefTRIAXone 2 GM/50 ML BAG IVPB (08:13)
[2023-05-28] MEDS: predniSONE 20 MG TAB 40 MG PO (08:14)
[2023-05-28] MEDS: Sertraline 25 MG TAB PO (08:14)
[2023-05-28] MEDS: guaiFENesin 600 MG TABCR PO ×2 (08:14→19:39)
[2023-05-28] MEDS: Potassium Chloride 10 MEQ CAPCR 20 MEQ PO ×2 (08:14→19:37)
[2023-05-28] MEDS: Pantoprazole 40 MG TABCR PO ×2 (08:14→19:39)
[2023-05-28] MEDS: Normal Saline 500 ML 100 ML IV (08:16)
[2023-05-28] MEDS: Normal Saline Flush 10 ML SYR (08:16)
--- NOTE | 2023-05-28 09:48 | PDOC.CMIN ---
Date of service: 05/28/23 Time of Service: 09:48 Care Management Initial Assmt Initial Assessment REASON FOR HOSPITALIZATION:: COPD Exacerbation PREVIOUS FUNCTIONAL STATUS/SOCIAL/FAMILY SUPPORTS:: Mike lives in a single family home in [facility] with his Ada. He has one daughter who lives in [place]. He also has 3 grandchildren. Mete shared that he and his daughter had not spoken for about 3 months until recently. He was obviously distressed by the situation and is glad they have been talking again. he uses a walker outside of the home and does not receive any community services. 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 CURRENT FUNCTIONAL STATUS:: Meet was sitting up in bed when CM met with him. He was polite and agreeable to conversation. Meet shared that he was [place] in the [place], then moved to [facility] for 42 years before coming to the [place] years ago. His daughter a [place] and he and Ada moved to be near them. When asked how he likes it here he answered , it OK but I don't like the snow. ADVANCE DIRECTIVES:: none on file Has patient been provided with info about the portal/API?: Yes Did the patient sign up for the portal?: No CODE STATUS:: Full Code INSURANCE COVERAGE / FINANCIAL ISSUES:: [facility] Medicare Replacement CURRENT HOME/COMMUNITY SERVICES/EQUIPMENT:: walker, grab bars in the home PRIMARY CARE PHYSICIAN:: Seema ray POTENTIAL DISCHARGE NEEDS:: follow up with community providers and plan of care PATIENT/FAMILY EDUCATION NEEDS:: Review of discharge instructions, limitations, follow up plan, discuss Ask Me Three TRANSPORTATION:: via private vehicle with family PLAN:: Anticipate Mike will be discharged home when medically cleared by provider. He will follow up with his community providers and plan of care and transport with family. CM will follow and continue to assess for discharge concerns. PFSH All Active Problems (Updated 05/28/23 @ 13:30 by Hesham Britton MD) Acute respiratory failure with hypoxia (Acute) History of bleeding peptic ulcer (Acute) Hypokalemia (Acute) COPD exacerbation (Acute) Community acquired pneumonia (Acute) Osteoarthritis of right knee (Acute) Steroid injection: 08/15/2020; 09/25/21; 02/19/2022; 06/28/22 COPD (chronic obstructive pulmonary disease) (Chronic) Fecal retention (Acute) Superior mesenteric artery stenosis (Acute) Lumbosacral spondylosis without myelopathy (Acute) Anemia (Chronic) Chest pain (Acute) History of gastrointestinal bleeding (Acute) Iron deficiency (Acute) Medical History (Updated 05/28/23 @ 13:30 by Hesham Britton MD) Alcohol abuse Currently he is not drinking daily Anosmia Back pain Balance problem uses cane Bilateral inguinal hernia without obstruction or gangrene Bleeding duodenal ulcer Cataracts, bilateral Chest discomfort no chest pain pressure or concerns at time of assessment Chronic back pain Chronic GERD Chronic iron deficiency anemia Chronic pain Diarrhea Discharge planning issues DVT prophylaxis Dysphagia Emphysema, unspecified Exertional dyspnea Folate deficiency anemia Gastritis H/O skin pruritus Herniated lumbar intervertebral disc Hip pain, left History of traumatic fracture of vertebra HTN (hypertension) Hx of squamous cell carcinoma Inguinal hernia, bilateral Insomnia Knee pain, bilateral Leg swelling Lower back pain Osteoarthritis of left knee Steroid injection: 08/15/2020 s/p left TKA Osteoarthritis of lumbar spine PUD (peptic ulcer disease) Sleep disturbance Spondylosis of lumbar spine Spondylosis, cervical Symptomatic anemia Syncope Tobacco dependence in remission Unintentional weight loss Vitamin D deficiency Surgical History (Updated 04/24/23 @ 15:03 by Lilia Blanco) 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) DOS 06/27/21 Hx of abdominal surgery Status post percutaneous coil/embolization of posterior duodenal artery for bleeding duodenal ulcer Hx of esophagogastroduodenoscopy (~04/2023) Nuclear sclerotic cataract of left eye Nuclear sclerotic cataract of right eye Posterior subcapsular age-related cataract of left eye Posterior subcapsular age-related cataract, right eye S/P bilateral inguinal hernia repair (~02/13/22) S/P cervical spinal fusion S/P laminectomy Social History Smoking/Tobacco Use Status: Former Tobacco Use Quit Date: 09/02/18 Smoking risk assessment performed?: Yes Alcohol Intake: current Alcohol Intake frequency: 0-2 drinks per day Alcohol type: beer and hard liquor Drug use: Occasionally Substance use type: marijuana Details: pt. reports a beer nightly Household members: spouse Housing: house Number of Children: 1 current occupation: Retired Current gender identity: male Do you feel safe at home: Yes Do you feel safe in your relationship?: Yes
[2023-05-28] MEDS: Normal Saline Flush 10 ML SYR IVP (12:14)
--- NOTE | 2023-05-28 13:29 | W.PM.PROGNOT ---
Date of Service Date of service: 05/28/23 Time of Service: 13:29 Assessment and Plan Assessment and plan (1) Community acquired pneumonia: Status: Acute Assessment and plan: -right upper and middle lobes. -continue doxycycline and ceftriaxone, now day 2 -s/p steroids in ED for suspected copd exac -legionella and strep pneumo pending, along with blood cultures. -scheduled duonebs, mucinex acapella, (2) Acute respiratory failure with hypoxia: Status: Acute Assessment and plan: -secondary to CAP as noted above -required as much as 2L NC -wean as tolerated with goal O2 88-92% (3) COPD exacerbation: Status: Acute Assessment and plan: see above. (4) Hypokalemia: Status: Acute Assessment and plan: -initially 2.7 in ED -s/p replacement, now up to 4.2 AM 05/28 -likely secondary to poor po intake and on bid PPI (5) History of bleeding peptic ulcer: Status: Acute Assessment and plan: -hemoglobin 8.6, which appears baseline. -continue bid PPI and monitor for bleeding, hematest stool. -dvt prophylaxis--enoxaparin 30 mg daily, monitor for bleeding and consider non-pharm dvt prophylaxis if hemoglobin drops Subjective Subjective Patient reports: no new complaints Interval history since last seen: Patient states that he is feeling better this morning. He understands the plan to continue to treat his pneumonia and work on weaning his supplemental oxygen. Exam Const General: cooperative, comfortable and no acute distress [facility] Head: normal to inspection, normocephalic and atraumatic Ears: hearing grossly normal bilaterally Resp Effort & Inspection: normal respiratory effort, able to speak in complete sentences and no cough Auscultation: clear to auscultation bilaterally, no rhonchi and no wheezes Cardio Jugular venous pressure: no JVD Rate: regular rate Rhythm: regular rhythm Heart Sounds: S1 normal, S2 normal, no gallops, no murmurs and no rubs GI Inspection: normal to inspection Palpation: soft, no guarding and nontender Percussion: normal to percussion Auscultation: normal bowel sounds Skin Lesions: no lesions Rashes: no rashes Trauma: no lacerations or abrasions Neuro General: patient alert, patient awake and patient oriented x3 Cranial Nerves: CN's II-XI intact bilaterally Cognition: normal cognition Speech: speech normal Motor: muscle tone normal throughout and strength 5/5 throughout Sensory Exam: no sensory deficits noted Psych Appearance: grossly normal Mental Status: mental status grossly normal Speech and Movement: speech and movement normal Mood: congruent mood Affect: normal affect Attitude: cooperative Thought Process: normal Thought Content: normal Insight: insight good Judgment: judgment good Objective Last Vital Signs Temp 98.1 F 05/28/23 12:20 Pulse 103 H 05/28/23 12:20 Resp 18 05/28/23 12:20 BP 98/50 L 05/28/23 12:50 Pulse Ox 86 L 05/28/23 12:20 Laboratory Results - last 24 hr 05/27/23 05/27/23 05/28/23 13:23 14:30 06:52 WBC RBC Hgb Hct MCV MCH MCHC RDW Plt Count MPV Immature Gran % Neutrophils % Band Neutrophils % Lymphocytes % Monocytes % Eosinophils % Basophils % Nucleated RBC % Absolute Neutrophils Absolute Lymphocytes Absolute Monocytes Absolute Eosinophils Absolute Basophils RBC Morphology Polychromasia Hypochromasia Sodium 131 L Potassium 4.2 D Chloride 98 Carbon Dioxide 24.3 Anion Gap 8.7 BUN 19 H Creatinine 0.5 L Est GFR (CKD-EPI 2020) 101.20 Glucose 113 H Calcium 8.7 Troponin I Cancelled Urine Color Dark Yellow Urine Clarity Clear Urine pH 6.5 Ur Specific [place] >= 1.030 H Urine Protein 100 H Urine Ketones 15 H Urine Blood Negative Urine Nitrite Negative Urine Bilirubin Negative Urine Urobilinogen 1.0 H Ur Leukocyte Esterase Negative Urine RBC 0-2 Urine WBC 0-2 Ur Epithelial Cells Rare Urine Crystals Negative Urine Bacteria Negative Urine Mucus Heavy Ur Culture Indicated? No Urine Glucose Negative 05/28/23 06:52 WBC 23.91 H RBC 2.93 L Hgb 7.5 L Hct 22.7 L MCV 78 L MCH 25.6 L MCHC 33.0 RDW 19.4 H Plt Count 389 MPV 9.9 Immature Gran % 0.0 Neutrophils % 95.0 Band Neutrophils % 1 Lymphocytes % 1.0 Monocytes % 3.0 Eosinophils % 0.0 Basophils % 0.0 Nucleated RBC % 0.0 Absolute Neutrophils 22.95 H Absolute Lymphocytes 0.24 L Absolute Monocytes 0.72 Absolute Eosinophils 0.00 Absolute Basophils 0.00 RBC Morphology See Below Polychromasia Present Hypochromasia 2+ Sodium Potassium Chloride Carbon Dioxide Anion Gap BUN Creatinine Est GFR (CKD-EPI 2020) Glucose Calcium Troponin I Urine Color Urine Clarity Urine pH Ur Specific [place] Urine Protein Urine Ketones Urine Blood Urine Nitrite Urine Bilirubin Urine Urobilinogen Ur Leukocyte Esterase Urine RBC Urine WBC Ur Epithelial Cells Urine Crystals Urine Bacteria Urine Mucus Ur Culture Indicated? Urine Glucose Reviewed Pertinent PMH: Yes PAWSS Have you Been Recently Intoxicated or Drunk Within the Last 30 days?: No Have you Ever Experienced Previous Episodes of Alcohol Withdrawal?: No Have you ever Experienced Withdrawal Seizures?: No Have you ever Experienced Delirium Tremens(DT)s?: No Have you ever undergone Alcohol Rehabilitation Treatment (i.e, inpt ot outpatient treatment programs)?: No Have you ever Experienced Blackouts?: No Have you ever Combined Alcohol with other Downers within the last 90 days?: No Have you ever Combined Alcohol with any other Substance of Abuse during the last 90 days?: No Positive Blood Alcohol level on Presentation? [PCS.BAL]: No Evidence of Increased Autonomic Activity (i.e. HR>120, tremor, sweating, agitation, nausea)?: No Result: 0 Time Spent with Patient Time Spent with Patient: >50 minutes Time was spent: preparing to see the patient(eg.review tests), obtaining and/or reviewing separately otained hiistory, ordering medications,tests, procedures, referring, communicating with other health care clinician, indepentently interpreting results, counseling the patient and care coordination
[2023-05-28] MEDS: Zolpidem 10 MG TAB PO (19:37)
[2023-05-28] MEDS: Mirtazapine 15 MG TAB PO (19:38)
[2023-05-29] VITALS (12 sets, daily range): BP systolic 103–135; BP diastolic 64–77; PULSE 74–113; RESP 1–20; TEMP 36–36.3; O2SAT 88–98
[2023-05-29] MEDS: DOXYCYCLINE 100 MG in Normal Saline 100 ML IVPB ×2 (00:29→12:24)
[2023-05-29 07:17] LABS: HCT 22.3 % (40.0-50.0); HGB 7.4 g/dL (13.5-17.5); MCH 25.5 pg (27.0-33.0); MCHC 33.2 % (32.0-36.0); MCV 77 fL (80-95); MPV 9.5 fL (8.0-11.0); Platelet Count 403 10^3/uL (130-400); RDW 19.6 % (11.8-14.1)
[2023-05-29 07:24] LABS: WBC 27.24 10^3/uL (4.4-10.8)
[2023-05-29 07:32] LABS: BUN 19 mg/dL (7-18); CREATININE 0.5 mg/dL (0.70-1.30); Calcium 8.9 mg/dL (8.5-10.1); Chloride 97 mmol/L (98-107); Glucose 104 mg/dL (74-106); Potassium 3.8 mmol/L (3.5-5.1); Sodium 130 mmol/L (136-145)
[2023-05-29] MEDS: Normal Saline Flush 10 ML SYR IVP ×2 (07:58→20:13)
[2023-05-29] MEDS: Enoxaparin 30 MG/0.3 ML SYR SC (07:59)
[2023-05-29] MEDS: cefTRIAXone 2 GM/50 ML BAG IVPB (08:00)
[2023-05-29] MEDS: Sertraline 25 MG TAB PO (08:01)
[2023-05-29] MEDS: Carvedilol 3.125 MG TAB PO ×2 (08:01→20:13)
[2023-05-29] MEDS: hydroCHLOROthiazide 25 MG TAB PO (08:01)
[2023-05-29] MEDS: guaiFENesin 600 MG TABCR PO ×2 (08:02→20:13)
[2023-05-29] MEDS: Pantoprazole 40 MG TABCR PO ×2 (08:02→20:13)
[2023-05-29] MEDS: predniSONE 20 MG TAB 40 MG PO (08:03)
[2023-05-29] MEDS: Potassium Chloride 10 MEQ CAPCR 20 MEQ PO ×2 (08:03→20:13)
--- NOTE | 2023-05-29 08:52 | PDOC.CMPRO ---
Date of service: 05/29/23 Time of Service: 08:52 Care Management Progress Note Progress Note Text Progress Note Text: S/O:Meet was sitting up in bed when CM met with him. He remains pleasant and cooperative and engaged well with CM. Meet informed CM that he did not sleep well last night. He stated that it was very noisy (his room is right across from the nurses station). He also shared that he had some abdominal pain earlier but that it cleared up when he got up to sit in the chair. Overall, he stated he is feeling better. He denied having any SOB or dyspnea and was not noted to be coughing. This morning his WBC dionicio to 27.24 and his oxygen saturation levels dropped to 90 a couple of times despite being on 1-2L/min of nasal oxygen. Meet verbalized hoping to be able to go home in a day or two. His did come to visit this morning and plans to return later in the day. A:Mike is an 83 year old man admitted on 05/27/23 with pneumonia P: Anticipate Mike will be discharged home when medically cleared by provider. He will follow up with his community providers and plan of care and transport with family. CM will follow and continue to assess for discharge concerns. :
[2023-05-29] MEDS: Albuterol/Ipratropium 3 ML UPD VIAL IH ×4 (08:54→19:14)
[2023-05-29] MEDS: Budesonide/Formoterol 160/4.5 6 GM 60 PUFF INH IH ×2 (08:56→19:14)
[2023-05-29 10:07] LABS: Source Nasopharynx
[2023-05-29 10:44] LABS: COVID-19 PCR Negative (Negative)
[2023-05-29 11:58] LABS: MRSA PCR Negative (Negative)
--- NOTE | 2023-05-29 11:59 | PT.INIE ---
PT Notes Visit Reasons: Pneumonia, hypokalemia Physical Therapy Inpatient Initial Evaluation Date: 05/29/2023 Referring Doctor: Hesham Britton MD PT Orders: PT CONSULT: Eval/Treat Precautions: Fall. Standard. Activity as tolerated. PUI precautions in place for COVID-19 and MRSA infection. Patient Profile/Admitting Diagnosis: Mike is an 83-year-old male who presented to the ED on 05/27/2023 due to shortness of breath, generalized weakness, chills, and fever. Patient is admitted to acute level of care for management of community-acquired pneumonia, COPD exacerbation, hypokalemia, and acute respiratory failure with hypoxia. PMHX: All Active Problems?(Updated 05/27/23 @ 17:49 by Leonor Coon NP) History of bleeding peptic ulcer (Acute) Hypokalemia (Acute) COPD exacerbation (Acute) Community acquired pneumonia (Acute) Osteoarthritis of right knee (Acute) Steroid injection: 08/15/2020; 09/25/21; 02/19/2022; 06/28/22 COPD (chronic obstructive pulmonary disease) (Chronic) Fecal retention (Acute) Superior mesenteric artery stenosis (Acute) Lumbosacral spondylosis without myelopathy (Acute) Anemia (Chronic) Chest pain (Acute) History of gastrointestinal bleeding (Acute) Iron deficiency (Acute) Medical History?(Updated 05/27/23 @ 17:49 by Leonor Coon NP) Alcohol abuse Currently he is not drinking dailyAnosmia Back pain Balance problem uses caneBilateral inguinal hernia without obstruction or gangrene Bleeding duodenal ulcer Cataracts, bilateral Chest discomfort no chest pain pressure or concerns at time of assessment Chronic back pain Chronic GERD Chronic iron deficiency anemia Chronic pain Diarrhea Discharge planning issues DVT prophylaxis Dysphagia Emphysema, unspecified Exertional dyspnea Folate deficiency anemia Gastritis H/O skin pruritus Herniated lumbar intervertebral disc Hip pain, left History of traumatic fracture of vertebra HTN (hypertension) Hx of squamous cell carcinoma Inguinal hernia, bilateral Insomnia Knee pain, bilateral Leg swelling Lower back pain Osteoarthritis of left knee Steroid injection: 08/15/2020 s/p left TKA Osteoarthritis of lumbar spine PUD (peptic ulcer disease) Sleep disturbance Spondylosis of lumbar spine Spondylosis, cervical Symptomatic anemia Syncope Tobacco dependence in remission Unintentional weight loss Vitamin D deficiency Surgical History?(Updated 04/24/23 @ 15:03 by Lilia Blanco) 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 Uses no AD indoors, walker outdoors. Equipment Owned/DME: FWW, SPC Subjective: Patient reported right lower lateral/rib pain that subsided with sitting up and movement. Nurse D made aware. Denies headache, chest pain, and lightheadedness throughout assessment. Per Nurse Cecy, patient just got moved back from chair to bed and that he needed to be tested for COVID-19 and MRSA. Does not want to go to a SNF. Objective: General Observation: Resting in bed. IV access in right UE. Telemetry monitoring in place. Oxygen supplementation via NC at 1 L/min. Mental Status: Alert and oriented as to person, place, time, and purpose. Able to pay attention, focus, and respond appropriately. Pain:3-4/10 in the right lower lateral rib/chest area Vital Signs: Within normal limits as closely monitored by nursing staff ROM: Right Upper Extremity: Shoulder Flexion lacks the last 25% of AROM. Shoulder abduction lacks the last 25% of AROM. Elbow flexion WFL. Wrist flexion WFL. Functional opening and closing of hand WFL. Left Upper Extremity: Shoulder Flexion lacks the last 25% of AROM. Shoulder abduction lacks the last 25% of AROM. Elbow flexion WFL. Wrist flexion WFL. Functional opening and closing of hand WFL. Right Lower Extremity: Hip flexion WFL. Hip abduction WFL. Knee flexion WFL. Ankle dorsiflexion WFL. Ankle plantarflexion WFL. Left Lower Extremity: Hip flexion WFL. Hip abduction WFL. Knee flexion WFL. Ankle dorsiflexion WFL. Ankle plantarflexion WFL. Strength: Right Upper Extremity: Shoulder flexors 3-/5. Shoulder abductors 3-/5. Elbow flexors 4-/5. Elbow extensors 4-/5. [employer] strong. Left Upper Extremity: Shoulder flexors 3-/5. Shoulder abductors 3-/5. Elbow flexors 4-/5. Elbow extensors 4-/5. [employer]er [employer] Maker strong. Right Lower Extremity: Hip flexors 4-/5. Hip abductors 4-/5. Knee flexors 4-/5. Knee extensors 4-/5. Ankle dorsiflexors 4-/5. Ankle plantarflexors 4-/5. Left Lower Extremity: Hip flexors 4-/5. Hip abductors 4-/5. Knee flexors 4-/5. Knee extensors 4-/5. Ankle dorsiflexors 4-/5. Ankle plantarflexors 4-/5. Bed Mobility/Transfers: Supine to sit with minimal assist with moderate cues for hand placement, movement sequence and safe/correct technique Sit to stand with minimal assist with moderate cues for hand placement, movement sequence and safe/correct technique Stand to sit with minimal assist with moderate cues for hand placement, movement sequence and safe/correct technique Bed to reclining chair minimal assist with moderate cues for hand placement, movement sequence and safe/correct technique Gait: Instructed patient with level surface ambulation of 6 steps requiring minimal assist. Marybel decreased. Step height decreased. Step length decreased. Deferred any further mobility assessment to give way to needed testing by nurse. Balance: Static Sitting: Normal Dynamic Sitting: Normal Static Standing: Fair Dynamic Standing: Fair Special Tests: Mobility Limitations Standardized Measure [facility] AM-PAC 6 clicks Basic Mobility Inpatient Short Form: Raw Score: 18 CMS Score: 47% deficit Informed Consent/Education: Patient was instructed in purpose of PT consult and plan of care. Agreeable to proceed with established PT POC to achieve personal goals. ASSESSMENT: Patient is a PUI for COVID and is placed on COVID 19 precautions as of time of testing this morning. Today's assessment was limited by report of R lateral chest/lower rib pain that patient stated gets aggravated by movement. Sitting him up on the edge of the bed and slowly walking him back from edge of bed back to chair somehow diminished pain report. Patient presents with clinical signs and symptoms consistent with current/admitting diagnoses that have resulted to mobility limitations, gait instability, generalized weakness, and overall ADL decline as demonstrated by the following impairment level findings: 1. Decreased strength to B UE/LE major muscle groups 2. Impaired sitting/standing balance 3. Impaired activity tolerance 4. Limitation of joint range of motion in B shoulders 5. Shortness of breath 6. Impaired muscle performance Impairments are contributing to the following functional limitations: 1. Decline in bed mobility skills 2. Decline in transfer skills 3. Difficulty with ambulation without assistive device and physical assistance 4. Increased completion time for mobility ADL performance 5. Increased risk for falls 6. Difficulty with managing steps alone safely Patient is assessed as a 22048 moderate complexity based on the following: History: 83-year-old male with past medical history as indicated above Examination: Demonstrable impairment in strength, balance, and mobility level with underlying impairments and functional limitations as exhibited above as well as deficit score of 47% utilizing the [facility] Mobility Inpatient Short Form Presentation: Evolving Decision Makin moderate complexity Goals: Goals X1 week 1. Supine-Sit independent 2. Sit-Supine independent 3. Sit-Stand independent 4. Stand-Sit independent with FWW 5. Bed-Chair independent with FWW 6. Chair-Bed independent with FWW 7. Independent gait on level surface with use of FWW for at least 150 feet without report of pain nor dyspnea 8. Independent stair negotiation while holding onto B rails for at least 10 steps without report of pain nor dyspnea 9. Independent with home exercise program 10. Good static and dynamic standing balance/tolerance Plan of Care/Treatment Plan: 1-2x/day, 7 days/week x 1 week. Plan of care has been reviewed with the MUSIC CRITIC providing the service under Physical Therapy direction. Initiate Physical Therapy intervention for pain management as needed, strengthening, bed mobility, transfers, gait, stairs, balance training, and use of assistive device. DISCHARGE RECOMMENDATIONS: [] Home with no services [] [] Home with services [specify] [] Home with outpatient PT [] [] SNF for continued rehabilitation [] [] [facility] [] [] SNF versus LTC based on ability to participate and progress [] [X] PT vs SNF based on ability of patient to progress towards goals TREATMENT CODE/TIME: 31836 x 20 minutes, 12224 x 16 minutes beginning at 10:42 PM. Thank you for the opportunity to participate in the care of this patient. Marianna Quesada PT, DPT, CLT [facility] [place], [place]
--- NOTE | 2023-05-29 12:13 | PGE_ITS ---
Date of Service Date of service: 05/29/23 Time of Service: 12:13 Assessment and Plan Assessment and plan (1) Community acquired pneumonia: Status: Acute Assessment and plan: -right upper and middle lobes. -continue doxycycline day 3 - dc ceftriaxone and starte cefepime - WBC continues to rise - now [id number]; start Vanco -s/p steroids in ED for suspected copd exac -legionella and strep pneumo pending, along with blood cultures. -scheduled duonebs, mucinex acapella, (2) Acute respiratory failure with hypoxia: Status: Acute Assessment and plan: -secondary to CAP as noted above -required as much as 2L NC -wean as tolerated with goal O2 88-92% (3) COPD exacerbation: Status: Acute Assessment and plan: see above. (4) Hypokalemia: Status: Acute Assessment and plan: 3.8 Monitor and replete prn (5) History of bleeding peptic ulcer: Status: Acute Assessment and plan: -hemoglobin 7.4 - 1 unit PRBCs, recheck @ [place] -continue bid PPI and monitor for bleeding, hematest stool. -dvt prophylaxis--hold enoxaparin, SCD Subjective Subjective Patient reports: no new complaints, tolerating a regular diet, voiding w/o difficulty, bowel movement, shortness of breath and afebrile; denies diarrhea, nausea or vomiting Interval history since last seen: Continues to have shortness of breath with increased WOB Exam Const General: cooperative, comfortable and no acute distress [facility] Head: normal to inspection, normocephalic and atraumatic Ears: hearing grossly normal bilaterally Resp Effort & Inspection: normal respiratory effort, able to speak in complete sentences and no cough Auscultation: clear to auscultation bilaterally, no rhonchi and no wheezes Cardio Jugular venous pressure: no JVD Rate: regular rate Rhythm: regular rhythm Heart Sounds: S1 normal, S2 normal, no gallops, no murmurs and no rubs GI Inspection: normal to inspection Palpation: soft, no guarding and nontender Percussion: normal to percussion Auscultation: normal bowel sounds Skin Lesions: no lesions Rashes: no rashes Trauma: no lacerations or abrasions Neuro General: patient alert, patient awake and patient oriented x3 Cranial Nerves: CN's II-XI intact bilaterally Cognition: normal cognition Speech: speech normal Motor: muscle tone normal throughout and strength 5/5 throughout Sensory Exam: no sensory deficits noted Psych Appearance: grossly normal Mental Status: mental status grossly normal Speech and Movement: speech and movement normal Mood: congruent mood Affect: normal affect Attitude: cooperative Thought Process: normal Thought Content: normal Insight: insight good Judgment: judgment good Objective Last Vital Signs Temp 36.0 C L 05/29/23 11:36 Pulse 82 05/29/23 11:39 Resp 20 05/29/23 11:39 BP 103/64 05/29/23 11:36 Pulse Ox 98 05/29/23 11:39 Laboratory Results - last 24 hr 05/29/23 05/29/23 05/29/23 06:15 06:15 10:03 WBC 27.24 H* RBC 2.90 L Hgb 7.4 L Hct 22.3 L MCV 77 L MCH 25.5 L MCHC 33.2 RDW 19.6 H Plt Count 403 H MPV 9.5 Sodium 130 L Potassium 3.8 Chloride 97 L Carbon Dioxide 24.0 Anion Gap 9.0 BUN 19 H Creatinine 0.5 L Est GFR (CKD-EPI 2020) 101.20 Glucose 104 Calcium 8.9 COVID-19 Source SARS-CoV-2 (PCR) MRSA (TEM-PCR) Negative 05/29/23 10:03 WBC RBC Hgb Hct MCV MCH MCHC RDW Plt Count MPV Sodium Potassium Chloride Carbon Dioxide Anion Gap BUN Creatinine Est GFR (CKD-EPI 2020) Glucose Calcium COVID-19 Source Nasopharynx SARS-CoV-2 (PCR) Negative MRSA (TEM-PCR) PAWSS Have you Been Recently Intoxicated or Drunk Within the Last 30 days?: No Have you Ever Experienced Previous Episodes of Alcohol Withdrawal?: No Have you ever Experienced Withdrawal Seizures?: No Have you ever Experienced Delirium Tremens(DT)s?: No Have you ever undergone Alcohol Rehabilitation Treatment (i.e, inpt ot outpatient treatment programs)?: No Have you ever Experienced Blackouts?: No Have you ever Combined Alcohol with other Downers within the last 90 days?: No Have you ever Combined Alcohol with any other Substance of Abuse during the last 90 days?: No Positive Blood Alcohol level on Presentation? [PCS.BAL]: No Evidence of Increased Autonomic Activity (i.e. HR>120, tremor, sweating, agitation, nausea)?: No Result: 0 Time Spent with Patient Time Spent with Patient: 35-49 minutes Time was spent: preparing to see the patient(eg.review tests), ordering medications,tests, procedures, referring, communicating with other health hospice care sales consultant, indepentently interpreting results, counseling the patient and care coordination
[2023-05-29] MEDS: VANCOMYCIN/WATER (PEG) 750 MG/150 ML BAG 150 MG IVPB (14:18)
--- NOTE | 2023-05-29 17:01 | PTTR_ITS ---
Date of service: 05/29/23 Time of Service: 14:18 PT Notes Visit Reasons: Pneumonia, hypokalemia Inpatient Physical Therapy Treatment Note [facility] Date: 05/29/23 PRECAUTIONS: Fall, standard, activity as tolerated. No longer on airborne precautions SUBJECTIVE: Patient reports feeling pretty good OBJECTIVE: Patient supine in bed, on 1L/min supplemental O2, agreeable to therapy.? PAIN: None reported VITALS: ? Pre-Treatment: 95% on 1L/min supplemental O2 Mid-Treatement: 83% on 1L. Adjusted to 2L for remainder of session. Rebounded to 93%, desaturated with activity again to 85% ? Post-Treatment: 94%. Returned to 1L/min? ? ? BED MOBILITY/TRANSFERS? Rolling L/R: min assist of 1 Supine-sit: mod hand-hold assist of one, plus extra time? Sit-supine: not assessed - Patient decided to sit up in recliner at end of treatment. ? Sit-stand: min to mod assist of one pulling up on gait belt ? Stand-sit: CGA with verbal cues? Bed-Chair: CGA ? Chair-bed: CGA ? Therapeutic Exercises ([id number]): Direct one-on-one instruction in therapeutic exercises to develop strength, endurance, range of motion and flexibility. ? Exercises: * sit to stand x6 ?Ambulation ? Assistive Device: Attempted ambulation without device, however patient could not seem to get his balance, took 4 unsafe steps and tried to catch his balance with the wheeled bedside table. FWW used for remainder of session.? Weight bearing: full Assist: CGA with wheelchair follow.? Distance:? 10 feet, seated rest, 30 feet, long rest. ? Deviation: with FWW, patient appeared to have reasonably good balance. Reduced step length, good step height, symmetrical stride length, kyphotic posture. Stairs: Patient ascends and descends 2 six inch and 3 four inch stairs with CGA and bilateral railings, no verbal cues needed, reciprocal gait pattern demonstrated. Patient desats into mid 80's with this effort. ? Provided skilled instruction in proper exercise performance Provided skilled manual cues to facilitate proper muscle recruitment and/or form. ASSESSMENT:? Patient desaturates sharply with activity, despite pursed lip breathing throughout. PLAN: Continue stamina training per plan of care. Incorporate manual therapy, self mobilizations to improve lung capacity. TREATMENT CODE/TIME: 28 minutes beginning at 14:18
[2023-05-29 20:03] LABS: Legionella Ag Detection Urine Negative (Negative)
--- NOTE | 2023-05-29 21:53 | WOUNDCONS ---
- If Service Date Differs Date of service: 05/29/23 Time of Service: 20:00 Wound Initial Evaluation Narrative: Patient is a 83 yom, he is seen here for community acquired, pneumonia, acute respiratory failure with hypoxia, hypokalemia, COPD exacerbation, He was found to have an area of concern on his coccyx. Patient is found to be frail, thin, and weak. He does ambulate, he stated he uses railings and banisters, inside the house for assist, and uses a walker while outside. He consents to the wound consult, Labs, reports are reviewed prior to the consult, patient signed the consent. Body Four View: 1 - stage 2 - Wound coccyx Wound Type: Pressure Ulcer Pressure Ulcer Stage: II Wound General Appearance: Clean/Dry, Reddened, Blackened Wound Bed Greatest Portion: Red (Granulation) Wound Length: 0.6 cm Wound Width: 0.4 cm Wound Depth: 0.1 cm Wound Drainage Amount: None Wound Drainage Odor: None/Absent Wound Drainage Description: Serous Wound Topical Solution/Irrigant: Saline Irrigant Wound Debridement Method: Gauze Wound Debridement Result: Healthy Tissue Revealed Wound Debridement Amount of Tissue Removed: Minimal - Circulation, Sensation, Motion Edema Degree: Other (na) Peripheral Pulse Strength: Normal Capillary Refill: Less than 3 seconds Sensation Description: Within Normal Limits Skin Temperature: Cool Skin Color: Pale - JEANETTE Comment:: na - Pain Pain Level: 0 Pain Scale Used: Visual Analog Scale 0-10 Patient is reluctant to offload pressure. It is explained to the patient that even with the dressing in place, it would be to his advantage to regularly offlload pressure, as turning at regular intervals would more evenly distribute the pressure. After education, patient requested to bel placed on his back. - Photo Photo: - Treatment/Dressing Change Topicals/Ointments: None Cleanse With: Saline Dressing Types: Mepilex w/Border - Nutrition Education Reviewed Nutrition Education: No - Recomendation Recomendation:: Coccyx Clean with normal saline, then pat dry. Apply skin prep to the danny wound skin. Cover with a Mepilex 4X4. Change every 3 days or PRN. Encourage patient to offload pressure as he will tolerate. Physcian/Nurse Practioner Notified: Yes (Dr. Kan) Treatment Time - Time Total Time Spent with Patient: 1 hour - Patient Will be Seen Weekly Treatment: 3x/wk - For: For:: 1 week
[2023-05-29] MEDS: Mirtazapine 15 MG TAB PO (22:11)
[2023-05-29] MEDS: Zolpidem 10 MG TAB PO (22:11)
[2023-05-29] MEDS: CEFEPIME 2 GM in Normal Saline 100 ML IVPB (22:30)
[2023-05-30] VITALS (38 sets, daily range): BP systolic 98–137; BP diastolic 54–81; PULSE 98–140; RESP 1–28; TEMP 35.9–37.2; O2SAT 88–99
--- NOTE | 2023-05-30 | DI.CT_ITS ---
Exam(s) CT CHEST PE CTA EXAM: CT CHEST PE CTA CLINICAL HISTORY: SVT, pneumonia. TECHNIQUE: Imaging Protocol: CT angiography of the chest was performed using pulmonary embolus jessica col. Multi planar reconstructions were performed. CONTRAST MATERIAL: Intravenous: Omnipaque 350 Contrast volume: 100 cc COMPARISON: CT CT ABDOMEN PELVIS W from 02/19/2021 CR XR CHEST 2V PA LATERAL from 05/27/2023 FINDINGS: CHEST: PULMONARY ARTERIES: There are no intraluminal filling defects to suggest acute pulmonary emboli. LUNGS: Prominent infiltrate involving the entire right upper lobe and also most of the right lower lo be. This is confluent with multiple small cavities.. There is sparing of the right lower lobe. The re is a small right pleural effusion. No infiltrates in the left lung. There is tiny amount of left pleural fluid. MEDIASTINUM: There is subcarinal adenopathy. Also right parahilar adenopathy and hilar adenopathy on the right side contiguous with the infiltrate. There is no adenopathy in the left hilum. Visualize d thyroid unremarkable. CARDIAC: Heart size is upper normal. There is no pericardial effusion.Caliber of the thoracic aorta is within normal limits. No dissection. There is no significant shift of the interventricular septum . PARTIALLY VISUALIZED UPPERMOST ABDOMEN: No obvious findings OSSEOUS: Fusion plate in the lower cervical spine. No osseous lesions. No fractures evident.. IMPRESSION: 1. There is prominent infiltrate involving the entire right upper lobe and large aspect of the right middle lobe. There is a small right pleural effusion..No infiltrates in the opposite-left lung. Tin y amount of left pleural fluid noted. 2. There is right hilar and mediastinal adenopathy. No adenopathy in the left hilum. 3. No evidence of pulmonary emboli. RADIATION DOSE DELIVERED: 129.34 mGy.cm Total DLP DATA REPOSITORY: All CT scans at this facility are submitted to the National Radiology Data Registry (NRDR) Dose Index Registry (DIR) with the [employer] (ACR). RADIATION OPTIMIZATION: All CT scans at this facility use at least one of these dose optimization te chniques: automated exposure control; mA and/or kV adjustment per patient size (includes targeted exa ms where dose is matched to clinical indication); or iterative reconstruction.
[2023-05-30] MEDS: DOXYCYCLINE 100 MG in Normal Saline 100 ML IVPB ×2 (01:41→14:37)
[2023-05-30] MEDS: VANCOMYCIN/WATER (PEG) 750 MG/150 ML BAG 150 MG IVPB ×3 (02:55→16:30)
[2023-05-30 04:44] LABS: Absolute Lymphocyte Count 0.68 10^3/uL (1.2-3.4); Basophils % 0.3; HCT 25.7 % (40.0-50.0); HGB 8.6 g/dL (13.5-17.5); Immature Grans % 1.6; Lymphocytes % 2.1; MCHC 33.5 % (32.0-36.0); MCV 78 fL (80-95); MPV 9.5 fL (8.0-11.0); Nucleated RBC 0.1 % (0.0-0.3); Platelet Count 354 10^3/uL (130-400); RBC 3.31 10^6/uL (4.36-5.78); RDW 18.7 % (11.8-14.1); RDW-SD 52.9 fL
[2023-05-30 04:45] LABS: Absolute Monocyte Count 0.97 10^3/uL (0.1-0.8); Absolute Neutrophil Count 29.99 10^3/uL (1.2-6.7)
[2023-05-30 04:46] LABS: WBC 32.25 10^3/uL (4.4-10.8)
[2023-05-30 04:55] LABS: Anion Gap 10.8 mmol/L (3-11); BUN 17 mg/dL (7-18); C-Reactive Protein 17.86 mg/dL (0.0-0.3); CO2 23.2 mmol/L (21.0-32.0); CREATININE 0.5 mg/dL (0.70-1.30); Calcium 8.5 mg/dL (8.5-10.1); Chloride 97 mmol/L (98-107); Glucose 105 mg/dL (74-106); Magnesium 0.8 mg/dL (1.8-2.4); Potassium 3.2 mmol/L (3.5-5.1); Sodium 131 mmol/L (136-145)
[2023-05-30 05:05] LABS: Polychromasia Present
[2023-05-30 05:06] LABS: Diff Comment Agrees w/ Instrument
[2023-05-30] MEDS: predniSONE 20 MG TAB 40 MG PO (08:07)
[2023-05-30] MEDS: hydroCHLOROthiazide 25 MG TAB PO (08:08)
[2023-05-30] MEDS: Metoprolol 5 MG/5 ML VIAL IVP (08:08)
[2023-05-30] MEDS: guaiFENesin 600 MG TABCR PO ×2 (08:08→19:58)
[2023-05-30] MEDS: Potassium Chloride 10 MEQ CAPCR 20 MEQ PO ×2 (08:08→19:58)
[2023-05-30] MEDS: Sertraline 25 MG TAB PO (08:08)
[2023-05-30] MEDS: Carvedilol 3.125 MG TAB PO (08:08)
[2023-05-30] MEDS: Pantoprazole 40 MG TABCR PO ×2 (08:08→19:58)
[2023-05-30] MEDS: Normal Saline Flush 10 ML SYR IVP ×2 (08:09→21:16)
[2023-05-30] MEDS: Budesonide/Formoterol 160/4.5 6 GM 60 PUFF INH IH ×2 (08:21→19:14)
[2023-05-30] MEDS: Levalbuterol 0.63 MG/3 ML UPD VIAL UPD ×4 (08:22→19:14)
[2023-05-30 08:28] LABS: Source Nasopharynx
[2023-05-30 09:14] LABS: COVID-19 PCR Negative (Negative)
[2023-05-30] MEDS: Potassium Chloride 20 MEQ TABCR PO (10:37)
[2023-05-30] MEDS: Magnesium Gluconate 500 MG TAB PO (10:38)
[2023-05-30] MEDS: Ipratropium 0.5 MG/2.5 ML UPD VIAL UPD ×3 (12:30→19:19)
--- NOTE | 2023-05-30 13:56 | PT.INNT ---
Date of service: 05/30/23 Time of Service: 11:18 PT Notes Visit Reasons: Pneumonia, hypokalemia Morning patient is asleep, patient's declines this therapist waking patient for therapy stating he had a really rough night and needs the rest. Afternoon patient refuses therapy stating that he is waiting for a CT scan and just had his IV replaced, and is not able or willing to participate in therapy today. Please come back tomorrow.
[2023-05-30] MEDS: CEFEPIME 2 GM in Normal Saline 100 ML IVPB (14:04)
[2023-05-30] MEDS: MAGNESIUM SULFATE 4 GM/100 ML BAG IVPB (16:57)
--- NOTE | 2023-05-30 17:16 | PDOC.CMPRO ---
Date of service: 05/30/23 Time of Service: 17:16 Care Management Progress Note Progress Note Text Progress Note Text: S/O:Meet was sitting up in bed when CM met with him. He stated that he is feeling much better this afternoon. He had a CT scan of his chest which showed a large infiltrate encompassing his entire right upper lobe and part of the middle lobe as well as adenopathy. He is requiring high flow nasal oxygen to maintain his oxygen saturation levels above 90. In addition, his WBC has climbed to 32.25 from 27 yesterday, however he remains afebrile. .Mike's Janet was visiting when CM met with him and joined in the conversation. Both discussed the fact that Mike has a sore (stage II decubitus) on his bottom that he got atr home. Janet explained that he has been so weak at home he has spent much of his time in his recliner. She plans to puta cushion on the chair when he gets home. A:Mike is an 83 year old man admitted on 05/27/23 with pneumonia P: Anticipate Mike will be discharged home when medically cleared by provider. He will follow up with his community providers and plan of care and transport with family. CM will follow and continue to assess for discharge concerns. :
--- NOTE | 2023-05-30 17:50 | PGE_ITS ---
Date of Service Date of service: 05/30/23 Time of Service: 17:50 Assessment and Plan Assessment and plan (1) Community acquired pneumonia: Status: Acute Assessment and plan: -right upper and middle lobes. -WBC count continues to increase. -CT chest with RUL pneumonia and mediastinal lymphadenopathy. -Consult pulmonary medicine. -continue doxycycline day 3 - dc ceftriaxone and started cefepime -s/p steroids in ED for suspected copd exac -legionella neg Strep pneumo pending, along with blood cultures. -mucinex acapella, (2) Acute respiratory failure with hypoxia: Status: Acute Assessment and plan: -secondary to CAP as noted above -required as much as 2L NC -wean as tolerated with goal O2 88-92% (3) COPD exacerbation: Status: Acute Assessment and plan: see above. (4) Hypokalemia: Status: Acute Assessment and plan: 3.8 Monitor and replete prn (5) History of bleeding peptic ulcer: Status: Acute Assessment and plan: -hemoglobin 7.4 - 1 unit PRBCs, now 8.6 -continue bid PPI and monitor for bleeding, hematest stool. -dvt prophylaxis--hold enoxaparin, SCD (6) COPD (chronic obstructive pulmonary disease): Status: Chronic Assessment and plan: PRN levalbuterol. Changed from albuterol d/t tachycardia. (7) Hypomagnesemia: Status: Acute Assessment and plan: Repleting and monitoring. (8) Tachycardia: Status: Acute Assessment and plan: Sinus. Given a dose of IV metoprolol today. Increased carvedilol. Subjective Subjective Patient reports: no new complaints, feels better, tolerating a regular diet and afebrile Interval history since last seen: Walked in hallway with PT Exam Const General: cooperative, comfortable and no acute distress [facility] Head: normal to inspection Ears: hearing grossly normal bilaterally Resp Effort & Inspection: normal respiratory effort, able to speak in complete sentences and no cough Auscultation: clear to auscultation bilaterally Cardio Jugular venous pressure: no JVD Rate: regular rate Rhythm: regular rhythm Heart Sounds: S1 normal, S2 normal, no murmurs and no rubs GI Inspection: normal to inspection Palpation: soft and nontender Skin General skin exam: no rashes or lesions noted Neuro General: patient alert, patient awake, patient oriented x3 and no focal motor deficits Cognition: normal cognition Speech: speech normal Psych Appearance: grossly normal Mental Status: mental status grossly normal Speech and Movement: speech and movement normal Mood: congruent mood Affect: normal affect Insight: insight good Objective Last Vital Signs Temp 35.9 C L 05/30/23 15:18 Pulse 104 H 05/30/23 16:36 Resp 16 05/30/23 16:36 BP 114/73 05/30/23 15:18 Pulse Ox 99 05/30/23 16:36 Laboratory Results - last 24 hr 05/28/23 05/29/23 05/30/23 16:53 19:42 00:00 WBC RBC Hgb Cancelled Hct Cancelled MCV MCH MCHC RDW Plt Count MPV Immature Gran % Neutrophils % Lymphocytes % Monocytes % Eosinophils % Basophils % Nucleated RBC % Absolute Neutrophils Absolute Lymphocytes Absolute Monocytes Absolute Eosinophils Absolute Basophils RBC Morphology Polychromasia Sodium Potassium Chloride Carbon Dioxide Anion Gap BUN Creatinine Est GFR (CKD-EPI 2020) Glucose Calcium Magnesium C-Reactive Protein COVID-19 Source SARS-CoV-2 (PCR) Urine Legionella Ag Negative Patient ABO/Rh A Positive Antibody Screen NEGATIVE Crossmatch See Detail 05/30/23 05/30/23 05/30/23 04:35 04:35 08:10 WBC 32.25 H* RBC 3.31 L Hgb 8.6 L Hct 25.7 L MCV 78 L MCH 26.0 L MCHC 33.5 RDW 18.7 H Plt Count 354 MPV 9.5 Immature Gran % 1.6 Neutrophils % 93.0 Lymphocytes % 2.1 Monocytes % 3.0 Eosinophils % 0.0 Basophils % 0.3 Nucleated RBC % 0.1 Absolute Neutrophils 29.99 H Absolute Lymphocytes 0.68 L Absolute Monocytes 0.97 H Absolute Eosinophils 0.00 Absolute Basophils 0.10 RBC Morphology See Below Polychromasia Present Sodium 131 L Potassium 3.2 L Chloride 97 L Carbon Dioxide 23.2 Anion Gap 10.8 BUN 17 Creatinine 0.5 L Est GFR (CKD-EPI 2020) 101.20 Glucose 105 Calcium 8.5 Magnesium 0.8 L C-Reactive Protein 17.86 H COVID-19 Source Nasopharynx SARS-CoV-2 (PCR) Negative Urine Legionella Ag Patient ABO/Rh Antibody Screen Crossmatch PAWSS Have you Been Recently Intoxicated or Drunk Within the Last 30 days?: No Have you Ever Experienced Previous Episodes of Alcohol Withdrawal?: No Have you ever Experienced Withdrawal Seizures?: No Have you ever Experienced Delirium Tremens(DT)s?: No Have you ever undergone Alcohol Rehabilitation Treatment (i.e, inpt ot outpatient treatment programs)?: No Have you ever Experienced Blackouts?: No Have you ever Combined Alcohol with other Downers within the last 90 days?: No Have you ever Combined Alcohol with any other Substance of Abuse during the last 90 days?: No Positive Blood Alcohol level on Presentation? [PCS.BAL]: No Evidence of Increased Autonomic Activity (i.e. HR>120, tremor, sweating, agitation, nausea)?: No Result: 0 Time Spent with Patient Time Spent with Patient: 35-49 minutes Time was spent: preparing to see the patient(eg.review tests), obtaining and/or reviewing separately otained hiistory, ordering medications,tests, procedures, referring, communicating with other health career services manager, indepentently interpreting results, counseling the patient and care coordination
[2023-05-30] MEDS: Carvedilol 3.125 MG TAB 6.25 MG PO (19:58)
[2023-05-30] MEDS: Mirtazapine 15 MG TAB PO (19:58)
[2023-05-30] MEDS: Zolpidem 10 MG TAB PO (20:07)
[2023-05-31] VITALS (19 sets, daily range): BP systolic 100–129; BP diastolic 61–83; PULSE 83–117; RESP 1–24; TEMP 35.9–36.1; O2SAT 89–98
[2023-05-31] MEDS: DOXYCYCLINE 100 MG in Normal Saline 100 ML IVPB ×2 (00:57→12:30)
[2023-05-31] MEDS: CEFEPIME 2 GM in Normal Saline 100 ML IVPB ×2 (02:58→14:40)
[2023-05-31] MEDS: VANCOMYCIN/WATER (PEG) 750 MG/150 ML BAG 150 MG IVPB (03:58)
--- NOTE | 2023-05-31 06:15 | RT.EKG_ITS ---
APPROVED REPORT Exam: Resting ECG Reason for Exam: chest pain Patient Location: I HR:87 bpm ECG Measurements Heart Rate 87 AXIS CA 165 P 73 QRSd 108 QRS 54 QT 376 T 34 QTc 453 Conclusion Artifact Sinus rhythm...normal P axis, V-rate 50- 99 Probable left atrial enlargement...P >50mS, <-0.10mV V1 Abnormal T, consider ischemia, anterior leads...T <-0.20mV, V2-V4 Artifact in lead(s) I,III,aVR,aVL
[2023-05-31 07:17] LABS: NT-proBNP 4801 pg/mL (<300)
[2023-05-31 07:20] LABS: Anion Gap 9.6 mmol/L (3-11); BUN 19 mg/dL (7-18); CO2 23.4 mmol/L (21.0-32.0); CREATININE 0.6 mg/dL (0.70-1.30); Calcium 8.9 mg/dL (8.5-10.1); Chloride 100 mmol/L (98-107); Estimated GFR 95.78 (mL/min/1.73m2); Glucose 98 mg/dL (74-106); Magnesium 1.7 mg/dL (1.8-2.4); Potassium 3.3 mmol/L (3.5-5.1); Sodium 133 mmol/L (136-145)
[2023-05-31 07:22] LABS: Troponin I 158 ng/L (<or=60)
[2023-05-31 07:29] LABS: Procalcitonin 1.7 ng/mL
[2023-05-31 07:30] LABS: D-Dimer 6028 ng/mlFEU (<500)
[2023-05-31 08:02] LABS: HGB 8.7 g/dL (13.5-17.5); MCH 26.4 pg (27.0-33.0); MCHC 33.5 % (32.0-36.0); MCV 79 fL (80-95); MPV 10.2 fL (8.0-11.0); Platelet Count 335 10^3/uL (130-400); RDW 19.1 % (11.8-14.1); RDW-SD 55.1 fL; WBC 22.37 10^3/uL (4.4-10.8)
[2023-05-31 08:18] LABS: Absolute Lymphocyte Count 0.45 10^3/uL (1.2-3.4); Absolute Monocyte Count 1.57 10^3/uL (0.1-0.8); Absolute Neutrophil Count 20.36 10^3/uL (1.2-6.7)
[2023-05-31 08:19] LABS: Diff Comment Manual Differential; Hypochromasia 2+
[2023-05-31] MEDS: Potassium Chloride 10 MEQ CAPCR 20 MEQ PO ×2 (08:19→21:26)
[2023-05-31] MEDS: Pantoprazole 40 MG TABCR PO ×2 (08:19→21:27)
[2023-05-31 08:20] LABS: Polychromasia Present
[2023-05-31] MEDS: Sertraline 25 MG TAB PO (08:20)
[2023-05-31] MEDS: Carvedilol 3.125 MG TAB 6.25 MG PO ×2 (08:20→21:27)
[2023-05-31] MEDS: hydroCHLOROthiazide 25 MG TAB PO (08:20)
[2023-05-31] MEDS: predniSONE 20 MG TAB 40 MG PO (08:20)
[2023-05-31] MEDS: guaiFENesin 600 MG TABCR PO ×2 (08:20→21:27)
--- NOTE | 2023-05-31 09:07 | W.PULMCON ---
General Date Of Service Date of service: 05/31/23 Time of Service: 07:45 Reason for Consult: Non-resolving pneumonia Assessment and Plan Assessment and plan (1) Respiratory failure with hypoxia: Status: Acute (2) COPD exacerbation: Status: Acute (3) Community acquired pneumonia: Status: Acute Assessment and plan: This is a 83 yo admitted for pneumonia in the setting of COPD. His pneumonia did not appear to be improving with a jump in his white count. His labs today are more reassuring with a decreased WBC count and a decreased procalcitonin. I do think his structural lung disease (emphysema) is making the pnuemonia more difficult to treat and I do agree with covering pseudomonas. I have stopped the vanc given the negative MRSA nares. With his troponin bump, elevated bnp, change in EKG and episode of chest pain, I would recommend an echo. He is not safe safe for bronchoscopy given the cardiac concerns at the moment, and either way, I do think he seems to be improving, so would want to hold off. I spoke to both the patient and his regarding this. COPD Exacerbation - continue prednisone 40mg for a total of 5 days - continue home meds - recommend adding LAMA coverage - Spiriva ordered Pneumonia - agree with doxy and cefepime - consider discharge on Augmentin, total 10 days when ready - stop vanc - urine antigens for histo and blasto ordered - Fungitell ordered - agree with PT, OOB to chair Hypoxic respiratory failure - supplemental O2 for sats 88-92% History of Present Illness Narrative: This is a 83 yo with a history of COPD and GERD who was admitted 05/27/23 for a RUL pneumonia. He was treated with ceftriaxone and doxycycline. His MRSA nares was negative, as was his legionella antigen. His strep antigen is pending and his blood cultures show no growth to date. He had an episode of chest pain and his white count is increasing. This prompted the ceftriaxone to be changed to cefepime and the addition of vancomycin. His troponin returned elevated, as did a BNP. His EKG finds T wave inversion anteriorly, not present on admission EKG. He has COPD and is a former smoker. He has significant emphysema and uses nebs, albuterol, Advair as an outpatient. He feels well and does think he has been getting better. His procalcitonin and WBC count are both decreasing. Review of Systems All systems reviewed & are unremarkable except as noted in HPI and below PFSH All Active Problems (Updated 05/31/23 @ 12:37 by Caro Naylor MD) Respiratory failure with hypoxia (Acute) Tachycardia (Acute) Hypomagnesemia (Acute) Hyponatremia (Acute) Acute respiratory failure with hypoxia (Acute) History of bleeding peptic ulcer (Acute) Hypokalemia (Acute) COPD exacerbation (Acute) Community acquired pneumonia (Acute) Osteoarthritis of right knee (Acute) Steroid injection: 08/15/2020; 09/25/21; 02/19/2022; 06/28/22 COPD (chronic obstructive pulmonary disease) (Chronic) Fecal retention (Acute) Superior mesenteric artery stenosis (Acute) Lumbosacral spondylosis without myelopathy (Acute) Anemia (Chronic) Chest pain (Acute) History of gastrointestinal bleeding (Acute) Iron deficiency (Acute) Medical History (Updated 05/31/23 @ 12:37 by Caro Naylor MD) Alcohol abuse Currently he is not drinking daily Anosmia Back pain Balance problem uses cane Bilateral inguinal hernia without obstruction or gangrene Bleeding duodenal ulcer Cataracts, bilateral Chest discomfort no chest pain pressure or concerns at time of assessment Chronic back pain Chronic GERD Chronic iron deficiency anemia Chronic pain Diarrhea Discharge planning issues DVT prophylaxis Dysphagia Emphysema, unspecified Exertional dyspnea Folate deficiency anemia Gastritis H/O skin pruritus Herniated lumbar intervertebral disc Hip pain, left History of traumatic fracture of vertebra HTN (hypertension) Hx of squamous cell carcinoma Inguinal hernia, bilateral Insomnia Knee pain, bilateral Leg swelling Lower back pain Osteoarthritis of left knee Steroid injection: 08/15/2020 s/p left TKA Osteoarthritis of lumbar spine PUD (peptic ulcer disease) Sleep disturbance Spondylosis of lumbar spine Spondylosis, cervical Symptomatic anemia Syncope Tobacco dependence in remission Unintentional weight loss Vitamin D deficiency Surgical History (Updated 04/24/23 @ 15:03 by Lilia Blanco) 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) DOS 06/27/21 Hx of abdominal surgery Status post percutaneous coil/embolization of posterior duodenal artery for bleeding duodenal ulcer Hx of esophagogastroduodenoscopy (~04/2023) Nuclear sclerotic cataract of left eye Nuclear sclerotic cataract of right eye Posterior subcapsular age-related cataract of left eye Posterior subcapsular age-related cataract, right eye S/P bilateral inguinal hernia repair (~02/13/22) S/P cervical spinal fusion S/P laminectomy Social History Smoking/Tobacco Use Status: Former Tobacco Use Quit Date: 09/02/18 Smoking risk assessment performed?: Yes Alcohol Intake: current Alcohol Intake frequency: 0-2 drinks per day Alcohol type: beer and hard liquor Drug use: Occasionally Substance use type: marijuana Details: pt. reports a beer nightly Household members: spouse Housing: house Number of Children: 1 current occupation: Retired Current gender identity: male Do you feel safe at home: Yes Do you feel safe in your relationship?: Yes Visit Medication and Allergies Active Medications Generic Name Dose Route Start Last Admin Trade Name Freq PRN Reason Stop Dose Admin Acetaminophen 1,000 mg 05/27/23 16:57 Acetaminophen 500 Mg Tab PO Q8H PRN PRN pain Budesonide/Formoterol Fumarate 2 puff 05/27/23 20:00 05/30/23 19:14 Budesonide/Formoterol 160/4.5 6 Gm 60 Puff Inh IH 2 puffs BID GLENN Administration Carvedilol 6.25 mg 05/30/23 20:00 05/31/23 08:20 Carvedilol 3.125 Mg Tab PO 6.25 mg BID GLENN Administration Device 1 each 05/27/23 17:00 Inhaler, Assist Device MC DIRECTED GLENN Guaifenesin 600 mg 05/27/23 20:00 05/31/23 08:20 Guaifenesin 600 Mg Tabcr PO 600 mg BID GLENN Administration Hydrochlorothiazide 25 mg 05/28/23 08:30 05/31/23 08:20 Hydrochlorothiazide 25 Mg Tab PO 25 mg DAILY GLENN Administration Doxycycline Hyclate 100 mg/ 100 mls @ 100 mls/hr 05/28/23 00:00 05/31/23 02:43 Sodium Chloride IVPB Infused Q12H GLENN Infusion Sodium Chloride 500 mls @ 0 mls/hr 05/28/23 09:24 05/28/23 13:45 Saline 500ml Bag IV 0 mls/hr PRN PRN Infusion As Directed Cefepime HCl 2 gm/ Sodium 100 mls @ 200 mls/hr 05/31/23 02:00 05/31/23 03:30 Chloride IVPB Infused Q12H GLENN Infusion Vancomycin/PEG/NADA/Lysine/Water 750 mg in 150 mls @ 150 mls/hr 05/30/23 16:00 05/31/23 03:58 Vancocin Injection IVPB 150 mls/hr Q12H GLENN Administration As Directed Ipratropium [place] 0.5 mg 05/30/23 12:00 05/30/23 19:19 Ipratropium 0.5 Mg/2.5 Ml Upd Vial UPD 0.5 mg QID GLENN Administration Levalbuterol HCl 0.63 mg 05/30/23 08:06 05/30/23 08:22 Levalbuterol 0.63 Mg/3 Ml Upd Vial UPD 0.63 mg Q2H PRN PRN Administration Levalbuterol HCl 0.63 mg 05/30/23 12:00 05/30/23 19:14 Levalbuterol 0.63 Mg/3 Ml Upd Vial UPD 0.63 mg QID GLENN Administration Mirtazapine 15 mg 05/27/23 22:00 05/30/23 19:58 Mirtazapine 15 Mg Tab PO 15 mg HS GLENN Administration Pantoprazole Sodium 40 mg 05/27/23 20:00 05/31/23 08:19 Pantoprazole 40 Mg Tabcr PO 40 mg BID@0730,2000 GLENN Administration Potassium Chloride 20 meq 05/27/23 20:00 05/31/23 08:19 Potassium Chloride 10 Meq Capcr PO 20 meq BID GLENN Administration Sertraline HCl 25 mg 05/28/23 08:30 05/31/23 08:20 Sertraline 25 Mg Tab PO 25 mg DAILY GLENN Administration Sodium Chloride 0 ml 05/28/23 09:24 05/30/23 21:16 Normal Saline Flush 10 Ml Syr IVP 20 ml PRN PRN Administration Zolpidem Tartrate 10 mg 05/27/23 16:57 05/30/23 20:07 Zolpidem 10 Mg Tab PO 10 mg HS PRN PRN Administration Allergies NSAIDS (Non-Steroidal Anti-Inflamma Adverse Reaction (Severe, Unverified 05/27/23 14:32) hx of bleeding ulcer shellfish derived Adverse Reaction (Intermediate, Verified 05/27/23 14:32) vomiting, GI upset meloxicam Adverse Reaction (Verified 05/27/23 14:32) caused bleeding ulcer; pt avoids all NSAIDS Exam Narrative Exam Narrative: Gen: NAD, normal respiratory effort, well-nourished HENT: PERRL Chest: No respiratory distress, normal appearance of chest, diminished breath sounds throughout, RUL crackles Heart: regular rate and rhythym, no murmurs, rubs or gallops Abdomen: Non-distended, soft, non tender Extremities: No clubbing, edema, cyanosis, rashes Neuro: AAOx3 , non focal Psych: cooperative, appropriate mental affect Results Last Vital Signs Temp 35.9 C L 05/31/23 07:40 Pulse 89 05/31/23 07:40 Resp 19 05/31/23 07:40 BP 121/73 05/31/23 07:40 Pulse Ox 91 L 05/31/23 08:00 Labs 05/31/23 07:50 05/31/23 06:30 Labs: Laboratory Results - last 24 hr 05/28/23 05/30/23 05/31/23 16:53 08:10 06:18 WBC RBC Hgb Hct MCV MCH MCHC RDW Plt Count MPV Immature Gran % Neutrophils % Band Neutrophils % Lymphocytes % Atypical Lymphs % Monocytes % Eosinophils % Basophils % Metamyelocytes % Myelocytes % Promyelocytes % Other Cells % Nucleated RBC % Absolute Neutrophils Absolute Lymphocytes Absolute Monocytes Absolute Eosinophils Absolute Basophils RBC Morphology Polychromasia Hypochromasia Poikilocytosis Basophilic Stippling Anisocytosis Microcytosis Macrocytosis Spherocytes Tear Drop Cells Ovalocytes Stomatocytes Burr-Bandera Bodies William Cells/Echinocytes Acanthocytes (Spur) Schistocytes D-Dimer Sodium Cancelled Potassium Cancelled Chloride Cancelled Carbon Dioxide Cancelled Anion Gap Cancelled BUN Cancelled Creatinine Cancelled Est GFR (CKD-EPI 2020) Cancelled Glucose Cancelled Calcium Cancelled Magnesium Troponin I NT-Pro-B Natriuret Pep Procalcitonin SARS-CoV-2 (PCR) Negative Urine Legionella Ag Negative 05/31/23 05/31/23 05/31/23 06:30 06:30 06:30 WBC Cancelled RBC Cancelled Hgb Cancelled Hct Cancelled MCV Cancelled MCH Cancelled MCHC Cancelled RDW Cancelled Plt Count Cancelled MPV Cancelled Immature Gran % Cancelled Neutrophils % Cancelled Band Neutrophils % Cancelled Lymphocytes % Cancelled Atypical Lymphs % Cancelled Monocytes % Cancelled Eosinophils % Cancelled Basophils % Cancelled Metamyelocytes % Cancelled Myelocytes % Cancelled Promyelocytes % Cancelled Other Cells % Cancelled Nucleated RBC % Cancelled Absolute Neutrophils Cancelled Absolute Lymphocytes Cancelled Absolute Monocytes Cancelled Absolute Eosinophils Cancelled Absolute Basophils Cancelled RBC Morphology Cancelled Polychromasia Cancelled Hypochromasia Cancelled Poikilocytosis Cancelled Basophilic Stippling Cancelled Anisocytosis Cancelled Microcytosis Cancelled Macrocytosis Cancelled Spherocytes Cancelled Tear Drop Cells Cancelled Ovalocytes Cancelled Stomatocytes Cancelled Burr-Band[place] Bodies Cancelled William Cells/Echinocytes Cancelled Acanthocytes (Spur) Cancelled Schistocytes Cancelled D-Dimer Sodium 133 L Potassium 3.3 L Chloride 100 Carbon Dioxide 23.4 Anion Gap 9.6 BUN 19 H Creatinine 0.6 L Est GFR (CKD-EPI 2020) 95.78 Glucose 98 Calcium 8.9 Magnesium 1.7 L Troponin I NT-Pro-B Natriuret Pep Procalcitonin 1.7 SARS-CoV-2 (PCR) Urine Legionella Ag 05/31/23 05/31/23 05/31/23 06:30 06:30 07:50 WBC 22.37 H RBC 3.30 L Hgb 8.7 L Hct 26.0 L MCV 79 L MCH 26.4 L MCHC 33.5 RDW 19.1 H Plt Count 335 MPV 10.2 Immature Gran % 0.0 Neutrophils % 91.0 Band Neutrophils % Lymphocytes % 2.0 Atypical Lymphs % Monocytes % 7.0 Eosinophils % 0.0 Basophils % 0.0 Metamyelocytes % Myelocytes % Promyelocytes % Other Cells % Nucleated RBC % 0.0 Absolute Neutrophils 20.36 H Absolute Lymphocytes 0.45 L Absolute Monocytes 1.57 H Absolute Eosinophils 0.00 Absolute Basophils 0.00 RBC Morphology See Below Polychromasia Present Hypochromasia 2+ Poikilocytosis Basophilic Stippling Anisocytosis Microcytosis Macrocytosis Spherocytes Tear Drop Cells Ovalocytes Stomatocytes Burr-Bandera Bodies William Cells/Echinocytes Acanthocytes (Spur) Schistocytes D-Dimer 6028 H Sodium Potassium Chloride Carbon Dioxide Anion Gap BUN Creatinine Est GFR (CKD-EPI 2020) Glucose Calcium Magnesium Troponin I 158 H* NT-Pro-B Natriuret Pep 4801 H Procalcitonin SARS-CoV-2 (PCR) Urine Legionella Ag
[2023-05-31] MEDS: Ipratropium 0.5 MG/2.5 ML UPD VIAL UPD ×4 (09:17→19:24)
[2023-05-31] MEDS: Budesonide/Formoterol 160/4.5 6 GM 60 PUFF INH IH ×2 (09:20→19:23)
[2023-05-31] MEDS: Levalbuterol 0.63 MG/3 ML UPD VIAL UPD ×4 (09:20→19:27)
--- NOTE | 2023-05-31 09:40 | PDOC.CMPRO ---
Date of service: 05/31/23 Time of Service: 09:40 Care Management Progress Note Progress Note Text Progress Note Text: S/O:Mike was sitting up in bed when CM met with him. He stated that he is feeling much better. His WBC decreased today to 22.37 from 32.25 yesterday. His oxygen saturation levels have been in the mid to upper 90s on 2L of high flow nasal oxygen. There had been some discussion about Mike possibly needing a bronchoscopy but he informed CM that Dr. Naylor stated she did not feel it was necessary at this time. Mike did admit that he is disappointed that he cannot return home yet. Janet has been visiting at least twice a day and has been very caring and supportive. A:Mike is an 83 year old man admitted on 05/27/23 with pneumonia P: Anticipate Mike will be discharged home when medically cleared by provider. He will follow up with his community providers and plan of care and transport with family. CM will follow and continue to assess for discharge concerns. :
[2023-05-31 09:50] LABS: Troponin I 136 ng/L (<or=60)
[2023-05-31] MEDS: Aspirin 325 MG TAB PO (10:46)
--- NOTE | 2023-05-31 11:40 | PTTR_ITS ---
Date of service: 05/31/23 Time of Service: 11:00 PT Notes Visit Reasons: Pneumonia, hypokalemia Inpatient Physical Therapy Treatment Note [facility] Date: 05/31/23 PRECAUTIONS: Fall, standard, activity as tolerated SUBJECTIVE: Patient reports feeling better today than yesterday, reports yesterday was just too many people poking him. present also today. OBJECTIVE: Sitting up in recliner, agreeable to therapy. ? PAIN: none reported VITALS: ? Pre-Treatment: 92% on 2L/min ? Mid-Treatment: desats to 82% with exertion. Rebounds to 88 in ~90 s econds. RN notified, O2 increased to 3L/min for remainder of therapy session. Post-Treatment: not measured. , RN, and another staff member present in room as patient is prepped for in-room testing immediately following therapy. Therapeutic Activities (09552x2): Direct one-on-one instruction in dynamic activities to improve functional performance. ? ? BED MOBILITY/TRANSFERS? Rolling L/R: not assessed Supine-sit: not assessed ? Sit-supine: min assist of one to raise legs into bed. ? Sit-stand: min assist of one pulling up on gait belt? Stand-sit: CGA, verbal cues to reach back for surface ? Bed-Chair: CGA ? Chair-bed: CGA Skilled cues provided throughout. Gait Training (38966l1): Direct one-on-one instruction and skilled instruction in: [x] employing an assistive device - especially keeping it close enough and lined up correctly when backing up to sit [] modified weight-bearing status [x] movement sequencing - especially stepping back and then bringing walker a long before we get too far away from it [x] turning and movement with proper form [x] Provided verbal cues for equipment management and technique [x] Provided instruction in gait pattern [x] Patient education regarding pacing and breathing techniques to maximize activity tolerance? GAIT? Assistive Device: FWW? Weight bearing: full Assist: CGA, verbal and tactile cues ? Distance:? 12 feet, seated rest x2, 25 feet ? Deviation: kyphotic posture which worsens with fatigue, reduced kamilah, reduced stride length. Patient uses pursed lip breathing intuitively. Cues to breathe in through nose as patient becomes short of breath. ? Emphasis on gait training today was on slowing pace, breathing deeply, trying to keep O2 up, as well as moving in reverse SAFELY as patient tends to want to leave walker where he decided to turn and stretch his arms out to hold walker in place as he backs up to his seat, putting him at high risk of falling. ? ASSESSMENT:? Patient becomes extremely short of breath with exertion, with SaO2 dropping into low 80s with very short ambulation distances. Patient states he will be agreeable to work with therapy again this afternoon. PLAN: Continue progression of plan of care until patient is medically cleared for discharge. TREATMENT CODE/TIME: 39 minutes beginning at 11:00.
--- NOTE | 2023-05-31 13:44 | CHAPLAIN ---
Mike was resting in bed when I visited. I explained my role and offered support. Mike said he moved to [place] to be closer to grandchildren. 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 Mike was pleasant and easily engaged in conversation, but was tiring from taking. His has been in to visit and will continue to.
--- NOTE | 2023-05-31 14:11 | PT.INTREAT ---
PT Notes Visit Reasons: Pneumonia, hypokalemia Date: 05/31/23 ?PRECAUTIONS: Fall, standard, activity as tolerated ?SUBJECTIVE: Pt in bed when approached for therapy this afternoon, Nurse Yariel warned this therapist that pt is having a difficult afternoon with O2sat being on the low side during transfers. pt agreed to bed level activity. ?OBJECTIVE: ?PAIN: none reported ?VITALS: ? Pre-Treatment: 92% on 2L/min ? Mid-Treatment: stayed at low 90's. ?Post-Treatment: 93% on 2L/min Therapeutic Activities (30955 25mins): Direct one-on-one instruction in dynamic activities to improve functional performance. ?BED MOBILITY/TRANSFERS?Rolling L/R: mod A ?Supine-sit: mod A?Sit-supine: mod A? Skilled cues provided throughout. Treatment: Deep breathing exercises 5x 1set Long seated shoulder shrugs [id number] Long seated scapular retraction [id number] Long seated cervical flexion/extension [id number] Long seated cervical lateral deviation [id number] Long seated cervical lateral rotation [id number] ASSESSMENT:? Pt slightly SOB after activity, reports fatigue and requested to stop after the last cervical activity. PLAN: Continue progression of plan of care until patient is medically cleared for discharge. ?TREATMENT CODE/TIME: [id number], 25 minutes (1:53- 2:18pm).
--- NOTE | 2023-05-31 15:54 | W.PM.PROGNOT ---
Date of Service Date of service: 05/31/23 Time of Service: 16:43 Assessment and Plan Assessment and plan (1) Community acquired pneumonia: Status: Acute Assessment and plan: -right upper and middle lobes. -WBC count now decreasing. -CT chest with RUL pneumonia and mediastinal lymphadenopathy. -Pulmonary medicine following. -urine antigens for histo and blasto now ordered. -Fungitell pending. -continue doxycycline day 3 - dc ceftriaxone and started cefepime -s/p steroids in ED for suspected copd exac -legionella neg Strep pneumo pending, along with blood cultures. -mucinex acapella, -planned to continue Augmentin when discharged for total of 10 days. (2) Chest pain: Status: Acute Assessment and plan: Episode this AM. Troponin 158 > 136 Aspirin given. Anterior T-wave inversions. Cont daily aspirin 81mg Echo showed an EF of 60% w/o wall motion abnormality. RVSP of 42 with moderate right ventricular dilitation. EKG in AM. (3) Acute respiratory failure with hypoxia: Status: Acute Assessment and plan: -secondary to CAP as noted above -required as much as 2L NC -wean as tolerated with goal O2 88-92% (4) COPD exacerbation: Status: Acute Assessment and plan: see above. Prednisone 40mg daily x 5 days. Spiriva initiated by pulmonary. (5) Hypokalemia: Status: Acute Assessment and plan: 3.8 Monitor and replete prn (6) History of bleeding peptic ulcer: Status: Acute Assessment and plan: -hemoglobin 7.4 - 1 unit PRBCs, now 8.7 -continue bid PPI and monitor for bleeding. -dvt prophylaxis--hold enoxaparin, SCD (7) COPD (chronic obstructive pulmonary disease): Status: Chronic Assessment and plan: PRN levalbuterol. Changed from albuterol d/t tachycardia. (8) Hypomagnesemia: Status: Acute Assessment and plan: Repleting orally now and monitoring. (9) Tachycardia: Status: Acute Assessment and plan: Sinus. Increased his carvedilol. Monitor. Subjective Subjective Patient reports: afebrile; denies nausea or vomiting Interval history since last seen: Brief episode of CP at appx 0400 this AM Resolved. No palpitations. Exam Narrative Exam Narrative: Sitting upright in recliner. Const General: cooperative, comfortable and no acute distress HENMT Head: normal to inspection Ears: hearing grossly normal bilaterally Resp Effort & Inspection: normal respiratory effort, able to speak in complete sentences and no cough Auscultation: clear to auscultation bilaterally, diminished lung sounds and rales on the right in the upper lung quinones Cardio Jugular venous pressure: no JVD Rate: regular rate Rhythm: regular rhythm Heart Sounds: S1 normal, S2 normal, no murmurs and no rubs GI Inspection: normal to inspection Palpation: soft and nontender Skin General skin exam: no rashes or lesions noted Neuro General: patient alert, patient awake, patient oriented x3 and no focal motor deficits Cognition: normal cognition Speech: speech normal Psych Appearance: grossly normal Mental Status: mental status grossly normal Speech and Movement: speech and movement normal Mood: congruent mood Affect: normal affect Insight: insight good Objective Last Vital Signs Temp 35.9 C L 05/31/23 15:05 Pulse 85 05/31/23 15:54 Resp 18 05/31/23 15:54 BP 129/83 05/31/23 15:05 Pulse Ox 98 05/31/23 15:54 Laboratory Results - last 24 hr 05/31/23 05/31/23 05/31/23 06:18 06:30 06:30 WBC Cancelled RBC Cancelled Hgb Cancelled Hct Cancelled MCV Cancelled MCH Cancelled MCHC Cancelled RDW Cancelled Plt Count Cancelled MPV Cancelled Immature Gran % Cancelled Neutrophils % Cancelled Band Neutrophils % Cancelled Lymphocytes % Cancelled Atypical Lymphs % Cancelled Monocytes % Cancelled Eosinophils % Cancelled Basophils % Cancelled Metamyelocytes % Cancelled Myelocytes % Cancelled Promyelocytes % Cancelled Other Cells % Cancelled Nucleated RBC % Cancelled Absolute Neutrophils Cancelled Absolute Lymphocytes Cancelled Absolute Monocytes Cancelled Absolute Eosinophils Cancelled Absolute Basophils Cancelled RBC Morphology Cancelled Polychromasia Cancelled Hypochromasia Cancelled Poikilocytosis Cancelled Basophilic Stippling Cancelled Anisocytosis Cancelled Microcytosis Cancelled Macrocytosis Cancelled Spherocytes Cancelled Tear Drop Cells Cancelled Ovalocytes Cancelled Stomatocytes Cancelled [place] Bodies Cancelled William Cells/Echinocytes Cancelled Acanthocytes (Spur) Cancelled Schistocytes Cancelled D-Dimer Sodium Cancelled 133 L Potassium Cancelled 3.3 L Chloride Cancelled 100 Carbon Dioxide Cancelled 23.4 Anion Gap Cancelled 9.6 BUN Cancelled 19 H Creatinine Cancelled 0.6 L Est GFR (CKD-EPI 2020) Cancelled 95.78 Glucose Cancelled 98 Calcium Cancelled 8.9 Magnesium 1.7 L Troponin I NT-Pro-B Natriuret Pep Procalcitonin 05/31/23 05/31/23 05/31/23 06:30 06:30 06:30 WBC RBC Hgb Hct MCV MCH MCHC RDW Plt Count MPV Immature Gran % Neutrophils % Band Neutrophils % Lymphocytes % Atypical Lymphs % Monocytes % Eosinophils % Basophils % Metamyelocytes % Myelocytes % Promyelocytes % Other Cells % Nucleated RBC % Absolute Neutrophils Absolute Lymphocytes Absolute Monocytes Absolute Eosinophils Absolute Basophils RBC Morphology Polychromasia Hypochromasia Poikilocytosis Basophilic Stippling Anisocytosis Microcytosis Macrocytosis Spherocytes Tear Drop Cells Ovalocytes Stomatocytes [place] Bodies Hurley Cells/Echinocytes Acanthocytes (Spur) Schistocytes D-Dimer 6028 H Sodium Potassium Chloride Carbon Dioxide Anion Gap BUN Creatinine Est GFR (CKD-EPI 2020) Glucose Calcium Magnesium Troponin I 158 H* NT-Pro-B Natriuret Pep 4801 H Procalcitonin 1.7 05/31/23 05/31/23 07:50 09:05 WBC 22.37 H RBC 3.30 L Hgb 8.7 L Hct 26.0 L MCV 79 L MCH 26.4 L MCHC 33.5 RDW 19.1 H Plt Count 335 MPV 10.2 Immature Gran % 0.0 Neutrophils % 91.0 Band Neutrophils % Lymphocytes % 2.0 Atypical Lymphs % Monocytes % 7.0 Eosinophils % 0.0 Basophils % 0.0 Metamyelocytes % Myelocytes % Promyelocytes % Other Cells % Nucleated RBC % 0.0 Absolute Neutrophils 20.36 H Absolute Lymphocytes 0.45 L Absolute Monocytes 1.57 H Absolute Eosinophils 0.00 Absolute Basophils 0.00 RBC Morphology See Below Polychromasia Present Hypochromasia 2+ Poikilocytosis Basophilic Stippling Anisocytosis Microcytosis Macrocytosis Spherocytes Tear Drop Cells Ovalocytes Stomatocytes [place] Bodies William Cells/Echinocytes Acanthocytes (Spur) Schistocytes D-Dimer Sodium Potassium Chloride Carbon Dioxide Anion Gap BUN Creatinine Est GFR (CKD-EPI 2020) Glucose Calcium Magnesium Troponin I 136 H* NT-Pro-B Natriuret Pep Procalcitonin PAWSS Have you Been Recently Intoxicated or Drunk Within the Last 30 days?: No Have you Ever Experienced Previous Episodes of Alcohol Withdrawal?: No Have you ever Experienced Withdrawal Seizures?: No Have you ever Experienced Delirium Tremens(DT)s?: No Have you ever undergone Alcohol Rehabilitation Treatment (i.e, inpt ot outpatient treatment programs)?: No Have you ever Experienced Blackouts?: No Have you ever Combined Alcohol with other Downers within the last 90 days?: No Have you ever Combined Alcohol with any other Substance of Abuse during the last 90 days?: No Positive Blood Alcohol level on Presentation? [PCS.BAL]: No Evidence of Increased Autonomic Activity (i.e. HR>120, tremor, sweating, agitation, nausea)?: No Result: 0 Time Spent with Patient Time Spent with Patient: 35-49 minutes Time was spent: preparing to see the patient(eg.review tests), obtaining and/or reviewing separately otained hiistory, ordering medications,tests, procedures, referring, communicating with other health medicare coordinator, indepentently interpreting results, counseling the patient and care coordination
[2023-05-31] MEDS: Magnesium Oxide 400 MG TAB PO ×2 (16:04→21:28)
[2023-05-31] MEDS: Senna TAB 1 TAB PO ×2 (16:04→21:27)
[2023-05-31 16:26] LABS: Streptococcus Pneumoniae Ag, U Negative (Negative)
[2023-05-31] MEDS: Acetaminophen 500 MG TAB 1000 MG PO (21:26)
[2023-05-31] MEDS: Cyclobenzaprine 10 MG TAB PO (21:28)
[2023-05-31] MEDS: Mirtazapine 15 MG TAB PO (22:22)
[2023-05-31] MEDS: Zolpidem 10 MG TAB PO (22:37)
[2023-06-01] VITALS (10 sets, daily range): BP systolic 117–134; BP diastolic 72–79; PULSE 77–91; RESP 1–19; TEMP 35.2–36.2; O2SAT 91–96
[2023-06-01] MEDS: DOXYCYCLINE 100 MG in Normal Saline 100 ML IVPB ×2 (00:13→12:30)
[2023-06-01] MEDS: CEFEPIME 2 GM in Normal Saline 100 ML IVPB ×2 (02:00→14:00)
--- NOTE | 2023-06-01 03:55 | NUR.NOTE ---
Resumed care at 2300. Pt refused assessment and repositioning. Offered toileting,declined. Vitals stable. Call light within reach.Nursing Note:
[2023-06-01] MEDS: Levalbuterol 0.63 MG/3 ML UPD VIAL UPD ×4 (07:49→19:53)
[2023-06-01] MEDS: Budesonide/Formoterol 160/4.5 6 GM 60 PUFF INH IH ×2 (07:52→19:57)
[2023-06-01] MEDS: Ipratropium 0.5 MG/2.5 ML UPD VIAL UPD ×4 (07:52→19:13)
[2023-06-01] MEDS: Tiotropium Bromide-Respimat 10 PUFF INH 2 PUFF IH (07:53)
[2023-06-01] MEDS: Polyethylene Glycol 3350 17 GM PACKET PO (09:35)
[2023-06-01] MEDS: Sertraline 25 MG TAB PO (09:36)
[2023-06-01] MEDS: Carvedilol 3.125 MG TAB 6.25 MG PO ×2 (09:36→19:13)
[2023-06-01] MEDS: Magnesium Oxide 400 MG TAB PO ×2 (09:36→19:13)
[2023-06-01] MEDS: Pantoprazole 40 MG TABCR PO ×2 (09:36→19:13)
[2023-06-01] MEDS: hydroCHLOROthiazide 25 MG TAB PO (09:36)
[2023-06-01] MEDS: Aspirin 81 MG CHEW PO (09:36)
[2023-06-01] MEDS: Potassium Chloride 10 MEQ CAPCR 20 MEQ PO ×2 (09:36→19:13)
[2023-06-01] MEDS: guaiFENesin 600 MG TABCR PO ×2 (09:36→19:13)
[2023-06-01 11:28] LABS: Abs Immature Grans 0.21 10^3/uL (0.0-0.06); Absolute Basophil Count 0.03 10^3/uL (0.0-0.2); Absolute Eosinophil Count 0.14 10^3/uL (0.0-0.7); Absolute Monocyte Count 0.74 10^3/uL (0.1-0.8); Absolute Neutrophil Count 13.56 10^3/uL (1.2-6.7); Basophils % 0.2; Eosinophils % 0.9; HCT 27.9 % (40.0-50.0); HGB 9.3 g/dL (13.5-17.5); Immature Grans % 1.3; Lymphocytes % 6.4; MCHC 33.3 % (32.0-36.0); MCV 78 fL (80-95); MPV 10.2 fL (8.0-11.0); Monocytes % 4.7; Neutrophils % 86.5; Nucleated RBC 0.1 % (0.0-0.3); Platelet Count 335 10^3/uL (130-400); RBC 3.58 10^6/uL (4.36-5.78); RDW 19.4 % (11.8-14.1); RDW-SD 54.8 fL; WBC 15.68 10^3/uL (4.4-10.8)
[2023-06-01 11:39] LABS: Anion Gap 7.4 mmol/L (3-11); BUN 26 mg/dL (7-18); CO2 24.6 mmol/L (21.0-32.0); CREATININE 0.6 mg/dL (0.70-1.30); Calcium 9.1 mg/dL (8.5-10.1); Chloride 100 mmol/L (98-107); Estimated GFR 95.78 (mL/min/1.73m2); Glucose 129 mg/dL (74-106); Magnesium 1.4 mg/dL (1.8-2.4); Potassium 3.7 mmol/L (3.5-5.1); Sodium 132 mmol/L (136-145)
--- NOTE | 2023-06-01 13:17 | PGE_ITS ---
Date of Service Date of service: 06/01/23 Time of Service: 13:18 Assessment and Plan Assessment and plan (1) Community acquired pneumonia: Status: Acute Assessment and plan: -right upper lobe -WBC count now decreasing. -clinically he is significantly improved. -CT chest with RUL pneumonia and mediastinal lymphadenopathy. -Pulmonary medicine following. -urine antigens for histo and blasto now ordered and pending. -Fungitell pending. -continue doxycycline . -continue cefepime. -s/p steroids in ED for suspected copd exac -legionella neg Strep pneumo pending, along with blood cultures. -mucinex acapella, -planned to continue Augmentin when discharged for total of 10 days. (2) Chest pain: Status: Acute Assessment and plan: Episode AM of 05/31. Troponin 158 > 136 Aspirin given. Anterior T-wave inversions. Cont daily aspirin 81mg Echo showed an EF of 60% w/o wall motion abnormality. RVSP of 42 with moderate right ventricular dilitation. EKG in AM. (3) Acute respiratory failure with hypoxia: Status: Acute Assessment and plan: -secondary to CAP as noted above -now on 2L NC with sats in the low to mid 90's. -consider exercise oximetry in AM in preparation for D/C. -wean as tolerated with goal O2 88-92% (4) COPD exacerbation: Status: Acute Assessment and plan: see above. Prednisone 40mg daily x 5 days. Spiriva initiated by pulmonary. (5) Hypokalemia: Status: Acute Assessment and plan: K 3.7 today. Monitor and replete prn (6) History of bleeding peptic ulcer: Status: Acute Assessment and plan: - 1 unit PRBCs after a hgb janna of 7.4. Now 9.3. -continue bid PPI and monitor for bleeding. -dvt prophylaxis--hold enoxaparin, SCD (7) COPD (chronic obstructive pulmonary disease): Status: Chronic Assessment and plan: PRN levalbuterol. Changed from albuterol d/t tachycardia. (8) Hypomagnesemia: Status: Acute Assessment and plan: Repleting orally now and monitoring. (9) Tachycardia: Status: Acute Assessment and plan: Sinus. Increased his carvedilol with improved control. Monitor. (10) Discharge planning issues: Assessment and plan: Pt is a full code. Consult palliative care. Pt is likely to d/c to home with HH services. Subjective Subjective Patient reports: feels better, tolerating a regular diet, bowel movement and afebrile; denies nausea or vomiting Exam Narrative Exam Narrative: Sitting upright in recliner. present. Smiling and much more conversational today. Const General: cooperative, comfortable and no acute distress HENMT Head: normal to inspection Ears: hearing grossly normal bilaterally Resp Effort & Inspection: normal respiratory effort, able to speak in complete sentences and no cough Auscultation: clear to auscultation bilaterally, diminished lung sounds and rales (Soft in RUL) Cardio Jugular venous pressure: no JVD Rate: regular rate Rhythm: regular rhythm Heart Sounds: S1 normal, S2 normal, no murmurs and no rubs GI Inspection: normal to inspection Palpation: soft and nontender Neuro General: patient alert, patient awake, patient oriented x3 and no focal motor deficits Cognition: normal cognition Speech: speech normal Psych Appearance: grossly normal Mental Status: mental status grossly normal Speech and Movement: speech and movement normal Mood: congruent mood Affect: normal affect Insight: insight good Objective Last Vital Signs Temp 36.2 C L 06/01/23 11:25 Pulse 78 06/01/23 12:55 Resp 18 06/01/23 11:25 BP 117/73 06/01/23 11:25 Pulse Ox 92 06/01/23 12:55 Laboratory Results - last 24 hr 06/01/23 06/01/23 11:20 11:20 WBC 15.68 H RBC 3.58 L Hgb 9.3 L Hct 27.9 L MCV 78 L MCH 26.0 L MCHC 33.3 RDW 19.4 H Plt Count 335 MPV 10.2 Immature Gran % 1.3 Neutrophils % 86.5 Lymphocytes % 6.4 Monocytes % 4.7 Eosinophils % 0.9 Basophils % 0.2 Nucleated RBC % 0.1 Absolute Neutrophils 13.56 H Absolute Lymphocytes 1.00 L Absolute Monocytes 0.74 Absolute Eosinophils 0.14 Absolute Basophils 0.03 Sodium 132 L Potassium 3.7 Chloride 100 Carbon Dioxide 24.6 Anion Gap 7.4 BUN 26 H Creatinine 0.6 L Est GFR (CKD-EPI 2020) 95.78 Glucose 129 H Calcium 9.1 Magnesium 1.4 L PAWSS Have you Been Recently Intoxicated or Drunk Within the Last 30 days?: No Have you Ever Experienced Previous Episodes of Alcohol Withdrawal?: No Have you ever Experienced Withdrawal Seizures?: No Have you ever Experienced Delirium Tremens(DT)s?: No Have you ever undergone Alcohol Rehabilitation Treatment (i.e, inpt ot outpatient treatment programs)?: No Have you ever Experienced Blackouts?: No Have you ever Combined Alcohol with other Downers within the last 90 days?: No Have you ever Combined Alcohol with any other Substance of Abuse during the last 90 days?: No Positive Blood Alcohol level on Presentation? [PCS.BAL]: No Evidence of Increased Autonomic Activity (i.e. HR>120, tremor, sweating, agitation, nausea)?: No Result: 0 Time Spent with Patient Time Spent with Patient: 25-34 minutes Time was spent: preparing to see the patient(eg.review tests), obtaining and/or reviewing separately otained hiistory, ordering medications,tests, procedures, referring, communicating with other health family day care worker, indepentently interpreting results, counseling the patient and care coordination
[2023-06-01] MEDS: Cyclobenzaprine 10 MG TAB PO (19:18)
[2023-06-01] MEDS: Zolpidem 10 MG TAB PO (20:18)
[2023-06-01] MEDS: Mirtazapine 15 MG TAB PO (20:18)
[2023-06-02] VITALS (11 sets, daily range): BP systolic 92–103; BP diastolic 53–66; PULSE 84–104; RESP 4–98; TEMP 35.8–36.4; O2SAT 88–97
--- NOTE | 2023-06-02 | DI.RAD_ITS ---
Exam(s) XR PORTABLE CHEST AP EXAM: XR PORTABLE CHEST AP CLINICAL HISTORY: worsening respiratory failure. TECHNIQUE: 2D digital imaging was performed. COMPARISON: CR XR CHEST 2V PA LATERAL from 05/27/2023 FINDINGS: Single AP portable view. Heart size is normal. The mediastinum is not widened. There is no radiographic improvement in the previously described extensive right lung infiltrates, as described on the recent CT scan. However, there is now additional confluent infiltrate in the right upper lobe adjacent to the minor fissure. Small amount of right pleural fluid noted. No infiltrate seen in the opposite-left lung. IMPRESSION: Increasing confluence of right upper lobe infiltrates, this superimposed upon extensive infiltrate th roughout the right lung as described on recent CT scan. There is sparing of the opposite-left lung. DATA REPOSITORY: RADIATION DOSE DELIVERED:
[2023-06-02] MEDS: DOXYCYCLINE 100 MG in Normal Saline 100 ML IVPB ×2 (00:41→11:15)
[2023-06-02] MEDS: CEFEPIME 2 GM in Normal Saline 100 ML IVPB ×2 (02:05→14:06)
[2023-06-02] MEDS: Levalbuterol 0.63 MG/3 ML UPD VIAL UPD ×5 (02:32→21:23)
[2023-06-02] MEDS: methylPREDNISolone SUCC 40 MG VIAL IVP (03:24)
[2023-06-02 04:09] LABS: Source Nasal/Nares
[2023-06-02 04:39] LABS: COVID-19 PCR Negative (Negative)
[2023-06-02] MEDS: Aspirin 81 MG CHEW PO (07:35)
[2023-06-02] MEDS: Potassium Chloride 10 MEQ CAPCR 20 MEQ PO ×2 (07:35→21:21)
[2023-06-02] MEDS: hydroCHLOROthiazide 25 MG TAB PO (07:36)
[2023-06-02] MEDS: Magnesium Oxide 400 MG TAB PO (07:36)
[2023-06-02] MEDS: guaiFENesin 600 MG TABCR PO (07:36)
[2023-06-02] MEDS: Carvedilol 3.125 MG TAB 6.25 MG PO (07:36)
[2023-06-02] MEDS: Sertraline 25 MG TAB PO (07:37)
[2023-06-02] MEDS: Pantoprazole 40 MG TABCR PO ×2 (07:37→21:20)
[2023-06-02] MEDS: Polyethylene Glycol 3350 17 GM PACKET PO (07:38)
[2023-06-02] MEDS: Tiotropium Bromide-Respimat 10 PUFF INH 2 PUFF IH (08:54)
[2023-06-02] MEDS: Budesonide/Formoterol 160/4.5 6 GM 60 PUFF INH IH ×2 (08:55→21:23)
[2023-06-02] MEDS: Ipratropium 0.5 MG/2.5 ML UPD VIAL UPD ×4 (08:57→21:22)
[2023-06-02] MEDS: Normal Saline Flush 10 ML SYR IVP ×2 (09:22→15:20)
[2023-06-02 10:01] LABS: Abs Immature Grans 0.39 10^3/uL (0.0-0.06); Absolute Lymphocyte Count 0.96 10^3/uL (1.2-3.4); Absolute Monocyte Count 1.08 10^3/uL (0.1-0.8); Basophils % 0.5; HGB 9.3 g/dL (13.5-17.5); Immature Grans % 1.3; Lymphocytes % 3.1; MCH 26.1 pg (27.0-33.0); MCHC 32.1 % (32.0-36.0); MCV 81 fL (80-95); Monocytes % 3.5; Neutrophils % 91.6; RBC 3.57 10^6/uL (4.36-5.78); RDW 19.8 % (11.8-14.1); RDW-SD 58.2 fL
[2023-06-02 10:02] LABS: Absolute Basophil Count 0.15 10^3/uL (0.0-0.2); Absolute Neutrophil Count 28.34 10^3/uL (1.2-6.7)
[2023-06-02 10:03] LABS: WBC 30.94 10^3/uL (4.4-10.8)
[2023-06-02 10:14] LABS: Diff Comment Diff Reviewed; RBC Morphology Normal
--- NOTE | 2023-06-02 10:15 | NUR.NOTE ---
Nursing Note: Critical labs = WBC 30.94. Pt's primary nurse and client care representative notified.
[2023-06-02 10:20] LABS: Lab Add On Test DONE
[2023-06-02 10:25] LABS: Anion Gap 9.8 mmol/L (3-11); BUN 26 mg/dL (7-18); CO2 24.2 mmol/L (21.0-32.0); CREATININE 0.6 mg/dL (0.70-1.30); Calcium 8.4 mg/dL (8.5-10.1); Chloride 97 mmol/L (98-107); Estimated GFR 95.78 (mL/min/1.73m2); Glucose 100 mg/dL (74-106); Potassium 4.1 mmol/L (3.5-5.1); Sodium 131 mmol/L (136-145)
[2023-06-02 10:28] LABS: Iron 8 ug/dL (65-175); Total Iron Binding Capacity 167 ug/dL (250-450); Transferrin Sat 5 % (20-55)
[2023-06-02 10:47] LABS: Magnesium 1.2 mg/dL (1.8-2.4)
[2023-06-02] MEDS: Acetaminophen 500 MG TAB 1000 MG PO ×2 (11:28→15:18)
[2023-06-02] MEDS: Cyclobenzaprine 10 MG TAB PO ×2 (11:28→15:18)
--- NOTE | 2023-06-02 14:46 | W.PM.PROGNOT ---
Date of Service Date of service: 06/02/23 Time of Service: 14:46 Assessment and Plan Assessment and plan (1) Acute respiratory failure with hypoxia: Status: Acute Assessment and plan: Due to PNA (present on admission) and COPD exacerbation. CXR appears worse today, leucocytosis is worse (though on steroids), and O2 requirement did get significantly worse overnight, with improvement now. Continue cefepime and doxycycline. Add vancomycin. Check MRSA nares. Encourage pulmonary toilet. Increase dose of mucinex Wean O2 as tolerated. (2) Community acquired pneumonia: Status: Acute Assessment and plan: As above. CXR looks worse to me. Expand antibiotic coverage. Increase mucinex and encourage pulmonary toilet. (3) Chest pain: Status: Acute Assessment and plan: No recurrences since the episode on the morning of 05/31. Did have elevation of troponin with anterior T wave inversions, ?demand ischemia. Continue asa. There was no PE on CTA 05/30, and I do not think it makes sense to repeat it at this time. Echo w/o wall motion abnormalities. RVSP of 42 with moderate right ventricular dilitation. No events on telemetry. Continue to monitor. Ischemic workup after recovery from current illness. (4) COPD exacerbation: Status: Acute Assessment and plan: As above Continue inhaled and systemic corticosteroids. NEbs. Abx. Pulmonary toilet. (5) Hypokalemia: Status: Resolved Assessment and plan: Recheck in am. (6) History of bleeding peptic ulcer: Status: Acute Assessment and plan: S/p 1 unit PRBCs. -continue bid PPI - no documented BM - awaiting hematest. -check Anemia studies (7) COPD (chronic obstructive pulmonary disease): Status: Chronic Assessment and plan: As above (8) Hypomagnesemia: Status: Acute Assessment and plan: Severely depleted. REplete IV and PO (9) Tachycardia: Status: Acute Assessment and plan: Suspect this is due to acute illness and bronchodilators Continue current management (coreg). on tele.. (10) Discharge planning issues: Assessment and plan: Pt is a full code. Palliative care consulted. Does not have oxygen at home. Anticipate home health services on discharge. (11) DVT prophylaxis: Status: Acute Assessment and plan: SCDs Hold off of chemical DVT ppx given that we do not know the origin of anemia Subjective Subjective Interval history since last seen: Mr Jorgensen states he is feeling 100% However, last night, he desaturated to 72% on 3L and had to go up to 8L of O2. He was on 5L of O2 this morning and he is now down to 2 L. The patient states that this event was precipitated by his coughing something up 10 times and feeling like he could not get air in. He reports chronic lower back pain for which he usually takes tylenol. He also reports neck pain since working with PT yesterday and getting neck exercises. He requests cyclobenzaprine which has helped in the past. Lidocaine patches have been helpful for back pain in the past. He would also try heat. He has only been working with IS and acapella when the RT comes to see him. I encouraged him to do IS independently, 10x/hr while awake. Exam Narrative Exam Narrative: General: Pleasant elderly male who appears winded when speaking in 4-5 word phrases, A&Ox3, NAD, on 2L of O2 by NC, no cyanosis HEENT: EOMI, MMM Heart: RRR, no m/r/g Lungs: CTAB, no wheezing/rales Abdomen: soft, nontender, nondisteded Extremities: no edema/clubbing/cyanosis, wearing TEDs. Objective Last Vital Signs Temp 36.4 C L 06/02/23 06:05 Pulse 94 H 06/02/23 08:55 Resp 98 H 06/02/23 12:46 BP 103/66 06/02/23 07:43 Pulse Ox 97 06/02/23 12:46 Laboratory Results - last 24 hr 06/02/23 06/02/23 06/02/23 03:27 09:40 09:40 WBC RBC Hgb Hct MCV MCH MCHC RDW Plt Count MPV Immature Gran % Neutrophils % Lymphocytes % Monocytes % Eosinophils % Basophils % Nucleated RBC % Absolute Neutrophils Absolute Lymphocytes Absolute Monocytes Absolute Eosinophils Absolute Basophils RBC Morphology Sodium 131 L Potassium 4.1 Chloride 97 L Carbon Dioxide 24.2 Anion Gap 9.8 BUN 26 H Creatinine 0.6 L Est GFR (CKD-EPI 2020) 95.78 Glucose 100 Calcium 8.4 L Magnesium Iron 8 L TIBC 167 L Transferrin % Sat 5 L COVID-19 Source Nasal/Nares SARS-CoV-2 (PCR) Negative Add-On Test Request 06/02/23 06/02/23 06/02/23 09:40 09:40 09:40 WBC 30.94 H* RBC 3.57 L Hgb 9.3 L Hct 29.0 L MCV 81 MCH 26.1 L MCHC 32.1 RDW 19.8 H Plt Count MPV Immature Gran % 1.3 Neutrophils % 91.6 Lymphocytes % 3.1 Monocytes % 3.5 Eosinophils % 0.0 Basophils % 0.5 Nucleated RBC % 0.0 Absolute Neutrophils 28.34 H Absolute Lymphocytes 0.96 L Absolute Monocytes 1.08 H Absolute Eosinophils 0.00 Absolute Basophils 0.15 RBC Morphology Normal Sodium Potassium Chloride Carbon Dioxide Anion Gap BUN Creatinine Est GFR (CKD-EPI 2020) Glucose Calcium Magnesium 1.2 L Iron TIBC Transferrin % Sat COVID-19 Source SARS-CoV-2 (PCR) Add-On Test Request DONE Objective Narrative Objective Narrative: CXR: official read pending. Per my read, the R side appears more opacified with a more defined opacity in RUL. PAWSS Have you Been Recently Intoxicated or Drunk Within the Last 30 days?: No Have you Ever Experienced Previous Episodes of Alcohol Withdrawal?: No Have you ever Experienced Withdrawal Seizures?: No Have you ever Experienced Delirium Tremens(DT)s?: No Have you ever undergone Alcohol Rehabilitation Treatment (i.e, inpt ot outpatient treatment programs)?: No Have you ever Experienced Blackouts?: No Have you ever Combined Alcohol with other Downers within the last 90 days?: No Have you ever Combined Alcohol with any other Substance of Abuse during the last 90 days?: No Positive Blood Alcohol level on Presentation? [PCS.BAL]: No Evidence of Increased Autonomic Activity (i.e. HR>120, tremor, sweating, agitation, nausea)?: No Result: 0 Time Spent with Patient Time Spent with Patient: 35-49 minutes Time was spent: preparing to see the patient(eg.review tests), obtaining and/or reviewing separately otained hiistory, ordering medications,tests, procedures, referring, communicating with other health nurse healthcare manager, indepentently interpreting results, counseling the patient and care coordination
--- NOTE | 2023-06-02 15:06 | DI.VRAD_ITS ---
PROCEDURE INFORMATION: Exam: XR Chest Exam date and time: 06/02/2023 2:46 PM Age: 83 years old Clinical indication: Shortness of breath and other: Worsening resp. Failure TECHNIQUE: Imaging protocol: Radiologic exam of the chest. Views: 1 view. COMPARISON: CR XR CHEST 2V PA LATERAL 27/05/2023 12:12 FINDINGS: Tubes, catheters and devices: EKG wires overlie the chest. Lungs: Increasing consolidation of the right upper lobe. Increasing reticular markings at the right base on the AP view, prior chest x-ray demonstrated involvement of the anterior segment of the right upper lobe and right middle lobe. Stable appearance of the left lung. Pleural spaces: Unremarkable. No pleural effusion. No pneumothorax. Heart/Mediastinum: Stable cardiomediastinal silhouette. Vasculature: Atherosclerotic disease. Bones/joints: Postsurgical changes of the cervical spine. IMPRESSION: Interval progression of right pneumonia. Dictated and Authenticated by: Rasheeda Stokes MD. Ordering:DEMARCO Muñoz MD
[2023-06-02] MEDS: predniSONE 20 MG TAB 40 MG PO (15:18)
[2023-06-02] MEDS: MAGNESIUM SULFATE 4 GM/100 ML BAG IVPB (15:19)
[2023-06-02] MEDS: Lidocaine 5% Patch 2 PATCH TP (15:19)
[2023-06-02 19:41] LABS: MRSA PCR Negative (Negative)
[2023-06-02] MEDS: Docusate Sodium 100 MG CAP PO (21:20)
[2023-06-02] MEDS: Magnesium Chloride 64 MG TABCR 128 MG PO (21:21)
[2023-06-02] MEDS: Mirtazapine 15 MG TAB PO (21:21)
[2023-06-02] MEDS: Zolpidem 10 MG TAB PO (21:21)
[2023-06-02] MEDS: guaiFENesin 600 MG TABCR 1200 MG PO (21:22)
[2023-06-02] MEDS: VANCOMYCIN 1,000 MG in Normal Saline 250 ML 166.667 MG IVPB (22:54)
[2023-06-03] VITALS (10 sets, daily range): BP systolic 118–135; BP diastolic 71–84; PULSE 80–92; RESP 1–20; TEMP 36.1–36.4; O2SAT 86–99
[2023-06-03] MEDS: DOXYCYCLINE 100 MG in Normal Saline 100 ML IVPB ×2 (01:00→15:41)
[2023-06-03] MEDS: CEFEPIME 2 GM in Normal Saline 100 ML IVPB ×2 (02:45→15:40)
[2023-06-03] MEDS: Patch Removal 1 EACH TP (06:39)
--- NOTE | 2023-06-03 07:05 | PGE_ITS ---
Assessment and Plan Assessment and plan (1) Respiratory failure with hypoxia: Status: Acute (2) COPD exacerbation: Status: Acute (3) Community acquired pneumonia: Status: Acute Assessment and plan: This is a 83 yo admitted for pneumonia in the setting of COPD. It has been a longer than expected recovery from this pneumonia. He did have an episode of increased WBC and hypoxia, which is now improved. He is MRSA negative so there really is no role for vanc. His CXR looks more like worsened mucus plugging, not necessarily worsening of the infection itself. Again given his recent cardiac strain, mixed with significant emphysema and advanced age, bronchoscopy would be more likely to cause problems than bring solutions, so would not advise this. I will change his inhalers to get rid of the ICS (given the prolonged pneumonia course) and will switch his nebs to albuterol only (to avoid drying out the secretions more). COPD Exacerbation - continue prednisone 40mg for a total of 5 days - continue home meds - stop Symbicort and Spiriva - start Stiolto Pneumonia - agree with doxy and cefepime - consider discharge on Augmentin, total 10 days when ready - stop vanc - pending urine antigens - Fungitell pending - agree with PT, OOB to chair Hypoxic respiratory failure - supplemental O2 for sats 88-92% General Date Of Service Date of service: 06/03/23 Time of Service: 07:05 Reason for Consult: Non-resolving pneumonia Subjective Note Note: He is feeling well today stating he feels well enough to 'go home'. He continues to cough out mucus. He states the lidocaine patch really has helped him. Exam Narrative Exam Narrative: Gen:?NAD, normal respiratory effort, well-nourished HENT:?PERRL Chest:?No respiratory distress, normal appearance of chest, diminished breath sounds throughout Heart:?regular rate and rhythym, no murmurs, rubs or gallops Abdomen:?Non-distended, soft, non tender Extremities:?No clubbing, edema, cyanosis, rashes Neuro:?AAOx3 , non focal Psych:?cooperative, appropriate mental affect Objective Last Vital Signs Temp 35.8 C L 06/02/23 19:25 Pulse 84 06/02/23 19:25 Resp 18 06/02/23 19:25 BP 92/57 L 06/02/23 19:25 Pulse Ox 92 06/02/23 19:25 Laboratory Results - last 24 hr 06/02/23 06/02/23 06/02/23 09:40 09:40 09:40 WBC 30.94 H* RBC 3.57 L Hgb 9.3 L Hct 29.0 L MCV 81 MCH 26.1 L MCHC 32.1 RDW 19.8 H Plt Count MPV Immature Gran % 1.3 Neutrophils % 91.6 Lymphocytes % 3.1 Monocytes % 3.5 Eosinophils % 0.0 Basophils % 0.5 Nucleated RBC % 0.0 Absolute Neutrophils 28.34 H Absolute Lymphocytes 0.96 L Absolute Monocytes 1.08 H Absolute Eosinophils 0.00 Absolute Basophils 0.15 RBC Morphology Normal Sodium 131 L Potassium 4.1 Chloride 97 L Carbon Dioxide 24.2 Anion Gap 9.8 BUN 26 H Creatinine 0.6 L Est GFR (CKD-EPI 2020) 95.78 Glucose 100 Calcium 8.4 L Magnesium Iron 8 L TIBC 167 L Transferrin % Sat 5 L MRSA (TEM-PCR) Add-On Test Request 06/02/23 06/02/23 06/02/23 09:40 09:40 18:00 WBC RBC Hgb Hct MCV MCH MCHC RDW Plt Count MPV Immature Gran % Neutrophils % Lymphocytes % Monocytes % Eosinophils % Basophils % Nucleated RBC % Absolute Neutrophils Absolute Lymphocytes Absolute Monocytes Absolute Eosinophils Absolute Basophils RBC Morphology Sodium Potassium Chloride Carbon Dioxide Anion Gap BUN Creatinine Est GFR (CKD-EPI 2020) Glucose Calcium Magnesium 1.2 L Iron TIBC Transferrin % Sat MRSA (TEM-PCR) Negative Add-On Test Request DONE Results Medications Medications: Active Medications Generic Name Dose Route Start Last Admin Trade Name Arsalanq PRN Reason Stop Dose Admin Acetaminophen 1,000 mg 06/02/23 16:00 06/03/23 01:00 Acetaminophen 500 Mg Tab PO Not Given Q8H GLENN Albuterol Sulfate 2.5 mg 06/02/23 02:21 Albuterol 2.5 Mg/3 Ml Inh Soln Vial UPD Q2H PRN PRN Shortness of Breath Aspirin 81 mg 06/01/23 08:30 06/02/23 07:35 Aspirin 81 Mg Chew PO 81 mg DAILY GLENN Administration Bisacodyl 5 mg 06/02/23 15:02 Bisacodyl 5 Mg Tabec PO DAILY PRN PRN Budesonide/Formoterol Fumarate 2 puff 05/27/23 20:00 06/02/23 21:23 Budesonide/Formoterol 160/4.5 6 Gm 60 Puff Inh IH 2 puffs BID GLENN Administration Carvedilol 6.25 mg 05/30/23 20:00 06/02/23 21:23 Carvedilol 3.125 Mg Tab PO Not Given BID GLENN Cyclobenzaprine HCl 10 mg 05/31/23 18:26 06/02/23 11:28 Cyclobenzaprine 10 Mg Tab PO 10 mg TID PRN PRN Administration Device 1 each 05/27/23 17:00 Inhaler, Assist Device MC DIRECTED GLENN Docusate Sodium 100 mg 06/02/23 20:00 06/02/23 21:20 Docusate Sodium 100 Mg Cap PO 100 mg BID GLENN Administration Guaifenesin 1,200 mg 06/02/23 15:03 06/02/23 21:22 Guaifenesin 600 Mg Tabcr PO 1,200 mg BID GLENN Administration Hydrochlorothiazide 25 mg 05/28/23 08:30 06/02/23 07:36 Hydrochlorothiazide 25 Mg Tab PO 25 mg DAILY GLENN Administration Doxycycline Hyclate 100 mg/ 100 mls @ 100 mls/hr 05/28/23 00:00 06/03/23 05:21 Sodium Chloride IVPB Infused Q12H GLENN Infusion Sodium Chloride 500 mls @ 0 mls/hr 05/28/23 09:24 05/28/23 13:45 Saline 500ml Bag IV 0 mls/hr PRN PRN Infusion As Directed Cefepime HCl 2 gm/ Sodium 100 mls @ 200 mls/hr 05/31/23 02:00 06/03/23 05:20 Chloride IVPB Infused Q12H GLENN Infusion Vancomycin HCl / Sodium 250 mls @ 0 mls/hr 06/02/23 15:00 Chloride IVPB .PER PROTOCOL GLENN Protocol Per Protocol Ipratropium [facility] 0.5 mg 05/30/23 12:00 06/02/23 21:22 Ipratropium 0.5 Mg/2.5 Ml Upd Vial UPD 0.5 mg QID GLENN Administration Levalbuterol HCl 0.63 mg 05/30/23 08:06 06/02/23 02:32 Levalbuterol 0.63 Mg/3 Ml Upd Vial UPD 0.63 mg Q2H PRN PRN Administration Levalbuterol HCl 0.63 mg 05/30/23 12:00 06/02/23 21:23 Levalbuterol 0.63 Mg/3 Ml Upd Vial UPD 0.63 mg QID GLENN Administration Lidocaine 2 patch 06/02/23 16:00 06/02/23 15:19 Lidocaine 5% Patch TP 2 patch Q24H GLENN Administration Magnesium Chloride 128 mg 06/02/23 20:00 06/02/23 21:21 Magnesium Chloride 64 Mg Tabcr PO 128 mg BID GLENN Administration Mirtazapine 15 mg 05/27/23 22:00 06/02/23 21:21 Mirtazapine 15 Mg Tab PO 15 mg HS GLENN Administration Miscellaneous 1 each 06/03/23 04:00 06/03/23 06:39 Patch Removal TP 1 each Q24H GLENN Administration Pantoprazole Sodium 40 mg 05/27/23 20:00 06/02/23 21:20 Pantoprazole 40 Mg Tabcr PO 40 mg BID@[id number],2000 GLENN Administration Polyethylene Glycol 17 gm 05/31/23 14:45 06/02/23 07:38 Polyethylene Glycol 3350 17 Gm Packet PO 17 gm DAILY GLENN Administration Potassium Chloride 20 meq 05/27/23 20:00 06/02/23 21:21 Potassium Chloride 10 Meq Capcr PO 20 meq BID GLENN Administration Prednisone 40 mg 06/03/23 08:30 Prednisone 20 Mg Tab PO DAILY GLENN Sennosides 1 tab 05/31/23 14:45 05/31/23 21:27 Senna Tab PO 1 tab BID PRN PRN Administration Sertraline HCl 25 mg 05/28/23 08:30 06/02/23 07:37 Sertraline 25 Mg Tab PO 25 mg DAILY GLENN Administration Sodium Chloride 0 ml 05/28/23 09:24 06/02/23 15:20 Normal Saline Flush 10 Ml Syr IVP 20 ml PRN PRN Administration Tiotropium [facility] 2 puff 06/01/23 08:30 06/02/23 08:54 Tiotropium [facility]-Respimat 10 Puff Inh IH 2 inh DAILY GLENN Administration Zolpidem Tartrate 10 mg 05/27/23 16:57 06/02/23 21:21 Zolpidem 10 Mg Tab PO 10 mg HS PRN PRN Administration Allergies NSAIDS (Non-Steroidal Anti-Inflamma Adverse Reaction (Severe, Unverified 05/27/23 14:32) hx of bleeding ulcer shellfish derived Adverse Reaction (Intermediate, Verified 05/27/23 14:32) vomiting, GI upset meloxicam Adverse Reaction (Verified 05/27/23 14:32) caused bleeding ulcer; pt avoids all NSAIDS Labs 06/03/23 06:45 06/03/23 06:45 Labs: 05/31/23 10:50 Sputum - Expectorated Sputum Culture - Preliminary Normal Marissa Francia Albicans 05/31/23 10:50 Sputum - Expectorated Gram Stain - Final 05/27/23 11:35 Blood Blood Culture - Final NO GROWTH 120 HOURS 05/27/23 10:55 Blood Blood Culture - Final NO GROWTH 120 HOURS Laboratory Tests Range/Units 05/27/23 05/27/23 05/27/23 10: 10:30 10:55 WBC (4.4-10.8) 10^3/uL RBC (4.36-5.78) 10^6/uL Hgb (13.5-17.5) g/dL Hct (40.0-50.0) % MCV (80-95) fL MCH (27.0-33.0) pg MCHC (32.0-36.0) % RDW (11.8-14.1) % Plt Count (130-400) 10^3/uL MPV (8.0-11.0) fL Immature Gran % Neutrophils % Band Neutrophils % Lymphocytes % Atypical Lymphs % Monocytes % Eosinophils % Basophils % Metamyelocytes % Myelocytes % Promyelocytes % Other Cells % Nucleated RBC % (0.0-0.3) % Absolute Neutrophils (1.2-6.7) 10^3/uL Absolute Lymphocytes (1.2-3.4) 10^3/uL Absolute Monocytes (0.1-0.8) 10^3/uL Absolute Eosinophils (0.0-0.7) 10^3/uL Absolute Basophils (0.0-0.2) 10^3/uL RBC Morphology Polychromasia Hypochromasia Poikilocytosis Basophilic Stippling Anisocytosis Microcytosis Macrocytosis Spherocytes Tear Drop Cells Ovalocytes Stomatocytes [place] Bodies [place] Cells/Echinocytes Acanthocytes (Spur) Schistocytes D-Dimer (<500) ng/mlFEU VBG Lactate (0.6-1.4) mmol/L Sodium (136-145) mmol/L 127 L Potassium (3.5-5.1) mmol/L 2.8 L* Chloride (98-107) mmol/L 89 L Carbon Dioxide (21.0-32.0) mmol/L 26.7 Anion Gap (3-11) mmol/L 11.3 H BUN (7-18) mg/dL 20 H Creatinine (0.70-1.30) mg/dL 0.7 Est GFR (CKD-EPI 2020) (mL/min/1.73m2) 91.42 Glucose (74-106) mg/dL 126 H Calcium (8.5-10.1) mg/dL 9.2 Magnesium (1.8-2.4) mg/dL Iron (65-175) ug/dL TIBC (250-450) ug/dL Transferrin % Sat (20-55) % Total Bilirubin (0.2-1.0) mg/dL 0.8 AST (15-37) U/L 26 ALT (16-63) U/L 17 Alkaline Phosphatase (46-116) U/L 90 Troponin I (<or=60) ng/L < 50 C-Reactive Protein (0.0-0.3) mg/dL NT-Pro-B Natriuret Pep (<300) pg/mL Total Protein (6.4-8.2) g/dL 7.1 Albumin (3.4-5.0) g/dL 2.5 L Lipase (16-77) U/L < 10 L Procalcitonin ng/mL TSH (0.36-3.74) uIU/mL 1.07 Urine Color (Yellow) Urine Clarity (Clear) Urine pH (5-8) Ur Specific [place] (1.005-1.025) Urine Protein (Negative) mg/dL Urine Ketones (Negative) mg/dL Urine Blood (Negative) Urine Nitrite (Negative) Urine Bilirubin (Negative) Urine Urobilinogen (Up to 0.2) mg/dL Ur Leukocyte Esterase (Negative) Urine RBC (0-2) HPF Urine WBC (0-5) HPF Ur Epithelial Cells (Negative) HPF Urine Crystals (Negative) HPF Urine Bacteria (Negative) HPF Urine Mucus (Negative) Ur Culture Indicated? Urine Glucose (Negative) mg/dL COVID-19 Source Nasopharynx SARS-CoV-2 (PCR) (Negative) Negative Influenza Type A (PCR) (Negative) Negative Influenza Type B (PCR) (Negative) Negative Urine Legionella Ag (Negative) RSV (PCR) (Negative) Negative MRSA (TEM-PCR) (Negative) Add-On Test Request Patient ABO/Rh Antibody Screen Crossmatch Range/Units 05/27/23 05/27/23 05/27/23 10:55 10:55 13:23 WBC (4.4-10.8) 10^3/uL 23.37 H RBC (4.36-5.78) 10^6/uL 3.42 L Hgb (13.5-17.5) g/dL 8.6 L Hct (40.0-50.0) % 26.5 L MCV (80-95) fL 78 L MCH (27.0-33.0) pg 25.1 L MCHC (32.0-36.0) % 32.5 RDW (11.8-14.1) % 19.3 H Plt Count (130-400) 10^3/uL 458 H MPV (8.0-11.0) fL 9.2 Immature Gran % 0.8 Neutrophils % 89.3 Band Neutrophils % Lymphocytes % 1.8 Atypical Lymphs % Monocytes % 7.5 Eosinophils % 0.4 Basophils % 0.2 Metamyelocytes % Myelocytes % Promyelocytes % Other Cells % Nucleated RBC % (0.0-0.3) % 0.0 Absolute Neutrophils (1.2-6.7) 10^3/uL 20.87 H Absolute Lymphocytes (1.2-3.4) 10^3/uL 0.42 L Absolute Monocytes (0.1-0.8) 10^3/uL 1.75 H Absolute Eosinophils (0.0-0.7) 10^3/uL 0.09 Absolute Basophils (0.0-0.2) 10^3/uL 0.05 RBC Morphology Normal Polychromasia Hypochromasia Poikilocytosis Basophilic Stippling Anisocytosis Microcytosis Macrocytosis Spherocytes Tear Drop Cells Ovalocytes Stomatocytes [place] Bodies [place] Cells/Echinocytes Acanthocytes (Spur) Schistocytes D-Dimer (<500) ng/mlFEU VBG Lactate (0.6-1.4) mmol/L 1.1 Sodium (136-145) mmol/L Potassium (3.5-5.1) mmol/L Chloride (98-107) mmol/L Carbon Dioxide (21.0-32.0) mmol/L Anion Gap (3-11) mmol/L BUN (7-18) mg/dL Creatinine (0.70-1.30) mg/dL Est GFR (CKD-EPI 2020) (mL/min/1.73m2) Glucose (74-106) mg/dL Calcium (8.5-10.1) mg/dL Magnesium (1.8-2.4) mg/dL Iron (65-175) ug/dL TIBC (250-450) ug/dL Transferrin % Sat (20-55) % Total Bilirubin (0.2-1.0) mg/dL AST (15-37) U/L ALT (16-63) U/L Alkaline Phosphatase (46-116) U/L Troponin I (<or=60) ng/L Cancelled C-Reactive Protein (0.0-0.3) mg/dL NT-Pro-B Natriuret Pep (<300) pg/mL Total Protein (6.4-8.2) g/dL Albumin (3.4-5.0) g/dL Lipase (16-77) U/L Procalcitonin ng/mL 2.4 TSH (0.36-3.74) uIU/mL Urine Color (Yellow) Urine Clarity (Clear) Urine pH (5-8) Ur Specific [place] (1.005-1.025) Urine Protein (Negative) mg/dL Urine Ketones (Negative) mg/dL Urine Blood (Negative) Urine Nitrite (Negative) Urine Bilirubin (Negative) Urine Urobilinogen (Up to 0.2) mg/dL Ur Leukocyte Esterase (Negative) Urine RBC (0-2) HPF Urine WBC (0-5) HPF Ur Epithelial Cells (Negative) HPF Urine Crystals (Negative) HPF Urine Bacteria (Negative) HPF Urine Mucus (Negative) Ur Culture Indicated? Urine Glucose (Negative) mg/dL COVID-19 Source SARS-CoV-2 (PCR) (Negative) Influenza Type A (PCR) (Negative) Influenza Type B (PCR) (Negative) Urine Legionella Ag (Negative) RSV (PCR) (Negative) MRSA (TEM-PCR) (Negative) Add-On Test Request Patient ABO/Rh Antibody Screen Crossmatch Range/Units 05/27/23 05/28/23 05/28/23 14:30 06:52 06:52 WBC (4.4-10.8) 10^3/uL 23.91 H RBC (4.36-5.78) 10^6/uL 2.93 L Hgb (13.5-17.5) g/dL 7.5 L Hct (40.0-50.0) % 22.7 L MCV (80-95) fL 78 L MCH (27.0-33.0) pg 25.6 L MCHC (32.0-36.0) % 33.0 RDW (11.8-14.1) % 19.4 H Plt Count (130-400) 10^3/uL 389 MPV (8.0-11.0) fL 9.9 Immature Gran % 0.0 Neutrophils % 95.0 Band Neutrophils % 1 Lymphocytes % 1.0 Atypical Lymphs % Monocytes % 3.0 Eosinophils % 0.0 Basophils % 0.0 Metamyelocytes % Myelocytes % Promyelocytes % Other Cells % Nucleated RBC % (0.0-0.3) % 0.0 Absolute Neutrophils (1.2-6.7) 10^3/uL 22.95 H Absolute Lymphocytes (1.2-3.4) 10^3/uL 0.24 L Absolute Monocytes (0.1-0.8) 10^3/uL 0.72 Absolute Eosinophils (0.0-0.7) 10^3/uL 0.00 Absolute Basophils (0.0-0.2) 10^3/uL 0.00 RBC Morphology See Below Polychromasia Present Hypochromasia 2+ Poikilocytosis Basophilic Stippling Anisocytosis Microcytosis Macrocytosis Spherocytes Tear Drop Cells Ovalocytes Stomatocytes [place] Bodies [place] Cells/Echinocytes Acanthocytes (Spur) Schistocytes D-Dimer (<500) ng/mlFEU VBG Lactate (0.6-1.4) mmol/L Sodium (136-145) mmol/L 131 L Potassium (3.5-5.1) mmol/L 4.2 D Chloride (98-107) mmol/L 98 Carbon Dioxide (21.0-32.0) mmol/L 24.3 Anion Gap (3-11) mmol/L 8.7 BUN (7-18) mg/dL 19 H Creatinine (0.70-1.30) mg/dL 0.5 L Est GFR (CKD-EPI 2020) (mL/min/1.73m2) 101.20 Glucose (74-106) mg/dL 113 H Calcium (8.5-10.1) mg/dL 8.7 Magnesium (1.8-2.4) mg/dL Iron (65-175) ug/dL TIBC (250-450) ug/dL Transferrin % Sat (20-55) % Total Bilirubin (0.2-1.0) mg/dL AST (15-37) U/L ALT (16-63) U/L Alkaline Phosphatase (46-116) U/L Troponin I (<or=60) ng/L C-Reactive Protein (0.0-0.3) mg/dL NT-Pro-B Natriuret Pep (<300) pg/mL Total Protein (6.4-8.2) g/dL Albumin (3.4-5.0) g/dL Lipase (16-77) U/L Procalcitonin ng/mL TSH (0.36-3.74) uIU/mL Urine Color (Yellow) Dark Yellow Urine Clarity (Clear) Clear Urine pH (5-8) 6.5 Ur Specific [place] (1.005-1.025) >= 1.030 H Urine Protein (Negative) mg/dL 100 H Urine Ketones (Negative) mg/dL 15 H Urine Blood (Negative) Negative Urine Nitrite (Negative) Negative Urine Bilirubin (Negative) Negative Urine Urobilinogen (Up to 0.2) mg/dL 1.0 H Ur Leukocyte Esterase (Negative) Negative Urine RBC (0-2) HPF 0-2 Urine WBC (0-5) HPF 0-2 Ur Epithelial Cells (Negative) HPF Rare Urine Crystals (Negative) HPF Negative Urine Bacteria (Negative) HPF Negative Urine Mucus (Negative) Heavy Ur Culture Indicated? No Urine Glucose (Negative) mg/dL Negative COVID-19 Source SARS-CoV-2 (PCR) (Negative) Influenza Type A (PCR) (Negative) Influenza Type B (PCR) (Negative) Urine Legionella Ag (Negative) RSV (PCR) (Negative) MRSA (TEM-PCR) (Negative) Add-On Test Request Patient ABO/Rh Antibody Screen Crossmatch Range/Units 05/28/23 05/29/23 05/29/23 16:53 06:15 06:15 WBC (4.4-10.8) 10^3/uL 27.24 H* RBC (4.36-5.78) 10^6/uL 2.90 L Hgb (13.5-17.5) g/dL 7.4 L Hct (40.0-50.0) % 22.3 L MCV (80-95) fL 77 L MCH (27.0-33.0) pg 25.5 L MCHC (32.0-36.0) % 33.2 RDW (11.8-14.1) % 19.6 H Plt Count (130-400) 10^3/uL 403 H MPV (8.0-11.0) fL 9.5 Immature Gran % Neutrophils % Band Neutrophils % Lymphocytes % Atypical Lymphs % Monocytes % Eosinophils % Basophils % Metamyelocytes % Myelocytes % Promyelocytes % Other Cells % Nucleated RBC % (0.0-0.3) % Absolute Neutrophils (1.2-6.7) 10^3/uL Absolute Lymphocytes (1.2-3.4) 10^3/uL Absolute Monocytes (0.1-0.8) 10^3/uL Absolute Eosinophils (0.0-0.7) 10^3/uL Absolute Basophils (0.0-0.2) 10^3/uL RBC Morphology Polychromasia Hypochromasia Poikilocytosis Basophilic Stippling Anisocytosis Microcytosis Macrocytosis Spherocytes Tear Drop Cells Ovalocytes Stomatocytes [place] Bodies [place] Cells/Echinocytes Acanthocytes (Spur) Schistocytes D-Dimer (<500) ng/mlFEU VBG Lactate (0.6-1.4) mmol/L Sodium (136-145) mmol/L 130 L Potassium (3.5-5.1) mmol/L 3.8 Chloride (98-107) mmol/L 97 L Carbon Dioxide (21.0-32.0) mmol/L 24.0 Anion Gap (3-11) mmol/L 9.0 BUN (7-18) mg/dL 19 H Creatinine (0.70-1.30) mg/dL 0.5 L Est GFR (CKD-EPI 2020) (mL/min/1.73m2) 101.20 Glucose (74-106) mg/dL 104 Calcium (8.5-10.1) mg/dL 8.9 Magnesium (1.8-2.4) mg/dL Iron (65-175) ug/dL TIBC (250-450) ug/dL Transferrin % Sat (20-55) % Total Bilirubin (0.2-1.0) mg/dL AST (15-37) U/L ALT (16-63) U/L Alkaline Phosphatase (46-116) U/L Troponin I (<or=60) ng/L C-Reactive Protein (0.0-0.3) mg/dL NT-Pro-B Natriuret Pep (<300) pg/mL Total Protein (6.4-8.2) g/dL Albumin (3.4-5.0) g/dL Lipase (16-77) U/L Procalcitonin ng/mL TSH (0.36-3.74) uIU/mL Urine Color (Yellow) Urine Clarity (Clear) Urine pH (5-8) Ur Specific [place] (1.005-1.025) Urine Protein (Negative) mg/dL Urine Ketones (Negative) mg/dL Urine Blood (Negative) Urine Nitrite (Negative) Urine Bilirubin (Negative) Urine Urobilinogen (Up to 0.2) mg/dL Ur Leukocyte Esterase (Negative) Urine RBC (0-2) HPF Urine WBC (0-5) HPF Ur Epithelial Cells (Negative) HPF Urine Crystals (Negative) HPF Urine Bacteria (Negative) HPF Urine Mucus (Negative) Ur Culture Indicated? Urine Glucose (Negative) mg/dL COVID-19 Source SARS-CoV-2 (PCR) (Negative) Influenza Type A (PCR) (Negative) Influenza Type B (PCR) (Negative) Urine Legionella Ag (Negative) Negative RSV (PCR) (Negative) MRSA (TEM-PCR) (Negative) Add-On Test Request Patient ABO/Rh Antibody Screen Crossmatch Range/Units 05/29/23 05/29/23 05/29/23 10:03 10:03 19:42 WBC (4.4-10.8) 10^3/uL RBC (4.36-5.78) 10^6/uL Hgb (13.5-17.5) g/dL Hct (40.0-50.0) % MCV (80-95) fL MCH (27.0-33.0) pg MCHC (32.0-36.0) % RDW (11.8-14.1) % Plt Count (130-400) 10^3/uL MPV (8.0-11.0) fL Immature Gran % Neutrophils % Band Neutrophils % Lymphocytes % Atypical Lymphs % Monocytes % Eosinophils % Basophils % Metamyelocytes % Myelocytes % Promyelocytes % Other Cells % Nucleated RBC % (0.0-0.3) % Absolute Neutrophils (1.2-6.7) 10^3/uL Absolute Lymphocytes (1.2-3.4) 10^3/uL Absolute Monocytes (0.1-0.8) 10^3/uL Absolute Eosinophils (0.0-0.7) 10^3/uL Absolute Basophils (0.0-0.2) 10^3/uL RBC Morphology Polychromasia Hypochromasia Poikilocytosis Basophilic Stippling Anisocytosis Microcytosis Macrocytosis Spherocytes Tear Drop Cells Ovalocytes Stomatocytes [place] Bodies [place] Cells/Echinocytes Acanthocytes (Spur) Schistocytes D-Dimer (<500) ng/mlFEU VBG Lactate (0.6-1.4) mmol/L Sodium (136-145) mmol/L Potassium (3.5-5.1) mmol/L Chloride (98-107) mmol/L Carbon Dioxide (21.0-32.0) mmol/L Anion Gap (3-11) mmol/L BUN (7-18) mg/dL Creatinine (0.70-1.30) mg/dL Est GFR (CKD-EPI 2020) (mL/min/1.73m2) Glucose (74-106) mg/dL Calcium (8.5-10.1) mg/dL Magnesium (1.8-2.4) mg/dL Iron (65-175) ug/dL TIBC (250-450) ug/dL Transferrin % Sat (20-55) % Total Bilirubin (0.2-1.0) mg/dL AST (15-37) U/L ALT (16-63) U/L Alkaline Phosphatase (46-116) U/L Troponin I (<or=60) ng/L C-Reactive Protein (0.0-0.3) mg/dL NT-Pro-B Natriuret Pep (<300) pg/mL Total Protein (6.4-8.2) g/dL Albumin (3.4-5.0) g/dL Lipase (16-77) U/L Procalcitonin ng/mL TSH (0.36-3.74) uIU/mL Urine Color (Yellow) Urine Clarity (Clear) Urine pH (5-8) Ur Specific [place] (1.005-1.025) Urine Protein (Negative) mg/dL Urine Ketones (Negative) mg/dL Urine Blood (Negative) Urine Nitrite (Negative) Urine Bilirubin (Negative) Urine Urobilinogen (Up to 0.2) mg/dL Ur Leukocyte Esterase (Negative) Urine RBC (0-2) HPF Urine WBC (0-5) HPF Ur Epithelial Cells (Negative) HPF Urine Crystals (Negative) HPF Urine Bacteria (Negative) HPF Urine Mucus (Negative) Ur Culture Indicated? Urine Glucose (Negative) mg/dL COVID-19 Source Nasopharynx SARS-CoV-2 (PCR) (Negative) Negative Influenza Type A (PCR) (Negative) Influenza Type B (PCR) (Negative) Urine Legionella Ag (Negative) RSV (PCR) (Negative) MRSA (TEM-PCR) (Negative) Negative Add-On Test Request Patient ABO/Rh A Positive Antibody Screen NEGATIVE Crossmatch See Detail Range/Units 05/30/23 05/30/23 05/30/23 00:00 04:35 04:35 WBC (4.4-10.8) 10^3/uL 32.25 H* RBC (4.36-5.78) 10^6/uL 3.31 L Hgb (13.5-17.5) g/dL Cancelled 8.6 L Hct (40.0-50.0) % Cancelled 25.7 L MCV (80-95) fL 78 L MCH (27.0-33.0) pg 26.0 L MCHC (32.0-36.0) % 33.5 RDW (11.8-14.1) % 18.7 H Plt Count (130-400) 10^3/uL 354 MPV (8.0-11.0) fL 9.5 Immature Gran % 1.6 Neutrophils % 93.0 Band Neutrophils % Lymphocytes % 2.1 Atypical Lymphs % Monocytes % 3.0 Eosinophils % 0.0 Basophils % 0.3 Metamyelocytes % Myelocytes % Promyelocytes % Other Cells % Nucleated RBC % (0.0-0.3) % 0.1 Absolute Neutrophils (1.2-6.7) 10^3/uL 29.99 H Absolute Lymphocytes (1.2-3.4) 10^3/uL 0.68 L Absolute Monocytes (0.1-0.8) 10^3/uL 0.97 H Absolute Eosinophils (0.0-0.7) 10^3/uL 0.00 Absolute Basophils (0.0-0.2) 10^3/uL 0.10 RBC Morphology See Below Polychromasia Present Hypochromasia Poikilocytosis Basophilic Stippling Anisocytosis Microcytosis Macrocytosis Spherocytes Tear Drop Cells Ovalocytes Stomatocytes [place] Bodies [place] Cells/Echinocytes Acanthocytes (Spur) Schistocytes D-Dimer (<500) ng/mlFEU VBG Lactate (0.6-1.4) mmol/L Sodium (136-145) mmol/L 131 L Potassium (3.5-5.1) mmol/L 3.2 L Chloride (98-107) mmol/L 97 L Carbon Dioxide (21.0-32.0) mmol/L 23.2 Anion Gap (3-11) mmol/L 10.8 BUN (7-18) mg/dL 17 Creatinine (0.70-1.30) mg/dL 0.5 L Est GFR (CKD-EPI 2020) (mL/min/1.73m2) 101.20 Glucose (74-106) mg/dL 105 Calcium (8.5-10.1) mg/dL 8.5 Magnesium (1.8-2.4) mg/dL 0.8 L Iron (65-175) ug/dL TIBC (250-450) ug/dL Transferrin % Sat (20-55) % Total Bilirubin (0.2-1.0) mg/dL AST (15-37) U/L ALT (16-63) U/L Alkaline Phosphatase (46-116) U/L Troponin I (<or=60) ng/L C-Reactive Protein (0.0-0.3) mg/dL 17.86 H NT-Pro-B Natriuret Pep (<300) pg/mL Total Protein (6.4-8.2) g/dL Albumin (3.4-5.0) g/dL Lipase (16-77) U/L Procalcitonin ng/mL TSH (0.36-3.74) uIU/mL Urine Color (Yellow) Urine Clarity (Clear) Urine pH (5-8) Ur Specific [place] (1.005-1.025) Urine Protein (Negative) mg/dL Urine Ketones (Negative) mg/dL Urine Blood (Negative) Urine Nitrite (Negative) Urine Bilirubin (Negative) Urine Urobilinogen (Up to 0.2) mg/dL Ur Leukocyte Esterase (Negative) Urine RBC (0-2) HPF Urine WBC (0-5) HPF Ur Epithelial Cells (Negative) HPF Urine Crystals (Negative) HPF Urine Bacteria (Negative) HPF Urine Mucus (Negative) Ur Culture Indicated? Urine Glucose (Negative) mg/dL COVID-19 Source SARS-CoV-2 (PCR) (Negative) Influenza Type A (PCR) (Negative) Influenza Type B (PCR) (Negative) Urine Legionella Ag (Negative) RSV (PCR) (Negative) MRSA (TEM-PCR) (Negative) Add-On Test Request Patient ABO/Rh Antibody Screen Crossmatch Range/Units 05/30/23 05/31/23 05/31/23 08:10 06:18 06:30 WBC (4.4-10.8) 10^3/uL RBC (4.36-5.78) 10^6/uL Hgb (13.5-17.5) g/dL Hct (40.0-50.0) % MCV (80-95) fL MCH (27.0-33.0) pg MCHC (32.0-36.0) % RDW (11.8-14.1) % Plt Count (130-400) 10^3/uL MPV (8.0-11.0) fL Immature Gran % Neutrophils % Band Neutrophils % Lymphocytes % Atypical Lymphs % Monocytes % Eosinophils % Basophils % Metamyelocytes % Myelocytes % Promyelocytes % Other Cells % Nucleated RBC % (0.0-0.3) % Absolute Neutrophils (1.2-6.7) 10^3/uL Absolute Lymphocytes (1.2-3.4) 10^3/uL Absolute Monocytes (0.1-0.8) 10^3/uL Absolute Eosinophils (0.0-0.7) 10^3/uL Absolute Basophils (0.0-0.2) 10^3/uL RBC Morphology Polychromasia Hypochromasia Poikilocytosis Basophilic Stippling Anisocytosis Microcytosis Macrocytosis Spherocytes Tear Drop Cells Ovalocytes Stomatocytes [place] Bodies [place] Cells/Echinocytes Acanthocytes (Spur) Schistocytes D-Dimer (<500) ng/mlFEU VBG Lactate (0.6-1.4) mmol/L Sodium (136-145) mmol/L Cancelled 133 L Potassium (3.5-5.1) mmol/L Cancelled 3.3 L Chloride (98-107) mmol/L Cancelled 100 Carbon Dioxide (21.0-32.0) mmol/L Cancelled 23.4 Anion Gap (3-11) mmol/L Cancelled 9.6 BUN (7-18) mg/dL Cancelled 19 H Creatinine (0.70-1.30) mg/dL Cancelled 0.6 L Est GFR (CKD-EPI 2020) (mL/min/1.73m2) Cancelled 95.78 Glucose (74-106) mg/dL Cancelled 98 Calcium (8.5-10.1) mg/dL Cancelled 8.9 Magnesium (1.8-2.4) mg/dL 1.7 L Iron (65-175) ug/dL TIBC (250-450) ug/dL Transferrin % Sat (20-55) % Total Bilirubin (0.2-1.0) mg/dL AST (15-37) U/L ALT (16-63) U/L Alkaline Phosphatase (46-116) U/L Troponin I (<or=60) ng/L C-Reactive Protein (0.0-0.3) mg/dL NT-Pro-B Natriuret Pep (<300) pg/mL Total Protein (6.4-8.2) g/dL Albumin (3.4-5.0) g/dL Lipase (16-77) U/L Procalcitonin ng/mL TSH (0.36-3.74) uIU/mL Urine Color (Yellow) Urine Clarity (Clear) Urine pH (5-8) Ur Specific [place] (1.005-1.025) Urine Protein (Negative) mg/dL Urine Ketones (Negative) mg/dL Urine Blood (Negative) Urine Nitrite (Negative) Urine Bilirubin (Negative) Urine Urobilinogen (Up to 0.2) mg/dL Ur Leukocyte Esterase (Negative) Urine RBC (0-2) HPF Urine WBC (0-5) HPF Ur Epithelial Cells (Negative) HPF Urine Crystals (Negative) HPF Urine Bacteria (Negative) HPF Urine Mucus (Negative) Ur Culture Indicated? Urine Glucose (Negative) mg/dL COVID-19 Source Nasopharynx SARS-CoV-2 (PCR) (Negative) Negative Influenza Type A (PCR) (Negative) Influenza Type B (PCR) (Negative) Urine Legionella Ag (Negative) RSV (PCR) (Negative) MRSA (TEM-PCR) (Negative) Add-On Test Request Patient ABO/Rh Antibody Screen Crossmatch Range/Units 05/31/23 05/31/23 05/31/23 06:30 06:30 06:30 WBC (4.4-10.8) 10^3/uL Cancelled RBC (4.36-5.78) 10^6/uL Cancelled Hgb (13.5-17.5) g/dL Cancelled Hct (40.0-50.0) % Cancelled MCV (80-95) fL Cancelled MCH (27.0-33.0) pg Cancelled MCHC (32.0-36.0) % Cancelled RDW (11.8-14.1) % Cancelled Plt Count (130-400) 10^3/uL Cancelled MPV (8.0-11.0) fL Cancelled Immature Gran % Cancelled Neutrophils % Cancelled Band Neutrophils % Cancelled Lymphocytes % Cancelled Atypical Lymphs % Cancelled Monocytes % Cancelled Eosinophils % Cancelled Basophils % Cancelled Metamyelocytes % Cancelled Myelocytes % Cancelled Promyelocytes % Cancelled Other Cells % Cancelled Nucleated RBC % (0.0-0.3) % Cancelled Absolute Neutrophils (1.2-6.7) 10^3/uL Cancelled Absolute Lymphocytes (1.2-3.4) 10^3/uL Cancelled Absolute Monocytes (0.1-0.8) 10^3/uL Cancelled Absolute Eosinophils (0.0-0.7) 10^3/uL Cancelled Absolute Basophils (0.0-0.2) 10^3/uL Cancelled RBC Morphology Cancelled Polychromasia Cancelled Hypochromasia Cancelled Poikilocytosis Cancelled Basophilic Stippling Cancelled Anisocytosis Cancelled Microcytosis Cancelled Macrocytosis Cancelled Spherocytes Cancelled Tear Drop Cells Cancelled Ovalocytes Cancelled Stomatocytes Cancelled [place] Bodies Cancelled William Cells/Echinocytes Cancelled Acanthocytes (Spur) Cancelled Schistocytes Cancelled D-Dimer (<500) ng/mlFEU VBG Lactate (0.6-1.4) mmol/L Sodium (136-145) mmol/L Potassium (3.5-5.1) mmol/L Chloride (98-107) mmol/L Carbon Dioxide (21.0-32.0) mmol/L Anion Gap (3-11) mmol/L BUN (7-18) mg/dL Creatinine (0.70-1.30) mg/dL Est GFR (CKD-EPI 2020) (mL/min/1.73m2) Glucose (74-106) mg/dL Calcium (8.5-10.1) mg/dL Magnesium (1.8-2.4) mg/dL Iron (65-175) ug/dL TIBC (250-450) ug/dL Transferrin % Sat (20-55) % Total Bilirubin (0.2-1.0) mg/dL AST (15-37) U/L ALT (16-63) U/L Alkaline Phosphatase (46-116) U/L Troponin I (<or=60) ng/L 158 H* C-Reactive Protein (0.0-0.3) mg/dL NT-Pro-B Natriuret Pep (<300) pg/mL 4801 H Total Protein (6.4-8.2) g/dL Albumin (3.4-5.0) g/dL Lipase (16-77) U/L Procalcitonin ng/mL 1.7 TSH (0.36-3.74) uIU/mL Urine Color (Yellow) Urine Clarity (Clear) Urine pH (5-8) Ur Specific [place] (1.005-1.025) Urine Protein (Negative) mg/dL Urine Ketones (Negative) mg/dL Urine Blood (Negative) Urine Nitrite (Negative) Urine Bilirubin (Negative) Urine Urobilinogen (Up to 0.2) mg/dL Ur Leukocyte Esterase (Negative) Urine RBC (0-2) HPF Urine WBC (0-5) HPF Ur Epithelial Cells (Negative) HPF Urine Crystals (Negative) HPF Urine Bacteria (Negative) HPF Urine Mucus (Negative) Ur Culture Indicated? Urine Glucose (Negative) mg/dL COVID-19 Source SARS-CoV-2 (PCR) (Negative) Influenza Type A (PCR) (Negative) Influenza Type B (PCR) (Negative) Urine Legionella Ag (Negative) RSV (PCR) (Negative) MRSA (TEM-PCR) (Negative) Add-On Test Request Patient ABO/Rh Antibody Screen Crossmatch Range/Units 05/31/23 05/31/23 05/31/23 06:30 07:50 09:05 WBC (4.4-10.8) 10^3/uL 22.37 H RBC (4.36-5.78) 10^6/uL 3.30 L Hgb (13.5-17.5) g/dL 8.7 L Hct (40.0-50.0) % 26.0 L MCV (80-95) fL 79 L MCH (27.0-33.0) pg 26.4 L MCHC (32.0-36.0) % 33.5 RDW (11.8-14.1) % 19.1 H Plt Count (130-400) 10^3/uL 335 MPV (8.0-11.0) fL 10.2 Immature Gran % 0.0 Neutrophils % 91.0 Band Neutrophils % Lymphocytes % 2.0 Atypical Lymphs % Monocytes % 7.0 Eosinophils % 0.0 Basophils % 0.0 Metamyelocytes % Myelocytes % Promyelocytes % Other Cells % Nucleated RBC % (0.0-0.3) % 0.0 Absolute Neutrophils (1.2-6.7) 10^3/uL 20.36 H Absolute Lymphocytes (1.2-3.4) 10^3/uL 0.45 L Absolute Monocytes (0.1-0.8) 10^3/uL 1.57 H Absolute Eosinophils (0.0-0.7) 10^3/uL 0.00 Absolute Basophils (0.0-0.2) 10^3/uL 0.00 RBC Morphology See Below Polychromasia Present Hypochromasia 2+ Poikilocytosis Basophilic Stippling Anisocytosis Microcytosis Macrocytosis Spherocytes Tear Drop Cells Ovalocytes Stomatocytes [place] Bodies William Cells/Echinocytes Acanthocytes (Spur) Schistocytes D-Dimer (<500) ng/mlFEU 6028 H VBG Lactate (0.6-1.4) mmol/L Sodium (136-145) mmol/L Potassium (3.5-5.1) mmol/L Chloride (98-107) mmol/L Carbon Dioxide (21.0-32.0) mmol/L Anion Gap (3-11) mmol/L BUN (7-18) mg/dL Creatinine (0.70-1.30) mg/dL Est GFR (CKD-EPI 2020) (mL/min/1.73m2) Glucose (74-106) mg/dL Calcium (8.5-10.1) mg/dL Magnesium (1.8-2.4) mg/dL Iron (65-175) ug/dL TIBC (250-450) ug/dL Transferrin % Sat (20-55) % Total Bilirubin (0.2-1.0) mg/dL AST (15-37) U/L ALT (16-63) U/L Alkaline Phosphatase (46-116) U/L Troponin I (<or=60) ng/L 136 H* C-Reactive Protein (0.0-0.3) mg/dL NT-Pro-B Natriuret Pep (<300) pg/mL Total Protein (6.4-8.2) g/dL Albumin (3.4-5.0) g/dL Lipase (16-77) U/L Procalcitonin ng/mL TSH (0.36-3.74) uIU/mL Urine Color (Yellow) Urine Clarity (Clear) Urine pH (5-8) Ur Specific [place] (1.005-1.025) Urine Protein (Negative) mg/dL Urine Ketones (Negative) mg/dL Urine Blood (Negative) Urine Nitrite (Negative) Urine Bilirubin (Negative) Urine Urobilinogen (Up to 0.2) mg/dL Ur Leukocyte Esterase (Negative) Urine RBC (0-2) HPF Urine WBC (0-5) HPF Ur Epithelial Cells (Negative) HPF Urine Crystals (Negative) HPF Urine Bacteria (Negative) HPF Urine Mucus (Negative) Ur Culture Indicated? Urine Glucose (Negative) mg/dL COVID-19 Source SARS-CoV-2 (PCR) (Negative) Influenza Type A (PCR) (Negative) Influenza Type B (PCR) (Negative) Urine Legionella Ag (Negative) RSV (PCR) (Negative) MRSA (TEM-PCR) (Negative) Add-On Test Request Patient ABO/Rh Antibody Screen Crossmatch Range/Units 06/01/23 06/01/23 06/02/23 11:20 11:20 03:27 WBC (4.4-10.8) 10^3/uL 15.68 H RBC (4.36-5.78) 10^6/uL 3.58 L Hgb (13.5-17.5) g/dL 9.3 L Hct (40.0-50.0) % 27.9 L MCV (80-95) fL 78 L MCH (27.0-33.0) pg 26.0 L MCHC (32.0-36.0) % 33.3 RDW (11.8-14.1) % 19.4 H Plt Count (130-400) 10^3/uL 335 MPV (8.0-11.0) fL 10.2 Immature Gran % 1.3 Neutrophils % 86.5 Band Neutrophils % Lymphocytes % 6.4 Atypical Lymphs % Monocytes % 4.7 Eosinophils % 0.9 Basophils % 0.2 Metamyelocytes % Myelocytes % Promyelocytes % Other Cells % Nucleated RBC % (0.0-0.3) % 0.1 Absolute Neutrophils (1.2-6.7) 10^3/uL 13.56 H Absolute Lymphocytes (1.2-3.4) 10^3/uL 1.00 L Absolute Monocytes (0.1-0.8) 10^3/uL 0.74 Absolute Eosinophils (0.0-0.7) 10^3/uL 0.14 Absolute Basophils (0.0-0.2) 10^3/uL 0.03 RBC Morphology Polychromasia Hypochromasia Poikilocytosis Basophilic Stippling Anisocytosis Microcytosis Macrocytosis Spherocytes Tear Drop Cells Ovalocytes Stomatocytes [place] Bodies [place] Cells/Echinocytes Acanthocytes (Spur) Schistocytes D-Dimer (<500) ng/mlFEU VBG Lactate (0.6-1.4) mmol/L Sodium (136-145) mmol/L 132 L Potassium (3.5-5.1) mmol/L 3.7 Chloride (98-107) mmol/L 100 Carbon Dioxide (21.0-32.0) mmol/L 24.6 Anion Gap (3-11) mmol/L 7.4 BUN (7-18) mg/dL 26 H Creatinine (0.70-1.30) mg/dL 0.6 L Est GFR (CKD-EPI 2020) (mL/min/1.73m2) 95.78 Glucose (74-106) mg/dL 129 H Calcium (8.5-10.1) mg/dL 9.1 Magnesium (1.8-2.4) mg/dL 1.4 L Iron (65-175) ug/dL TIBC (250-450) ug/dL Transferrin % Sat (20-55) % Total Bilirubin (0.2-1.0) mg/dL AST (15-37) U/L ALT (16-63) U/L Alkaline Phosphatase (46-116) U/L Troponin I (<or=60) ng/L C-Reactive Protein (0.0-0.3) mg/dL NT-Pro-B Natriuret Pep (<300) pg/mL Total Protein (6.4-8.2) g/dL Albumin (3.4-5.0) g/dL Lipase (16-77) U/L Procalcitonin ng/mL TSH (0.36-3.74) uIU/mL Urine Color (Yellow) Urine Clarity (Clear) Urine pH (5-8) Ur Specific [place] (1.005-1.025) Urine Protein (Negative) mg/dL Urine Ketones (Negative) mg/dL Urine Blood (Negative) Urine Nitrite (Negative) Urine Bilirubin (Negative) Urine Urobilinogen (Up to 0.2) mg/dL Ur Leukocyte Esterase (Negative) Urine RBC (0-2) HPF Urine WBC (0-5) HPF Ur Epithelial Cells (Negative) HPF Urine Crystals (Negative) HPF Urine Bacteria (Negative) HPF Urine Mucus (Negative) Ur Culture Indicated? Urine Glucose (Negative) mg/dL COVID-19 Source Nasal/Nares SARS-CoV-2 (PCR) (Negative) Negative Influenza Type A (PCR) (Negative) Influenza Type B (PCR) (Negative) Urine Legionella Ag (Negative) RSV (PCR) (Negative) MRSA (TEM-PCR) (Negative) Add-On Test Request Patient ABO/Rh Antibody Screen Crossmatch Range/Units 06/02/23 06/02/23 06/02/23 09:40 09:40 09:40 WBC (4.4-10.8) 10^3/uL 30.94 H* RBC (4.36-5.78) 10^6/uL 3.57 L Hgb (13.5-17.5) g/dL 9.3 L Hct (40.0-50.0) % 29.0 L MCV (80-95) fL 81 MCH (27.0-33.0) pg 26.1 L MCHC (32.0-36.0) % 32.1 RDW (11.8-14.1) % 19.8 H Plt Count (130-400) 10^3/uL MPV (8.0-11.0) fL Immature Gran % 1.3 Neutrophils % 91.6 Band Neutrophils % Lymphocytes % 3.1 Atypical Lymphs % Monocytes % 3.5 Eosinophils % 0.0 Basophils % 0.5 Metamyelocytes % Myelocytes % Promyelocytes % Other Cells % Nucleated RBC % (0.0-0.3) % 0.0 Absolute Neutrophils (1.2-6.7) 10^3/uL 28.34 H Absolute Lymphocytes (1.2-3.4) 10^3/uL 0.96 L Absolute Monocytes (0.1-0.8) 10^3/uL 1.08 H Absolute Eosinophils (0.0-0.7) 10^3/uL 0.00 Absolute Basophils (0.0-0.2) 10^3/uL 0.15 RBC Morphology Normal Polychromasia Hypochromasia Poikilocytosis Basophilic Stippling Anisocytosis Microcytosis Macrocytosis Spherocytes Tear Drop Cells Ovalocytes Stomatocytes [place] Bodies William Cells/Echinocytes Acanthocytes (Spur) Schistocytes D-Dimer (<500) ng/mlFEU VBG Lactate (0.6-1.4) mmol/L Sodium (136-145) mmol/L 131 L Potassium (3.5-5.1) mmol/L 4.1 Chloride (98-107) mmol/L 97 L Carbon Dioxide (21.0-32.0) mmol/L 24.2 Anion Gap (3-11) mmol/L 9.8 BUN (7-18) mg/dL 26 H Creatinine (0.70-1.30) mg/dL 0.6 L Est GFR (CKD-EPI 2020) (mL/min/1.73m2) 95.78 Glucose (74-106) mg/dL 100 Calcium (8.5-10.1) mg/dL 8.4 L Magnesium (1.8-2.4) mg/dL Iron (65-175) ug/dL 8 L TIBC (250-450) ug/dL 167 L Transferrin % Sat (20-55) % 5 L Total Bilirubin (0.2-1.0) mg/dL AST (15-37) U/L ALT (16-63) U/L Alkaline Phosphatase (46-116) U/L Troponin I (<or=60) ng/L C-Reactive Protein (0.0-0.3) mg/dL NT-Pro-B Natriuret Pep (<300) pg/mL Total Protein (6.4-8.2) g/dL Albumin (3.4-5.0) g/dL Lipase (16-77) U/L Procalcitonin ng/mL TSH (0.36-3.74) uIU/mL Urine Color (Yellow) Urine Clarity (Clear) Urine pH (5-8) Ur Specific [place] (1.005-1.025) Urine Protein (Negative) mg/dL Urine Ketones (Negative) mg/dL Urine Blood (Negative) Urine Nitrite (Negative) Urine Bilirubin (Negative) Urine Urobilinogen (Up to 0.2) mg/dL Ur Leukocyte Esterase (Negative) Urine RBC (0-2) HPF Urine WBC (0-5) HPF Ur Epithelial Cells (Negative) HPF Urine Crystals (Negative) HPF Urine Bacteria (Negative) HPF Urine Mucus (Negative) Ur Culture Indicated? Urine Glucose (Negative) mg/dL COVID-19 Source SARS-CoV-2 (PCR) (Negative) Influenza Type A (PCR) (Negative) Influenza Type B (PCR) (Negative) Urine Legionella Ag (Negative) RSV (PCR) (Negative) MRSA (TEM-PCR) (Negative) Add-On Test Request Patient ABO/Rh Antibody Screen Crossmatch Range/Units 06/02/23 06/02/23 06/02/23 09:40 09:40 18:00 WBC (4.4-10.8) 10^3/uL RBC (4.36-5.78) 10^6/uL Hgb (13.5-17.5) g/dL Hct (40.0-50.0) % MCV (80-95) fL MCH (27.0-33.0) pg MCHC (32.0-36.0) % RDW (11.8-14.1) % Plt Count (130-400) 10^3/uL MPV (8.0-11.0) fL Immature Gran % Neutrophils % Band Neutrophils % Lymphocytes % Atypical Lymphs % Monocytes % Eosinophils % Basophils % Metamyelocytes % Myelocytes % Promyelocytes % Other Cells % Nucleated RBC % (0.0-0.3) % Absolute Neutrophils (1.2-6.7) 10^3/uL Absolute Lymphocytes (1.2-3.4) 10^3/uL Absolute Monocytes (0.1-0.8) 10^3/uL Absolute Eosinophils (0.0-0.7) 10^3/uL Absolute Basophils (0.0-0.2) 10^3/uL RBC Morphology Polychromasia Hypochromasia Poikilocytosis Basophilic Stippling Anisocytosis Microcytosis Macrocytosis Spherocytes Tear Drop Cells Ovalocytes Stomatocytes [place] Bodies [place] Cells/Echinocytes Acanthocytes (Spur) Schistocytes D-Dimer (<500) ng/mlFEU VBG Lactate (0.6-1.4) mmol/L Sodium (136-145) mmol/L Potassium (3.5-5.1) mmol/L Chloride (98-107) mmol/L Carbon Dioxide (21.0-32.0) mmol/L Anion Gap (3-11) mmol/L BUN (7-18) mg/dL Creatinine (0.70-1.30) mg/dL Est GFR (CKD-EPI 2020) (mL/min/1.73m2) Glucose (74-106) mg/dL Calcium (8.5-10.1) mg/dL Magnesium (1.8-2.4) mg/dL 1.2 L Iron (65-175) ug/dL TIBC (250-450) ug/dL Transferrin % Sat (20-55) % Total Bilirubin (0.2-1.0) mg/dL AST (15-37) U/L ALT (16-63) U/L Alkaline Phosphatase (46-116) U/L Troponin I (<or=60) ng/L C-Reactive Protein (0.0-0.3) mg/dL NT-Pro-B Natriuret Pep (<300) pg/mL Total Protein (6.4-8.2) g/dL Albumin (3.4-5.0) g/dL Lipase (16-77) U/L Procalcitonin ng/mL TSH (0.36-3.74) uIU/mL Urine Color (Yellow) Urine Clarity (Clear) Urine pH (5-8) Ur Specific [place] (1.005-1.025) Urine Protein (Negative) mg/dL Urine Ketones (Negative) mg/dL Urine Blood (Negative) Urine Nitrite (Negative) Urine Bilirubin (Negative) Urine Urobilinogen (Up to 0.2) mg/dL Ur Leukocyte Esterase (Negative) Urine RBC (0-2) HPF Urine WBC (0-5) HPF Ur Epithelial Cells (Negative) HPF Urine Crystals (Negative) HPF Urine Bacteria (Negative) HPF Urine Mucus (Negative) Ur Culture Indicated? Urine Glucose (Negative) mg/dL COVID-19 Source SARS-CoV-2 (PCR) (Negative) Influenza Type A (PCR) (Negative) Influenza Type B (PCR) (Negative) Urine Legionella Ag (Negative) RSV (PCR) (Negative) MRSA (TEM-PCR) (Negative) Negative Add-On Test Request DONE Patient ABO/Rh Antibody Screen Crossmatch
[2023-06-03 07:16] LABS: Abs Immature Grans 0.51 10^3/uL (0.0-0.06); Absolute Basophil Count 0.05 10^3/uL (0.0-0.2); Absolute Lymphocyte Count 0.83 10^3/uL (1.2-3.4); Absolute Monocyte Count 0.65 10^3/uL (0.1-0.8); Basophils % 0.3; Eosinophils % 0.1; HCT 29.7 % (40.0-50.0); HGB 9.8 g/dL (13.5-17.5); Immature Grans % 3.4; Lymphocytes % 5.5; MCH 25.6 pg (27.0-33.0); MCV 78 fL (80-95); MPV 11.1 fL (8.0-11.0); Monocytes % 4.3; Neutrophils % 86.4; Platelet Count 318 10^3/uL (130-400); RBC 3.83 10^6/uL (4.36-5.78); RDW 20.5 % (11.8-14.1); RDW-SD 57.5 fL; WBC 15.16 10^3/uL (4.4-10.8)
[2023-06-03 07:23] LABS: Absolute Eosinophil Count 0.02 10^3/uL (0.0-0.7)
[2023-06-03 07:41] LABS: Anisocytosis 2+; Diff Comment Diff Reviewed
[2023-06-03 07:58] LABS: Iron 11 ug/dL (65-175); Total Iron Binding Capacity 185 ug/dL (250-450); Transferrin Sat 6 % (20-55)
[2023-06-03 08:04] LABS: Anion Gap 8.9 mmol/L (3-11); BUN 28 mg/dL (7-18); CO2 24.1 mmol/L (21.0-32.0); CREATININE 0.6 mg/dL (0.70-1.30); Calcium 8.6 mg/dL (8.5-10.1); Chloride 98 mmol/L (98-107); Estimated GFR 95.78 (mL/min/1.73m2); Ferritin 95 ng/mL (26-388); Glucose 111 mg/dL (74-106); Potassium 4.3 mmol/L (3.5-5.1); Sodium 131 mmol/L (136-145)
[2023-06-03] MEDS: Levalbuterol 0.63 MG/3 ML UPD VIAL UPD ×3 (08:17→20:03)
[2023-06-03] MEDS: Tiotropium/Olodaterol 10 PUFF INHALER 2 PUFF IH (08:19)
[2023-06-03 08:23] LABS: Folate 10.7 ng/mL (8.6-20.0)
[2023-06-03 08:33] LABS: Vitamin B12 > 2000 pg/mL (193-986)
[2023-06-03 08:59] LABS: Procalcitonin 0.3 ng/mL
[2023-06-03] MEDS: Polyethylene Glycol 3350 17 GM PACKET PO (09:01)
[2023-06-03] MEDS: Potassium Chloride 10 MEQ CAPCR 20 MEQ PO ×2 (09:02→21:14)
[2023-06-03] MEDS: Magnesium Chloride 64 MG TABCR 128 MG PO ×2 (09:02→21:13)
[2023-06-03] MEDS: guaiFENesin 600 MG TABCR 1200 MG PO ×2 (09:02→21:14)
[2023-06-03] MEDS: Aspirin 81 MG CHEW PO (09:02)
[2023-06-03] MEDS: Carvedilol 3.125 MG TAB 6.25 MG PO (09:02)
[2023-06-03] MEDS: Pantoprazole 40 MG TABCR PO ×2 (09:03→21:14)
[2023-06-03] MEDS: predniSONE 20 MG TAB 40 MG PO (09:03)
[2023-06-03] MEDS: Sertraline 25 MG TAB PO (09:04)
[2023-06-03] MEDS: hydroCHLOROthiazide 25 MG TAB PO (09:04)
[2023-06-03] MEDS: Docusate Sodium 100 MG CAP PO ×2 (09:04→21:14)
[2023-06-03] MEDS: Cyclobenzaprine 10 MG TAB PO (09:14)
--- NOTE | 2023-06-03 10:49 | PDOC.CMPRO ---
Date of service: 06/03/23 Time of Service: 10:49 Care Management Progress Note Progress Note Text Progress Note Text: S/O: Mike was sleeping when CM attempted to meet with him. Per report, Mike does not have supplemental O2 at baseline, and may require new O2 set up prior to discharge. He reports feeling better, and tolerating a regular diet, and is looking forward to returning home. Per MD, he is not yet medically cleared. Dr. Guerrero, pulmonology, met with him this morning and made some medication changes. CM will continue to follow. A:Mike is an 83 year old man admitted on 05/27/23 with pneumonia P: Anticipate Mike will be discharged home when medically cleared by provider. He will follow up with his community providers and plan of care and transport with family. CM will follow and continue to assess for discharge concerns.
--- NOTE | 2023-06-03 12:53 | W.SPSTE ---
Date of service: 06/03/23 Time of Service: 08:50 Objective Assessment Clinical (Bedside) Swallow Evaluation Speech Language Pathology Referred by: Dada Stanley Referral Type: Clinical Swallow Evaluation Reason for Referral/HPI: Mike Jorgensen was admitted to [facility] on 05/27/23 with right upper/middle lobe pneumonia. MANAGER SOFTWARE referral placed 06/01/23 secondary to patient desat from 2L to 8L, suspected worsening of infiltrate on CXR, and thus question of aspiration event. Nursing reported coughing with liquids on 05/31/23, though this has since improved. Patient denies history of recurrent pna or dysphagia symptoms. He endorses history of peptic ulcer and GERD, on PPI. MANAGER SOFTWARE IMPRESSIONS & RECOMMENDATIONS: Mike was seen today for a non-instrumental swallowing evaluation. He presented as alert, oriented, and cooperative. Patient on supplemental O2, 2LPM via nasal cannula. He presents with suspected trace to mild oral pharyngeal dysphagia in the setting of deconditioned status and increased respiratory demands, however overall swallow function appears WFL at this time. No overt s/s aspiration were appreciated throughout breakfast meal. Patient provided education re: impact of positioning, rate of intake, and oral hygiene on swallowing safety/risk for pna. He was encouraged to ask for assistance for 90 degree positioning prior to meals. He demonstrated independence with slow rate and small bite/sip size. No diet modifications are recommended at this time. Ongoing standard dysphagia and reflux precautions strongly encouraged, as outlined below. MANAGER SOFTWARE to follow patient while still on unit and follow up as indicated. FURTHER MANAGER SOFTWARE SERVICES: Patient to be followed while on unit. Upon Discharge, anticipate no further ST needs. Diet Recommendations: SUBJECTIVE: Patient reports he is feeling better today. Pain Reported? None at this time Baseline Swallow Function: Patient denies swallowing difficulty prior to admission and eats a regular diet at baseline. PO Trials Assessed: IDDSI 0 Thin Liquids (water via straw) IDDSI 6 Soft & Bite Size Solid (cornflakes in milk) IDDSI 7 Regular Solid (toast w/ butter) Medications administered by RN Oral Mechanism Examination: Dentition is WFL. Oral mucosa is moist, WNL. Cranial Nerve Assessment: CN V ? Trigeminal Facial Sensation WNL Jaw Strength/ROM WNL ?WNL CN VII- Facial WNL labial ROM, strength, coordination. WNL lingual sensation WNL CN IX ? Glossopharyngeal WNL palatal elevation with phonation. No evidence of nasal emissions WNL CN X ? Vagus WNL Vocal quality and volume. Strong/sharp volitional cough WNL CX XII ? Hypoglossal WNL lingual ROM, strength, coordination WNL Oral Phase Findings: WFL; Slow bolus manipulation; Slow a-p transport Pharyngeal Phase Findings: WFL; Throat clearing?intermittently, not clear if related to swallow ? [place] Swallow Protocol Results: PASS, Complete/uninterrupted without s/sx aspiration ??? ASSESSMENT: Further MANAGER SOFTWARE Services indicated. Patient to be followed while still on unit. Recommendation at Discharge: to be determined Suggested Referrals: N/A Recommended Procedures: N/A Recommendations: ? SOLIDS: 7-Regular Solids LIQUIDS: 0-Thin Liquids MEDICATIONS: Whole with 0-Thin Liquids RISK MANAGEMENT: HOB upright as tolerated; upright for all PO intake. Oral hygiene BID/2x per day Level of Assistance/Supervision: Distant supervision for all PO intake Strategies/Adaptations/Assistive Equipment: Small sips and bites when eating, Slow rate of intake, Swallow between bites, Reflux Precautions: Maintain upright position at least 60 minutes after meals, Avoid meals/snacks 2-3 hours prior to reclining/sleeping, Sleep with head of bed elevated to reduce likelihood of nocturnal reflux Topics Addressed: anatomy/physiology of swallowing mechanism, overt s/sx to monitor for re: potential aspiration of food / liquids, recommendations for improved oral care PLAN: Frequency: 1-2x/week for 1 week 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 Patient/family will verbalize comprehension of education provided re: impact of deconditioned respiratory status on swallow function Short Term Goals: Patient will tolerate Regular Diet and Thin liquids without overt s/s aspiration across 2/2 visits. MANAGER SOFTWARE CPT Code: 30532 Clinical Swallowing Evaluation Coding Diagnoses CPT Codes EVALUATE SWALLOWING FUNCTION - 26723 ([id number])
--- NOTE | 2023-06-03 13:06 | PT.INTREAT ---
Date of service: 06/03/23 Time of Service: 12:30 PT Notes Visit Reasons: Pneumonia, hypokalemia Inpatient Physical Therapy Treatment Note [facility] Date: 06/03/23 PRECAUTIONS: Fall, standard, activity as tolerated. SUBJECTIVE: Patient reports feeling ok, although fatigued. OBJECTIVE: Patient supine in bed, agreeable to therapy. IV in place right elbow. ? PAIN: none reported VITALS: closely and continuously monitored by Respiratory Therapist.? Therapeutic Activities ([id number]): Direct one-on-one instruction in dynamic activities to improve functional performance. ? BED MOBILITY/TRANSFERS? Rolling L/R: min assist of one at shoulder and hip, with use of bilateral hand rails. Supine-sit: min assist of one via hand hold. ? Sit-supine: independent? Sit-stand: min to mod assist of one via gait belt. Patient wants to grab walker and stand that way, verbal cues to push up from sitting surface cause patient to be able to stand more effectively and require less assistance. ? Stand-sit: CGA ? Bed-Chair: CGA ? Chair-bed: CGA Provided skilled cues and instruction on performance and technique throughout. Gait Training ([id number]): Direct one-on-one instruction and skilled instruction in: [x] employing an assistive device [] modified weight-bearing status [] movement sequencing [x] turning and movement with proper form [x] Provided verbal cues for equipment management and technique [] Provided instruction in gait pattern [x] Patient education regarding pacing and breathing techniques to maximize activity tolerance? GAIT? Assistive Device: FWW? Weight bearing: Full Assist: CGA with wheelchair follow? Distance:? 100 feet with two standing rests, followed by a seated rest. ? Deviation: Kyphotic posture, slow shuffling gait, reduced step height, reduced step length, Patient becomes extremely short of breath. ? ASSESSMENT:? Patient tolerates therapy well, reports fatigue at end of session, requests warm blanket for LE's. PLAN: continue global strengthening per plan of care until patient is medically cleared for discharge. TREATMENT CODE/TIME: 31 minutes beginning at 12:30
--- NOTE | 2023-06-03 13:52 | W.PM.PROGNOT ---
Date of Service Date of service: 06/03/23 Time of Service: 13:52 Assessment and Plan Assessment and plan (1) Acute respiratory failure with hypoxia: Status: Acute Assessment and plan: Due to PNA (present on admission) and COPD exacerbation. pulmonary following with recommendations to continue cefepime and doxycycline. discharge on augmentin total 10 days. stop vancomycin. negative MRSA nares. Encourage pulmonary toilet. continue mucinex Wean O2 as tolerated. - pending urine antigens - Fungitell pending (2) Community acquired pneumonia: Status: Acute Assessment and plan: As above. procal improved from 1.7 to 0.3 (3) COPD exacerbation: Status: Acute Assessment and plan: As above Continue inhaled and systemic corticosteroids. NEbs. Abx. Pulmonary toilet. (4) Chest pain: Status: Acute Assessment and plan: No recurrences since the episode on the morning of 05/31. Did have elevation of troponin with anterior T wave inversions, ?demand ischemia. Continue asa. There was no PE on CTA 05/30, and I do not think it makes sense to repeat it at this time. Echo w/o wall motion abnormalities. RVSP of 42 with moderate right ventricular dilitation. No events on telemetry. Continue to monitor. Ischemic workup after recovery from current illness. (5) History of bleeding peptic ulcer: Status: Acute Assessment and plan: S/p 1 unit PRBCs. -continue bid PPI - no documented BM - awaiting hematest. -iron supplementation, oral initiated, consider IV repletion. (6) COPD (chronic obstructive pulmonary disease): Status: Chronic Assessment and plan: As above (7) Hypomagnesemia: Status: Resolved Assessment and plan: Mag level now 2.0 REpleted IV and PO (8) Tachycardia: Status: Resolved Assessment and plan: Suspect this is due to acute illness and bronchodilators Continue current management (coreg). on tele.. (9) DVT prophylaxis: Status: Acute Assessment and plan: SCDs Hold off of chemical DVT ppx given that we do not know the origin of anemia (10) Discharge planning issues: Status: Acute Assessment and plan: Pt is a full code. Palliative care consulted. Does not have oxygen at home. Anticipate home health services on discharge. discussed with DR Soloroi Subjective Subjective Patient reports: no new complaints, feels better, tolerating liquids well, tolerating a regular diet and afebrile Exam Const General: cooperative, no acute distress, frail appearing and ill appearing chronically Nutritional Appearance: thin Orientation: alert, awake and oriented x3 HENMT Head: normal to inspection, normocephalic and atraumatic Mouth: moist mucous membranes abnormal (dry oral mucosa) Resp Effort & Inspection: normal respiratory effort Cardio Rate: regular rate Rhythm: regular rhythm GI Inspection: normal to inspection Palpation: soft Neuro General: patient alert, patient awake and patient oriented x3 Extrem General: normal to inspection and full ROM Objective Last Vital Signs Temp 35.8 C L 06/02/23 19:25 Pulse 89 06/03/23 11:52 Resp 20 06/03/23 11:52 BP 92/57 L 06/02/23 19:25 Pulse Ox 93 06/03/23 11:52 Laboratory Results - last 24 hr 05/28/23 06/02/23 06/03/23 16:53 18:00 06:45 WBC RBC Hgb Hct MCV MCH MCHC RDW Plt Count MPV Immature Gran % Neutrophils % Lymphocytes % Monocytes % Eosinophils % Basophils % Nucleated RBC % Absolute Neutrophils Absolute Lymphocytes Absolute Monocytes Absolute Eosinophils Absolute Basophils RBC Morphology Anisocytosis Sodium 131 L Potassium 4.3 Chloride 98 Carbon Dioxide 24.1 Anion Gap 8.9 BUN 28 H Creatinine 0.6 L Est GFR (CKD-EPI 2020) 95.78 Glucose 111 H Calcium 8.6 Magnesium 2.0 Iron TIBC Transferrin % Sat Ferritin 95 Vitamin B12 Folate Procalcitonin MRSA (TEM-PCR) Negative Ur Strep pneumoniae Ag Negative 06/03/23 06/03/23 06/03/23 06:45 06:45 06:45 WBC 15.16 H RBC 3.83 L Hgb 9.8 L Hct 29.7 L MCV 78 L MCH 25.6 L MCHC 33.0 RDW 20.5 H Plt Count 318 MPV 11.1 H Immature Gran % 3.4 Neutrophils % 86.4 Lymphocytes % 5.5 Monocytes % 4.3 Eosinophils % 0.1 Basophils % 0.3 Nucleated RBC % 0.0 Absolute Neutrophils 13.10 H Absolute Lymphocytes 0.83 L Absolute Monocytes 0.65 Absolute Eosinophils 0.02 Absolute Basophils 0.05 RBC Morphology See Below Anisocytosis 2+ Sodium Potassium Chloride Carbon Dioxide Anion Gap BUN Creatinine Est GFR (CKD-EPI 2020) Glucose Calcium Magnesium Iron 11 L TIBC 185 L Transferrin % Sat 6 L Ferritin Vitamin B12 > 2000 H Folate 10.7 Procalcitonin MRSA (TEM-PCR) Ur Strep pneumoniae Ag 06/03/23 08:00 WBC RBC Hgb Hct MCV MCH MCHC RDW Plt Count MPV Immature Gran % Neutrophils % Lymphocytes % Monocytes % Eosinophils % Basophils % Nucleated RBC % Absolute Neutrophils Absolute Lymphocytes Absolute Monocytes Absolute Eosinophils Absolute Basophils RBC Morphology Anisocytosis Sodium Potassium Chloride Carbon Dioxide Anion Gap BUN Creatinine Est GFR (CKD-EPI 2020) Glucose Calcium Magnesium Iron TIBC Transferrin % Sat Ferritin Vitamin B12 Folate Procalcitonin 0.3 MRSA (TEM-PCR) Ur Strep pneumoniae Ag PAWSS Have you Been Recently Intoxicated or Drunk Within the Last 30 days?: No Have you Ever Experienced Previous Episodes of Alcohol Withdrawal?: No Have you ever Experienced Withdrawal Seizures?: No Have you ever Experienced Delirium Tremens(DT)s?: No Have you ever undergone Alcohol Rehabilitation Treatment (i.e, inpt ot outpatient treatment programs)?: No Have you ever Experienced Blackouts?: No Have you ever Combined Alcohol with other Downers within the last 90 days?: No Have you ever Combined Alcohol with any other Substance of Abuse during the last 90 days?: No Positive Blood Alcohol level on Presentation? [PCS.BAL]: No Evidence of Increased Autonomic Activity (i.e. HR>120, tremor, sweating, agitation, nausea)?: No Result: 0 Time Spent with Patient Time Spent with Patient: 35-49 minutes Time was spent: preparing to see the patient(eg.review tests), obtaining and/or reviewing separately otained hiistory, ordering medications,tests, procedures, referring, communicating with other health urgent care technician, indepentently interpreting results and counseling the patient
[2023-06-03 15:37] LABS: Fungitell Qualitative Negative (Negative); Fungitell Quantitative Value <31 pg/mL (<60 pg/mL)
[2023-06-03] MEDS: Normal Saline Flush 10 ML SYR IVP (15:45)
[2023-06-03] MEDS: Lidocaine 5% Patch 2 PATCH TP (15:56)
[2023-06-03] MEDS: Acetaminophen 500 MG TAB 1000 MG PO (17:56)
[2023-06-03] MEDS: Biotene Mouthwash 237 ML BTL MM ×2 (17:56→21:15)
[2023-06-03] MEDS: Zolpidem 10 MG TAB PO (21:14)
[2023-06-03] MEDS: Ferrous Sulfate 325 MG TAB PO (21:14)
[2023-06-03] MEDS: Mirtazapine 15 MG TAB PO (21:14)
[2023-06-04] VITALS (13 sets, daily range): BP systolic 101–149; BP diastolic 64–87; PULSE 71–91; RESP 1–18; TEMP 35.3–36.1; O2SAT 91–99
[2023-06-04] MEDS: DOXYCYCLINE 100 MG in Normal Saline 100 ML IVPB ×2 (00:27→12:14)
[2023-06-04] MEDS: Acetaminophen 500 MG TAB 1000 MG PO ×3 (00:27→15:57)
[2023-06-04] MEDS: CEFEPIME 2 GM in Normal Saline 100 ML IVPB ×2 (03:25→13:38)
[2023-06-04] MEDS: Patch Removal 1 EACH TP (06:02)
--- NOTE | 2023-06-04 07:08 | RESPIRATORY ---
RT Assessment Start: 06/03/23 07:06 Freq: .q shift and prn Status: Active Protocol: Document 06/03/23 13:23 [email or web address] (Rec: 06/03/23 13:31 [email or web address]) RT Assessment Pulmonary History Pulmonary History COPD Smoking History Smoking/Tobacco Use Status Former Tobacco Use OXYGEN HISTORY: Supplemental O2 At Rest 2 With Exertion 6 Current Respiratory Symptoms Current Respiratory Symptoms Chest Pain,Cough,Shortness of breath Respiratory Breath Sounds Breath Sounds Clear Response No change Pulse Rate <100 Respiratory Rate 18-25 Shortness of Breath On exertion Respiratory Therapy Score Total 2 Assessment and Plan RT Treatment Protocol Bronchodilator Aerosol Therapy Protocol
[2023-06-04 07:10] LABS: Abs Immature Grans 0.57 10^3/uL (0.0-0.06); Absolute Basophil Count 0.03 10^3/uL (0.0-0.2); Absolute Lymphocyte Count 1.32 10^3/uL (1.2-3.4); Absolute Monocyte Count 0.82 10^3/uL (0.1-0.8); Absolute Neutrophil Count 8.81 10^3/uL (1.2-6.7); Basophils % 0.3; Eosinophils % 0.9; Immature Grans % 4.9; Lymphocytes % 11.3; MCH 25.9 pg (27.0-33.0); MCHC 33.3 % (32.0-36.0); MCV 78 fL (80-95); MPV 11.1 fL (8.0-11.0); Neutrophils % 75.6; Platelet Count 398 10^3/uL (130-400); RBC 3.47 10^6/uL (4.36-5.78); RDW 20.6 % (11.8-14.1); RDW-SD 57.8 fL; WBC 11.65 10^3/uL (4.4-10.8)
[2023-06-04 07:28] LABS: Anion Gap 5.1 mmol/L (3-11); BUN 27 mg/dL (7-18); C-Reactive Protein 4.79 mg/dL (0.0-0.3); CO2 24.9 mmol/L (21.0-32.0); CREATININE 0.6 mg/dL (0.70-1.30); Calcium 8.8 mg/dL (8.5-10.1); Chloride 101 mmol/L (98-107); Estimated GFR 95.78 (mL/min/1.73m2); Glucose 80 mg/dL (74-106); Magnesium 1.6 mg/dL (1.8-2.4); Potassium 4.2 mmol/L (3.5-5.1); Sodium 131 mmol/L (136-145)
[2023-06-04 07:33] LABS: Anisocytosis 2+; Diff Comment Agrees w/ Instrument; Hypochromasia 2+
[2023-06-04 07:34] LABS: Poikilocytes 2+
[2023-06-04] MEDS: Tiotropium/Olodaterol 10 PUFF INHALER 2 PUFF IH (08:49)
[2023-06-04] MEDS: Levalbuterol 0.63 MG/3 ML UPD VIAL UPD ×3 (08:53→19:13)
[2023-06-04] MEDS: Magnesium Chloride 64 MG TABCR 128 MG PO ×2 (09:02→21:14)
[2023-06-04] MEDS: Potassium Chloride 10 MEQ CAPCR 20 MEQ PO ×2 (09:02→21:14)
[2023-06-04] MEDS: guaiFENesin 600 MG TABCR 1200 MG PO ×2 (09:03→21:15)
[2023-06-04] MEDS: Ferrous Sulfate 325 MG TAB PO ×2 (09:04→21:16)
[2023-06-04] MEDS: Aspirin 81 MG CHEW PO (09:04)
[2023-06-04] MEDS: predniSONE 20 MG TAB 40 MG PO (09:04)
[2023-06-04] MEDS: Sertraline 25 MG TAB PO (09:04)
[2023-06-04] MEDS: hydroCHLOROthiazide 25 MG TAB PO (09:05)
[2023-06-04] MEDS: Pantoprazole 40 MG TABCR PO ×2 (09:05→21:15)
[2023-06-04] MEDS: Carvedilol 3.125 MG TAB 6.25 MG PO ×2 (09:10→21:14)
[2023-06-04] MEDS: MAGNESIUM SULFATE 2 GM/50 ML BAG IVPB (09:49)
[2023-06-04] MEDS: Biotene Mouthwash 237 ML BTL MM ×3 (09:51→21:18)
--- NOTE | 2023-06-04 14:45 | PT.INTREAT ---
Date of service: 06/04/23 Time of Service: 09:58 PT Notes Visit Reasons: Pneumonia, hypokalemia Inpatient Physical Therapy Treatment Note [facility] Date: 06/04/23 PRECAUTIONS: Fall, standard, activity as tolerated. SUBJECTIVE: Patient feeling a bit better today. OBJECTIVE: Patient sitting up in chair, blanket on, agreeable to therapy. Patient's and Tanesha from respiratory therapy also present. ? PAIN: none reported. VITALS: closely monitored by respiratory therapy. AM difficult to get good communication between patient and monitoring equipment. Afternoon equipment get a much more accurate read. Afternoon, patient's HR varied between 68-99 and SaO2 between 91-95% ? ? BED MOBILITY/TRANSFERS? Rolling L/R: independent Supine-sit: Min assist of one via handhold for patient to pull himself up. ? Sit-supine: min assist of one to lift legs into bed? Sit-stand: min to mod assist of one via hand hold to pull up ? Stand-sit: independent ? Bed-Chair: SBA ? Chair-bed: SBA Therapeutic Exercises ([id number]): Direct one-on-one instruction in therapeutic exercises to develop strength, endurance, range of motion and flexibility. ? AMBULATION ? Assistive Device: FWW? Weight bearing: full Assist: CGA via gait belt and wheelchair follow ? Distance:? 200 feet morning with one seated rest at approximately 110 feet, 200 feet afternoon with no rest. ? Deviation: kyphotic posture, reduced step height, good step symmetry. Morning, patient reports feeling short of breath during and after walk. Afternoon, patient reports feeling a little short of breath after walk, but also reports this is the best he has felt and the first time that he has been able to walk the whole loop without standing or seated rest. ? Provided skilled instruction in proper exercise performance Provided skilled manual cues to facilitate proper muscle recruitment and/or form. ASSESSMENT:? Patient appears to be improving. Tolerates therapy well. Reports being comfortable resting up in the chair in the morning, goes to bed after therapy in the afternoon. Call spangler in easy reach, present at end of both sessions. PLAN: Continue global strengthening per plan of care. Progress towards independent bed mobility for discharge. TREATMENT CODE/TIME: 36 minutes beginning at 9:58 and 21 minutes beginning at 14:18 for a total of 57 minutes of treatment today.
[2023-06-04 15:02] LABS: Blastomyces Ag Result Not Detected; Blastomyces Ag Value Not Detected
[2023-06-04] MEDS: Lidocaine 5% Patch 2 PATCH TP (15:59)
--- NOTE | 2023-06-04 16:13 | PDOC.CMPRO ---
Date of service: 06/04/23 Time of Service: 16:13 Care Management Progress Note Progress Note Text Progress Note Text: S/O: Mike was sitting up in his chair when CM met with him. He stated that he feels that he is ready for discharge, and would like to return home as soon as possible. Per report, he will have an exercise oximetry with RT today to determine if he will require supplemental home O2; he stated that he does not feel that he will need O2 at home. Per MD, he passed his exercise oximetry this afternoon. PT worked with him and stated that he will need support with getting in and out of bed at home; his will be present tomorrow morning for PT to help teach her how to safely support him at home. Mike reported that he is not interested in services at this time. CM will continue to follow. A:Mike is an 83 year old man admitted on 05/27/23 with pneumonia P: Anticipate Mike will be discharged home when medically cleared by provider. He will follow up with his community providers and plan of care and transport with family. CM will follow and continue to assess for discharge concerns.
--- NOTE | 2023-06-04 18:47 | PGE_ITS ---
Date of Service Date of service: 06/04/23 Time of Service: 18:48 Assessment and Plan Assessment and plan (1) Community acquired pneumonia: Status: Acute Assessment and plan: Doing much better. Off O2. Continue to encourage pulmonary toilet. Will be discharged home with augmentin, as per Dr Naylor's recommendations. (2) Acute respiratory failure with hypoxia: Status: Resolved Assessment and plan: Due to PNA (present on admission) and COPD exacerbation. Abx as above. will need a prednisone taper. Encourage pulmonary toilet. continue mucinex Wean O2 as tolerated. -Urine strep and legionella antigens negative. - Fungitell negative. -histoplasma ag negative. -blastomyces studies negative. (3) COPD (chronic obstructive pulmonary disease): Status: Chronic Assessment and plan: As above (4) Chest pain: Status: Acute Assessment and plan: No recurrences since the episode on the morning of 05/31. Did have elevation of troponin with anterior T wave inversions, ?demand ischemia. Continue asa. There was no PE on CTA 05/30, and I do not think it makes sense to repeat it at this time. Echo w/o wall motion abnormalities. RVSP of 42 with moderate right ventricular dilitation. No events on telemetry. Continue to monitor. Ischemic workup after recovery from current illness. (5) COPD exacerbation: Status: Acute Assessment and plan: As above Continue inhaled and systemic corticosteroids. Nebs. Abx. Pulmonary toilet. (6) Hypokalemia: Status: Resolved Assessment and plan: Recheck in am (7) History of bleeding peptic ulcer: Status: Acute Assessment and plan: S/p 1 unit PRBCs on this admission. -continue bid PPI. -D/c steroids after a short taper. -Heme negative. -Continue PO iron. (8) Hypomagnesemia: Status: Resolved Assessment and plan: Mag level now 2.0 REpleted IV and PO (9) Tachycardia: Status: Resolved Assessment and plan: Suspect this is due to acute illness and bronchodilators Continue current management (coreg). on tele. (10) Discharge planning issues: Status: Acute Assessment and plan: Pt is a full code. Palliative care consulted. Passed exercise oximetry. Would ideally not need assistance to get up from the bed, but if he still does tomorrow, we will train his to assist him. Anticipate home health services on discharge. (11) DVT prophylaxis: Status: Acute Assessment and plan: SCDs Will not give chemical DVT ppx given h/o GI bleeding (though he is heme negative on this admission). Subjective Subjective Interval history since last seen: Mr Jorgensen feels a lot better today. He was able to get off of oxygen and did not require it on ambulation. Denies dizziness, CP, SOB, n/v. Worked with PT - was unable to get up from the bed independently; otherwise, once standing, he does well. The patient is adamant about not wanting to go to a SNF. We agreed that he would stay the night and work with PT one more time. His should be present in case we need to teach her how to assist him from the bed. She is with him 25/03, the patient states. We discussed him going home with home health PT. He did not give us a clear answer on that. Exam Narrative Exam Narrative: General: Pleasant elderly male who is speaking in full sentences, but appears tired. On RA. A&Ox3, NAD HEENT: EOMI, MMM Heart: RRR, no m/r/g Lungs: CTAB, no wheezing/rales Abdomen: soft, nontender, nondisteded Extremities: no edema/clubbing/cyanosis, wearing TEDs. Objective Last Vital Signs Temp 35.8 C L 06/04/23 15:45 Pulse 83 06/04/23 15:45 Resp 18 06/04/23 15:45 BP 126/77 06/04/23 15:45 Pulse Ox 93 06/04/23 15:45 Laboratory Results - last 24 hr 05/31/23 06/04/23 06/04/23 13:58 06:14 06:14 WBC 11.65 H RBC 3.47 L Hgb 9.0 L Hct 27.0 L MCV 78 L MCH 25.9 L MCHC 33.3 RDW 20.6 H Plt Count 398 MPV 11.1 H Immature Gran % 4.9 Neutrophils % 75.6 Lymphocytes % 11.3 Monocytes % 7.0 Eosinophils % 0.9 Basophils % 0.3 Nucleated RBC % 0.0 Absolute Neutrophils 8.81 H Absolute Lymphocytes 1.32 Absolute Monocytes 0.82 H Absolute Eosinophils 0.10 Absolute Basophils 0.03 RBC Morphology See Below Hypochromasia 2+ Poikilocytosis 2+ Anisocytosis 2+ Sodium 131 L Potassium 4.2 Chloride 101 Carbon Dioxide 24.9 Anion Gap 5.1 BUN 27 H Creatinine 0.6 L Est GFR (CKD-EPI 2020) 95.78 Glucose 80 Calcium 8.8 Magnesium 1.6 L C-Reactive Protein 4.79 H Blastomyces Ag Result Not Detected Blastomyces Ag Comment Not Detected PAWSS Have you Been Recently Intoxicated or Drunk Within the Last 30 days?: No Have you Ever Experienced Previous Episodes of Alcohol Withdrawal?: No Have you ever Experienced Withdrawal Seizures?: No Have you ever Experienced Delirium Tremens(DT)s?: No Have you ever undergone Alcohol Rehabilitation Treatment (i.e, inpt ot outpatient treatment programs)?: No Have you ever Experienced Blackouts?: No Have you ever Combined Alcohol with other Downers within the last 90 days?: No Have you ever Combined Alcohol with any other Substance of Abuse during the last 90 days?: No Positive Blood Alcohol level on Presentation? [PCS.BAL]: No Evidence of Increased Autonomic Activity (i.e. HR>120, tremor, sweating, agitation, nausea)?: No Result: 0 Time Spent with Patient Time Spent with Patient: 25-34 minutes Time was spent: preparing to see the patient(eg.review tests), obtaining and/or reviewing separately otained hiistory, ordering medications,tests, procedures, referring, communicating with other health livestock caretaker, indepentently interpreting results, counseling the patient and care coordination
[2023-06-04] MEDS: Zolpidem 10 MG TAB PO (21:14)
[2023-06-04] MEDS: Mirtazapine 15 MG TAB PO (21:15)
[2023-06-04] MEDS: Normal Saline Flush 10 ML SYR IVP (21:16)
[2023-06-05] VITALS (8 sets, daily range): BP systolic 135–145; BP diastolic 77–108; PULSE 69–87; RESP 1–18; TEMP 36.1–36.6; O2SAT 90–98
[2023-06-05] MEDS: DOXYCYCLINE 100 MG in Normal Saline 100 ML IVPB (00:21)
[2023-06-05] MEDS: Acetaminophen 500 MG TAB 1000 MG PO ×2 (00:21→08:34)
[2023-06-05] MEDS: Normal Saline Flush 10 ML SYR IVP (00:21)
[2023-06-05] MEDS: CEFEPIME 2 GM in Normal Saline 100 ML IVPB (01:56)
[2023-06-05] MEDS: Patch Removal 1 EACH TP (03:40)
[2023-06-05 08:11] LABS: Anion Gap 6.4 mmol/L (3-11); BUN 24 mg/dL (7-18); C-Reactive Protein 2.88 mg/dL (0.0-0.3); CO2 23.6 mmol/L (21.0-32.0); CREATININE 0.7 mg/dL (0.70-1.30); Chloride 99 mmol/L (98-107); Estimated GFR 91.42 (mL/min/1.73m2); Glucose 81 mg/dL (74-106); Magnesium 1.7 mg/dL (1.8-2.4); Potassium 4.7 mmol/L (3.5-5.1); Sodium 129 mmol/L (136-145)
[2023-06-05] MEDS: Levalbuterol 0.63 MG/3 ML UPD VIAL UPD (08:13)
[2023-06-05] MEDS: Tiotropium/Olodaterol 10 PUFF INHALER 2 PUFF IH (08:18)
[2023-06-05 08:21] LABS: Abs Immature Grans 0.33 10^3/uL (0.0-0.06); Absolute Basophil Count 0.02 10^3/uL (0.0-0.2); Absolute Lymphocyte Count 1.39 10^3/uL (1.2-3.4); Absolute Neutrophil Count 8.97 10^3/uL (1.2-6.7); Basophils % 0.2; Eosinophils % 0.9; HCT 28.3 % (40.0-50.0); HGB 9.4 g/dL (13.5-17.5); Immature Grans % 2.8; Lymphocytes % 11.9; MCH 25.8 pg (27.0-33.0); MCHC 33.2 % (32.0-36.0); MCV 78 fL (80-95); Monocytes % 7.4; Neutrophils % 76.8; Platelet Count 442 10^3/uL (130-400); RBC 3.64 10^6/uL (4.36-5.78); RDW 20.4 % (11.8-14.1); RDW-SD 57.1 fL; WBC 11.68 10^3/uL (4.4-10.8)
[2023-06-05 08:23] LABS: Absolute Eosinophil Count 0.11 10^3/uL (0.0-0.7); Absolute Monocyte Count 0.86 10^3/uL (0.1-0.8)
[2023-06-05] MEDS: Carvedilol 3.125 MG TAB 6.25 MG PO (08:35)
[2023-06-05] MEDS: hydroCHLOROthiazide 25 MG TAB PO (08:35)
[2023-06-05] MEDS: Magnesium Chloride 64 MG TABCR 128 MG PO (08:35)
[2023-06-05] MEDS: Pantoprazole 40 MG TABCR PO (08:36)
[2023-06-05] MEDS: Potassium Chloride 10 MEQ CAPCR 20 MEQ PO (08:36)
[2023-06-05] MEDS: Aspirin 81 MG CHEW PO (08:36)
[2023-06-05] MEDS: predniSONE 20 MG TAB 40 MG PO (08:36)
[2023-06-05] MEDS: Sertraline 25 MG TAB PO (08:36)
[2023-06-05] MEDS: Ferrous Sulfate 325 MG TAB PO (08:36)
[2023-06-05] MEDS: guaiFENesin 600 MG TABCR 1200 MG PO (08:41)
[2023-06-05 08:44] LABS: Anisocytosis 2+; Diff Comment RBC Morph Reviewed; Microcytosis 1+; Poikilocytes 1+
--- NOTE | 2023-06-05 10:15 | PTTR_ITS ---
Date of service: 06/05/23 Time of Service: 09:32 PT Notes Visit Reasons: Pneumonia, hypokalemia Inpatient Physical Therapy Treatment Note [facility] Date: 06/05/23 PRECAUTIONS: Fall, standard, activity as tolerated SUBJECTIVE: Patient reports being eager to get home. Wants to hurry up and get therapy over with. OBJECTIVE: Patient supine in bed, agreeable to therapy. present. Purpose of today's session is to educate on safe bed mobility and transfer techniques to protect both her and the patient. ? PAIN: none reported. VITALS: monitored by nursing.? Therapeutic Activities ([id number]): Direct one-on-one instruction in dynamic activities to improve functional performance. ? BED MOBILITY/TRANSFERS? Rolling L/R: min assist of one. Cued patient to bend knees, push through leg opposite the direction he wants to roll. Educated not to help unless asked. Supine-sit: min assist of one with single hand under neck to push from shoulder. Cued patient to log roll onto his side, swing feet like pendulum for momentum, push through bilateral UE into sitting position. Educated on verbal cues, patient's hand placement, and not pulling on top arm as this puts patient at risk for subluxation. ?Sit-supine: inde pendent to min assist of one to lift legs. Cued patient's again not to help unecessarily, as too much help sets patient up for unnecessary atrophy and weakness. ? Sit-stand: CGA with cues to patient to push up from sitting surface. ? Stand-sit: CGA with cues to reach back for sitting surface.? Bed-Chair: SBA ? Chair-bed: SBA Provided skilled cues and instruction on performance and technique throughout. ASSESSMENT:? Patient and report comfort with the techniques they were shown today. states that it's pretty much exactly what they have been doing at home. Patient reports that he is getting a lift chair. Educated patient that if he uses the lift every time he needs to stand, he will lose the ability to stand from any surface that doesn't lift. Patient and verbalize understanding. PLAN: Patient expects to be discharging any minute. Patient to receive HHPT services at home. TREATMENT CODE/TIME: 4 minutes beginning at 9:32 and 15 minutes beginning at 9:58 for a total of 19 minutes today.
--- NOTE | 2023-06-05 10:24 | W.PM.DS.N ---
Date of service: 06/05/23 Time of Service: 10:25 DS: Diagnosis Discharge Diagnosis (1) Community acquired pneumonia: Status: Acute (2) Acute respiratory failure with hypoxia: Status: Resolved (3) COPD (chronic obstructive pulmonary disease): Status: Chronic (4) Chest pain: Status: Acute (5) COPD exacerbation: Status: Acute (6) Hypokalemia: Status: Resolved (7) History of bleeding peptic ulcer: Status: Acute (8) Hypomagnesemia: Status: Resolved (9) Tachycardia: Status: Resolved Discharge Plan Disposition Patient Disposition: Home W/Home Health Services Condition: Improving Discharge Details Reason For Visit: Pneumonia, hypokalemia Admit Date/Time: 05/27/23 13:13 Admit Provider: Ajay Kan Attending Provider: Ajay Kan Primary Care Provider: Seema Griffith Hospital Course Hospital Course: This 83-year-old male with history of anemia, COPD, hypertension GERD presents with report of shortness of breath and weakness for the past 5 days.? Has had chills, denies known fever.? Denies any shortness of breath, per EMS was hypoxic 86 to 87% and states profoundly weak, unable to ambulate.? work up in the ED concerning for community acquired pneumonia and suspected copd exacerbation.? He was started on ceftriaxone and doxycycline? along with steroids and admitted to med/surg for further management.? covid/influenza/rsv negative. ? While on the medical surgical unit he was slow to respond to treatment. Continued to have coughing productive. He was seen by Dr. Nath from pulmonary medicine after antibiotics needed to be broadened for increasing WBC and hypoxia. She advised to stop vancomycin at this point and felt like most of his symptoms were due to worse mucous plugging. He slowly started improving after these changes. He continued to receive oral steroids his Symbicort and Spiriva were discontinued and he was started on Stiolto. Antibiotics continued which included cefepime and doxycycline. He will be discharged on Augmentin to complete a 10-day course. Urine antigens and fungi tell results were pending. He has been weaned off oxygen and feels stable for discharge to home. He will be discharged to home on a steroid taper and 3 more days of Augmentin. He will have home health nursing physical therapy and Occupational Therapy referral placed Discharge discussed with Dr. Solorio Home Meds and New Rx's Prescriptions: New prednisone 20 mg Tablet See Taper PO DAILY Qty: 30 0RF Taper: Prednisone 10mg taper 40 mg Daily for 2 Days and 0 Hour 30 mg Daily for 2 Days and 0 Hour 20 mg Daily for 2 Days and 0 Hour 10 mg Daily for 2 Days and 0 Hour 5 mg Daily for 2 Days and 0 Hour Stiolto Respimat 2.5-2.5 mcg/actuation Mist 2 puff inhalation DAILY Qty: 4 0RF ferrous sulfate 325 mg (65 mg iron) Tablet 325 mg PO BID Qty: 60 0RF Mag 64 64 mg Tablet,Delayed Release (Dr/Ec) 128 mg PO BID Qty: 60 0RF mirtazapine 15 mg Tablet 15 mg PO HS Qty: 30 0RF amoxicillin-pot clavulanate 875-125 mg tablet 1 tab PO BID Qty: 7 0RF cyclobenzaprine 10 mg Tablet 10 mg PO TID PRN PRNQty: 120 0RF Continued ipratropium-albuterol 0.5 mg-3 mg(2.5 mg base)/3 mL solution for nebulization 3 ml inhalation Q6H PRN Rx Instructions: take 0.5mg by neb 4 times daily albuterol sulfate [ProAir HFA] 90 mcg/actuation HFA aerosol inhaler 2 puff inhalation Q6H PRN fluticasone propion-salmeterol [Advair HFA] 115-21 mcg/actuation HFA aerosol inhaler 2 puff inhalation BID vitamin B complex [B Complex-Vitamin B12] Tablet 1 tab PO DAILY cholecalciferol (vitamin D3) 125 mcg (5,000 unit) capsule 125 mcg PO DAILY potassium chloride 10 mEq capsule, extended release 10 meq PO DAILY hydrochlorothiazide 25 mg tablet 25 mg PO DAILY pantoprazole [Protonix] 40 mg tablet,delayed release (DR/EC) 40 mg PO BID echinacea 500 mg capsule 500 mg PO BID Rx Instructions: administer with meals MSM 1,000 mg capsule 1,000 mg PO DAILY acetaminophen 500 mg tablet 1,000 mg PO Q8H PRN (Reason: pain) Qty: 90 3RF sertraline 25 mg tablet 25 mg PO DAILY Patient Comments: TAKE 1 TABLET BY MOUTH EVERY MORNING FOR DEPRESSION zolpidem 10 mg tablet 10 mg PO PRN PRN Patient Comments: Take 0.5- 1 tablet by mouth at bedtime as needed Changed carvedilol 3.125 mg tablet 6.25 mg PO BID Qty: 0 0RF Rx Instructions: must administer with a meal/food Discharge Instructions Instructions: Iron Deficiency Anemia (GEN), COPD (Chronic Obstructive Pulmonary Disease) (DC), Pneumonia (DC) Stand Alone Forms: Nursing Discharge Form Referrals: Seema Griffith [Primary Care Provider] - 06/25/23 12:00 pm Activity:: Activity as Tolerated Equipment/Supplies:: No Equipment Needed Diet:: As Tolerated Discharge Orders Discharge Orders: Discharge Order (Routine); Ordered 06/05/23 Ordered By: Leonor Coon Discharge Data Discharge Date/Time-TO BE ENTERED AT DEPARTURE: 06/05/23 10:57 DS: Summary Time Spent with Patient providing and/or coordinating discharge services: Greater than 30 minutes Status at Discharge Functional status at discharge: uses cane/walker Overall status at discharge: patient is progressing back to baseline Mental Status: mental status grossly normal Speech and Movement: speech and movement normal Mood: congruent mood Affect: normal affect Exam Const General: cooperative, no acute distress, frail appearing and ill appearing chronically Nutritional Appearance: thin Orientation: alert, awake and oriented x3 HENMT Head: normal to inspection, normocephalic and atraumatic Mouth: moist mucous membranes abnormal (dry oral mucosa) Resp Effort & Inspection: normal respiratory effort Cardio Rate: regular rate Rhythm: regular rhythm GI Inspection: normal to inspection Palpation: soft Neuro General: patient alert, patient awake and patient oriented x3 Extrem General: normal to inspection and full ROM Psych Mental Status: mental status grossly normal Speech and Movement: speech and movement normal Mood: congruent mood Affect: normal affect DS: Data Vitals/I&O Vitals and I&O: Vital Signs Temperature 36.1 C L 06/05/23 08:30 Temperature Source Tympanic 06/05/23 08:30 Pulse 69 06/05/23 08:30 Pulse Rhythm Regular 06/04/23 22:00 Pulse 98 H 05/27/23 14:30 Respiratory Rate 18 06/05/23 08:30 Respiratory Effort Normal, Non-Labored 06/04/23 22:00 Respiratory Depth Normal 06/04/23 22:00 Respiratory Pattern Normal 06/04/23 22:00 Blood Pressure 145/108 H 06/05/23 08:30 Blood Pressure Mean 84 05/27/23 14:16 Blood Pressure Position Sitting 05/27/23 10:08 Pulse Oximetry 91 L 06/05/23 08:30 Oxygen Delivery Method Room Air 06/05/23 08:30 Oxygen Flow Rate 0 06/05/23 08:30 Pain Level 0 06/05/23 08:30 Comment pt refused vitals 06/02/23 23:15 Intake & Output 06/04/23 06/04/23 06/05/23 11:59 23:59 11:59 Intake Total 320 / 630 310 / 630 500 / 500 Output Total 200 / 675 475 / 675 200 / 200 Balance 120 / -45 -165 / -45 300 / 300 Intake: IV 200 / 460 260 / 460 200 / 200 Oral 120 / 170 50 / 170 300 / 300 Output: Urine 200 / 675 475 / 675 200 / 200 Other: Urine Color Yellow Yellow Yellow Urine Appearance Clear Clear Clear Urine Odor None None Stool Occult Blood Negative Stool Size Large Stool Characteristics Liquid Voiding Methods Urinal Urinal Urinal Data Completed and Pending Labs on day of discharge: Labs from last 24 hours 06/05/23 06/05/23 06/05/23 07:50 07:25 05:55 WBC 11.68 H Cancelled RBC 3.64 L Cancelled Hgb 9.4 L Cancelled Hct 28.3 L Cancelled MCV 78 L Cancelled MCH 25.8 L Cancelled MCHC 33.2 Cancelled RDW 20.4 H Cancelled Plt Count 442 H Cancelled MPV 11.0 Cancelled Immature Gran % 2.8 Cancelled Neutrophils % 76.8 Cancelled Band Neutrophils % Cancelled Lymphocytes % 11.9 Cancelled Atypical Lymphs % Cancelled Monocytes % 7.4 Cancelled Eosinophils % 0.9 Cancelled Basophils % 0.2 Cancelled Metamyelocytes % Cancelled Myelocytes % Cancelled Promyelocytes % Cancelled Other Cells % Cancelled Nucleated RBC % 0.0 Cancelled Absolute Neutrophils 8.97 H Cancelled Absolute Lymphocytes 1.39 Cancelled Absolute Monocytes 0.86 H Cancelled Absolute Eosinophils 0.11 Cancelled Absolute Basophils 0.02 Cancelled RBC Morphology See Below Cancelled Polychromasia Cancelled Hypochromasia Cancelled Poikilocytosis 1+ Cancelled Basophilic Stippling Cancelled Anisocytosis 2+ Cancelled Microcytosis 1+ Cancelled Macrocytosis Cancelled Spherocytes Cancelled Tear Drop Cells Cancelled Ovalocytes Cancelled Stomatocytes Cancelled [place] Bodies Cancelled Sutton Cells/Echinocytes Cancelled Acanthocytes (Spur) Cancelled Schistocytes Cancelled Sodium 129 L Potassium 4.7 Chloride 99 Carbon Dioxide 23.6 Anion Gap 6.4 BUN 24 H Creatinine 0.7 Est GFR (CKD-EPI 2020) 91.42 Glucose 81 Calcium 9.0 Magnesium 1.7 L C-Reactive Protein 2.88 H Blastomyces Ag Result Blastomyces Ag Comment 05/31/23 13:58 WBC RBC Hgb Hct MCV MCH MCHC RDW Plt Count MPV Immature Gran % Neutrophils % Band Neutrophils % Lymphocytes % Atypical Lymphs % Monocytes % Eosinophils % Basophils % Metamyelocytes % Myelocytes % Promyelocytes % Other Cells % Nucleated RBC % Absolute Neutrophils Absolute Lymphocytes Absolute Monocytes Absolute Eosinophils Absolute Basophils RBC Morphology Polychromasia Hypochromasia Poikilocytosis Basophilic Stippling Anisocytosis Microcytosis Macrocytosis Spherocytes Tear Drop Cells Ovalocytes Stomatocytes [place] Bodies Sutton Cells/Echinocytes Acanthocytes (Spur) Schistocytes Sodium Potassium Chloride Carbon Dioxide Anion Gap BUN Creatinine Est GFR (CKD-EPI 2020) Glucose Calcium Magnesium C-Reactive Protein Blastomyces Ag Result Not Detected Blastomyces Ag Comment Not Detected PFSH All Active Problems (Updated 06/04/23 @ 18:50 by Wanda Solorio MD) Discharge planning issues (Acute) DVT prophylaxis (Acute) Respiratory failure with hypoxia (Acute) Hyponatremia (Acute) History of bleeding peptic ulcer (Acute) COPD exacerbation (Acute) Community acquired pneumonia (Acute) Osteoarthritis of right knee (Acute) Steroid injection: 08/15/2020; 09/25/21; 02/19/2022; 06/28/22 COPD (chronic obstructive pulmonary disease) (Chronic) Fecal retention (Acute) Superior mesenteric artery stenosis (Acute) Lumbosacral spondylosis without myelopathy (Acute) Anemia (Chronic) Chest pain (Acute) History of gastrointestinal bleeding (Acute) Iron deficiency (Acute) Medical History (Updated 06/04/23 @ 18:50 by Wanda Solorio MD) Alcohol abuse Currently he is not drinking daily Anosmia Back pain Balance problem uses cane Bilateral inguinal hernia without obstruction or gangrene Bleeding duodenal ulcer Cataracts, bilateral Chest discomfort no chest pain pressure or concerns at time of assessment Chronic back pain Chronic GERD Chronic iron deficiency anemia Chronic pain Diarrhea Dysphagia Emphysema, unspecified Exertional dyspnea Folate deficiency anemia Gastritis H/O skin pruritus Herniated lumbar intervertebral disc Hip pain, left History of traumatic fracture of vertebra HTN (hypertension) Hx of squamous cell carcinoma Inguinal hernia, bilateral Insomnia Knee pain, bilateral Leg swelling Lower back pain Osteoarthritis of left knee Steroid injection: 08/15/2020 s/p left TKA Osteoarthritis of lumbar spine PUD (peptic ulcer disease) Sleep disturbance Spondylosis of lumbar spine Spondylosis, cervical Symptomatic anemia Syncope Tobacco dependence in remission Unintentional weight loss Vitamin D deficiency Surgical History (Updated 04/24/23 @ 15:03 by Lilia Blanco) 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) DOS 06/27/21 Hx of abdominal surgery Status post percutaneous coil/embolization of posterior duodenal artery for bleeding duodenal ulcer Hx of esophagogastroduodenoscopy (~04/2023) Nuclear sclerotic cataract of left eye Nuclear sclerotic cataract of right eye Posterior subcapsular age-related cataract of left eye Posterior subcapsular age-related cataract, right eye S/P bilateral inguinal hernia repair (~02/13/22) S/P cervical spinal fusion S/P laminectomy Social History Smoking/Tobacco Use Status: Former Tobacco Use Quit Date: 09/02/18 Smoking risk assessment performed?: Yes Alcohol Intake: current Alcohol Intake frequency: 0-2 drinks per day Alcohol type: beer and hard liquor Drug use: Occasionally Substance use type: marijuana Details: pt. reports a beer nightly Household members: spouse Housing: house Number of Children: 1 current occupation: Retired Current gender identity: male Do you feel safe at home: Yes Do you feel safe in your relationship?: Yes Time Spent with Patient Time Spent with Patient: 45-69 minutes Time was spent: preparing to see the patient(eg.review tests), obtaining and/or reviewing separately otained hiistory, ordering medications,tests, procedures, indepentently interpreting results, counseling the patient and care coordination
--- NOTE | 2023-06-05 10:37 | PDOC.HHF2F_ITS ---
Home Health Referral Home Health Orders Clinical synopsis of why skilled professionals are needed: frail, elderly patient, multiple comorbidities, medication changes, prolonged hospital course Medical diagnosis necessitation home health referral: pneumonia, copd exacerbation Registered Nurse: Check all that apply Instruct on new or changed medication(s)/assess compliance: Ordered Assess for exacerbation of medical condition, instruct patient/caregivers on signs and symptoms to report for early detection: Ordered Physical Therapist: Check all that apply Increase strength & endurance for safe mobility at home: Ordered To design/establish home maintenance program: Ordered Fall reduction therapy program for patient with history of frequent falls: Ordered Home safety evaluation and teaching/gait training including stair management (if applicable): Ordered Occupational Therapist: Evaluate and treat for patient unable to perform ADL/IADL/self-care: Ordered Upper extremity strengthening, range and motion: Ordered Home Bound Status Requires the aid of supportive device (check all that apply): Walker Describe why leaving home would require a considerable and taxing effort: Side effects from pain medication (sedation/drowsiness) and Requires frequent rest periods Encounter Date and Reason: I certify that a FTF encounter for this patient was performed on June 05, 2023 and that such encounter was related to the primary reason the patient requires home health services. The encounter was conducted in the following manner: * By me as the certifying physician, TIMBER CRUISER, PA or * By an inpatient physician, TIMBER CRUISER or PA during an inpatient stay who communicated findings to me, Certification And Authentication I certify that I composed the above information based on my clinical judgment relating to this patient's medical condition and, if applicable, clinical findings communicated to me by the NPP or inpatient physician who performed the FTF encounter. Name of Provider that will be monitoring home health services: Seema Griffith
--- NOTE | 2023-06-05 11:15 | PDOC.CMDIS ---
Date of service: 06/05/23 Time of Service: 11:15 LACE Index Scoring Tool Questions: Length of Stay (in days): 7 - 13 Was the patient admitted via the E.D.?: Yes Comorbidities: Chronic Pulmonary Disease E.D. Visits: 1 Answers: Total Score: 11 Risk of Readmission: High Risk Care Management Discharge Plan Reason for Hospitalization: COPD Exacerbation Discharge Plan: Mike returned home today with new orders for HH RN, PT, OT. His was present for discharge, and will help support him at home. His drove him home via private vehicle. He will follow up with his PCP and discharge plan of care. He is happy to be going home. Patient/Family Education Needs: Review discharge instructions and limitations, discussion of self care needs including ask me three. Services Needed at Discharge: Home Health Care Services (new HH RN, PT, OT)
--- NOTE | 2023-06-06 06:16 | PT.INDS ---
PT Notes Visit Reasons: Pneumonia, hypokalemia Physical Therapy Inpatient Discharge Dates of Service: 05/29/2023 - 06/05/23 Referring Doctor: Hesham Britton MD PT Orders: PT CONSULT: Eval/Treat Precautions: Fall. Standard. Activity as tolerated. PUI precautions in place for COVID-19 and MRSA infection. This document serves as a summary of care. No PT services were provided on this date. Patient Profile/Admitting Diagnosis: Mike is an 83-year-old male who presented to the ED on 05/27/2023 due to shortness of breath, generalized weakness, chills, and fever. Patient is admitted to acute level of care for management of community-acquired pneumonia, COPD exacerbation, hypokalemia, and acute respiratory failure with hypoxia. Patient participated in 8 sessions of PT intervention over the course of 8 days. He was able to demonstrate safety and mobility sufficient to allow for safe return home with HH PT and family support. PMHX: All Active Problems?(Updated 05/27/23 @ 17:49 by Leonor Coon NP) History of bleeding peptic ulcer (Acute) Hypokalemia (Acute) COPD exacerbation (Acute) Community acquired pneumonia (Acute) Osteoarthritis of right knee (Acute) Steroid injection: 08/15/2020; 09/25/21; 02/19/2022; 06/28/22 COPD (chronic obstructive pulmonary disease) (Chronic) Fecal retention (Acute) Superior mesenteric artery stenosis (Acute) Lumbosacral spondylosis without myelopathy (Acute) Anemia (Chronic) Chest pain (Acute) History of gastrointestinal bleeding (Acute) Iron deficiency (Acute) Medical History?(Updated 05/27/23 @ 17:49 by Leonor Coon NP) Alcohol abuse Currently he is not drinking dailyAnosmia Back pain Balance problem uses caneBilateral inguinal hernia without obstruction or gangrene Bleeding duodenal ulcer Cataracts, bilateral Chest discomfort no chest pain pressure or concerns at time of assessment Chronic back pain Chronic GERD Chronic iron deficiency anemia Chronic pain Diarrhea Discharge planning issues DVT prophylaxis Dysphagia Emphysema, unspecified Exertional dyspnea Folate deficiency anemia Gastritis H/O skin pruritus Herniated lumbar intervertebral disc Hip pain, left History of traumatic fracture of vertebra HTN (hypertension) Hx of squamous cell carcinoma Inguinal hernia, bilateral Insomnia Knee pain, bilateral Leg swelling Lower back pain Osteoarthritis of left knee Steroid injection: 08/15/2020 s/p left TKA Osteoarthritis of lumbar spine PUD (peptic ulcer disease) Sleep disturbance Spondylosis of lumbar spine Spondylosis, cervical Symptomatic anemia Syncope Tobacco dependence in remission Unintentional weight loss Vitamin D deficiency Surgical History?(Updated 04/24/23 @ 15:03 by Lilia Blanco) 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 Uses no AD indoors, walker outdoors. Equipment Owned/DME: FWW, SPC Subjective: none obtained Objective: ROM: Right Upper Extremity: Shoulder Flexion lacks the last 25% of AROM. Shoulder abduction lacks the last 25% of AROM. Elbow flexion WFL. Wrist flexion WFL. Functional opening and closing of hand WFL. Left Upper Extremity: Shoulder Flexion lacks the last 25% of AROM. Shoulder abduction lacks the last 25% of AROM. Elbow flexion WFL. Wrist flexion WFL. Functional opening and closing of hand WFL. Right Lower Extremity: Hip flexion WFL. Hip abduction WFL. Knee flexion WFL. Ankle dorsiflexion WFL. Ankle plantarflexion WFL. Left Lower Extremity: Hip flexion WFL. Hip abduction WFL. Knee flexion WFL. Ankle dorsiflexion WFL. Ankle plantarflexion WFL. Strength: Right Upper Extremity: Shoulder flexors 3-/5. Shoulder abductors 3-/5. Elbow flexors 4-/5. Elbow extensors 4-/5. Health Data Analyst strong. Left Upper Extremity: Shoulder flexors 3-/5. Shoulder abductors 3-/5. Elbow flexors 4-/5. Elbow extensors 4-/5. Health Data Analyst strong. Right Lower Extremity: Hip flexors 4-/5. Hip abductors 4-/5. Knee flexors 4-/5. Knee extensors 4-/5. Ankle dorsiflexors 4-/5. Ankle plantarflexors 4-/5. Left Lower Extremity: Hip flexors 4-/5. Hip abductors 4-/5. Knee flexors 4-/5. Knee extensors 4-/5. Ankle dorsiflexors 4-/5. Ankle plantarflexors 4-/5. BED MOBILITY: Rolling L/R: min assist of one.? Sit-supine: independent to min assist of one to lift legs. ?Sit-stand: CGA with cues to patient to push up from sitting surface. ?Stand-sit: CGA with cues to reach back for sitting surface.?Bed-Chair: SBA ?Chair-bed: SBA GAIT: Device: FWW Weight Bearing: FWB Assist: CGA with w/c follow Distance: 200' Balance: Static Sitting: Normal Dynamic Sitting: Normal Static Standing: Fair Dynamic Standing: Fair ASSESSMENT: Mike is an 83-year-old male who presented to the ED on 05/27/2023 due to shortness of breath, generalized weakness, chills, and fever. Patient is admitted to acute level of care for management of community-acquired pneumonia, COPD exacerbation, hypokalemia, and acute respiratory failure with hypoxia. Patient participated in 8 sessions of PT intervention over the course of 8 days. He was able to demonstrate safety and mobility sufficient to allow for safe return home with HH PT and family support. Goals: Goals X1 week 1. Supine-Sit independent (Progressing Toward) 2. Sit-Supine independent (Progressing Toward) 3. Sit-Stand independent (Progressing Toward) 4. Stand-Sit independent with FWW (Progressing Toward) 5. Bed-Chair independent with FWW (Progressing Toward) 6. Chair-Bed independent with FWW (Progressing Toward) 7. Independent gait on level surface with use of FWW for at least 150 feet without report of pain nor dyspnea (Progressing Toward) 8. Independent stair negotiation while holding onto B rails for at least 10 steps without report of pain nor dyspnea (Progressing Toward) 9. Independent with home exercise program (NOT MET) 10. Good static and dynamic standing balance/tolerance (NOT MET) Plan of Care/Treatment Plan: D/C from PT in acute care setting DISCHARGE RECOMMENDATIONS: [X] PT to allow for continued progress towards goals TREATMENT CODE/TIME: none Thank you for the opportunity to participate in the care of this patient. Andreea Davis PT, DPT [facility] [place], [place]
== END 2023-06-05 10:57 | disposition home health service (06) | DRG 193 ==
LOC: ER 14:33 → MS 14:42
PROVIDERS: Family Medicine; Internal Medicine; Nurse Practitioner Acute Care; Nurse Practitioner Family; Student in an Organized Health Care Education/Training Program; Admitting Provider Family Medicine; Emergency Provider Physician Assistant; PCP Nurse Practitioner Family; Visit Provider Family Medicine
DX: J18.9 Pneumonia, unspecified organism (principal); J96.01 Acute respiratory failure with hypoxia; J44.0 Chronic obstructive pulmonary disease with (acute) lower respiratory infection; E87.1 Hypo-osmolality and hyponatremia; K55.1 Chronic vascular disorders of intestine; J44.1 Chronic obstructive pulmonary disease with (acute) exacerbation; I24.89 Other forms of acute ischemic heart disease; R64 Cachexia; Z68.1 Body mass index [BMI] 19.9 or less, adult; E87.6 Hypokalemia; R53.1 Weakness; I10 Essential (primary) hypertension; K21.9 Gastro-esophageal reflux disease without esophagitis; M17.11 Unilateral primary osteoarthritis, right knee; Z87.11 Personal history of peptic ulcer disease; M47.816 Spondylosis without myelopathy or radiculopathy, lumbar region; F10.10 Alcohol abuse, uncomplicated; M54.9 Dorsalgia, unspecified; G89.29 Other chronic pain; D50.9 Iron deficiency anemia, unspecified; D52.9 Folate deficiency anemia, unspecified; M51.26 Other intervertebral disc displacement, lumbar region; K29.70 Gastritis, unspecified, without bleeding; G47.00 Insomnia, unspecified; Z96.652 Presence of left artificial knee joint; Z87.891 Personal history of nicotine dependence; M47.812 Spondylosis without myelopathy or radiculopathy, cervical region; L89.152 Pressure ulcer of sacral region, stage 2; R07.89 Other chest pain; R59.0 Localized enlarged lymph nodes; R00.0 Tachycardia, unspecified; E83.42 Hypomagnesemia; T17.990A Other foreign object in respiratory tract, part unspecified in causing asphyxiation, initial encounter
CPT/HCPCS: 36415; 71275; 80048; 80053; 83690; 84145; 85027; 86850; 86900; 86901; 86920; 87040; 87449; 87635; 87637; 87641; 92610; 93005; 94618; 94640; 96365; 96367; 97110; 97116; 97162; 97530; 99233; 99285; 71045; 71046; 81003; 81015; 82607; 82728; 82746; 83540; 83550; 83605; 83735; 83880; 84443; 84484; 85014; 85018; 85025; 85379; 86140; 87070; 87205; 87385; 87899; 93010; 93306; 94664; 94667; 94668; 94760; 99223; 99232; 99239; J1650; J2930; J3475; J3490; J7512; J7614; J7620; J7644; P9016

== ENCOUNTER 2023-07-01 15:33 | Outpatient (REF) | payer MEDICARE, SELFPAY ==
[2023-07-01 17:16] LABS: Abs Immature Grans 0.04 10^3/uL (0.0-0.06); Absolute Eosinophil Count 0.01 10^3/uL (0.0-0.7); Basophils % 0.2; Eosinophils % 0.1; HCT 30.6 % (40.0-50.0); HGB 10.2 g/dL (13.5-17.5); Immature Grans % 0.3; Lymphocytes % 18.3; MCH 26.5 pg (27.0-33.0); MCHC 33.3 % (32.0-36.0); MCV 80 fL (80-95); MPV 9.9 fL (8.0-11.0); Monocytes % 9.5; Neutrophils % 71.6; Platelet Count 403 10^3/uL (130-400); RBC 3.85 10^6/uL (4.36-5.78); RDW-SD 69.2 fL; WBC 12.59 10^3/uL (4.4-10.8)
[2023-07-01 17:37] LABS: Absolute Basophil Count 0.03 10^3/uL (0.0-0.2); Absolute Neutrophil Count 9.01 10^3/uL (1.2-6.7)
[2023-07-01 17:40] LABS: Anion Gap 9.7 mmol/L (3-11); BUN 22 mg/dL (7-18); CO2 23.3 mmol/L (21.0-32.0); CREATININE 0.7 mg/dL (0.70-1.30); Calcium 8.5 mg/dL (8.5-10.1); Chloride 99 mmol/L (98-107); Estimated GFR 91.42 (mL/min/1.73m2); Glucose 137 mg/dL (74-106); Magnesium 1.4 mg/dL (1.8-2.4); Potassium 3.7 mmol/L (3.5-5.1); Sodium 132 mmol/L (136-145)
[2023-07-01 18:22] LABS: Anisocytosis 2+; Diff Comment RBC Morph Reviewed; Hypochromasia 1+; Microcytosis 1+; Poikilocytes 1+
== END 2023-07-01 15:34 | disposition home or self-care (01) ==
LOC: NCHCN 15:33
PROVIDERS: PCP Nurse Practitioner Family; Visit Provider Nurse Practitioner Family
DX: J44.0 Chronic obstructive pulmonary disease with (acute) lower respiratory infection (principal); J18.9 Pneumonia, unspecified organism; D50.9 Iron deficiency anemia, unspecified; K65.1 Peritoneal abscess
CPT/HCPCS: 80048; 83735; 85025

== ENCOUNTER 2023-07-12 15:01 | Outpatient (REF) | payer MEDICARE, SELFPAY ==
[2023-07-12 16:09] LABS: C Diff PCR Negative (Negative)
== END 2023-07-12 15:02 | disposition home or self-care (01) ==
LOC: LBN 15:01
PROVIDERS: PCP Nurse Practitioner Family; Visit Provider Nurse Practitioner Family
DX: R19.5 Other fecal abnormalities (principal); K63.89 Other specified diseases of intestine
CPT/HCPCS: 87493

== ENCOUNTER 2023-07-13 15:42 | Outpatient (REF) | payer MEDICARE, SELFPAY ==
[2023-07-13 13:47] LABS: Abs Immature Grans 0.05 10^3/uL (0.0-0.06); Absolute Basophil Count 0.04 10^3/uL (0.0-0.2); Absolute Lymphocyte Count 3.91 10^3/uL (1.2-3.4); Absolute Monocyte Count 0.79 10^3/uL (0.1-0.8); Absolute Neutrophil Count 7.59 10^3/uL (1.2-6.7); Basophils % 0.3; Eosinophils % 0.2; HGB 9.9 g/dL (13.5-17.5); Immature Grans % 0.4; Lymphocytes % 31.5; MCH 26.1 pg (27.0-33.0); MCHC 31.9 % (32.0-36.0); MCV 82 fL (80-95); MPV 10.4 fL (8.0-11.0); Monocytes % 6.4; Neutrophils % 61.2; Platelet Count 429 10^3/uL (130-400); RDW 24.1 % (11.8-14.1); RDW-SD 70.2 fL; WBC 12.41 10^3/uL (4.4-10.8)
[2023-07-13 13:56] LABS: Anion Gap 8.1 mmol/L (3-11); BUN 18 mg/dL (7-18); CO2 22.9 mmol/L (21.0-32.0); CREATININE 0.8 mg/dL (0.70-1.30); Chloride 101 mmol/L (98-107); Estimated GFR 87.81 (mL/min/1.73m2); Glucose 84 mg/dL (74-106); Magnesium 0.8 mg/dL (1.8-2.4); Potassium 4.6 mmol/L (3.5-5.1); Sodium 132 mmol/L (136-145)
[2023-07-13 14:03] LABS: Absolute Eosinophil Count 0.02 10^3/uL (0.0-0.7); Anisocytosis 2+; Diff Comment RBC Morph Reviewed
== END 2023-07-13 15:43 | disposition home or self-care (01) ==
LOC: LBN 15:42
PROVIDERS: PCP Nurse Practitioner Family; Visit Provider Nurse Practitioner Family
DX: I44.0 Atrioventricular block, first degree (principal); I10 Essential (primary) hypertension; D50.9 Iron deficiency anemia, unspecified; J18.9 Pneumonia, unspecified organism; J44.0 Chronic obstructive pulmonary disease with (acute) lower respiratory infection
CPT/HCPCS: 80048; 83735; 85025

== ENCOUNTER → 2023-08-16 00:26 | Outpatient (CLI) | payer MEDICARE, SELFPAY ==
--- NOTE | 2023-08-16 10:24 | DI.RAD_ITS ---
Exam(s) XR CHEST 2V PA LATERAL EXAM: XR CHEST 2V PA LATERAL CLINICAL HISTORY: assess PNA resolution,f/u pneumonia,j18.9 TECHNIQUE: 2D digital imaging was performed. COMPARISON: CR,XR XR CHEST 2V PA LATERAL from 04/21/2023 CR XR CHEST 2V PA LATERAL from 05/27/[address] CHEST PE CTA from 05/30/2023 CR,XR XR PORTABLE CHEST AP from 06/02/2023 FINDINGS: HEART: Normal size. Aorta: Not dilated. PULMONARY VASCULATURE: Normal. LUNGS: Underlying emphysematous changes. Continued improvement in left upper lobe infiltrate some de nsities persist which could indicate residual scarring. There is significant right upper lobe volume loss. The left lung is clear.. PLEURAL SPACE: No pleural effusion or pneumothorax. BONE:Unremarkable for age. Soft tissues: Unremarkable. IMPRESSION: Improvement in right upper lobe infiltrate with residual scarring and volume loss. DATA REPOSITORY: RADIATION DOSE DELIVERED:
== END ==
PROVIDERS: PCP Nurse Practitioner Family; Visit Provider Student in an Organized Health Care Education/Training Program
DX: J18.9 Pneumonia, unspecified organism (principal)
CPT/HCPCS: 71046